=== PATIENT | female | born 1985 | race Caucasian/White ===

== ENCOUNTER 2016-04-09 16:21 | Emergency (ER) | payer OTHER ==
[~2016-04-09 16:21] MED LIST: ANBEEL MT; CELE10TA PO; CLEO300C2 PO; CLON0.5T PO; DEPA1TAB3 PO; FLEXERIL; KLON1TAB PO; LIDOCAINE PO; NALT50TA4 PO; NORCOTAB PO; OXYC-299 PO; OXYIR; REVI50TA2 PO; SENO8.6T2 PO; VICO5TAB
[2016-04-09] MEDS ORDERED: NORCO, ANEXSIA 5/325MG TABLET (HYDROcodone/ACETAMINOPHEN) As Ordered ONE (16:42)
--- NOTE | 2016-04-09 17:34 | REP ---
Clinical: Trauma with right sciatica. Technique: Axial noncontrast images from T12 through mid sacrum with coronal and sagittal re-formations. Findings: Normal alignment and lordosis is maintained. Lumbar vertebral bodies including transverse processes and posterior elements/spinous processes are intact and there is no evidence for acute fracture / compression injury or subluxation. Spinal canal is patent. No significant degenerative changes are appreciated by CT evaluation. Neural foramen appear patent bilaterally. Paravertebral soft tissues are normal. Impression: Normal noncontrast lumbosacral spine CT. No evidence for acute pathology or trauma/injury. Signed by Flash Mazariegos MD 04/09/2016 05:25 P
--- NOTE | 2016-04-09 17:48 | EDDOCDS ---
Physician Documentation [facility] Name: Diana Hernandez Age: 30 yrs Sex: Female : 1985 Arrival Date: 04/09/2016 Time: 16:21 Bed PR Private MD: Huang Arteaga Disposition: 04/09/16 17:27 Discharged to Home/Self Care. Impression: Low back pain, Fall (on) (from) other stairs and steps. - Condition is Stable. - Discharge Instructions: Back Pain, Adult, Sciatica. - Prescriptions for Tylenol 325 mg Oral Tablet - take 2 tablet by ORAL route every 6 hours as needed; 1 bottle. Medrol (Quinten) 4 mg Oral Tablets, Dose Pack - take 1 Pack by ORAL route as directed - follow package instructions; 1 packet. - Medication Reconciliation, Local Pharmacy Hours form. - Follow up: Private Physician; When: Call to arrange an appointment; Reason: Recheck today's complaints, Continuance of care. - Problem is new. - Symptoms are unchanged. Historical: - Allergies: Codeine Sulfatethroat swells; Ibuprofen (Anaphylaxis); Toradol (Hives); Tramadol HCl (Hives); - Home Meds: 1. Seroquel 400 mg oral tab 2 times per day 2. Xanax 0.25 mg Oral tab as needed out of Rx - PMHx: Seizures; uterine cancer; Sciatica; Depression; Chronic Back pain; Cellulitis Right Jaw; Bipolar disorder; Anxiety; Crohn's; Substance Abuse; - PSHx: Cholecystectomy; ; Hysterectomy; Laparoscopy; - Social history: No barriers to communication noted, The patient speaks fluent Congolese, Speaks appropriately for age, Smoking status: Patient uses tobacco products, light tobacco smoker. - Family history: Not pertinent. - : The pt / caregiver states he / she is not on anticoagulants. Home medication list is obtained from the patient. - Exposure Risk Screening:: None identified. 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 4 in. (162.56 cm) (R); Pain 9/10; 17:40 BP 119 / 71; Pulse 91; Resp 18; Temp 98.5(O); Pulse Ox 99% on R/A; kc3 16:22 Body Mass Index 30.90 (81.65 kg, 162.56 cm) ct3 MDM: 16:40 HYDROcodone-acetaminophen 5 mg-325 mg 1 tabs PO once ordered. ar2 16:41 CT Spine, Lumbar W/o Contrast Ordered. EDMS 16:48 Financial registration complete. gjb 16:49 [facility] Payment Agreement was scanned into [employer] and attached to record. gjb Administered Medications: 16:44 Drug: HYDROcodone-acetaminophen 1 tabs [hydrocodone 5 mg-acetaminophen 325 mg tablet (1 ms18 tabs)] Route: PO; Signatures: Dispatcher [employer] EDMS Dorian Santizo PA-C PA-C ar2 Josette Mckenna RN RN ms18 Perla Frias RN RN kc3 Judy Barbosab The chart was reviewed and I authenticate all verbal orders and agree with the evaluation and treatment provided.Attachments: 16:49 [facility] Payment Agreement gjb MTDTray
--- NOTE | 2016-04-09 17:49 | EDDOCDS ---
Nurse's Notes [facility] Name: Diana Hernandez Age: 30 yrs Sex: Female : 1985 Arrival Date: 04/09/2016 Time: 16:21 Bed PR Private MD: Huang Arteaga Diagnosis: Low back pain;Fall (on) (from) other stairs and steps Presentation: 04/09 16:23 Presenting complaint: Patient states: fall down 12 stairs with lower back pain x 10 kc3 days prior with pain radiating down right leg with numbness reported. Pt reports another fall x 1 week ago from standing position landing on back. No relief with Tylenol. Acute neurological deficits are not present. Mechanism of Injury: Fall down 12 steps. Adult Sepsis Screening: The patient does not have new or worsening altered mentation. Patient's respiratory rate is less than 22. Systolic blood pressure is greater than 100. Patient has a qSOFA score of 0- Negative Sepsis Screen. Suicide/Homicide risk assessment- the patient denies having any suicidal and/or homicidal ideations and does not present with any other emotional, behavioral or mental health complaints. Status: Patient is not a consulting services manager or dependent. Transition of care: patient was not received from another setting of care. 16:23 Acuity: PAULY Level 3 kc3 16:23 Method Of Arrival: Walkin/Carried/Asstd kc3 Triage Assessment: 16:28 General: Appears in no apparent distress, Behavior is appropriate for age, cooperative. kc3 Pain: Location: right leg and back Pain currently is 9 out of 10 on a pain scale. HIV screening NA for this visit Offered previously. Neurological: Level of Consciousness is awake, alert, obeys commands, Oriented to person, place, time. Respiratory: Respiratory effort is even, unlabored. Derm: Skin is pink, warm & dry. Musculoskeletal: Circulation, motion, and sensation intact Range of motion limited in right hip Reports pain in right leg and back. 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 Seroquel 400 mg oral tab 2 times per day 2. Xanax 0.25 mg Oral tab as needed out of Rx - PMHx: Seizures; uterine cancer; Sciatica; Depression; Chronic Back pain; Cellulitis Right Jaw; Bipolar disorder; Anxiety; Crohn's; Substance Abuse; - PSHx: Cholecystectomy; ; Hysterectomy; Laparoscopy; - Social history: No barriers to communication noted, The patient speaks fluent Greek, Speaks appropriately for age, Smoking status: Patient uses tobacco products, light tobacco smoker. - Family history: Not pertinent. - : The pt / caregiver states he / she is not on anticoagulants. Home medication list is obtained from the patient. - Exposure Risk Screening:: None identified. Screenin:44 Screening information is obtained from the patient. Fall risk: No risks identified. ms18 Assistance ADL's: requires no assistance with activities of daily living. Abuse/DV Screen: The patient / caregiver reports he/she is: not in a situation that causes fear, pain or injury. Nutritional screening: No deficits noted. Advance Directives: There is no living will. home support is adequate. Assessment: 16:44 General: Appears in no apparent distress, comfortable, Behavior is appropriate for age, ms18 cooperative. Pain: Location: back and right leg Pain currently is 9 out of 10 on a pain scale. Neurological: Level of Consciousness is awake, alert, obeys commands, Oriented to person, place, time, Moves all extremities. Gait is steady, Speech is normal. Respiratory: No deficits noted. Airway is patent Respiratory effort is even, unlabored. Derm: Skin is pink, warm & dry. 17:40 General: Appears in no apparent distress, comfortable, Behavior is appropriate for age, kc3 cooperative. Pain: Location: back. Neurological: Level of Consciousness is awake, alert, obeys commands. Respiratory: Respiratory effort is even, unlabored. Derm: Skin is pink, warm & dry. Vital Signs: 16:22 BP 109 / 62; Pulse 103; Resp 18; Temp 98.8(O); Pulse Ox 100% on R/A; Weight 81.65 kg ct3 (R); Height 5 ft. 4 in. (162.56 cm) (R); Pain 9/10; 17:40 BP 119 / 71; Pulse 91; Resp 18; Temp 98.5(O); Pulse Ox 99% on R/A; kc3 16:22 Body Mass Index 30.90 (81.65 kg, 162.56 cm) ct3 Vitals: 16:22 Log In Time: April 09, 2016 at 16:18. ct3 ED Course: 16:22 Patient visited by Ines Lebron PCA. ct3 16:22 Huang Arteaga is Private Physician. ct3 16:22 Patient moved to Waiting ct3 16:23 Patient moved to Pre RCE kc3 16:26 Triage Initiated kc3 16:30 Patient moved to Triage 2 kc3 16:32 Dorian Santizo PA-C is PHCP. ar2 16:32 Naa England MD is Attending Physician. ar2 16:32 Patient visited by Dorian Santizo PA-C. ar2 16:44 Patient moved to TR2 ms18 16:44 The patient / caregiver is instructed regarding the plan of care and ED course. Patient ms18 has correct armband on for positive identification. Property :Personal belongings accompany Pt. 16:44 No IV's were initiated during this patient's visit. No procedures done that require ms18 assistance. 16:49 [facility] Payment Agreement was scanned into [email or web address] and attached to record. gjb 17:27 Patient visited by Josette Mckenna RN. ms18 17:27 Patient moved to PR1 / 25 ms18 Administered Medications: 16:44 Drug: HYDROcodone-acetaminophen 1 tabs [hydrocodone 5 mg-acetaminophen 325 mg tablet (1 ms18 tabs)] Route: PO; Order Results: There are currently no results for this order. Outcome: 17:27 Discharge ordered by Provider. ar2 17:41 Discharge Assessment: Patient awake, alert and oriented x 3. No cognitive and/or kc3 functional deficits noted. Patient verbalized understanding of disposition instructions. patient administered narcotics - yes. Pt provided with safe discharge. The following High Risk Discharge criteria are identified: None. Condition: stable. Discharge instructions given to patient, Instructed on discharge instructions, follow up and referral plans. medication usage, Demonstrated understanding of instructions, medications, Pt was receptive of discharge instructions/ teaching. Prescriptions given X 2. No special radiology studies were completed. Property :Personal belongings accompany Pt. 17:48 Patient left the ED. ms18 Signatures: Dorian Santizo PA-C PA-C ar2 Ines Lebron PCA ELECTRONIC INDUCTION HARDENER ct3 Josette Mckenna,RN RN ms18 Perla Frias,RN RN kc3 Judy Barbosa Corrections: (The following items were deleted from the chart) 17:42 17:41 Discharge Assessment: Patient awake, alert and oriented x 3. No cognitive and/or kc3 functional deficits noted. Patient verbalized understanding of disposition instructions. patient administered narcotics - no kc3 MTDD
--- NOTE | 2016-04-11 18:49 | EDDOCDS ---
Nurse's Notes [facility] Name: Diana Hernandez Age: 30 yrs Sex: Female : 1985 Arrival Date: 04/09/2016 Time: 16:21 Bed PR Private MD: Huang Arteaga Diagnosis: Low back pain;Fall (on) (from) other stairs and steps Presentation: 04/09 16:23 Presenting complaint: Patient states: fall down 12 stairs with lower back pain x 10 kc3 days prior with pain radiating down right leg with numbness reported. Pt reports another fall x 1 week ago from standing position landing on back. No relief with Tylenol. Acute neurological deficits are not present. Mechanism of Injury: Fall down 12 steps. Adult Sepsis Screening: The patient does not have new or worsening altered mentation. Patient's respiratory rate is less than 22. Systolic blood pressure is greater than 100. Patient has a qSOFA score of 0- Negative Sepsis Screen. Suicide/Homicide risk assessment- the patient denies having any suicidal and/or homicidal ideations and does not present with any other emotional, behavioral or mental health complaints. Status: Patient is not a loan services professional or dependent. Transition of care: patient was not received from another setting of care. 16:23 Acuity: PAULY Level 3 kc3 16:23 Method Of Arrival: Walkin/Carried/Asstd kc3 Triage Assessment: 16:28 General: Appears in no apparent distress, Behavior is appropriate for age, cooperative. kc3 Pain: Location: right leg and back Pain currently is 9 out of 10 on a pain scale. HIV screening NA for this visit Offered previously. Neurological: Level of Consciousness is awake, alert, obeys commands, Oriented to person, place, time. Respiratory: Respiratory effort is even, unlabored. Derm: Skin is pink, warm & dry. Musculoskeletal: Circulation, motion, and sensation intact Range of motion limited in right hip Reports pain in right leg and back. 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 Seroquel 400 mg oral tab 2 times per day 2. Xanax 0.25 mg Oral tab as needed out of Rx - PMHx: Seizures; uterine cancer; Sciatica; Depression; Chronic Back pain; Cellulitis Right Jaw; Bipolar disorder; Anxiety; Crohn's; Substance Abuse; - PSHx: Cholecystectomy; ; Hysterectomy; Laparoscopy; - Social history: No barriers to communication noted, The patient speaks fluent Faroese, Speaks appropriately for age, Smoking status: Patient uses tobacco products, light tobacco smoker. - Family history: Not pertinent. - : The pt / caregiver states he / she is not on anticoagulants. Home medication list is obtained from the patient. - Exposure Risk Screening:: None identified. Screenin:44 Screening information is obtained from the patient. Fall risk: No risks identified. ms18 Assistance ADL's: requires no assistance with activities of daily living. Abuse/DV Screen: The patient / caregiver reports he/she is: not in a situation that causes fear, pain or injury. Nutritional screening: No deficits noted. Advance Directives: There is no living will. home support is adequate. Assessment: 16:44 General: Appears in no apparent distress, comfortable, Behavior is appropriate for age, ms18 cooperative. Pain: Location: back and right leg Pain currently is 9 out of 10 on a pain scale. Neurological: Level of Consciousness is awake, alert, obeys commands, Oriented to person, place, time, Moves all extremities. Gait is steady, Speech is normal. Respiratory: No deficits noted. Airway is patent Respiratory effort is even, unlabored. Derm: Skin is pink, warm & dry. 17:40 General: Appears in no apparent distress, comfortable, Behavior is appropriate for age, kc3 cooperative. Pain: Location: back. Neurological: Level of Consciousness is awake, alert, obeys commands. Respiratory: Respiratory effort is even, unlabored. Derm: Skin is pink, warm & dry. Vital Signs: 16:22 BP 109 / 62; Pulse 103; Resp 18; Temp 98.8(O); Pulse Ox 100% on R/A; Weight 81.65 kg ct3 (R); Height 5 ft. 4 in. (162.56 cm) (R); Pain 9/10; 17:40 BP 119 / 71; Pulse 91; Resp 18; Temp 98.5(O); Pulse Ox 99% on R/A; kc3 16:22 Body Mass Index 30.90 (81.65 kg, 162.56 cm) ct3 Vitals: 16:22 Log In Time: April 09, 2016 at 16:18. ct3 ED Course: 16:22 Patient visited by Ines Lebron PCA. ct3 16:22 Huang Arteaga is Private Physician. ct3 16:22 Patient moved to Waiting ct3 16:23 Patient moved to Pre RCE kc3 16:26 Triage Initiated kc3 16:30 Patient moved to Triage 2 kc3 16:32 Dorian Santizo PA-C is PHCP. ar2 16:32 Naa England MD is Attending Physician. ar2 16:32 Patient visited by Dorian Santizo PA-C. ar2 16:44 Patient moved to TR2 ms18 16:44 The patient / caregiver is instructed regarding the plan of care and ED course. Patient ms18 has correct armband on for positive identification. Property :Personal belongings accompany Pt. 16:44 No IV's were initiated during this patient's visit. No procedures done that require ms18 assistance. 16:49 [facility] Payment Agreement was scanned into [employer] and attached to record. gjb 17:27 Patient visited by Josette Mckenna RN. ms18 17:27 Patient moved to PR ms18 18:18 CT Spine, Lumbar W/o Contrast Returned. EDMS 04/10 11:58 T-Sheet-- Draft Copy was scanned into [employer] and attached to record. gb 11:58 Radiology Report was scanned into [employer] and attached to record. gb Administered Medications: 04/09 16:44 Drug: HYDROcodone-acetaminophen 1 tabs [hydrocodone 5 mg-acetaminophen 325 mg tablet (1 ms18 tabs)] Route: PO; Order Results: Radiology Order: CT Spine, Lumbar W/o Contrast Test: CT Spine, Lumbar W/o Contrast REASON FOR EXAMINATION: trauma, right sciatica; Clinical: Trauma with right sciatica.; ; Technique: Axial noncontrast images from T12 through mid sacrum with coronal and; sagittal re-formations.; ; Findings:; Normal alignment and lordosis is maintained. Lumbar vertebral bodies including; transverse processes and posterior elements/spinous processes are intact and; there is no evidence for acute fracture / compression injury or subluxation.; Spinal canal is patent. No significant degenerative changes are appreciated by; CT evaluation. Neural foramen appear patent bilaterally. Paravertebral soft; tissues are normal.; ; Impression:; Normal noncontrast lumbosacral spine CT.; No evidence for acute pathology or trauma/injury.; ; ; Signed by; Flash Mazariegos MD 04/09/2016 05:25 P; Outcome: 17:27 Discharge ordered by Provider. ar2 17:41 Discharge Assessment: Patient awake, alert and oriented x 3. No cognitive and/or kc3 functional deficits noted. Patient verbalized understanding of disposition instructions. patient administered narcotics - yes. Pt provided with safe discharge. The following High Risk Discharge criteria are identified: None. Condition: stable. Discharge instructions given to patient, Instructed on discharge instructions, follow up and referral plans. medication usage, Demonstrated understanding of instructions, medications, Pt was receptive of discharge instructions/ teaching. Prescriptions given X 2. No special radiology studies were completed. Property :Personal belongings accompany Pt. 17:48 Patient left the ED. ms18 Signatures: Dispatcher [employer] EDMS Radha Juarez, Reg Reg gb Dorian Santizo PA-C PA-C ar2 Ines Lebron, METER ENGINEER METER ENGINEER ct3 Josette Mckenna RN RN ms18 Perla Frias,TALA RN kc3 Judy Barbosa Corrections: (The following items were deleted from the chart) 17:42 17:41 Discharge Assessment: Patient awake, alert and oriented x 3. No cognitive and/or kc3 functional deficits noted. Patient verbalized understanding of disposition instructions. patient administered narcotics - no kc3 Chart Complete MTDD
--- NOTE | 2016-04-11 18:49 | EDDOCDS ---
Physician Documentation [facility] Name: Diana Hernandez Age: 30 yrs Sex: Female : 1985 Arrival Date: 04/09/2016 Time: 16:21 Bed PR Private MD: Huang Arteaga Disposition: 04/09/16 17:27 Discharged to Home/Self Care. Impression: Low back pain, Fall (on) (from) other stairs and steps. - Condition is Stable. - Discharge Instructions: Back Pain, Adult, Sciatica. - Prescriptions for Tylenol 325 mg Oral Tablet - take 2 tablet by ORAL route every 6 hours as needed; 1 bottle. Medrol (Quinten) 4 mg Oral Tablets, Dose Pack - take 1 Pack by ORAL route as directed - follow package instructions; 1 packet. - Medication Reconciliation, Local Pharmacy Hours form. - Follow up: Private Physician; When: Call to arrange an appointment; Reason: Recheck today's complaints, Continuance of care. - Problem is new. - Symptoms are unchanged. Historical: - Allergies: Codeine Sulfatethroat swells; Ibuprofen (Anaphylaxis); Toradol (Hives); Tramadol HCl (Hives); - Home Meds: 1. Seroquel 400 mg oral tab 2 times per day 2. Xanax 0.25 mg Oral tab as needed out of Rx - PMHx: Seizures; uterine cancer; Sciatica; Depression; Chronic Back pain; Cellulitis Right Jaw; Bipolar disorder; Anxiety; Crohn's; Substance Abuse; - PSHx: Cholecystectomy; ; Hysterectomy; Laparoscopy; - Social history: No barriers to communication noted, The patient speaks fluent Croatian, Speaks appropriately for age, Smoking status: Patient uses tobacco products, light tobacco smoker. - Family history: Not pertinent. - : The pt / caregiver states he / she is not on anticoagulants. Home medication list is obtained from the patient. - Exposure Risk Screening:: None identified. 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 4 in. (162.56 cm) (R); Pain 9/10; 17:40 BP 119 / 71; Pulse 91; Resp 18; Temp 98.5(O); Pulse Ox 99% on R/A; kc3 16:22 Body Mass Index 30.90 (81.65 kg, 162.56 cm) ct3 MDM: 16:40 HYDROcodone-acetaminophen 5 mg-325 mg 1 tabs PO once ordered. ar2 16:41 CT Spine, Lumbar W/o Contrast Ordered. EDMS 16:48 Financial registration complete. [facility] 16:49 [facility] Payment Agreement was scanned into [employer] and attached to record. b 04/10 11:58 T-Sheet-- Draft Copy was scanned into [employer] and attached to record. gb 11:58 Radiology Report was scanned into [employer] and attached to record. gb Administered Medications: 04/09 16:44 Drug: HYDROcodone-acetaminophen 1 tabs [hydrocodone 5 mg-acetaminophen 325 mg tablet (1 ms18 tabs)] Route: PO; Signatures: Dispatcher [employer] EDMS Radha Juarez, Reg Reg gb Dorian Santizo, PA-Luanne PA-C ar2 Josette MckennaRN RN ms18 Perla Frias,TALA RN kc3 Judy Barbosab The chart was reviewed and I authenticate all verbal orders and agree with the evaluation and treatment provided.Attachments: 16:49 [facility] Payment Agreement [facility] 04/10 11:58 T-Sheet-- Draft Copy gb Chart Complete MTDD
--- NOTE | 2016-04-11 18:49 | EDDOCDS ---
Physician Documentation [facility] Name: Diana Hernandez Age: 30 yrs Sex: Female : 1985 Arrival Date: 04/09/2016 Time: 16:21 Bed PR Private MD: Huang Arteaga Disposition: 04/09/16 17:27 Discharged to Home/Self Care. Impression: Low back pain, Fall (on) (from) other stairs and steps. - Condition is Stable. - Discharge Instructions: Back Pain, Adult, Sciatica. - Prescriptions for Tylenol 325 mg Oral Tablet - take 2 tablet by ORAL route every 6 hours as needed; 1 bottle. Medrol (Quinten) 4 mg Oral Tablets, Dose Pack - take 1 Pack by ORAL route as directed - follow package instructions; 1 packet. - Medication Reconciliation, Local Pharmacy Hours form. - Follow up: Private Physician; When: Call to arrange an appointment; Reason: Recheck today's complaints, Continuance of care. - Problem is new. - Symptoms are unchanged. Historical: - Allergies: Codeine Sulfatethroat swells; Ibuprofen (Anaphylaxis); Toradol (Hives); Tramadol HCl (Hives); - Home Meds: 1. Seroquel 400 mg oral tab 2 times per day 2. Xanax 0.25 mg Oral tab as needed out of Rx - PMHx: Seizures; uterine cancer; Sciatica; Depression; Chronic Back pain; Cellulitis Right Jaw; Bipolar disorder; Anxiety; Crohn's; Substance Abuse; - PSHx: Cholecystectomy; ; Hysterectomy; Laparoscopy; - Social history: No barriers to communication noted, The patient speaks fluent Monegasque, Speaks appropriately for age, Smoking status: Patient uses tobacco products, light tobacco smoker. - Family history: Not pertinent. - : The pt / caregiver states he / she is not on anticoagulants. Home medication list is obtained from the patient. - Exposure Risk Screening:: None identified. 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 4 in. (162.56 cm) (R); Pain 9/10; 17:40 BP 119 / 71; Pulse 91; Resp 18; Temp 98.5(O); Pulse Ox 99% on R/A; kc3 16:22 Body Mass Index 30.90 (81.65 kg, 162.56 cm) ct3 MDM: 16:40 HYDROcodone-acetaminophen 5 mg-325 mg 1 tabs PO once ordered. ar2 16:41 CT Spine, Lumbar W/o Contrast Ordered. EDMS 16:48 Financial registration complete. [facility] 16:49 [facility] Payment Agreement was scanned into [facility] and attached to record. b 04/10 11:58 T-Sheet-- Draft Copy was scanned into [facility] and attached to record. gb 11:58 Radiology Report was scanned into [facility] and attached to record. gb Administered Medications: 04/09 16:44 Drug: HYDROcodone-acetaminophen 1 tabs [hydrocodone 5 mg-acetaminophen 325 mg tablet (1 ms18 tabs)] Route: PO; Signatures: Dispatcher [employer] EDMS Radha Juarez, Reg Reg gb Dorian Santizo, PA-Luanne PA-C ar2 Josette MckennaRN RN ms18 Perla Frias,TALA RN kc3 Judy Barbosab The chart was reviewed and I authenticate all verbal orders and agree with the evaluation and treatment provided.Attachments: 16:49 [facility] Payment Agreement [facility] 04/10 11:58 T-Sheet-- Draft Copy gb Chart Complete MTDD
== END 2016-04-09 17:48 | disposition home or self-care (01) ==
LOC: M ED 16:21
DX: M54.30 Sciatica, unspecified side (principal); R56.9 Unspecified convulsions; F31.9 Bipolar disorder, unspecified; K50.90 Crohn's disease, unspecified, without complications; F19.10 Other psychoactive substance abuse, uncomplicated; Z79.899 Other long term (current) drug therapy; Z88.8 Allergy status to other drugs, medicaments and biological substances; Z88.6 Allergy status to analgesic agent; Z85.42 Personal history of malignant neoplasm of other parts of uterus

== ENCOUNTER 2016-04-11 21:00 | Emergency (ER) | payer OTHER ==
[2016-04-11] MEDS ORDERED: PHENAZOPYRIDINE 100 MG TAB As Ordered ONE (23:00)
[2016-04-11] MEDS ORDERED: BACTRIM 160MG/800MG DS TAB As Ordered ONE (23:00)
--- NOTE | 2016-04-11 23:24 | EDDOCDS ---
Nurse's Notes [facility] Name: Diana Hernandez Age: 30 yrs Sex: Female : 1985 Arrival Date: 04/11/2016 Time: 21:00 Bed TR8 Private MD: [facility] Diagnosis: Urinary tract infection, site not specified Presentation: 04/11 21:04 Presenting complaint: Patient states: lower abdominal pain, urgency/hesitancy with rs3 urination/ dark brown bleeding since yesterday. H/o Crohns'. Adult Sepsis Screening: The patient does not have new or worsening altered mentation. Patient's respiratory rate is less than 22. Systolic blood pressure is greater than 100. Patient has a qSOFA score of 0- Negative Sepsis Screen. Suicide/Homicide risk assessment- the patient denies having any suicidal and/or homicidal ideations and does not present with any other emotional, behavioral or mental health complaints. Status: Patient is not a services executive or dependent. Transition of care: patient was not received from another setting of care. 21:04 Acuity: PAULY Level 3 rs3 21:04 Method Of Arrival: Walkin/Carried/Asstd rs3 Triage Assessment: 21:07 General: Appears in no apparent distress. Pain: Location: pelvis. HIV screening NA for rs3 this visit Offered previously. 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 Seroquel 400 mg Oral tab 2 times per day 2. Xanax 0.25 mg Oral tab as needed out of Rx 3. tizanidine 2 mg oral tab 1 tabs every 3 hours as needed 4. lidocaine jelly 1 application three times a day 5. capsaicin topical topical 3 times per day 6. dicyclomine 10 mg Oral cap 1 cap three times per day as needed - PMHx: Anxiety; Bipolar disorder; Cellulitis Right Jaw; Chronic Back pain; Crohn's; Sciatica; Depression; Seizures; Substance Abuse; uterine cancer; - PSHx: Cholecystectomy; ; Hysterectomy; Laparoscopy; - Social history: Smoking status: Patient uses tobacco products, light tobacco smoker. No barriers to communication noted, The patient speaks fluent Luxembourgish. - Family history: Not pertinent. - : The pt / caregiver states he / she is not on anticoagulants. Home medication list is obtained from the patient. - Exposure Risk Screening:: None identified. Screenin:18 Screening information is obtained from the patient. Fall risk: No risks identified. ld5 Assistance ADL's: requires no assistance with activities of daily living. Abuse/DV Screen: The patient / caregiver reports he/she is: not in a situation that causes fear, pain or injury. Nutritional screening: No deficits noted. Advance Directives: Currently, there is no health care proxy. home support is adequate. Assessment: 22:28 General: "I can't pee. I tried earlier and only a little bit came out. I can't go. I ld5 think it's my Crohn's.". 23:18 General: Pt able to provide urine specimen. Medicated per orders. Medications explained ld5 to pt. Pt questioning if these meds would be ok with her other medications. When asked about pt's current medications, pt opened up a book which contained a list of medications. Meds added to pt's list. Discussed with provider to make sure no interactions with newly prescribed meds. Pt discharged. Vital Signs: 21:02 BP 113 / 69; Pulse 75; Resp 18 S; Temp 96.9(O); Pulse Ox 93% on R/A; Weight 81.65 kg gr2 (R); Height 5 ft. 5 in. (165.10 cm) (R); Pain 3/10; 21:02 Body Mass Index 29.95 (81.65 kg, 165.10 cm) gr2 Vitals: 21:02 Log In Time: April 11, 2016 at 21:02. gr2 ED Course: 21:01 Patient visited by Kimberly Maldonado. gr2 21:01 Patient moved to Waiting gr2 21:02 [facility] is Private Physician. gr2 21:03 Patient visited by Kimberly Maldonado. gr2 21:03 Patient moved to Pre RCE gr2 21:07 Triage Initiated rs3 22:28 Patient moved to Triage 2 cz 22:29 Patient visited by Sandrine Silva RN. ld5 22:41 Romeo Velez PA is PHCP. btw 22:41 Damian Rooney DO is Attending Physician. btw 22:41 Patient visited by Romeo Velez PA. btw 23:05 [facility] is Referral Physician. btw 23:06 Urine Culture Sent. ld5 23:16 Patient moved to TR8 ld5 23:18 The patient / caregiver is instructed regarding the plan of care and ED course. ld5 23:18 No IV's were initiated during this patient's visit. No procedures done that require ld5 assistance. Urine collected. Clean catch specimen. Urine specimen sent to lab. 23:22 [facility] Payment Agreement was scanned into [employer] and attached to record. pm4 23:23 Patient visited by Sandrine Silva RN. ld5 Administered Medications: 23:02 Drug: Trimethoprim-Sulfamethoxazole 1 tabs [sulfamethoxazole 800 mg-trimethoprim 160 mg cz tablet (1 tabs)] Route: PO; 23:02 Drug: Phenazopyridine 200 mg [phenazopyridine 100 mg tablet (2 tabs)] Route: PO; cz Point of Care Testing: Urine Dip: 23:06 pH: 5; ; Specific [place]: 1.025; Ketones: Small; Glucose: Negative; Protein: Trace; ld5 Leukocytes: Trace; Nitrite: Positive (++) ; Blood: Small (+); Bilirubin: Negative ; Urobilinogen: Normal Ranges: Order Results: There are currently no results for this order. Outcome: 23:06 Discharge ordered by Provider. btw 23:18 Discharge Assessment: Patient awake, alert and oriented x 3. No cognitive and/or ld5 functional deficits noted. Patient verbalized understanding of disposition instructions. patient administered narcotics - no. The following High Risk Discharge criteria are identified: None. Discharged to home ambulatory. Condition: stable. Discharge instructions given to patient, Instructed on discharge instructions, follow up and referral plans. medication usage, Demonstrated understanding of instructions, medications, Pt was receptive of discharge instructions/ teaching. Prescriptions given X 2. Instructed on Following up with PCP enforced multiple times with pt. No special radiology studies were completed. Property :Personal belongings accompany Pt. 23:23 Patient left the ED. ld5 Signatures: Diaz Xavier RN RN cz Soosairaj, Rosemary, RN RN rs3 Romeo Velez PA PA btw Sandrine Silva RN RN ld5 Kimberly Maldonado gr2 Jethro Lou, Reg Reg pm4 JULIOD
--- NOTE | 2016-04-11 23:24 | EDDOCDS ---
Physician Documentation [facility] Name: Diana Hernandez Age: 30 yrs Sex: Female : 1985 Arrival Date: 04/11/2016 Time: 21:00 Bed TR8 Private MD: [facility] Disposition: 04/11/16 23:06 Discharged to Home/Self Care. Impression: Urinary tract infection, site not specified. - Condition is Stable. - Discharge Instructions: Urinary Tract Infection, Gxuz-ub-[id number]. - Prescriptions for Pyridium 200 mg Oral Tablet - take 1 tablet by ORAL route every 8 hours for 3 days; 9 tablet. Bactrim DS 800- 160 mg Oral Tablet - take 1 tablet by ORAL route every 12 hours for 10 days; 20 tablet. - Medication Reconciliation, Local Pharmacy Hours form. - Follow up: [facility]; When: Call to arrange an appointment; Reason: Further diagnostic work-up, Recheck today's complaints, Continuance of care. - Problem is new. - Symptoms are unchanged. Historical: - Allergies: Codeine Sulfatethroat swells; Ibuprofen (Anaphylaxis); Toradol (Hives); Tramadol HCl (Hives); - Home Meds: 1. Seroquel 400 mg Oral tab 2 times per day 2. Xanax 0.25 mg Oral tab as needed out of Rx 3. tizanidine 2 mg oral tab 1 tabs every 3 hours as needed 4. lidocaine jelly 1 application three times a day 5. capsaicin topical topical 3 times per day 6. dicyclomine 10 mg Oral cap 1 cap three times per day as needed - PMHx: Anxiety; Bipolar disorder; Cellulitis Right Jaw; Chronic Back pain; Crohn's; Sciatica; Depression; Seizures; Substance Abuse; uterine cancer; - PSHx: Cholecystectomy; ; Hysterectomy; Laparoscopy; - Social history: Smoking status: Patient uses tobacco products, light tobacco smoker. No barriers to communication noted, The patient speaks fluent [place] Rican. - Family history: Not pertinent. - : The pt / caregiver states he / she is not on anticoagulants. Home medication list is obtained from the patient. - Exposure Risk Screening:: None identified. 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 5 in. (165.10 cm) (R); Pain 3/10; 21:02 Body Mass Index 29.95 (81.65 kg, 165.10 cm) gr2 MDM: 21:12 Urine Culture Ordered. EDMS 22:57 Trimethoprim-Sulfamethoxazole 160 mg-800 mg (DS) 1 tabs PO once ordered. btw 22:57 Phenazopyridine 200 mg PO once ordered. btw 22:57 Urine Dip ordered. btw 23:22 Financial registration complete. pm4 23:22 [facility] Payment Agreement was scanned into [employer] and attached to record. pm4 Point of Care Testing: Urine Dip: 23:06 pH: 5; ; Specific [place]: 1.025; Ketones: Small; Glucose: Negative; Protein: Trace; ld5 Leukocytes: Trace; Nitrite: Positive (++) ; Blood: Small (+); Bilirubin: Negative ; Urobilinogen: Normal Ranges: Administered Medications: 23:02 Drug: Trimethoprim-Sulfamethoxazole 1 tabs [sulfamethoxazole 800 mg-trimethoprim 160 mg cz tablet (1 tabs)] Route: PO; 23:02 Drug: Phenazopyridine 200 mg [phenazopyridine 100 mg tablet (2 tabs)] Route: PO; cz Signatures: Dispatcher [employer] EDMS Cora Marino RN RN rs3 Romeo Velez PA PA btw Sandrine Silva RN RN ld5 Jethro Lou Reg Reg pm4 Diaz Xavier RN cz The chart was reviewed and I authenticate all verbal orders and agree with the evaluation and treatment provided.Corrections: (The following items were deleted from the chart) 21:11 21:11 UCG by Nursing ordered. btw btw 22:59 21:12 URINALYSIS+LAB ordered. EDMS EDMS Attachments: 23:22 [facility] Payment Agreement pm4 MTDD
--- NOTE | 2016-04-14 00:24 | EDDOCDS ---
Physician Documentation [facility] Name: Diana Hernandez Age: 30 yrs Sex: Female : 1985 Arrival Date: 04/11/2016 Time: 21:00 Bed TR8 Private MD: [facility] Disposition: 04/11/16 23:06 Discharged to Home/Self Care. Impression: Urinary tract infection, site not specified. - Condition is Stable. - Discharge Instructions: Urinary Tract Infection, [id number]. - Prescriptions for Pyridium 200 mg Oral Tablet - take 1 tablet by ORAL route every 8 hours for 3 days; 9 tablet. Bactrim DS 800- 160 mg Oral Tablet - take 1 tablet by ORAL route every 12 hours for 10 days; 20 tablet. - Medication Reconciliation, Local Pharmacy Hours form. - Follow up: [facility]; When: Call to arrange an appointment; Reason: Further diagnostic work-up, Recheck today's complaints, Continuance of care. - Problem is new. - Symptoms are unchanged. Historical: - Allergies: Codeine Sulfatethroat swells; Ibuprofen (Anaphylaxis); Toradol (Hives); Tramadol HCl (Hives); - Home Meds: 1. Seroquel 400 mg Oral tab 2 times per day 2. Xanax 0.25 mg Oral tab as needed out of Rx 3. tizanidine 2 mg oral tab 1 tabs every 3 hours as needed 4. lidocaine jelly 1 application three times a day 5. capsaicin topical topical 3 times per day 6. dicyclomine 10 mg Oral cap 1 cap three times per day as needed - PMHx: Anxiety; Bipolar disorder; Cellulitis Right Jaw; Chronic Back pain; Crohn's; Sciatica; Depression; Seizures; Substance Abuse; uterine cancer; - PSHx: Cholecystectomy; ; Hysterectomy; Laparoscopy; - Social history: Smoking status: Patient uses tobacco products, light tobacco smoker. No barriers to communication noted, The patient speaks fluent Lebanese. - Family history: Not pertinent. - : The pt / caregiver states he / she is not on anticoagulants. Home medication list is obtained from the patient. - Exposure Risk Screening:: None identified. 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 5 in. (165.10 cm) (R); Pain 3/10; 21:02 Body Mass Index 29.95 (81.65 kg, 165.10 cm) gr2 MDM: 21:12 Urine Culture Ordered. EDMS 22:57 Trimethoprim-Sulfamethoxazole 160 mg-800 mg (DS) 1 tabs PO once ordered. btw 22:57 Phenazopyridine 200 mg PO once ordered. btw 22:57 Urine Dip ordered. btw 23:22 Financial registration complete. pm4 23: [facility] Payment Agreement was scanned into [employer] and attached to record. pm4 04/12 12:13 T-Sheet-- Draft Copy was scanned into [employer] and attached to record. Point of Care Testing: Urine Dip: 04/11 23:06 pH: 5; ; Specific [place]: 1.025; Ketones: Small; Glucose: Negative; Protein: Trace; ld5 Leukocytes: Trace; Nitrite: Positive (++) ; Blood: Small (+); Bilirubin: Negative ; Urobilinogen: Normal Ranges: Administered Medications: 23:02 Drug: Trimethoprim-Sulfamethoxazole 1 tabs [sulfamethoxazole 800 mg-trimethoprim 160 mg cz tablet (1 tabs)] Route: PO; 23:02 Drug: Phenazopyridine 200 mg [phenazopyridine 100 mg tablet (2 tabs)] Route: PO; cz Signatures: Dispatcher MedHo EDMS Radha Juarez, Reg Reg gb Cora MarinoRN RN rs3 Romeo Velez PA PA btw Sandrine Silva RN RN ld5 Jethro Lou, Reg Reg pm4 Diaz Xavier RN cz The chart was reviewed and I authenticate all verbal orders and agree with the evaluation and treatment provided.Corrections: (The following items were deleted from the chart) 21:11 21:11 UCG by Nursing ordered. btw btw 22:59 21:12 URINALYSIS+LAB ordered. EDMS EDMS Attachments: 23:22 [facility] Payment Agreement pm4 04/12 12:13 T-Sheet-- Draft Copy gb Chart Complete MTDD
--- NOTE | 2016-04-14 00:24 | EDDOCDS ---
Physician Documentation [facility] Name: Diana Hernandez Age: 30 yrs Sex: Female : 1985 Arrival Date: 04/11/2016 Time: 21:00 Bed TR8 Private MD: [facility] Disposition: 04/11/16 23:06 Discharged to Home/Self Care. Impression: Urinary tract infection, site not specified. - Condition is Stable. - Discharge Instructions: Urinary Tract Infection, [id number]. - Prescriptions for Pyridium 200 mg Oral Tablet - take 1 tablet by ORAL route every 8 hours for 3 days; 9 tablet. Bactrim DS 800- 160 mg Oral Tablet - take 1 tablet by ORAL route every 12 hours for 10 days; 20 tablet. - Medication Reconciliation, Local Pharmacy Hours form. - Follow up: [facility]; When: Call to arrange an appointment; Reason: Further diagnostic work-up, Recheck today's complaints, Continuance of care. - Problem is new. - Symptoms are unchanged. Historical: - Allergies: Codeine Sulfatethroat swells; Ibuprofen (Anaphylaxis); Toradol (Hives); Tramadol HCl (Hives); - Home Meds: 1. Seroquel 400 mg Oral tab 2 times per day 2. Xanax 0.25 mg Oral tab as needed out of Rx 3. tizanidine 2 mg oral tab 1 tabs every 3 hours as needed 4. lidocaine jelly 1 application three times a day 5. capsaicin topical topical 3 times per day 6. dicyclomine 10 mg Oral cap 1 cap three times per day as needed - PMHx: Anxiety; Bipolar disorder; Cellulitis Right Jaw; Chronic Back pain; Crohn's; Sciatica; Depression; Seizures; Substance Abuse; uterine cancer; - PSHx: Cholecystectomy; ; Hysterectomy; Laparoscopy; - Social history: Smoking status: Patient uses tobacco products, light tobacco smoker. No barriers to communication noted, The patient speaks fluent Argentine. - Family history: Not pertinent. - : The pt / caregiver states he / she is not on anticoagulants. Home medication list is obtained from the patient. - Exposure Risk Screening:: None identified. 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 5 in. (165.10 cm) (R); Pain 3/10; 21:02 Body Mass Index 29.95 (81.65 kg, 165.10 cm) gr2 MDM: 21:12 Urine Culture Ordered. EDMS 22:57 Trimethoprim-Sulfamethoxazole 160 mg-800 mg (DS) 1 tabs PO once ordered. btw 22:57 Phenazopyridine 200 mg PO once ordered. btw 22:57 Urine Dip ordered. btw 23:22 Financial registration complete. pm4 23: [facility] Payment Agreement was scanned into [employer] and attached to record. pm4 04/12 12:13 T-Sheet-- Draft Copy was scanned into [employer] and attached to record. Point of Care Testing: Urine Dip: 04/11 23:06 pH: 5; ; Specific [place]: 1.025; Ketones: Small; Glucose: Negative; Protein: Trace; ld5 Leukocytes: Trace; Nitrite: Positive (++) ; Blood: Small (+); Bilirubin: Negative ; Urobilinogen: Normal Ranges: Administered Medications: 23:02 Drug: Trimethoprim-Sulfamethoxazole 1 tabs [sulfamethoxazole 800 mg-trimethoprim 160 mg cz tablet (1 tabs)] Route: PO; 23:02 Drug: Phenazopyridine 200 mg [phenazopyridine 100 mg tablet (2 tabs)] Route: PO; cz Signatures: Dispatcher MedHo EDMS Radha Juarez, Reg Reg gb Cora MarinoRN RN rs3 Romeo Velez PA PA btw Sandrine Silva RN RN ld5 Jethro Lou, Reg Reg pm4 iDaz Xavier RN cz The chart was reviewed and I authenticate all verbal orders and agree with the evaluation and treatment provided.Corrections: (The following items were deleted from the chart) 21:11 21:11 UCG by Nursing ordered. btw btw 22:59 21:12 URINALYSIS+LAB ordered. EDMS EDMS Attachments: 23:22 [facility] Payment Agreement pm4 04/12 12:13 T-Sheet-- Draft Copy gb Chart Complete MTDD
--- NOTE | 2016-04-14 00:24 | EDDOCDS ---
Nurse's Notes [facility] Name: Diana Hernandez Age: 30 yrs Sex: Female : 1985 Arrival Date: 04/11/2016 Time: 21:00 Bed TR8 Private MD: [facility] Diagnosis: Urinary tract infection, site not specified Presentation: 04/11 21:04 Presenting complaint: Patient states: lower abdominal pain, urgency/hesitancy with rs3 urination/ dark brown bleeding since yesterday. H/o Crohns'. Adult Sepsis Screening: The patient does not have new or worsening altered mentation. Patient's respiratory rate is less than 22. Systolic blood pressure is greater than 100. Patient has a qSOFA score of 0- Negative Sepsis Screen. Suicide/Homicide risk assessment- the patient denies having any suicidal and/or homicidal ideations and does not present with any other emotional, behavioral or mental health complaints. Status: Patient is not a vehicle service agent or dependent. Transition of care: patient was not received from another setting of care. 21:04 Acuity: PAULY Level 3 rs3 21:04 Method Of Arrival: Walkin/Carried/Asstd rs3 Triage Assessment: 21:07 General: Appears in no apparent distress. Pain: Location: pelvis. HIV screening NA for rs3 this visit Offered previously. 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 Seroquel 400 mg Oral tab 2 times per day 2. Xanax 0.25 mg Oral tab as needed out of Rx 3. tizanidine 2 mg oral tab 1 tabs every 3 hours as needed 4. lidocaine jelly 1 application three times a day 5. capsaicin topical topical 3 times per day 6. dicyclomine 10 mg Oral cap 1 cap three times per day as needed - PMHx: Anxiety; Bipolar disorder; Cellulitis Right Jaw; Chronic Back pain; Crohn's; Sciatica; Depression; Seizures; Substance Abuse; uterine cancer; - PSHx: Cholecystectomy; ; Hysterectomy; Laparoscopy; - Social history: Smoking status: Patient uses tobacco products, light tobacco smoker. No barriers to communication noted, The patient speaks fluent Telugu. - Family history: Not pertinent. - : The pt / caregiver states he / she is not on anticoagulants. Home medication list is obtained from the patient. - Exposure Risk Screening:: None identified. Screenin:18 Screening information is obtained from the patient. Fall risk: No risks identified. ld5 Assistance ADL's: requires no assistance with activities of daily living. Abuse/DV Screen: The patient / caregiver reports he/she is: not in a situation that causes fear, pain or injury. Nutritional screening: No deficits noted. Advance Directives: Currently, there is no health care proxy. home support is adequate. Assessment: 22:28 General: "I can't pee. I tried earlier and only a little bit came out. I can't go. I ld5 think it's my Crohn's.". 23:18 General: Pt able to provide urine specimen. Medicated per orders. Medications explained ld5 to pt. Pt questioning if these meds would be ok with her other medications. When asked about pt's current medications, pt opened up a book which contained a list of medications. Meds added to pt's list. Discussed with provider to make sure no interactions with newly prescribed meds. Pt discharged. Vital Signs: 21:02 BP 113 / 69; Pulse 75; Resp 18 S; Temp 96.9(O); Pulse Ox 93% on R/A; Weight 81.65 kg gr2 (R); Height 5 ft. 5 in. (165.10 cm) (R); Pain 3/10; 21:02 Body Mass Index 29.95 (81.65 kg, 165.10 cm) gr2 Vitals: 21:02 Log In Time: April 11, 2016 at 21:02. gr2 ED Course: 21:01 Patient visited by Kimberly Maldonado. gr2 21:01 Patient moved to Waiting gr2 21:02 [facility] is Private Physician. gr2 21:03 Patient visited by Kimberly Maldonado. gr2 21:03 Patient moved to Pre RCE gr2 21:07 Triage Initiated rs3 22:28 Patient moved to Triage 2 cz 22:29 Patient visited by Sandrine Silva RN. ld5 22:41 Romeo Velez PA is PHCP. btw 22:41 Damian Rooney DO is Attending Physician. btw 22:41 Patient visited by Romeo Velez PA. btw 23:05 [facility] is Referral Physician. btw 23:06 Urine Culture Sent. ld5 23:16 Patient moved to TR8 ld5 23:18 The patient / caregiver is instructed regarding the plan of care and ED course. ld5 23:18 No IV's were initiated during this patient's visit. No procedures done that require ld5 assistance. Urine collected. Clean catch specimen. Urine specimen sent to lab. 23:22 [facility] Payment Agreement was scanned into [employer] and attached to record. pm4 23:23 Patient visited by Sandrine Silva RN. ld5 04/12 12:13 T-Sheet-- Draft Copy was scanned into [employer] and attached to record. gb Administered Medications: 04/11 23:02 Drug: Trimethoprim-Sulfamethoxazole 1 tabs [sulfamethoxazole 800 mg-trimethoprim 160 mg cz tablet (1 tabs)] Route: PO; 23:02 Drug: Phenazopyridine 200 mg [phenazopyridine 100 mg tablet (2 tabs)] Route: PO; cz Point of Care Testing: Urine Dip: 23:06 pH: 5; ; Specific [place]: 1.025; Ketones: Small; Glucose: Negative; Protein: Trace; ld5 Leukocytes: Trace; Nitrite: Positive (++) ; Blood: Small (+); Bilirubin: Negative ; Urobilinogen: Normal Ranges: Order Results: There are currently no results for this order. Outcome: 23:06 Discharge ordered by Provider. btw 23:18 Discharge Assessment: Patient awake, alert and oriented x 3. No cognitive and/or ld5 functional deficits noted. Patient verbalized understanding of disposition instructions. patient administered narcotics - no. The following High Risk Discharge criteria are identified: None. Discharged to home ambulatory. Condition: stable. Discharge instructions given to patient, Instructed on discharge instructions, follow up and referral plans. medication usage, Demonstrated understanding of instructions, medications, Pt was receptive of discharge instructions/ teaching. Prescriptions given X 2. Instructed on Following up with PCP enforced multiple times with pt. No special radiology studies were completed. Property :Personal belongings accompany Pt. 23:23 Patient left the ED. ld5 Signatures: Diaz Xavier RN RN Sallie Moralesa, Reg Reg gb Ned,Cora,RN RN rs3 Romeo Velez PA PA btw Dickerson, Laura,RN RN ld5 Kimberly Maldonado gr2 Jethro Lou, Reg Reg pm4 Chart Complete MTDD
--- NOTE | 2016-04-14 13:37 | EDDOCDS ---
Physician Documentation [facility] Name: Diana Hernandez Age: 30 yrs Sex: Female : 1985 Arrival Date: 04/11/2016 Time: 21:00 Bed TR8 Private MD: [facility] Disposition: 04/11/16 23:06 Discharged to Home/Self Care. Impression: Urinary tract infection, site not specified. - Condition is Stable. - Discharge Instructions: Urinary Tract Infection, [id number]. - Prescriptions for Pyridium 200 mg Oral Tablet - take 1 tablet by ORAL route every 8 hours for 3 days; 9 tablet. Bactrim DS 800- 160 mg Oral Tablet - take 1 tablet by ORAL route every 12 hours for 10 days; 20 tablet. - Medication Reconciliation, Local Pharmacy Hours form. - Follow up: [facility]; When: Call to arrange an appointment; Reason: Further diagnostic work-up, Recheck today's complaints, Continuance of care. - Problem is new. - Symptoms are unchanged. Historical: - Allergies: Codeine Sulfatethroat swells; Ibuprofen (Anaphylaxis); Toradol (Hives); Tramadol HCl (Hives); - Home Meds: 1. Seroquel 400 mg Oral tab 2 times per day 2. Xanax 0.25 mg Oral tab as needed out of Rx 3. tizanidine 2 mg oral tab 1 tabs every 3 hours as needed 4. lidocaine jelly 1 application three times a day 5. capsaicin topical topical 3 times per day 6. dicyclomine 10 mg Oral cap 1 cap three times per day as needed - PMHx: Anxiety; Bipolar disorder; Cellulitis Right Jaw; Chronic Back pain; Crohn's; Sciatica; Depression; Seizures; Substance Abuse; uterine cancer; - PSHx: Cholecystectomy; ; Hysterectomy; Laparoscopy; - Social history: Smoking status: Patient uses tobacco products, light tobacco smoker. No barriers to communication noted, The patient speaks fluent Irish. - Family history: Not pertinent. - : The pt / caregiver states he / she is not on anticoagulants. Home medication list is obtained from the patient. - Exposure Risk Screening:: None identified. 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 5 in. (165.10 cm) (R); Pain 3/10; 21:02 Body Mass Index 29.95 (81.65 kg, 165.10 cm) gr2 MDM: 21:12 Urine Culture Ordered. EDMS 22:57 Trimethoprim-Sulfamethoxazole 160 mg-800 mg (DS) 1 tabs PO once ordered. btw 22:57 Phenazopyridine 200 mg PO once ordered. btw 22:57 Urine Dip ordered. btw 23:22 Financial registration complete. pm4 23: [facility] Payment Agreement was scanned into [employer] and attached to record. pm4 04/12 12:13 T-Sheet-- Draft Copy was scanned into [employer] and attached to record. Point of Care Testing: Urine Dip: 04/11 23:06 pH: 5; ; Specific [place]: 1.025; Ketones: Small; Glucose: Negative; Protein: Trace; ld5 Leukocytes: Trace; Nitrite: Positive (++) ; Blood: Small (+); Bilirubin: Negative ; Urobilinogen: Normal Ranges: Administered Medications: 23:02 Drug: Trimethoprim-Sulfamethoxazole 1 tabs [sulfamethoxazole 800 mg-trimethoprim 160 mg cz tablet (1 tabs)] Route: PO; 23:02 Drug: Phenazopyridine 200 mg [phenazopyridine 100 mg tablet (2 tabs)] Route: PO; cz Signatures: Dispatcher MedHo EDMS Radha Juarez, Reg Reg gb Cora MarinoRN RN rs3 Romeo Velez PA PA btw Sandrine Silva RN RN ld5 Jethro Lou, Reg Reg pm4 Diaz Xavier RN cz The chart was reviewed and I authenticate all verbal orders and agree with the evaluation and treatment provided.Corrections: (The following items were deleted from the chart) 21:11 21:11 UCG by Nursing ordered. btw btw 22:59 21:12 URINALYSIS+LAB ordered. EDMS EDMS Attachments: 23:22 [facility] Payment Agreement pm4 04/12 12:13 T-Sheet-- Draft Copy gb Chart Complete MTDD
--- NOTE | 2016-04-14 13:37 | EDDOCDS ---
Physician Documentation [facility] Name: Diana Hernandez Age: 30 yrs Sex: Female : 1985 Arrival Date: 04/11/2016 Time: 21:00 Bed TR8 Private MD: [facility] Disposition: 04/11/16 23:06 Discharged to Home/Self Care. Impression: Urinary tract infection, site not specified. - Condition is Stable. - Discharge Instructions: Urinary Tract Infection, [id number]. - Prescriptions for Pyridium 200 mg Oral Tablet - take 1 tablet by ORAL route every 8 hours for 3 days; 9 tablet. Bactrim DS 800- 160 mg Oral Tablet - take 1 tablet by ORAL route every 12 hours for 10 days; 20 tablet. - Medication Reconciliation, Local Pharmacy Hours form. - Follow up: [facility]; When: Call to arrange an appointment; Reason: Further diagnostic work-up, Recheck today's complaints, Continuance of care. - Problem is new. - Symptoms are unchanged. Historical: - Allergies: Codeine Sulfatethroat swells; Ibuprofen (Anaphylaxis); Toradol (Hives); Tramadol HCl (Hives); - Home Meds: 1. Seroquel 400 mg Oral tab 2 times per day 2. Xanax 0.25 mg Oral tab as needed out of Rx 3. tizanidine 2 mg oral tab 1 tabs every 3 hours as needed 4. lidocaine jelly 1 application three times a day 5. capsaicin topical topical 3 times per day 6. dicyclomine 10 mg Oral cap 1 cap three times per day as needed - PMHx: Anxiety; Bipolar disorder; Cellulitis Right Jaw; Chronic Back pain; Crohn's; Sciatica; Depression; Seizures; Substance Abuse; uterine cancer; - PSHx: Cholecystectomy; ; Hysterectomy; Laparoscopy; - Social history: Smoking status: Patient uses tobacco products, light tobacco smoker. No barriers to communication noted, The patient speaks fluent Tanzanian. - Family history: Not pertinent. - : The pt / caregiver states he / she is not on anticoagulants. Home medication list is obtained from the patient. - Exposure Risk Screening:: None identified. 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 5 in. (165.10 cm) (R); Pain 3/10; 21:02 Body Mass Index 29.95 (81.65 kg, 165.10 cm) gr2 MDM: 21:12 Urine Culture Ordered. EDMS 22:57 Trimethoprim-Sulfamethoxazole 160 mg-800 mg (DS) 1 tabs PO once ordered. btw 22:57 Phenazopyridine 200 mg PO once ordered. btw 22:57 Urine Dip ordered. btw 23:22 Financial registration complete. pm4 23: [facility] Payment Agreement was scanned into [employer] and attached to record. pm4 04/12 12:13 T-Sheet-- Draft Copy was scanned into [employer] and attached to record. Point of Care Testing: Urine Dip: 04/11 23:06 pH: 5; ; Specific [place]: 1.025; Ketones: Small; Glucose: Negative; Protein: Trace; ld5 Leukocytes: Trace; Nitrite: Positive (++) ; Blood: Small (+); Bilirubin: Negative ; Urobilinogen: Normal Ranges: Administered Medications: 23:02 Drug: Trimethoprim-Sulfamethoxazole 1 tabs [sulfamethoxazole 800 mg-trimethoprim 160 mg cz tablet (1 tabs)] Route: PO; 23:02 Drug: Phenazopyridine 200 mg [phenazopyridine 100 mg tablet (2 tabs)] Route: PO; cz Signatures: Dispatcher MedHo EDMS Radha Juarez, Reg Reg gb Cora MarinoRN RN rs3 Romeo Velez PA PA btw Sandrine Silva RN RN ld5 Jethro Lou, Reg Reg pm4 Diaz Xavier RN cz The chart was reviewed and I authenticate all verbal orders and agree with the evaluation and treatment provided.Corrections: (The following items were deleted from the chart) 21:11 21:11 UCG by Nursing ordered. btw btw 22:59 21:12 URINALYSIS+LAB ordered. EDMS EDMS Attachments: 23:22 [facility] Payment Agreement pm4 04/12 12:13 T-Sheet-- Draft Copy gb Chart Complete MTDD
--- NOTE | 2016-04-14 13:37 | EDDOCDS ---
Nurse's Notes [facility] Name: Diana Hernandez Age: 30 yrs Sex: Female : 1985 Arrival Date: 04/11/2016 Time: 21:00 Bed TR8 Private MD: [facility] Diagnosis: Urinary tract infection, site not specified Presentation: 04/11 21:04 Presenting complaint: Patient states: lower abdominal pain, urgency/hesitancy with rs3 urination/ dark brown bleeding since yesterday. H/o Crohns'. Adult Sepsis Screening: The patient does not have new or worsening altered mentation. Patient's respiratory rate is less than 22. Systolic blood pressure is greater than 100. Patient has a qSOFA score of 0- Negative Sepsis Screen. Suicide/Homicide risk assessment- the patient denies having any suicidal and/or homicidal ideations and does not present with any other emotional, behavioral or mental health complaints. 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 Transition of care: patient was not received from another setting of care. 21:04 Acuity: PAULY Level 3 rs3 21:04 Method Of Arrival: Walkin/Carried/Asstd rs3 Triage Assessment: 21:07 General: Appears in no apparent distress. Pain: Location: pelvis. HIV screening NA for rs3 this visit Offered previously. 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 Seroquel 400 mg Oral tab 2 times per day 2. Xanax 0.25 mg Oral tab as needed out of Rx 3. tizanidine 2 mg oral tab 1 tabs every 3 hours as needed 4. lidocaine jelly 1 application three times a day 5. capsaicin topical topical 3 times per day 6. dicyclomine 10 mg Oral cap 1 cap three times per day as needed - PMHx: Anxiety; Bipolar disorder; Cellulitis Right Jaw; Chronic Back pain; Crohn's; Sciatica; Depression; Seizures; Substance Abuse; uterine cancer; - PSHx: Cholecystectomy; ; Hysterectomy; Laparoscopy; - Social history: Smoking status: Patient uses tobacco products, light tobacco smoker. No barriers to communication noted, The patient speaks fluent Irish. - Family history: Not pertinent. - : The pt / caregiver states he / she is not on anticoagulants. Home medication list is obtained from the patient. - Exposure Risk Screening:: None identified. Screenin:18 Screening information is obtained from the patient. Fall risk: No risks identified. ld5 Assistance ADL's: requires no assistance with activities of daily living. Abuse/DV Screen: The patient / caregiver reports he/she is: not in a situation that causes fear, pain or injury. Nutritional screening: No deficits noted. Advance Directives: Currently, there is no health care proxy. home support is adequate. Assessment: 22:28 General: "I can't pee. I tried earlier and only a little bit came out. I can't go. I ld5 think it's my Crohn's.". 23:18 General: Pt able to provide urine specimen. Medicated per orders. Medications explained ld5 to pt. Pt questioning if these meds would be ok with her other medications. When asked about pt's current medications, pt opened up a book which contained a list of medications. Meds added to pt's list. Discussed with provider to make sure no interactions with newly prescribed meds. Pt discharged. Vital Signs: 21:02 BP 113 / 69; Pulse 75; Resp 18 S; Temp 96.9(O); Pulse Ox 93% on R/A; Weight 81.65 kg gr2 (R); Height 5 ft. 5 in. (165.10 cm) (R); Pain 3/10; 21:02 Body Mass Index 29.95 (81.65 kg, 165.10 cm) gr2 Vitals: 21:02 Log In Time: April 11, 2016 at 21:02. gr2 ED Course: 21:01 Patient visited by Kimberly Maldonado. gr2 21:01 Patient moved to Waiting gr2 21:02 [facility] is Private Physician. gr2 21:03 Patient visited by Kimberly Maldonado. gr2 21:03 Patient moved to Pre RCE gr2 21:07 Triage Initiated rs3 22:28 Patient moved to Triage 2 cz 22:29 Patient visited by Sandrine Silva RN. ld5 22:41 Romeo Velez PA is PHCP. btw 22:41 Damian Rooney DO is Attending Physician. btw 22:41 Patient visited by Romeo Velez PA. btw 23:05 [facility] is Referral Physician. btw 23:06 Urine Culture Sent. ld5 23:16 Patient moved to TR8 ld5 23:18 The patient / caregiver is instructed regarding the plan of care and ED course. ld5 23:18 No IV's were initiated during this patient's visit. No procedures done that require ld5 assistance. Urine collected. Clean catch specimen. Urine specimen sent to lab. 23:22 [facility] Payment Agreement was scanned into Thrasos and attached to record. pm4 23:23 Patient visited by Sandrine Silva RN. ld5 04/12 12:13 T-Sheet-- Draft Copy was scanned into [employer]rasos and attached to record. gb Administered Medications: 04/11 23:02 Drug: Trimethoprim-Sulfamethoxazole 1 tabs [sulfamethoxazole 800 mg-trimethoprim 160 mg cz tablet (1 tabs)] Route: PO; 23:02 Drug: Phenazopyridine 200 mg [phenazopyridine 100 mg tablet (2 tabs)] Route: PO; cz Point of Care Testing: Urine Dip: 23:06 pH: 5; ; Specific [place]: 1.025; Ketones: Small; Glucose: Negative; Protein: Trace; ld5 Leukocytes: Trace; Nitrite: Positive (++) ; Blood: Small (+); Bilirubin: Negative ; Urobilinogen: Normal Ranges: Order Results: Lab Order: Urine Culture; SPEC'M 04/11/16 23:00 Test: URINE CULTURE; Value: ORGANISM 1: ESCHERICHIA COLI; Status: F Test: URINE CULTURE; Value: ESCHERICHIA COLI; Status: F Test: URINE CULTURE; Value: COLONY COUNT CFU/ml >100,000; Status: F Test: URINE CULTURE; Value: GRAM NEG SENSI - VITEK 80; Status: F Test: URINE CULTURE; Value: Method: VIT2; Status: F Test: URINE CULTURE; Value: EXTD BRD SPCTRM BETA LACTAMASE -; Status: F Test: URINE CULTURE; Value: TRIMETHOPRIM/SULFAMETHOXAZOLE >=320 R; Status: F Test: URINE CULTURE; Value: AMPICILLIN >=32 R; Status: F Test: URINE CULTURE; Value: GENTAMICIN <=1 S; Status: F Test: URINE CULTURE; Value: NITROFURANTOIN <=16 S; Status: F Test: URINE CULTURE; Value: CEFAZOLIN <=4 S; Status: F Test: URINE CULTURE; Value: LEVOFLOXACIN 1 S; Status: F Test: URINE CULTURE; Value: TOBRAMYCIN <=1 S; Status: F Test: URINE CULTURE; Value: CEFTRIAXONE <=1 S; Status: F Test: URINE CULTURE; Value: CEFTAZIDIME <=1 S; Status: F Test: URINE CULTURE; Value: AMPICILLIN/SULBACTAM >=32 R; Status: F Test: URINE CULTURE; Value: PIPERACILLIN/TAZOBACTAM <=4 S; Status: F Test: URINE CULTURE; Value: AZTREONAM <=1 S; Status: F Test: URINE CULTURE; Value: ERTAPENEM <=0.5 S; Status: F Test: URINE CULTURE; Value: MEROPENEM <=0.25 S; Status: F Test: URINE CULTURE; Value: TIGECYCLINE <=0.5 S; Status: F Test: URINE CULTURE; Value: CEFEPIME <=1 S; Status: F Outcome: 23:06 Discharge ordered by Provider. btw 23:18 Discharge Assessment: Patient awake, alert and oriented x 3. No cognitive and/or ld5 functional deficits noted. Patient verbalized understanding of disposition instructions. patient administered narcotics - no. The following High Risk Discharge criteria are identified: None. Discharged to home ambulatory. Condition: stable. Discharge instructions given to patient, Instructed on discharge instructions, follow up and referral plans. medication usage, Demonstrated understanding of instructions, medications, Pt was receptive of discharge instructions/ teaching. Prescriptions given X 2. Instructed on Following up with PCP enforced multiple times with pt. No special radiology studies were completed. Property :Personal belongings accompany Pt. 23:23 Patient left the ED. ld5 Signatures: Diaz Xavier RN RN cz Radha Juarez, Reg Reg gb Cora Marino RN RN rs3 Romeo Velez PA PA btw Sandrine Silva RN RN ld5 Kimberly Maldonado gr2 Jethro Lou, Reg Reg pm4 Chart Complete MTDD
== END 2016-04-11 23:23 | disposition home or self-care (01) ==
LOC: M ED 21:00
DX: N30.90 Cystitis, unspecified without hematuria (principal); F31.9 Bipolar disorder, unspecified; F41.9 Anxiety disorder, unspecified; K50.90 Crohn's disease, unspecified, without complications; M54.30 Sciatica, unspecified side; R56.9 Unspecified convulsions; Z85.42 Personal history of malignant neoplasm of other parts of uterus; Z79.899 Other long term (current) drug therapy; Z88.5 Allergy status to narcotic agent; Z88.8 Allergy status to other drugs, medicaments and biological substances; F17.210 Nicotine dependence, cigarettes, uncomplicated

== ENCOUNTER 2016-04-13 17:36 | Emergency (ER) | payer OTHER ==
[2016-04-13] MEDS ORDERED: NORCO 5/325MG TABLET (BULK) As Ordered ONE (19:57)
--- NOTE | 2016-04-13 20:05 | EDDOCDS ---
Nurse's Notes [facility] Name: Diana Hernandez Age: 30 yrs Sex: Female : 1985 Arrival Date: 04/13/2016 Time: 17:36 Bed TR1 Private MD: Loren Diaz Diagnosis: Urinary tract infection, site not specified;Dysuria Presentation: 04/13 17:39 Presenting complaint: Patient states: Patient reports having right sided pain for three jmb days, she called family doctor and informed to come in. Patient reports inability to urinate. Patient reports that she urinated at noon today. Adult Sepsis Screening: The patient does not have new or worsening altered mentation. Patient's respiratory rate is less than 22. Systolic blood pressure is greater than 100. Patient has a qSOFA score of 0- Negative Sepsis Screen. Suicide/Homicide risk assessment- the patient denies having any suicidal and/or homicidal ideations and does not present with any other emotional, behavioral or mental health complaints. Status: Patient is not a non emergency services ambulance driver or dependent. Transition of care: patient was not received from another setting of care. 17:39 Acuity: PAULY Level 3 b 17:39 Method Of Arrival: Walkin/Carried/Asstd b Triage Assessment: 17:41 General: Appears in no apparent distress, Behavior is appropriate for age, cooperative. b Pain: Location: abdomen Pain currently is 9 out of 10 on a pain scale. HIV screening NA for this visit Offered previously. Neurological: Level of Consciousness is awake, alert, obeys commands, Oriented to person, place, time, Speech is normal, Facial symmetry appears normal, Facial symmetry: tongue is midline. Respiratory: Airway is patent Respiratory effort is even, unlabored, Respiratory pattern is regular, symmetrical. Derm: Skin is pink, warm & dry. Musculoskeletal: Range of motion intact in all extremities. [employer]: 17:41 LMP N/A - Hysterectomy jmb Historical: - Allergies: Codeine Sulfatethroat swells; Ibuprofen (Anaphylaxis); Toradol (Hives); Tramadol HCl (Hives); - Home Meds: 1. capsaicin Topical 3 times per day 2. dicyclomine 10 mg Oral cap 1 cap three times per day as needed 3. lidocaine jelly 1 application three times a day 4. Seroquel 400 mg Oral tab 2 times per day 5. tizanidine 2 mg oral tab 1 tabs every 3 hours as needed 6. Xanax 0.25 mg Oral tab as needed out of Rx - PMHx: Anxiety; Bipolar disorder; Cellulitis Right Jaw; Chronic Back pain; Crohn's; Depression; Sciatica; Seizures; Substance Abuse; uterine cancer; - PSHx: Cholecystectomy; ; Hysterectomy; Laparoscopy; - Social history: Smoking status: Patient uses tobacco products, heavy tobacco smoker. No barriers to communication noted, The patient speaks fluent Nepali, Speaks appropriately for age. - Family history: Not pertinent. - : The pt / caregiver states he / she is not on anticoagulants. Home medication list is obtained from the patient. - Exposure Risk Screening:: None identified. Screenin:02 Screening information is obtained from the patient. Fall risk: No risks identified. jmb Assistance ADL's: requires no assistance with activities of daily living. Abuse/DV Screen: The patient / caregiver reports he/she is: not in a situation that causes fear, pain or injury. Nutritional screening: No deficits noted. Advance Directives: Currently, there is no health care proxy. There is no active DNR order. There is no living will. There is no Power of Custom Applicator. home support is adequate. Assessment: 20:02 General: Patient instructed on discharge instructions. Patient asked if there were any jmb questions regarding discharge, patient stated no. Patient signed discharge instructions. Patient discharged in stable condition. . Vital Signs: 17:38 BP 134 / 75; Pulse 115; Resp 18 S; Temp 98.1(O); Pulse Ox 98% on R/A; Weight 81.65 kg dd6 (R); Height 5 ft. 5 in. (165.10 cm) (R); 19:58 BP 119 / 75 RA Sitting (auto/reg); Pulse 110; Resp 16; Temp 98.2(T); Pulse Ox 99% on rs6 R/A; Pain 9/10; 17:38 Body Mass Index 29.95 (81.65 kg, 165.10 cm) dd6 Vitals: 17:38 Log In Time: April 13, 2016 at 17:36. dd6 ED Course: 17:37 Patient visited by Yung Mccallum PCA. dd6 17:37 Loren Diaz DO is Private Physician. dd6 17:37 Patient moved to Waiting dd6 17:39 Patient moved to Pre RCE dd6 17:40 Triage Initiated jmb 19:24 Patient moved to Triage 1 jmb 19:28 Prasad Hernandez PA is PHCP. mo1 19:28 Damian Rooney DO is Attending Physician. mo1 19:36 Patient visited by Prasad Hernandez PA. mo1 19:40 Bladder Scan completed Results: 54 mL prior to voiding, informed Tuan DAVIES. ms18 20:02 The patient / caregiver is instructed regarding the plan of care and ED course. jmb 20:02 No IV's were initiated during this patient's visit. No procedures done that require jmb assistance. 20:03 Patient moved to TR1 rs6 Administered Medications: 20:04 Drug: HYDROcodone-acetaminophen 4 pack- 1 packets [hydrocodone 5 mg-acetaminophen 325 jmb mg tablet (1 tabs)] {Co-Signature: ms18 (Josette Mckenna RN).} Route: PO; Order Results: There are currently no results for this order. Outcome: 19:55 Discharge ordered by Provider. mo1 20:02 Discharge Assessment: Patient awake, alert and oriented x 3. No cognitive and/or jmb functional deficits noted. Patient verbalized understanding of disposition instructions. Patient awake and alert. obeys commands, Oriented to person, place and time. Patient verbalized understanding of disposition instructions. Patient has no functional deficits. patient administered narcotics - yes. Pt provided with safe discharge. The following High Risk Discharge criteria are identified: None. Discharged to home ambulatory. Condition: stable. Discharge instructions given to patient, Instructed on discharge instructions, follow up and referral plans. medication usage, Demonstrated understanding of instructions, medications, Pt was receptive of discharge instructions/ teaching. Prescriptions given X 1. No special radiology studies were completed. Property sent home with patient. 20:04 Patient left the ED. jmb Signatures: Yung Mccallum, TIE UP WORKER TIE UP WORKER dd6 Prasad Hernandez PA PA mo1 Norberto Odell RN RN Josette Mendoza RN RN ms18 Molly Westbrook, TIE UP WORKER TIE UP WORKER rs6 Josette Mckenna RN ms18 MTDD
--- NOTE | 2016-04-13 20:05 | EDDOCDS ---
Physician Documentation [facility] Name: Diana Hernandez Age: 30 yrs Sex: Female : 1985 Arrival Date: 04/13/2016 Time: 17:36 Bed TR1 Private MD: Loren Diaz Disposition: 04/13/16 19:55 Discharged to Home/Self Care. Impression: Urinary tract infection, site not specified, Dysuria. - Condition is Stable. - Discharge Instructions: Dysuria, Urinary Tract Infection. - Prescriptions for Cipro 500 mg Oral Tablet - take 1 tablet by ORAL route every 12 hours; 14 tablet. - Medication Reconciliation, Local Pharmacy Hours form. - Follow up: Private Physician; When: Call to arrange an appointment; Reason: Recheck today's complaints, Continuance of care. - Problem is new. - Symptoms are unchanged. Historical: - Allergies: Codeine Sulfatethroat swells; Ibuprofen (Anaphylaxis); Toradol (Hives); Tramadol HCl (Hives); - Home Meds: 1. capsaicin Topical 3 times per day 2. dicyclomine 10 mg Oral cap 1 cap three times per day as needed 3. lidocaine jelly 1 application three times a day 4. Seroquel 400 mg Oral tab 2 times per day 5. tizanidine 2 mg oral tab 1 tabs every 3 hours as needed 6. Xanax 0.25 mg Oral tab as needed out of Rx - PMHx: Anxiety; Bipolar disorder; Cellulitis Right Jaw; Chronic Back pain; Crohn's; Depression; Sciatica; Seizures; Substance Abuse; uterine cancer; - PSHx: Cholecystectomy; ; Hysterectomy; Laparoscopy; - Social history: Smoking status: Patient uses tobacco products, heavy tobacco smoker. No barriers to communication noted, The patient speaks fluent Russian, Speaks appropriately for age. - Family history: Not pertinent. - : The pt / caregiver states he / she is not on anticoagulants. Home medication list is obtained from the patient. - Exposure Risk Screening:: None identified. 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 5 in. (165.10 cm) (R); 19:58 BP 119 / 75 RA Sitting (auto/reg); Pulse 110; Resp 16; Temp 98.2(T); Pulse Ox 99% on rs6 R/A; Pain 9/10; 17:38 Body Mass Index 29.95 (81.65 kg, 165.10 cm) dd6 MDM: 19:30 Bladder Scan please ordered. mo1 19:30 UCG by Nursing ordered. mo1 19:54 HYDROcodone-acetaminophen 4 pack- 5 mg-325 mg 1 packets PO Per package directions; mo1 Dispense with patient. 1 po q4h prn for pain ordered. Administered Medications: 20:04 Drug: HYDROcodone-acetaminophen 4 pack- 1 packets [hydrocodone 5 mg-acetaminophen 325 jmb mg tablet (1 tabs)] {Co-Signature: ms18 (Josette Mckenna RN).} Route: PO; Signatures: Dispatcher [employer] EDPrasad Portillo PA PA mo1 Norberto Odell,RN RN jmb Josette Mckenna RN ms18 The chart was reviewed and I authenticate all verbal orders and agree with the evaluation and treatment provided.Corrections: (The following items were deleted from the chart) 19:29 19:29 Bladder Scan please ordered. mo1 mo1 19:55 19:34 URINE CULTURE+LAMBERTO ordered. EDMS EDMS 19:56 19:34 URINALYSIS+LAB ordered. EDMS EDMS MTDD
--- NOTE | 2016-04-15 21:05 | EDDOCDS ---
Physician Documentation [facility] Name: Diana Hernandez Age: 30 yrs Sex: Female : 1985 Arrival Date: 04/13/2016 Time: 17:36 Bed TR1 Private MD: Loren Diaz Disposition: 04/13/16 19:55 Discharged to Home/Self Care. Impression: Urinary tract infection, site not specified, Dysuria. - Condition is Stable. - Discharge Instructions: Dysuria, Urinary Tract Infection. - Prescriptions for Cipro 500 mg Oral Tablet - take 1 tablet by ORAL route every 12 hours; 14 tablet. - Medication Reconciliation, Local Pharmacy Hours form. - Follow up: Private Physician; When: Call to arrange an appointment; Reason: Recheck today's complaints, Continuance of care. - Problem is new. - Symptoms are unchanged. Historical: - Allergies: Codeine Sulfatethroat swells; Ibuprofen (Anaphylaxis); Toradol (Hives); Tramadol HCl (Hives); - Home Meds: 1. capsaicin Topical 3 times per day 2. dicyclomine 10 mg Oral cap 1 cap three times per day as needed 3. lidocaine jelly 1 application three times a day 4. Seroquel 400 mg Oral tab 2 times per day 5. tizanidine 2 mg oral tab 1 tabs every 3 hours as needed 6. Xanax 0.25 mg Oral tab as needed out of Rx - PMHx: Anxiety; Bipolar disorder; Cellulitis Right Jaw; Chronic Back pain; Crohn's; Depression; Sciatica; Seizures; Substance Abuse; uterine cancer; - PSHx: Cholecystectomy; ; Hysterectomy; Laparoscopy; - Social history: Smoking status: Patient uses tobacco products, heavy tobacco smoker. No barriers to communication noted, The patient speaks fluent Norwegian, Speaks appropriately for age. - Family history: Not pertinent. - : The pt / caregiver states he / she is not on anticoagulants. Home medication list is obtained from the patient. - Exposure Risk Screening:: None identified. 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 5 in. (165.10 cm) (R); 19:58 BP 119 / 75 RA Sitting (auto/reg); Pulse 110; Resp 16; Temp 98.2(T); Pulse Ox 99% on rs6 R/A; Pain 9/10; 17:38 Body Mass Index 29.95 (81.65 kg, 165.10 cm) dd6 MDM: 19:30 Bladder Scan please ordered. mo1 19:30 UCG by Nursing ordered. mo1 19:54 HYDROcodone-acetaminophen 4 pack- 5 mg-325 mg 1 packets PO Per package directions; mo1 Dispense with patient. 1 po q4h prn for pain ordered. 20:17 Financial registration complete. zo 20:18 [facility] Payment Agreement was scanned into Fin[employer] and attached to record. zo 04/14 08:28 T-Sheet-- Draft Copy was scanned into Fin[employer] and attached to record. se Administered Medications: 04/13 20:04 Drug: HYDROcodone-acetaminophen 4 pack- 1 packets [hydrocodone 5 mg-acetaminophen 325 jmb mg tablet (1 tabs)] {Co-Signature: [id number] (Josette Mckenna RN).} Route: PO; Signatures: Dispatcher MedHost EDMS Jaun Curry Michael, PA PA mo1 Norberto Odell RN RN jmb Hoffert, Sarah seh Mallory Smith RN ms18 The chart was reviewed and I authenticate all verbal orders and agree with the evaluation and treatment provided.Corrections: (The following items were deleted from the chart) 19:29 19:29 Bladder Scan please ordered. mo1 mo1 19:55 19:34 URINE CULTURE+LAMBERTO ordered. EDMS EDMS 19:56 19:34 URINALYSIS+LAB ordered. EDMS EDMS Attachments: 20:18 [facility] Payment Agreement zo 04/14 08:28 T-Sheet-- Draft Copy [facility] Chart Complete MTDD
--- NOTE | 2016-04-15 21:05 | EDDOCDS ---
Physician Documentation [facility] Name: Diana Hernandez Age: 30 yrs Sex: Female : 1985 Arrival Date: 04/13/2016 Time: 17:36 Bed TR1 Private MD: Loren Diaz Disposition: 04/13/16 19:55 Discharged to Home/Self Care. Impression: Urinary tract infection, site not specified, Dysuria. - Condition is Stable. - Discharge Instructions: Dysuria, Urinary Tract Infection. - Prescriptions for Cipro 500 mg Oral Tablet - take 1 tablet by ORAL route every 12 hours; 14 tablet. - Medication Reconciliation, Local Pharmacy Hours form. - Follow up: Private Physician; When: Call to arrange an appointment; Reason: Recheck today's complaints, Continuance of care. - Problem is new. - Symptoms are unchanged. Historical: - Allergies: Codeine Sulfatethroat swells; Ibuprofen (Anaphylaxis); Toradol (Hives); Tramadol HCl (Hives); - Home Meds: 1. capsaicin Topical 3 times per day 2. dicyclomine 10 mg Oral cap 1 cap three times per day as needed 3. lidocaine jelly 1 application three times a day 4. Seroquel 400 mg Oral tab 2 times per day 5. tizanidine 2 mg oral tab 1 tabs every 3 hours as needed 6. Xanax 0.25 mg Oral tab as needed out of Rx - PMHx: Anxiety; Bipolar disorder; Cellulitis Right Jaw; Chronic Back pain; Crohn's; Depression; Sciatica; Seizures; Substance Abuse; uterine cancer; - PSHx: Cholecystectomy; ; Hysterectomy; Laparoscopy; - Social history: Smoking status: Patient uses tobacco products, heavy tobacco smoker. No barriers to communication noted, The patient speaks fluent Chadian, Speaks appropriately for age. - Family history: Not pertinent. - : The pt / caregiver states he / she is not on anticoagulants. Home medication list is obtained from the patient. - Exposure Risk Screening:: None identified. 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 5 in. (165.10 cm) (R); 19:58 BP 119 / 75 RA Sitting (auto/reg); Pulse 110; Resp 16; Temp 98.2(T); Pulse Ox 99% on rs6 R/A; Pain 9/10; 17:38 Body Mass Index 29.95 (81.65 kg, 165.10 cm) dd6 MDM: 19:30 Bladder Scan please ordered. mo1 19:30 UCG by Nursing ordered. mo1 19:54 HYDROcodone-acetaminophen 4 pack- 5 mg-325 mg 1 packets PO Per package directions; mo1 Dispense with patient. 1 po q4h prn for pain ordered. 20:17 Financial registration complete. zo 20:18 [facility] Payment Agreement was scanned into [employer] and attached to record. zo 04/14 08:28 T-Sheet-- Draft Copy was scanned into Sapi[employer] and attached to record. se Administered Medications: 04/13 20:04 Drug: HYDROcodone-acetaminophen 4 pack- 1 packets [hydrocodone 5 mg-acetaminophen 325 jmb mg tablet (1 tabs)] {Co-Signature: [id number] (Josette Mckenna RN).} Route: PO; Signatures: Dispatcher MedHost EDMS Jaun Curry Michael, PA PA mo1 Norberto Odell RN RN jmb Hoffert, Sarah seh Mallory Smith RN ms18 The chart was reviewed and I authenticate all verbal orders and agree with the evaluation and treatment provided.Corrections: (The following items were deleted from the chart) 19:29 19:29 Bladder Scan please ordered. mo1 mo1 19:55 19:34 URINE CULTURE+LAMBERTO ordered. EDMS EDMS 19:56 19:34 URINALYSIS+LAB ordered. EDMS EDMS Attachments: 20:18 [facility] Payment Agreement zo 04/14 08:28 T-Sheet-- Draft Copy [facility] Chart Complete MTDD
--- NOTE | 2016-04-15 21:05 | EDDOCDS ---
Nurse's Notes [facility] Name: Diana Hernandez Age: 30 yrs Sex: Female : 1985 Arrival Date: 04/13/2016 Time: 17:36 Bed TR1 Private MD: Loren Diaz Diagnosis: Urinary tract infection, site not specified;Dysuria Presentation: 04/13 17:39 Presenting complaint: Patient states: Patient reports having right sided pain for three jmb days, she called family doctor and informed to come in. Patient reports inability to urinate. Patient reports that she urinated at noon today. Adult Sepsis Screening: The patient does not have new or worsening altered mentation. Patient's respiratory rate is less than 22. Systolic blood pressure is greater than 100. Patient has a qSOFA score of 0- Negative Sepsis Screen. Suicide/Homicide risk assessment- the patient denies having any suicidal and/or homicidal ideations and does not present with any other emotional, behavioral or mental health complaints. 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 Transition of care: patient was not received from another setting of care. 17:39 Acuity: PAULY Level 3 b 17:39 Method Of Arrival: Walkin/Carried/Asstd b Triage Assessment: 17:41 General: Appears in no apparent distress, Behavior is appropriate for age, cooperative. b Pain: Location: abdomen Pain currently is 9 out of 10 on a pain scale. HIV screening NA for this visit Offered previously. Neurological: Level of Consciousness is awake, alert, obeys commands, Oriented to person, place, time, Speech is normal, Facial symmetry appears normal, Facial symmetry: tongue is midline. Respiratory: Airway is patent Respiratory effort is even, unlabored, Respiratory pattern is regular, symmetrical. Derm: Skin is pink, warm & dry. Musculoskeletal: Range of motion intact in all extremities. 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 capsaicin Topical 3 times per day 2. dicyclomine 10 mg Oral cap 1 cap three times per day as needed 3. lidocaine jelly 1 application three times a day 4. Seroquel 400 mg Oral tab 2 times per day 5. tizanidine 2 mg oral tab 1 tabs every 3 hours as needed 6. Xanax 0.25 mg Oral tab as needed out of Rx - PMHx: Anxiety; Bipolar disorder; Cellulitis Right Jaw; Chronic Back pain; Crohn's; Depression; Sciatica; Seizures; Substance Abuse; uterine cancer; - PSHx: Cholecystectomy; ; Hysterectomy; Laparoscopy; - Social history: Smoking status: Patient uses tobacco products, heavy tobacco smoker. No barriers to communication noted, The patient speaks fluent Japanese, Speaks appropriately for age. - Family history: Not pertinent. - : The pt / caregiver states he / she is not on anticoagulants. Home medication list is obtained from the patient. - Exposure Risk Screening:: None identified. Screenin:02 Screening information is obtained from the patient. Fall risk: No risks identified. jmb Assistance ADL's: requires no assistance with activities of daily living. Abuse/DV Screen: The patient / caregiver reports he/she is: not in a situation that causes fear, pain or injury. Nutritional screening: No deficits noted. Advance Directives: Currently, there is no health care proxy. There is no active DNR order. There is no living will. There is no Power of Progressive Care Unit Registered Nurse. home support is adequate. Assessment: 20:02 General: Patient instructed on discharge instructions. Patient asked if there were any jmb questions regarding discharge, patient stated no. Patient signed discharge instructions. Patient discharged in stable condition. . Vital Signs: 17:38 BP 134 / 75; Pulse 115; Resp 18 S; Temp 98.1(O); Pulse Ox 98% on R/A; Weight 81.65 kg dd6 (R); Height 5 ft. 5 in. (165.10 cm) (R); 19:58 BP 119 / 75 RA Sitting (auto/reg); Pulse 110; Resp 16; Temp 98.2(T); Pulse Ox 99% on rs6 R/A; Pain 9/10; 17:38 Body Mass Index 29.95 (81.65 kg, 165.10 cm) dd6 Vitals: 17:38 Log In Time: April 13, 2016 at 17:36. dd6 ED Course: 17:37 Patient visited by Yung Mccallum PCA. dd6 17:37 Loren Diaz DO is Private Physician. dd6 17:37 Patient moved to Waiting dd6 17:39 Patient moved to Pre RCE dd6 17:40 Triage Initiated jmb 19:24 Patient moved to Triage 1 jmb 19:28 Prasad Hernandez PA is PHCP. mo1 19:28 Damian Rooney DO is Attending Physician. mo1 19:36 Patient visited by Prasad Hernandez PA. mo1 19:40 Bladder Scan completed Results: 54 mL prior to voiding, informed Tuan DAVIES. ms18 20:02 The patient / caregiver is instructed regarding the plan of care and ED course. jmb 20:02 No IV's were initiated during this patient's visit. No procedures done that require jmb assistance. 20:03 Patient moved to TR1 rs6 20:18 [facility] Payment Agreement was scanned into Turp[employer] and attached to record. zo 04/14 08:28 T-Sheet-- Draft Copy was scanned into Turpitude and attached to record. seh Administered Medications: 04/13 20:04 Drug: HYDROcodone-acetaminophen 4 pack- 1 packets [hydrocodone 5 mg-acetaminophen 325 jmb mg tablet (1 tabs)] {Co-Signature: [id number] (Josette Mckenna RN).} Route: PO; Order Results: There are currently no results for this order. Outcome: 19:55 Discharge ordered by Provider. mo1 20:02 Discharge Assessment: Patient awake, alert and oriented x 3. No cognitive and/or jmb functional deficits noted. Patient verbalized understanding of disposition instructions. Patient awake and alert. obeys commands, Oriented to person, place and time. Patient verbalized understanding of disposition instructions. Patient has no functional deficits. patient administered narcotics - yes. Pt provided with safe discharge. The following High Risk Discharge criteria are identified: None. Discharged to home ambulatory. Condition: stable. Discharge instructions given to patient, Instructed on discharge instructions, follow up and referral plans. medication usage, Demonstrated understanding of instructions, medications, Pt was receptive of discharge instructions/ teaching. Prescriptions given X 1. No special radiology studies were completed. Property sent home with patient. 20:04 Patient left the ED. jmb Signatures: Jaun Curry Daniell, PRE K LEAD TEACHER PRE K LEAD TEACHER dd6 Prasad Hernandez PA PA mo1 Norberto Odell RN RN delisab Josette MckennaRN RN ms18 Dariana, Molly, PRE K LEAD TEACHER PRE K LEAD TEACHER rs6 Naa Quinn RN ms18 Chart Complete MTDD
== END 2016-04-13 20:04 | disposition home or self-care (01) ==
LOC: M ED 17:36
DX: N30.01 Acute cystitis with hematuria (principal); R10.2 Pelvic and perineal pain; R30.0 Dysuria; F41.9 Anxiety disorder, unspecified; F31.9 Bipolar disorder, unspecified; G89.29 Other chronic pain; M54.40 Lumbago with sciatica, unspecified side; F19.10 Other psychoactive substance abuse, uncomplicated; K50.90 Crohn's disease, unspecified, without complications; Z85.42 Personal history of malignant neoplasm of other parts of uterus; Z90.79 Acquired absence of other genital organ(s); Z90.49 Acquired absence of other specified parts of digestive tract; F17.200 Nicotine dependence, unspecified, uncomplicated; Z79.899 Other long term (current) drug therapy; Z88.2 Allergy status to sulfonamides; Z88.5 Allergy status to narcotic agent; Z88.6 Allergy status to analgesic agent

== ENCOUNTER → 2016-04-16 | Outpatient (REF) | payer OTHER ==
[2016-04-17 08:31] LABS: CONTROL LINE INT CTR LINE PRESENT; HIV SCRN NEGATIVE (NEGATIVE); HIV SCRN1 NEGATIVE (NEGATIVE)
[2016-04-17 10:30] LABS: HEPATITIS B SURFACE ANTIBODY NEGATIVE (POSITIVE)
== END ==
LOC: M SFHCPLAZ 11:04
PROVIDERS: ATTEND Internal Medicine Infectious Disease
DX: Z20.6 Contact with and (suspected) exposure to human immunodeficiency virus [HIV] (principal); N39.0 Urinary tract infection, site not specified

== ENCOUNTER 2016-04-24 19:21 | Emergency (ER) | payer OTHER ==
[2016-04-24] MEDS ORDERED: ONDANSETRON 4MG/2ML VIAL (J2405) As Ordered ONE (22:29)
[2016-04-24] MEDS ORDERED: MORPHINE 4 MG/ML 1ML SYRINGE As Ordered ONE (22:29)
[2016-04-24] MEDS ORDERED: GASTROGRAFIN SOLUTION 30ML (Q9963) As Ordered ONE (22:49)
[2016-04-24 22:56] LABS: BASO % 0.4 % (0.0-1.0); EOS # 0.2 K/mm3 (0.0-0.50); EOS % 2.6 % (0.0-3.0); LARGE UNSTAINED CELL # 0.1 K/mm3 (0.0-0.4); LARGE UNSTAINED CELL % 1.8 % (0.0-4.0); LYMPH # 2.7 K/mm3 (1.5-4.5); LYMPH % 41.8 % (24.0-44.0); MEAN CORPUSCULAR HEMOGLOBIN 32.7 pg (27.0-33.0); MEAN CORPUSCULAR HGB CONC 34.7 g/dl (32.0-36.5); MEAN CORPUSCULAR VOLUME 94.4 fl (80.0-96.0); MONO # 0.2 K/mm3 (0.0-0.8); MONO % 3.2 % (0.0-5.0); NEUTROPHILS # 3.2 K/mm3 (1.8-7.7); NEUTROPHILS % 50.1 % (36.0-66.0); PLATELET COUNT, AUTOMATED 228 k/mm3 (150-450); RED CELL DISTRIBUTION WIDTH 12.7 % (11.5-14.5); WHITE BLOOD COUNT 6.4 K/mm3 (4.0-10.0)
[2016-04-24 23:09] LABS: ALKALINE PHOSPHATASE 77 U/L (45-117); ALT/SGPT 18 U/L (12-78); ANION GAP 6 MEQ/L (8-16); AST/SGOT 11 U/L (15-37); BILIRUBIN,TOTAL 0.1 MG/DL (0.2-1.0); BLOOD UREA NITROGEN 10 MG/DL (7-18); CALCIUM LEVEL 8.4 MG/DL (8.5-10.1); CARBON DIOXIDE LEVEL 28 MEQ/L (21-32); CHLORIDE LEVEL 111 MEQ/L (98-107); CREATININE FOR GFR 0.63 MG/DL (0.55-1.02); GLOMERULAR FILTRATION RATE > 60.0 (>60); GLUCOSE, FASTING 88 MG/DL (70-105); POTASSIUM SERUM 3.9 MEQ/L (3.5-5.1); SODIUM LEVEL 145 MEQ/L (136-145)
[2016-04-24 23:10] LABS: ALBUMIN 3.6 GM/DL (3.2-5.2); ALBUMIN/GLOBULIN RATIO 1.16 (1.00-1.93); AMYLASE 46 U/L (25-115); BILIRUBIN,DIRECT < 0.1 MG/DL (0.0-0.2); TOTAL PROTEIN 6.7 GM/DL (6.4-8.2)
[2016-04-25] MEDS ORDERED: ISOVUE-370 76% 100ML VIAL (Q9967) As Ordered ONE (00:18)
[2016-04-25] MEDS ORDERED: MORPHINE 4 MG/ML 1ML SYRINGE As Ordered ONE (00:44)
--- NOTE | 2016-04-25 01:10 | REPUSA ---
CLINICAL HISTORY: Abdominal pain. TECHNIQUE: Multiple axial, sagittal and coronal CT images were obtained through the abdomen and pelvi s after administration of oral and intravenous contrast material. COMMENTS: Comparison to 03/26/2016. Fluid head tendon and ileum. The liver remains enlarged with decreased attenuation without mass or defect. There is no intra or ex trahepatic biliary ductal dilatation. The spleen is normal. The gallbladder is surgically absent. The pancreas is of normal contour and attenuation characteristics. There is no evidence of adrenal mass. Both kidneys demonstrate prompt and equal nephrograms. The kidneys are normal in size, shape and conf iguration. There is no evidence of renal or ureteral mass. No renal or ureteral calculi are identifie d. There is no hydroureter or hydronephrosis. No evidence for appendicitis. No evidence for small or large bowel obstruction. There is no evidence of abdominal ascites or lymphadenopathy. There is no evidence of intrinsic or extrinsic bladder mass. There is no pelvic ascites or lymphadeno irene. Images of the lung bases show no evidence of pleural or parenchymal mass. Interval appearance of mini mal bilateral pleural effusions and passive atelectatic airspace disease of the lower lobes. The bony structures are free of lytic or blastic lesions. IMPRESSION: Fluid filled terminal ileum suggestive of enteritis. Prior cholecystectomy. Mild hepatomegaly and fatty liver infiltration. Interval appearance of minimal bilateral pleural effusions and passive atelectatic airspace disease o f the lower lobes. Thank you for your kind referral of this patient.
--- NOTE | 2016-04-25 01:52 | EDDOCDS ---
Nurse's Notes [facility] Name: Diana Hernandez Age: 30 yrs Sex: Female : 1985 Arrival Date: 04/24/2016 Time: 19:21 Bed I5 / M5 Private MD: [facility] Diagnosis: Other abdominal pain-unspecified enteritis Presentation: 04/24 19:42 Presenting complaint: Patient states: Right lower quadrant pain,dizziness, vomiting on rs3 and off for 2 months. worse today. Risk factors: the patient reports no vaginal bleeding. Adult Sepsis Screening: The patient does not have new or worsening altered mentation. Patient's respiratory rate is less than 22. Systolic blood pressure is greater than 100. Patient has a qSOFA score of 0- Negative Sepsis Screen. Suicide/Homicide risk assessment- the patient denies having any suicidal and/or homicidal ideations and does not present with any other emotional, behavioral or mental health complaints. Status: Patient is not a manager social services or dependent. Transition of care: patient was not received from another setting of care. 19:42 Acuity: PAULY Level 3 rs3 19:42 Method Of Arrival: Walkin/Carried/Asstd rs3 Triage Assessment: 19:50 General: Appears in no apparent distress. Pain: Location: right lower quadrant. HIV rs3 screening NA for this visit on HIV treatment. GI: Reports lower abdominal pain. 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 capsaicin Topical 3 times per day 2. dicyclomine 10 mg Oral cap 1 cap three times per day as needed 3. Seroquel 100 mg oral tab 2 times per day 4. tizanidine 2 mg oral tab 1 tabs every 3 hours as needed 5. Xanax 0.25 mg Oral tab as needed out of Rx 6. lidocaine jelly 1 application three times a day 7. pregabalin 150 mg Oral cap 1 cap 2 times per day 8. prednisone 10 mg Oral tab 3 tabs once daily 9. Truvada 200-300 mg oral tab once daily 10. divalproex 250 mg oral Tb24 11. melatonin 3 mg Oral tab 1 mg as needed 12. Flexeril 10 mg Oral tab 1 tab as needed 13. topiramate 25 mg oral tab 2 times per day 14. buspirone 10 mg Oral tab 1 tab 2 times per day 15. Rozerem 8 mg oral tab 1 tab once daily 16. Macrodantin 50 mg Oral cap 1 cap once daily - PMHx: Anxiety; Bipolar disorder; Cellulitis Right Jaw; Chronic Back pain; Crohn's; Depression; Sciatica; Seizures; Substance Abuse; uterine cancer; - PSHx: Cholecystectomy; ; Hysterectomy; Laparoscopy; - Social history: Smoking status: Patient uses tobacco products, light tobacco smoker. No barriers to communication noted, The patient speaks fluent Tam[place]ight. - Family history: Not pertinent. - : The pt / caregiver states he / she is not on anticoagulants. Home medication list is obtained from the patient. - Exposure Risk Screening:: None identified. Screenin:46 Screening information is obtained from the patient. Fall risk: No risks identified. jmb Assistance ADL's: requires no assistance with activities of daily living. Abuse/DV Screen: The patient / caregiver reports he/she is: not in a situation that causes fear, pain or injury. Nutritional screening: No deficits noted. home support is adequate. 04/25 01:48 Advance Directives: Currently, there is no health care proxy. There is no active DNR jmb order. There is no living will. There is no Power of Trash Collector. Assessment: 04/24 22:46 General: Appears in no apparent distress, Behavior is appropriate for age, cooperative. jmb Pain: Location: abdomen Pain currently is 8 out of 10 on a pain scale. Neurological: Level of Consciousness is awake, alert, obeys commands, Oriented to person, place, time, Speech is normal, Facial symmetry appears normal, Facial symmetry: tongue is midline. Cardiovascular: Capillary refill < 3 seconds Heart tones S1 S2 present Pulses are all present. Rhythm is regular. Respiratory: Airway is patent Respiratory effort is even, unlabored, Respiratory pattern is regular, symmetrical, Breath sounds are clear bilaterally. GI: Abdomen is non- distended Bowel sounds present X 4 quads. Abd is soft X 4 quads. Derm: Skin is pink, warm & dry. Musculoskeletal: Range of motion intact in all extremities. 22:54 General: IN to see patient, patient reports as laying on bed watching television that jmb she currently has pain remaining in right abdomen. Dorian Suh notified. . 23:37 General: Appears in no apparent distress, comfortable, Behavior is appropriate for age, jmb cooperative, Patient laying on stretcher, texting on cell phone. Patient voices no complaints at this time. . Neurological: Level of Consciousness is awake, alert, obeys commands, Oriented to person, place, time. Respiratory: Airway is patent Respiratory effort is even, unlabored, Respiratory pattern is regular, symmetrical. 23:52 General: pt called out requesting more pain medication. pt states pain level 8.5. Dorian DAVIES notified . 04/25 00:40 General: Appears in no apparent distress, comfortable, Behavior is appropriate for age, jmb cooperative, Patient sitting on stretcher, watching television and texting on cell phone. NO voiced complaints at this time. . Neurological: Level of Consciousness is awake, alert, obeys commands, Oriented to person, place, time. Respiratory: Airway is patent Respiratory effort is even, unlabored, Respiratory pattern is regular, symmetrical. 01:16 General: Appears in no apparent distress, comfortable, Behavior is appropriate for age, jmb cooperative, Patient texting on cell phone, up frequently to bathroom. Patient placed clothes back on. NO voiced complaints at this time. . Neurological: Level of Consciousness is awake, alert, obeys commands, Oriented to person, place, time. Respiratory: Airway is patent Respiratory effort is even, unlabored, Respiratory pattern is regular, symmetrical. 01:48 General: Patient instructed on discharge instructions. Patient asked if there were any b questions regarding discharge, patient stated no. IV discontinued per hospital policy. Patient signed discharge instructions. Patient discharged in stable condition. . Vital Signs: 04/24 19:24 BP 109 / 55; Pulse 116; Resp 18 S; Temp 97.5(O); Pulse Ox 100% on R/A; Weight 81.65 kg gr2 (R); Height 5 ft. 5 in. (165.10 cm) (R); Pain 8/10; 23:15 Pain 8/10; dsf 23:40 BP 107 / 67; Pulse 91; Resp 18; Temp 98.6; Pulse Ox 98% ; Pain 8/10; ajs 04/25 01:48 BP 102 / 68; Pulse 84; Resp 18; Temp 98.7; Pulse Ox 97% ; Pain 5/10; ajs 04/24 19:24 Body Mass Index 29.95 (81.65 kg, 165.10 cm) gr2 Vitals: 04/24 19:24 Log In Time: April 24, 2016 at 19:24. gr2 ED Course: 19:23 Patient visited by Kimberly Maldonado. gr2 19:23 Patient moved to Waiting gr2 19:24 [facility] is Private Physician. gr2 19:25 Patient visited by Kimberly Maldonado. gr2 19:25 Patient moved to Pre RCE gr2 19:43 Triage Initiated rs3 20:58 Patient moved to I5 / M5 ttb 21:55 [facility] Payment Agreement was scanned into [employer] and attached to record. zo 22:14 Dorian Santizo PA-C is PHCP. ar2 22:14 Frank Melvin MD is Attending Physician. ar2 22:14 Patient visited by Dorian Santizo PA-C. ar2 22:46 The patient / caregiver is instructed regarding the plan of care and ED course. jmb 22:46 Amylase Sent. jmb 22:46 Basic Metabolic Profile Sent. jmb 22:46 Inserted saline lock: 20 gauge in left forearm and blood collected. The patient jmb tolerated the procedure well. Labs drawn. (by ED staff). Sent per order to lab. 22:49 Patient visited by Norberto Odell RN. delisab 23:38 Patient visited by Norberto Odell RN. jmb 23:40 Patient visited by Erna Malik. ajs 23:53 Patient visited by Marva Pena,RN. dsf 04/25 00:41 Patient visited by Norberto Odell,TALA. jmb 01:17 Patient visited by Norberto Odell RN. jmb 01:31 CT ABD & PELVIS: IV and Oral Contrast Returned. EDMS 01:48 Discontinued lock intact, bleeding controlled, pressure dressing applied, No jmb redness/swelling at site. No procedures done that require assistance. 01:49 Patient visited by Erna Malik. ajs Administered Medications: 04/24 22:41 Drug: morphine 4 mg [morphine 4 mg/mL intravenous cartridge (1 mL)] Route: IVP; Site: dsf left forearm; 23:15 Follow up: Pain 11/07 Adult dsf 22:42 Drug: NS 0.9% 1000 ml [sodium chloride 0.9 % injection solution] Route: IV; Rate: dsf bolus; Site: left forearm; 22:42 Drug: Ondansetron 4 mg [ondansetron HCl 2 mg/mL intravenous solution (2 mL)] Route: dsf IVP; Site: left forearm; 04/25 00:48 Drug: morphine 4 mg [morphine 4 mg/mL intravenous cartridge (1 mL)] Route: IVP; Site: dsf left forearm; Order Results: Lab Order: Amylase; SPEC'M 04/24/16 22:40 Test: AMYLASE; Value: 46; Range: 25-115; Units: U/L; Status: F Lab Order: Basic Metabolic Profile; SPEC'M 04/24/16 22:40 Test: GLUCOSE, FASTING; Value: 88; Range: 70-105; Units: MG/DL; Status: F Test: BLOOD UREA NITROGEN; Value: 10; Range: 7-18; Units: MG/DL; Status: F Test: CREATININE FOR GFR; Value: 0.63; Range: 0.55-1.02; Units: MG/DL; Status: F Test: GLOMERULAR FILTRATION RATE; Value: > 60.0; Range: >60; Status: F Test: SODIUM LEVEL; Value: 145; Range: 136-145; Units: MEQ/L; Status: F Test: POTASSIUM SERUM; Value: 3.9; Range: 3.5-5.1; Units: MEQ/L; Status: F Test: CHLORIDE LEVEL; Value: 111; Range: 98-107; Abnormal: Above high normal; Units: MEQ/L; Status: F Test: CARBON DIOXIDE LEVEL; Value: 28; Range: 21-32; Units: MEQ/L; Status: F Test: ANION GAP; Value: 6; Range: 8-16; Abnormal: Below low normal; Units: MEQ/L; Status: F Test: CALCIUM LEVEL; Value: 8.4; Range: 8.5-10.1; Abnormal: Below low normal; Units: MG/DL; Status: F Test Note: ; Units are mL/min/1.73 m2 Chronic Kidney Disease Staging per NKF: Stage I & II GFR >=60 Normal to Mildly Decreased Stage III GFR 30-59 Moderately Decreased Stage IV GFR 15-29 Severely Decreased Stage V GFR <15 Very Little GFR Left ESRD GFR <15 on MANAGER SEMICONDUCTOR Lab Order: CBC with Diff; SPEC'M 04/24/16 22:40 Test: WHITE BLOOD COUNT; Value: 6.4; Range: 4.0-10.0; Units: K/mm3; Status: F Test: RED BLOOD COUNT; Value: 3.71; Range: 4.00-5.40; Abnormal: Below low normal; Units: M/mm3; Status: F Test: HEMOGLOBIN; Value: 12.1; Range: 12.0-16.0; Units: g/dl; Status: F Test: HEMATOCRIT; Value: 35.0; Range: 36.0-47.0; Abnormal: Below low normal; Units: %; Status: F Test: MEAN CORPUSCULAR VOLUME; Value: 94.4; Range: 80.0-96.0; Units: fl; Status: F Test: MEAN CORPUSCULAR HEMOGLOBIN; Value: 32.7; Range: 27.0-33.0; Units: pg; Status: F Test: MEAN CORPUSCULAR HGB CONC; Value: 34.7; Range: 32.0-36.5; Units: g/dl; Status: F Test: RED CELL DISTRIBUTION WIDTH; Value: 12.7; Range: 11.5-14.5; Units: %; Status: F Test: PLATELET COUNT, AUTOMATED; Value: 228; Range: 150-450; Units: k/mm3; Status: F Test: NEUTROPHILS %; Value: 50.1; Range: 36.0-66.0; Units: %; Status: F Test: LYMPH %; Value: 41.8; Range: 24.0-44.0; Units: %; Status: F Test: MONO %; Value: 3.2; Range: 0.0-5.0; Units: %; Status: F Test: EOS %; Value: 2.6; Range: 0.0-3.0; Units: %; Status: F Test: BASO %; Value: 0.4; Range: 0.0-1.0; Units: %; Status: F Test: LARGE UNSTAINED CELL %; Value: 1.8; Range: 0.0-4.0; Units: %; Status: F Test: NEUTROPHILS #; Value: 3.2; Range: 1.8-7.7; Units: K/mm3; Status: F Test: LYMPH #; Value: 2.7; Range: 1.5-4.5; Units: K/mm3; Status: F Test: MONO #; Value: 0.2; Range: 0.0-0.8; Units: K/mm3; Status: F Test: EOS #; Value: 0.2; Range: 0.0-0.50; Units: K/mm3; Status: F Test: BASO #; Value: 0.0; Range: 0.0-0.2; Units: K/mm3; Status: F Test: LARGE UNSTAINED CELL #; Value: 0.1; Range: 0.0-0.4; Units: K/mm3; Status: F Lab Order: Lipase; SPEC'M 04/24/16 22:40 Test: LIPASE; Value: 136; Range: 73-393; Units: U/L; Status: F Lab Order: Liver Profile; SPEC'M 04/24/16 22:40 Test: AST/SGOT; Value: 11; Range: 15-37; Abnormal: Below low normal; Units: U/L; Status: F Test: ALT/SGPT; Value: 18; Range: 12-78; Units: U/L; Status: F Test: ALKALINE PHOSPHATASE; Value: 77; Range: 45-117; Units: U/L; Status: F Test: BILIRUBIN,TOTAL; Value: 0.1; Range: 0.2-1.0; Abnormal: Below low normal; Units: MG/DL; Status: F Test: BILIRUBIN,DIRECT; Value: < 0.1; Range: 0.0-0.2; Units: MG/DL; Status: F Test: TOTAL PROTEIN; Value: 6.7; Range: 6.4-8.2; Units: GM/DL; Status: F Test: ALBUMIN; Value: 3.6; Range: 3.2-5.2; Units: GM/DL; Status: F Test: ALBUMIN/GLOBULIN RATIO; Value: 1.16; Range: 1.00-1.93; Status: F Radiology Order: CT ABD & PELVIS: IV and Oral Contrast Test: CT ABD & PELVIS: IV and Oral Contrast REASON FOR EXAMINATION: right intestinal pain, crohns; ; CLINICAL HISTORY: Abdominal pain.; TECHNIQUE: Multiple axial, sagittal and coronal CT images were obtained through the abdomen and pelvi; s after administration of oral and intravenous contrast material.; COMMENTS:; Comparison to 03/26/2016.; Fluid head tendon and ileum.; The liver remains enlarged with decreased attenuation without mass or defect. There is no intra or ex; trahepatic biliary ductal dilatation. The spleen is normal. The gallbladder is surgically absent. The; pancreas is of normal contour and attenuation characteristics. There is no evidence of adrenal mass.; ; Both kidneys demonstrate prompt and equal nephrograms. The kidneys are normal in size, shape and conf; iguration. There is no evidence of renal or ureteral mass. No renal or ureteral calculi are identifie; d. There is no hydroureter or hydronephrosis.; No evidence for appendicitis. No evidence for small or large bowel obstruction. There is no evidence; of abdominal ascites or lymphadenopathy.; There is no evidence of intrinsic or extrinsic bladder mass. There is no pelvic ascites or lymphadeno; irene.; Images of the lung bases show no evidence of pleural or parenchymal mass. Interval appearance of mini; mal bilateral pleural effusions and passive atelectatic airspace disease of the lower lobes.; The bony structures are free of lytic or blastic lesions.; IMPRESSION:; Fluid filled terminal ileum suggestive of enteritis.; Prior cholecystectomy.; Mild hepatomegaly and fatty liver infiltration.; Interval appearance of minimal bilateral pleural effusions and passive atelectatic airspace disease o; f the lower lobes.; Thank you for your kind referral of this patient.; ; Outcome: 01:43 Discharge ordered by Provider. ar2 01:48 Discharge Assessment: Patient awake, alert and oriented x 3. No cognitive and/or jmb functional deficits noted. Patient verbalized understanding of disposition instructions. Patient awake and alert. obeys commands, Oriented to person, place and time. Patient verbalized understanding of disposition instructions. Patient has no functional deficits. patient administered narcotics - yes. Pt provided with safe discharge. The following High Risk Discharge criteria are identified: None. Discharged to home ambulatory. Condition: stable Condition: improved. Discharge instructions given to patient, Instructed on discharge instructions, follow up and referral plans. medication usage, Demonstrated understanding of instructions, medications, Pt was receptive of discharge instructions/ teaching. Prescriptions given X 1. CT Study completed. Property sent home with patient. 01:50 Patient left the ED. praveena Signatures: Dispatcher [employer] EDMS Jaun Curry Aaron, BOOKER PASherley ar2 Cora Marino,RN RN rs3 Marva Pena,RN RN dsf Erna Malik Teresa RN RN ttb Kimberly Maldonado gr2 Norberto OdellRN RN praveena MTDD
--- NOTE | 2016-04-25 01:52 | EDDOCDS ---
Physician Documentation [facility] Name: Diana Hernandez Age: 30 yrs Sex: Female : 1985 Arrival Date: 04/24/2016 Time: 19:21 Bed I5 / M5 Private MD: [facility] Disposition: 04/25/16 01:43 Discharged to Home/Self Care. Impression: Other abdominal pain - unspecified enteritis. - Condition is Stable. - Discharge Instructions: Abdominal Pain, Adult. - Prescriptions for ZOFRAN ODT 4 mg - dissolve 1 tablet by ORAL route 4 times per day As needed do not chew, do not swallow whole; 10 tablet. - Medication Reconciliation, Local Pharmacy Hours form. - Follow up: Private Physician; When: As previously arranged; Reason: Further diagnostic work-up, Recheck today's complaints, Continuance of care. Follow up: Emergency Department; When: As needed; Reason: Fever > 102F, Worsening of conditions. - Problem is new. - Symptoms have improved. Historical: - Allergies: Codeine Sulfatethroat swells; Ibuprofen (Anaphylaxis); Toradol (Hives); Tramadol HCl (Hives); Bactrim (Hives); - Home Meds: 1. capsaicin Topical 3 times per day 2. dicyclomine 10 mg Oral cap 1 cap three times per day as needed 3. Seroquel 100 mg oral tab 2 times per day 4. tizanidine 2 mg oral tab 1 tabs every 3 hours as needed 5. Xanax 0.25 mg Oral tab as needed out of Rx 6. lidocaine jelly 1 application three times a day 7. pregabalin 150 mg Oral cap 1 cap 2 times per day 8. prednisone 10 mg Oral tab 3 tabs once daily 9. Truvada 200-300 mg oral tab once daily 10. divalproex 250 mg oral Tb24 11. melatonin 3 mg Oral tab 1 mg as needed 12. Flexeril 10 mg Oral tab 1 tab as needed 13. topiramate 25 mg oral tab 2 times per day 14. buspirone 10 mg Oral tab 1 tab 2 times per day 15. Rozerem 8 mg oral tab 1 tab once daily 16. Macrodantin 50 mg Oral cap 1 cap once daily - PMHx: Anxiety; Bipolar disorder; Cellulitis Right Jaw; Chronic Back pain; Crohn's; Depression; Sciatica; Seizures; Substance Abuse; uterine cancer; - PSHx: Cholecystectomy; ; Hysterectomy; Laparoscopy; - Social history: Smoking status: Patient uses tobacco products, light tobacco smoker. No barriers to communication noted, The patient speaks fluent Mongolian. - Family history: Not pertinent. - : The pt / caregiver states he / she is not on anticoagulants. Home medication list is obtained from the patient. - Exposure Risk Screening:: None identified. 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 5 in. (165.10 cm) (R); Pain 8/10; 23:15 Pain 8/10; dsf 23:40 BP 107 / 67; Pulse 91; Resp 18; Temp 98.6; Pulse Ox 98% ; Pain 8/10; ajs 04/25 01:48 BP 102 / 68; Pulse 84; Resp 18; Temp 98.7; Pulse Ox 97% ; Pain 5/10; ajs 04/24 19:24 Body Mass Index 29.95 (81.65 kg, 165.10 cm) gr2 MDM: 04/24 21:55 [facility] Payment Agreement was scanned into [employer] and attached to record. zo 22:17 Financial registration complete. gjb 22:26 IV Saline Lock ordered. ar2 22:26 Undress patient appropriately for examination ordered. ar2 22:26 NS 0.9% 1000 ml IV at bolus once ordered. ar2 22:26 Ondansetron 4 mg IVP once ordered. ar2 22:26 Stool samples ordered. ar2 22:26 Amylase Ordered. EDMS 22:26 Basic Metabolic Profile Ordered. EDMS 22:26 CBC with Diff Ordered. EDMS 22:26 Lipase Ordered. EDMS 22:26 Liver Profile Ordered. EDMS 22:26 NOTHING BY MOUTH+DIET ordered. EDMS 22:27 morphine 4 mg IVP once ordered. ar2 22:27 CT ABD & PELVIS: IV and Oral Contrast Ordered. EDMS 23:54 Basic Metabolic Profile Reviewed. ar2 23:54 CBC with Diff Reviewed. ar2 23:54 Liver Profile Reviewed. ar2 23:54 Amylase Reviewed. ar2 23:54 Lipase Reviewed. ar2 04/25 00:43 morphine 4 mg IVP once ordered. ar2 Administered Medications: 04/24 22:41 Drug: morphine 4 mg [morphine 4 mg/mL intravenous cartridge (1 mL)] Route: IVP; Site: dsf left forearm; 23:15 Follow up: Pain 11/07 Adult dsf 22:42 Drug: NS 0.9% 1000 ml [sodium chloride 0.9 % injection solution] Route: IV; Rate: dsf bolus; Site: left forearm; 22:42 Drug: Ondansetron 4 mg [ondansetron HCl 2 mg/mL intravenous solution (2 mL)] Route: dsf IVP; Site: left forearm; 04/25 00:48 Drug: morphine 4 mg [morphine 4 mg/mL intravenous cartridge (1 mL)] Route: IVP; Site: dsf left forearm; Signatures: Dispatcher [employer] EDJaun Rice Aaron, PA-C PA-C ar2 Cora MarinoRN RN rs3 Norberto Odell RN RN Judy Rutherford Desiree RN dsf The chart was reviewed and I authenticate all verbal orders and agree with the evaluation and treatment provided.Attachments: 04/24 21:55 [facility] Payment Agreement zo MTDD
--- NOTE | 2016-04-27 02:51 | EDDOCDS ---
Nurse's Notes [facility] Name: Diana Hernandez Age: 30 yrs Sex: Female : 1985 Arrival Date: 04/24/2016 Time: 19:21 Bed I5 / M5 Private MD: [facility] Diagnosis: Other abdominal pain-unspecified enteritis Presentation: 04/24 19:42 Presenting complaint: Patient states: Right lower quadrant pain,dizziness, vomiting on rs3 and off for 2 months. worse today. Risk factors: the patient reports no vaginal bleeding. Adult Sepsis Screening: The patient does not have new or worsening altered mentation. Patient's respiratory rate is less than 22. Systolic blood pressure is greater than 100. Patient has a qSOFA score of 0- Negative Sepsis Screen. Suicide/Homicide risk assessment- the patient denies having any suicidal and/or homicidal ideations and does not present with any other emotional, behavioral or mental health complaints. Status: Patient is not a health equipment servicer or dependent. Transition of care: patient was not received from another setting of care. 19:42 Acuity: PAULY Level 3 rs3 19:42 Method Of Arrival: Walkin/Carried/Asstd rs3 Triage Assessment: 19:50 General: Appears in no apparent distress. Pain: Location: right lower quadrant. HIV rs3 screening NA for this visit on HIV treatment. GI: Reports lower abdominal pain. 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 capsaicin Topical 3 times per day 2. dicyclomine 10 mg Oral cap 1 cap three times per day as needed 3. Seroquel 100 mg oral tab 2 times per day 4. tizanidine 2 mg oral tab 1 tabs every 3 hours as needed 5. Xanax 0.25 mg Oral tab as needed out of Rx 6. lidocaine jelly 1 application three times a day 7. pregabalin 150 mg Oral cap 1 cap 2 times per day 8. prednisone 10 mg Oral tab 3 tabs once daily 9. Truvada 200-300 mg oral tab once daily 10. divalproex 250 mg oral Tb24 11. melatonin 3 mg Oral tab 1 mg as needed 12. Flexeril 10 mg Oral tab 1 tab as needed 13. topiramate 25 mg oral tab 2 times per day 14. buspirone 10 mg Oral tab 1 tab 2 times per day 15. Rozerem 8 mg oral tab 1 tab once daily 16. Macrodantin 50 mg Oral cap 1 cap once daily - PMHx: Anxiety; Bipolar disorder; Cellulitis Right Jaw; Chronic Back pain; Crohn's; Depression; Sciatica; Seizures; Substance Abuse; uterine cancer; - PSHx: Cholecystectomy; ; Hysterectomy; Laparoscopy; - Social history: Smoking status: Patient uses tobacco products, light tobacco smoker. No barriers to communication noted, The patient speaks fluent Indonesian. - Family history: Not pertinent. - : The pt / caregiver states he / she is not on anticoagulants. Home medication list is obtained from the patient. - Exposure Risk Screening:: None identified. Screenin:46 Screening information is obtained from the patient. Fall risk: No risks identified. jmb Assistance ADL's: requires no assistance with activities of daily living. Abuse/DV Screen: The patient / caregiver reports he/she is: not in a situation that causes fear, pain or injury. Nutritional screening: No deficits noted. home support is adequate. 04/25 01:48 Advance Directives: Currently, there is no health care proxy. There is no active DNR jmb order. There is no living will. There is no Power of Lunch Wagon Operator. Assessment: 04/24 22:46 General: Appears in no apparent distress, Behavior is appropriate for age, cooperative. jmb Pain: Location: abdomen Pain currently is 8 out of 10 on a pain scale. Neurological: Level of Consciousness is awake, alert, obeys commands, Oriented to person, place, time, Speech is normal, Facial symmetry appears normal, Facial symmetry: tongue is midline. Cardiovascular: Capillary refill < 3 seconds Heart tones S1 S2 present Pulses are all present. Rhythm is regular. Respiratory: Airway is patent Respiratory effort is even, unlabored, Respiratory pattern is regular, symmetrical, Breath sounds are clear bilaterally. GI: Abdomen is non- distended Bowel sounds present X 4 quads. Abd is soft X 4 quads. Derm: Skin is pink, warm & dry. Musculoskeletal: Range of motion intact in all extremities. 22:54 General: IN to see patient, patient reports as laying on bed watching television that jmb she currently has pain remaining in right abdomen. Dorian Suh notified. . 23:37 General: Appears in no apparent distress, comfortable, Behavior is appropriate for age, jmb cooperative, Patient laying on stretcher, texting on cell phone. Patient voices no complaints at this time. . Neurological: Level of Consciousness is awake, alert, obeys commands, Oriented to person, place, time. Respiratory: Airway is patent Respiratory effort is even, unlabored, Respiratory pattern is regular, symmetrical. 23:52 General: pt called out requesting more pain medication. pt states pain level 8.5. Dorian DAVIES notified . 04/25 00:40 General: Appears in no apparent distress, comfortable, Behavior is appropriate for age, jmb cooperative, Patient sitting on stretcher, watching television and texting on cell phone. NO voiced complaints at this time. . Neurological: Level of Consciousness is awake, alert, obeys commands, Oriented to person, place, time. Respiratory: Airway is patent Respiratory effort is even, unlabored, Respiratory pattern is regular, symmetrical. 01:16 General: Appears in no apparent distress, comfortable, Behavior is appropriate for age, jmb cooperative, Patient texting on cell phone, up frequently to bathroom. Patient placed clothes back on. NO voiced complaints at this time. . Neurological: Level of Consciousness is awake, alert, obeys commands, Oriented to person, place, time. Respiratory: Airway is patent Respiratory effort is even, unlabored, Respiratory pattern is regular, symmetrical. 01:48 General: Patient instructed on discharge instructions. Patient asked if there were any b questions regarding discharge, patient stated no. IV discontinued per hospital policy. Patient signed discharge instructions. Patient discharged in stable condition. . Vital Signs: 04/24 19:24 BP 109 / 55; Pulse 116; Resp 18 S; Temp 97.5(O); Pulse Ox 100% on R/A; Weight 81.65 kg gr2 (R); Height 5 ft. 5 in. (165.10 cm) (R); Pain 8/10; 23:15 Pain 8/10; dsf 23:40 BP 107 / 67; Pulse 91; Resp 18; Temp 98.6; Pulse Ox 98% ; Pain 8/10; ajs 04/25 01:48 BP 102 / 68; Pulse 84; Resp 18; Temp 98.7; Pulse Ox 97% ; Pain 5/10; ajs 04/24 19:24 Body Mass Index 29.95 (81.65 kg, 165.10 cm) gr2 Vitals: 04/24 19:24 Log In Time: April 24, 2016 at 19:24. gr2 ED Course: 19:23 Patient visited by Kimberly Maldonado. gr2 19:23 Patient moved to Waiting gr2 19:24 [facility] is Private Physician. gr2 19:25 Patient visited by Kimberly Maldonado. gr2 19:25 Patient moved to Pre RCE gr2 19:43 Triage Initiated rs3 20:58 Patient moved to I5 / M5 ttb 21:55 [facility] Payment Agreement was scanned into [employer] and attached to record. zo 22:14 Dorian Santizo PA-C is PHCP. ar2 22:14 Frank Melvin MD is Attending Physician. ar2 22:14 Patient visited by Dorian Santizo PA-C. ar2 22:46 The patient / caregiver is instructed regarding the plan of care and ED course. jmb 22:46 Amylase Sent. jmb 22:46 Basic Metabolic Profile Sent. jmb 22:46 Inserted saline lock: 20 gauge in left forearm and blood collected. The patient jmb tolerated the procedure well. Labs drawn. (by ED staff). Sent per order to lab. 22:49 Patient visited by Norberto Odell RN. jmb 23:38 Patient visited by Norberto Odell,TALA. jmb 23:40 Patient visited by Erna Malik. ajs 23:53 Patient visited by Marva Pena,RN. dsf 04/25 00:41 Patient visited by Norberto Odell,RN. jmb 01:17 Patient visited by Norberto Odell,TALA. jmb 01:31 CT ABD & PELVIS: IV and Oral Contrast Returned. EDMS 01:48 Discontinued lock intact, bleeding controlled, pressure dressing applied, No jmb redness/swelling at site. No procedures done that require assistance. 01:49 Patient visited by Erna Malik. ajs 12:36 T-Sheet-- Draft Copy was scanned into [employer] and attached to record. gb 12:37 Radiology Report was scanned into [employer] and attached to record. gb Administered Medications: 04/24 22:41 Drug: morphine 4 mg [morphine 4 mg/mL intravenous cartridge (1 mL)] Route: IVP; Site: dsf left forearm; 23:15 Follow up: Pain 11/07 Adult dsf 22:42 Drug: NS 0.9% 1000 ml [sodium chloride 0.9 % injection solution] Route: IV; Rate: dsf bolus; Site: left forearm; 22:42 Drug: Ondansetron 4 mg [ondansetron HCl 2 mg/mL intravenous solution (2 mL)] Route: dsf IVP; Site: left forearm; 04/25 00:48 Drug: morphine 4 mg [morphine 4 mg/mL intravenous cartridge (1 mL)] Route: IVP; Site: dsf left forearm; Order Results: Lab Order: Amylase; SPEC'M 04/24/16 22:40 Test: AMYLASE; Value: 46; Range: 25-115; Units: U/L; Status: F Lab Order: Basic Metabolic Profile; SPEC'M 04/24/16 22:40 Test: GLUCOSE, FASTING; Value: 88; Range: 70-105; Units: MG/DL; Status: F Test: BLOOD UREA NITROGEN; Value: 10; Range: 7-18; Units: MG/DL; Status: F Test: CREATININE FOR GFR; Value: 0.63; Range: 0.55-1.02; Units: MG/DL; Status: F Test: GLOMERULAR FILTRATION RATE; Value: > 60.0; Range: >60; Status: F Test: SODIUM LEVEL; Value: 145; Range: 136-145; Units: MEQ/L; Status: F Test: POTASSIUM SERUM; Value: 3.9; Range: 3.5-5.1; Units: MEQ/L; Status: F Test: CHLORIDE LEVEL; Value: 111; Range: 98-107; Abnormal: Above high normal; Units: MEQ/L; Status: F Test: CARBON DIOXIDE LEVEL; Value: 28; Range: 21-32; Units: MEQ/L; Status: F Test: ANION GAP; Value: 6; Range: 8-16; Abnormal: Below low normal; Units: MEQ/L; Status: F Test: CALCIUM LEVEL; Value: 8.4; Range: 8.5-10.1; Abnormal: Below low normal; Units: MG/DL; Status: F Test Note: ; Units are mL/min/1.73 m2 Chronic Kidney Disease Staging per NKF: Stage I & II GFR >=60 Normal to Mildly Decreased Stage III GFR 30-59 Moderately Decreased Stage IV GFR 15-29 Severely Decreased Stage V GFR <15 Very Little GFR Left ESRD GFR <15 on CUSTOMER SERVICE CORRESPONDENCE CLERK Lab Order: CBC with Diff; SPEC'M 04/24/16 22:40 Test: WHITE BLOOD COUNT; Value: 6.4; Range: 4.0-10.0; Units: K/mm3; Status: F Test: RED BLOOD COUNT; Value: 3.71; Range: 4.00-5.40; Abnormal: Below low normal; Units: M/mm3; Status: F Test: HEMOGLOBIN; Value: 12.1; Range: 12.0-16.0; Units: g/dl; Status: F Test: HEMATOCRIT; Value: 35.0; Range: 36.0-47.0; Abnormal: Below low normal; Units: %; Status: F Test: MEAN CORPUSCULAR VOLUME; Value: 94.4; Range: 80.0-96.0; Units: fl; Status: F Test: MEAN CORPUSCULAR HEMOGLOBIN; Value: 32.7; Range: 27.0-33.0; Units: pg; Status: F Test: MEAN CORPUSCULAR HGB CONC; Value: 34.7; Range: 32.0-36.5; Units: g/dl; Status: F Test: RED CELL DISTRIBUTION WIDTH; Value: 12.7; Range: 11.5-14.5; Units: %; Status: F Test: PLATELET COUNT, AUTOMATED; Value: 228; Range: 150-450; Units: k/mm3; Status: F Test: NEUTROPHILS %; Value: 50.1; Range: 36.0-66.0; Units: %; Status: F Test: LYMPH %; Value: 41.8; Range: 24.0-44.0; Units: %; Status: F Test: MONO %; Value: 3.2; Range: 0.0-5.0; Units: %; Status: F Test: EOS %; Value: 2.6; Range: 0.0-3.0; Units: %; Status: F Test: BASO %; Value: 0.4; Range: 0.0-1.0; Units: %; Status: F Test: LARGE UNSTAINED CELL %; Value: 1.8; Range: 0.0-4.0; Units: %; Status: F Test: NEUTROPHILS #; Value: 3.2; Range: 1.8-7.7; Units: K/mm3; Status: F Test: LYMPH #; Value: 2.7; Range: 1.5-4.5; Units: K/mm3; Status: F Test: MONO #; Value: 0.2; Range: 0.0-0.8; Units: K/mm3; Status: F Test: EOS #; Value: 0.2; Range: 0.0-0.50; Units: K/mm3; Status: F Test: BASO #; Value: 0.0; Range: 0.0-0.2; Units: K/mm3; Status: F Test: LARGE UNSTAINED CELL #; Value: 0.1; Range: 0.0-0.4; Units: K/mm3; Status: F Lab Order: Lipase; [facility] 04/24/16 22:40 Test: LIPASE; Value: 136; Range: 73-393; Units: U/L; Status: F Lab Order: Liver Profile; [facility] 04/24/16 22:40 Test: AST/SGOT; Value: 11; Range: 15-37; Abnormal: Below low normal; Units: U/L; Status: F Test: ALT/SGPT; Value: 18; Range: 12-78; Units: U/L; Status: F Test: ALKALINE PHOSPHATASE; Value: 77; Range: 45-117; Units: U/L; Status: F Test: BILIRUBIN,TOTAL; Value: 0.1; Range: 0.2-1.0; Abnormal: Below low normal; Units: MG/DL; Status: F Test: BILIRUBIN,DIRECT; Value: < 0.1; Range: 0.0-0.2; Units: MG/DL; Status: F Test: TOTAL PROTEIN; Value: 6.7; Range: 6.4-8.2; Units: GM/DL; Status: F Test: ALBUMIN; Value: 3.6; Range: 3.2-5.2; Units: GM/DL; Status: F Test: ALBUMIN/GLOBULIN RATIO; Value: 1.16; Range: 1.00-1.93; Status: F Radiology Order: CT ABD & PELVIS: IV and Oral Contrast Test: CT ABD & PELVIS: IV and Oral Contrast REASON FOR EXAMINATION: right intestinal pain, crohns; ; CLINICAL HISTORY: Abdominal pain.; TECHNIQUE: Multiple axial, sagittal and coronal CT images were obtained through the abdomen and pelvi; s after administration of oral and intravenous contrast material.; COMMENTS:; Comparison to 03/26/2016.; Fluid head tendon and ileum.; The liver remains enlarged with decreased attenuation without mass or defect. There is no intra or ex; trahepatic biliary ductal dilatation. The spleen is normal. The gallbladder is surgically absent. The; pancreas is of normal contour and attenuation characteristics. There is no evidence of adrenal mass.; ; Both kidneys demonstrate prompt and equal nephrograms. The kidneys are normal in size, shape and conf; iguration. There is no evidence of renal or ureteral mass. No renal or ureteral calculi are identifie; d. There is no hydroureter or hydronephrosis.; No evidence for appendicitis. No evidence for small or large bowel obstruction. There is no evidence; of abdominal ascites or lymphadenopathy.; There is no evidence of intrinsic or extrinsic bladder mass. There is no pelvic ascites or lymphadeno; irene.; Images of the lung bases show no evidence of pleural or parenchymal mass. Interval appearance of mini; mal bilateral pleural effusions and passive atelectatic airspace disease of the lower lobes.; The bony structures are free of lytic or blastic lesions.; IMPRESSION:; Fluid filled terminal ileum suggestive of enteritis.; Prior cholecystectomy.; Mild hepatomegaly and fatty liver infiltration.; Interval appearance of minimal bilateral pleural effusions and passive atelectatic airspace disease o; f the lower lobes.; Thank you for your kind referral of this patient.; ; Outcome: 01:43 Discharge ordered by Provider. ar2 01:48 Discharge Assessment: Patient awake, alert and oriented x 3. No cognitive and/or jmb functional deficits noted. Patient verbalized understanding of disposition instructions. Patient awake and alert. obeys commands, Oriented to person, place and time. Patient verbalized understanding of disposition instructions. Patient has no functional deficits. patient administered narcotics - yes. Pt provided with safe discharge. The following High Risk Discharge criteria are identified: None. Discharged to home ambulatory. Condition: stable Condition: improved. Discharge instructions given to patient, Instructed on discharge instructions, follow up and referral plans. medication usage, Demonstrated understanding of instructions, medications, Pt was receptive of discharge instructions/ teaching. Prescriptions given X 1. CT Study completed. Property sent home with patient. 01:50 Patient left the ED. praveena Signatures: Dispatcher [employer] EDMS Radha Juarez, Reg Reg gb Patricio, Dorian Wheeler PA-C PASherley ar2 Cora Marino,RN RN rs3 Marva Pena,RN RN armidaf Erna Malik Teresa, RN RN ttb Kimberly Maldonado gr2 Norberto Odell,RN TALA grissom Chart Complete [facility]
--- NOTE | 2016-04-27 02:51 | EDDOCDS ---
Physician Documentation [facility] Name: Diana Hernandez Age: 30 yrs Sex: Female : 1985 Arrival Date: 04/24/2016 Time: 19:21 Bed I5 / M5 Private MD: [facility] Disposition: 04/25/16 01:43 Discharged to Home/Self Care. Impression: Other abdominal pain - unspecified enteritis. - Condition is Stable. - Discharge Instructions: Abdominal Pain, Adult. - Prescriptions for ZOFRAN ODT 4 mg - dissolve 1 tablet by ORAL route 4 times per day As needed do not chew, do not swallow whole; 10 tablet. - Medication Reconciliation, Local Pharmacy Hours form. - Follow up: Private Physician; When: As previously arranged; Reason: Further diagnostic work-up, Recheck today's complaints, Continuance of care. Follow up: Emergency Department; When: As needed; Reason: Fever > 102F, Worsening of conditions. - Problem is new. - Symptoms have improved. Historical: - Allergies: Codeine Sulfatethroat swells; Ibuprofen (Anaphylaxis); Toradol (Hives); Tramadol HCl (Hives); Bactrim (Hives); - Home Meds: 1. capsaicin Topical 3 times per day 2. dicyclomine 10 mg Oral cap 1 cap three times per day as needed 3. Seroquel 100 mg oral tab 2 times per day 4. tizanidine 2 mg oral tab 1 tabs every 3 hours as needed 5. Xanax 0.25 mg Oral tab as needed out of Rx 6. lidocaine jelly 1 application three times a day 7. pregabalin 150 mg Oral cap 1 cap 2 times per day 8. prednisone 10 mg Oral tab 3 tabs once daily 9. Truvada 200-300 mg oral tab once daily 10. divalproex 250 mg oral Tb24 11. melatonin 3 mg Oral tab 1 mg as needed 12. Flexeril 10 mg Oral tab 1 tab as needed 13. topiramate 25 mg oral tab 2 times per day 14. buspirone 10 mg Oral tab 1 tab 2 times per day 15. Rozerem 8 mg oral tab 1 tab once daily 16. Macrodantin 50 mg Oral cap 1 cap once daily - PMHx: Anxiety; Bipolar disorder; Cellulitis Right Jaw; Chronic Back pain; Crohn's; Depression; Sciatica; Seizures; Substance Abuse; uterine cancer; - PSHx: Cholecystectomy; ; Hysterectomy; Laparoscopy; - Social history: Smoking status: Patient uses tobacco products, light tobacco smoker. No barriers to communication noted, The patient speaks fluent Frisian. - Family history: Not pertinent. - : The pt / caregiver states he / she is not on anticoagulants. Home medication list is obtained from the patient. - Exposure Risk Screening:: None identified. 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 5 in. (165.10 cm) (R); Pain 8/10; 23:15 Pain 8/10; dsf 23:40 BP 107 / 67; Pulse 91; Resp 18; Temp 98.6; Pulse Ox 98% ; Pain 8/10; ajs 04/25 01:48 BP 102 / 68; Pulse 84; Resp 18; Temp 98.7; Pulse Ox 97% ; Pain 5/10; ajs 04/24 19:24 Body Mass Index 29.95 (81.65 kg, 165.10 cm) gr2 MDM: 04/24 21:55 [facility] Payment Agreement was scanned into [employer] and attached to record. zo 22:17 Financial registration complete. gjb 22:26 IV Saline Lock ordered. ar2 22:26 Undress patient appropriately for examination ordered. ar2 22:26 NS 0.9% 1000 ml IV at bolus once ordered. ar2 22:26 Ondansetron 4 mg IVP once ordered. ar2 22:26 Stool samples ordered. ar2 22:26 Amylase Ordered. EDMS 22:26 Basic Metabolic Profile Ordered. EDMS 22:26 CBC with Diff Ordered. EDMS 22:26 Lipase Ordered. EDMS 22:26 Liver Profile Ordered. EDMS 22:26 NOTHING BY MOUTH+DIET ordered. EDMS 22:27 morphine 4 mg IVP once ordered. ar2 22:27 CT ABD & PELVIS: IV and Oral Contrast Ordered. EDMS 23:54 Basic Metabolic Profile Reviewed. ar2 23:54 CBC with Diff Reviewed. ar2 23:54 Liver Profile Reviewed. ar2 23:54 Amylase Reviewed. ar2 23:54 Lipase Reviewed. ar2 04/25 00:43 morphine 4 mg IVP once ordered. ar2 12:36 T-Sheet-- Draft Copy was scanned into [employer] and attached to record. gb 12:37 Radiology Report was scanned into [employer] and attached to record. gb Administered Medications: 04/24 22:41 Drug: morphine 4 mg [morphine 4 mg/mL intravenous cartridge (1 mL)] Route: IVP; Site: dsf left forearm; 23:15 Follow up: Pain 11/07 Adult dsf 22:42 Drug: NS 0.9% 1000 ml [sodium chloride 0.9 % injection solution] Route: IV; Rate: dsf bolus; Site: left forearm; 22:42 Drug: Ondansetron 4 mg [ondansetron HCl 2 mg/mL intravenous solution (2 mL)] Route: dsf IVP; Site: left forearm; 04/25 00:48 Drug: morphine 4 mg [morphine 4 mg/mL intravenous cartridge (1 mL)] Route: IVP; Site: dsf left forearm; Signatures: Dispatcher [employer] EDMS Radha Juarez, Reg Reg gb Jaun Curry Aaron, PA-C PA-C ar2 Cora Marino,RN RN rs3 Norberto Odell RN RN Judy Rutherford Desiree RN dsf The chart was reviewed and I authenticate all verbal orders and agree with the evaluation and treatment provided.Attachments: 04/24 21:55 [facility] Payment Agreement zo 04/25 12:36 T-Sheet-- Draft Copy gb Chart Complete MTDD
--- NOTE | 2016-04-27 02:51 | EDDOCDS ---
Physician Documentation [facility] Name: Diana Hernandez Age: 30 yrs Sex: Female : 1985 Arrival Date: 04/24/2016 Time: 19:21 Bed I5 / M5 Private MD: [facility] Disposition: 04/25/16 01:43 Discharged to Home/Self Care. Impression: Other abdominal pain - unspecified enteritis. - Condition is Stable. - Discharge Instructions: Abdominal Pain, Adult. - Prescriptions for ZOFRAN ODT 4 mg - dissolve 1 tablet by ORAL route 4 times per day As needed do not chew, do not swallow whole; 10 tablet. - Medication Reconciliation, Local Pharmacy Hours form. - Follow up: Private Physician; When: As previously arranged; Reason: Further diagnostic work-up, Recheck today's complaints, Continuance of care. Follow up: Emergency Department; When: As needed; Reason: Fever > 102F, Worsening of conditions. - Problem is new. - Symptoms have improved. Historical: - Allergies: Codeine Sulfatethroat swells; Ibuprofen (Anaphylaxis); Toradol (Hives); Tramadol HCl (Hives); Bactrim (Hives); - Home Meds: 1. capsaicin Topical 3 times per day 2. dicyclomine 10 mg Oral cap 1 cap three times per day as needed 3. Seroquel 100 mg oral tab 2 times per day 4. tizanidine 2 mg oral tab 1 tabs every 3 hours as needed 5. Xanax 0.25 mg Oral tab as needed out of Rx 6. lidocaine jelly 1 application three times a day 7. pregabalin 150 mg Oral cap 1 cap 2 times per day 8. prednisone 10 mg Oral tab 3 tabs once daily 9. Truvada 200-300 mg oral tab once daily 10. divalproex 250 mg oral Tb24 11. melatonin 3 mg Oral tab 1 mg as needed 12. Flexeril 10 mg Oral tab 1 tab as needed 13. topiramate 25 mg oral tab 2 times per day 14. buspirone 10 mg Oral tab 1 tab 2 times per day 15. Rozerem 8 mg oral tab 1 tab once daily 16. Macrodantin 50 mg Oral cap 1 cap once daily - PMHx: Anxiety; Bipolar disorder; Cellulitis Right Jaw; Chronic Back pain; Crohn's; Depression; Sciatica; Seizures; Substance Abuse; uterine cancer; - PSHx: Cholecystectomy; ; Hysterectomy; Laparoscopy; - Social history: Smoking status: Patient uses tobacco products, light tobacco smoker. No barriers to communication noted, The patient speaks fluent Serbian. - Family history: Not pertinent. - : The pt / caregiver states he / she is not on anticoagulants. Home medication list is obtained from the patient. - Exposure Risk Screening:: None identified. CLINICAL SPECIALIST: 04/24 19:50 LMP N/A - Hysterectomy rs3 Vital Signs: 19:24 BP 109 / 55; Pulse 116; Resp 18 S; Temp 97.5(O); Pulse Ox 100% on R/A; Weight 81.65 kg gr2 / 180.01 lbs (R); Height 5 ft. 5 in. (165.10 cm) (R); Pain 8/10; 23:15 Pain 8/10; dsf 23:40 BP 107 / 67; Pulse 91; Resp 18; Temp 98.6; Pulse Ox 98% ; Pain 8/10; ajs 04/25 01:48 BP 102 / 68; Pulse 84; Resp 18; Temp 98.7; Pulse Ox 97% ; Pain 5/10; ajs 04/24 19:24 Body Mass Index 29.95 (81.65 kg, 165.10 cm) gr2 MDM: 04/24 21:55 [facility] Payment Agreement was scanned into [employer] and attached to record. zo 22:17 Financial registration complete. gjb 22:26 IV Saline Lock ordered. ar2 22:26 Undress patient appropriately for examination ordered. ar2 22:26 NS 0.9% 1000 ml IV at bolus once ordered. ar2 22:26 Ondansetron 4 mg IVP once ordered. ar2 22:26 Stool samples ordered. ar2 22:26 Amylase Ordered. EDMS 22:26 Basic Metabolic Profile Ordered. EDMS 22:26 CBC with Diff Ordered. EDMS 22:26 Lipase Ordered. EDMS 22:26 Liver Profile Ordered. EDMS 22:26 NOTHING BY MOUTH+DIET ordered. EDMS 22:27 morphine 4 mg IVP once ordered. ar2 22:27 CT ABD & PELVIS: IV and Oral Contrast Ordered. EDMS 23:54 Basic Metabolic Profile Reviewed. ar2 23:54 CBC with Diff Reviewed. ar2 23:54 Liver Profile Reviewed. ar2 23:54 Amylase Reviewed. ar2 23:54 Lipase Reviewed. ar2 04/25 00:43 morphine 4 mg IVP once ordered. ar2 12:36 T-Sheet-- Draft Copy was scanned into [employer] and attached to record. gb 12:37 Radiology Report was scanned into [employer] and attached to record. gb Administered Medications: 04/24 22:41 Drug: morphine 4 mg [morphine 4 mg/mL intravenous cartridge (1 mL)] Route: IVP; Site: dsf left forearm; 23:15 Follow up: Pain 11/07 Adult dsf 22:42 Drug: NS 0.9% 1000 ml [sodium chloride 0.9 % injection solution] Route: IV; Rate: dsf bolus; Site: left forearm; 22:42 Drug: Ondansetron 4 mg [ondansetron HCl 2 mg/mL intravenous solution (2 mL)] Route: dsf IVP; Site: left forearm; 04/25 00:48 Drug: morphine 4 mg [morphine 4 mg/mL intravenous cartridge (1 mL)] Route: IVP; Site: dsf left forearm; Signatures: Dispatcher [employer] EDMS Radha Juarez, Reg Reg gb Jaun Curry Aaron, PA-C PA-C ar2 Cora Marino,RN RN rs3 Norberto Odell RN RN Judy Rutherford Desiree RN dsf The chart was reviewed and I authenticate all verbal orders and agree with the evaluation and treatment provided.Attachments: 04/24 21:55 [facility] Payment Agreement zo 04/25 12:36 T-Sheet-- Draft Copy gb Chart Complete MTDD
== END 2016-04-25 01:50 | disposition home or self-care (01) ==
LOC: M ED 19:21
DX: K52.9 Noninfective gastroenteritis and colitis, unspecified (principal); F31.9 Bipolar disorder, unspecified; L03.211 Cellulitis of face; M54.9 Dorsalgia, unspecified; K50.90 Crohn's disease, unspecified, without complications; M54.30 Sciatica, unspecified side; F19.10 Other psychoactive substance abuse, uncomplicated; Z85.42 Personal history of malignant neoplasm of other parts of uterus; F17.210 Nicotine dependence, cigarettes, uncomplicated; Z79.899 Other long term (current) drug therapy; Z88.5 Allergy status to narcotic agent; Z88.6 Allergy status to analgesic agent; Z88.2 Allergy status to sulfonamides; Z88.8 Allergy status to other drugs, medicaments and biological substances
CPT/HCPCS: 36415; 74177; 80048; 80076; 82150; 83690; 85025; 96374; 96375; 96376; 99284; J2405; Q9963; Q9967

== ENCOUNTER 2016-04-26 00:43 | Emergency (ER) | payer OTHER ==
[2016-04-26 01:55] LABS: BASO % 0.6 % (0.0-1.0); EOS # 0.2 K/mm3 (0.0-0.50); EOS % 2.9 % (0.0-3.0); LARGE UNSTAINED CELL # 0.1 K/mm3 (0.0-0.4); LARGE UNSTAINED CELL % 1.9 % (0.0-4.0); LYMPH # 2.1 K/mm3 (1.5-4.5); LYMPH % 41.6 % (24.0-44.0); MEAN CORPUSCULAR HEMOGLOBIN 31.3 pg (27.0-33.0); MEAN CORPUSCULAR HGB CONC 32.4 g/dl (32.0-36.5); MEAN CORPUSCULAR VOLUME 96.5 fl (80.0-96.0); MONO # 0.2 K/mm3 (0.0-0.8); MONO % 4.4 % (0.0-5.0); NEUTROPHILS # 2.4 K/mm3 (1.8-7.7); NEUTROPHILS % 48.6 % (36.0-66.0); PLATELET COUNT, AUTOMATED 260 k/mm3 (150-450); RED CELL DISTRIBUTION WIDTH 12.8 % (11.5-14.5)
[2016-04-26 02:24] LABS: ALBUMIN 3.6 GM/DL (3.2-5.2); ALBUMIN/GLOBULIN RATIO 1.03 (1.00-1.93); ALKALINE PHOSPHATASE 115 U/L (45-117); ALT/SGPT 158 U/L (12-78); AMYLASE 48 U/L (25-115); ANION GAP 9 MEQ/L (8-16); AST/SGOT 112 U/L (15-37); BILIRUBIN,DIRECT < 0.1 MG/DL (0.0-0.2); BILIRUBIN,TOTAL 0.1 MG/DL (0.2-1.0); BLOOD UREA NITROGEN 5 MG/DL (7-18); CALCIUM LEVEL 8.4 MG/DL (8.5-10.1); CARBON DIOXIDE LEVEL 28 MEQ/L (21-32); CHLORIDE LEVEL 107 MEQ/L (98-107); CREATININE FOR GFR 0.68 MG/DL (0.55-1.02); GLOMERULAR FILTRATION RATE > 60.0 (>60); GLUCOSE, FASTING 89 MG/DL (70-105); POTASSIUM SERUM 3.8 MEQ/L (3.5-5.1); SODIUM LEVEL 144 MEQ/L (136-145); TOTAL PROTEIN 7.1 GM/DL (6.4-8.2)
[2016-04-26] MEDS ORDERED: ISOVUE-370 76% 100ML VIAL (Q9967) As Ordered ONE (02:37)
[2016-04-26] MEDS ORDERED: DICYCLOMINE INJ 20MG/2ML (J0500) As Ordered ONE (04:10)
--- NOTE | 2016-04-26 04:51 | EDDOCDS ---
Physician Documentation [facility] Name: Diana Hernandez Age: 30 yrs Sex: Female : 1985 Arrival Date: 04/26/2016 Time: 00:43 Bed 14 Private MD: Disposition: 04/26/16 04:06 Discharged to Home/Self Care. Impression: Other viral enteritis. - Condition is Stable. - Medication Reconciliation, Local Pharmacy Hours form. - Follow up: Private Physician; When: Call to arrange an appointment; Reason: Recheck today's complaints. - Problem is an ongoing problem. - Symptoms have improved. Historical: - Allergies: Bactrim (Hives); Codeine Sulfatethroat swells; Ibuprofen (Anaphylaxis); Toradol (Hives); Tramadol HCl (Hives); - Home Meds: 1. buspirone 10 mg Oral tab 1 tab 2 times per day (Last dose: 04/25/2016 19:00) 2. capsaicin Topical 3 times per day (Last dose: 04/25/2016 19:00) 3. dicyclomine 10 mg Oral cap 1 cap three times per day as needed (Last dose: 04/25/2016 19:00) 4. divalproex 250 mg oral Tb24 (Last dose: 04/25/2016 19:00) 5. Flexeril 10 mg Oral tab 1 tab as needed (Last dose: 04/25/2016 19:00) 6. Macrodantin 50 mg Oral cap 1 cap once daily (Last dose: 04/25/2016 19:00) 7. melatonin 3 mg Oral tab 1 mg as needed (Last dose: 04/25/2016 19:00) 8. prednisone 10 mg Oral tab 3 tabs once daily (Last dose: 04/25/2016 19:00) 9. Seroquel 100 mg Oral tab 2 times per day (Last dose: 04/25/2016 08:00) 10. tizanidine 2 mg oral tab 1 tabs every 3 hours as needed 11. Truvada 200-300 mg oral tab once daily (Last dose: 04/25/2016 08:00) - PMHx: Anxiety; Bipolar disorder; Cellulitis Right Jaw; Chronic Back pain; Crohn's; Depression; Sciatica; Seizures; Substance Abuse; uterine cancer; - PSHx: Cholecystectomy; ; Hysterectomy; Laparoscopy; - Social history: Smoking status: Patient uses tobacco products, current every day smoker. No barriers to communication noted, The patient speaks fluent Tajik, Speaks appropriately for age, Preferred Language: Tajik. - Family history: Not pertinent. - : The pt / caregiver states he / she is not on anticoagulants. Home medication list is obtained from the patient. - Exposure Risk Screening:: None identified. 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 5 in. (165.10 cm) (R); Pain 9/10; 04:36 BP 111 / 58; Pulse 78; Resp 18; Temp 96.8(O); Pulse Ox 99% on R/A; Pain 9/10; kb5 00:56 Body Mass Index 29.95 (81.65 kg, 165.10 cm) lf1 MDM: 01:03 IV Saline Lock ordered. cs11 01:04 CBC with Diff Ordered. EDMS 01:04 MED Profile Ordered. EDMS 01:04 Liver Profile Ordered. EDMS 01:04 Amylase Ordered. EDMS 01:04 Lipase Ordered. EDMS 01:04 Urinalysis Ordered. EDMS 01:04 Urine Culture Ordered. EDMS 01:20 Financial registration complete. pm4 01:32 [facility] Payment Agreement was scanned into [employer] and attached to record. pm4 02:04 CBC with Diff Reviewed. cs11 02:29 MED Profile Reviewed. cs11 02:29 Liver Profile Reviewed. cs11 02:29 Amylase Reviewed. cs11 02:29 Lipase Reviewed. cs11 02:29 Urinalysis Reviewed. cs11 02:31 CT ABD & PELVIS: IV Contrast Only Ordered. EDMS 04:04 Bentyl 20 mg IM once ordered. cs11 Administered Medications: 04:15 Drug: Bentyl 20 mg [Bentyl 10 mg/mL intramuscular solution (2 mL)] Route: IM; Site: af2 left gluteus; Signatures: Dispatcher [employer] EDMS Safia Cardenas RN RN jan Ford, Lisa, RN RN lf1 Damian Rooney DO DO cs11 Jethro Lou, Reg Reg pm4 Leatha Rodriges RN af2 The chart was reviewed and I authenticate all verbal orders and agree with the evaluation and treatment provided.Attachments: 01:32 [facility] Payment Agreement pm4 JULIOD
--- NOTE | 2016-04-26 04:51 | EDDOCDS ---
Nurse's Notes [facility] Name: Diana Hernandez Age: 30 yrs Sex: Female : 1985 Arrival Date: 04/26/2016 Time: 00:43 Bed 14 Private MD: Diagnosis: Other viral enteritis Presentation: 04/26 00:46 Presenting complaint: Patient states: Vomiting and right lower quadrant pain that began lf1 two months ago. Pt reports that she is unable to keep anything down and she called her provider and he told her to report to the ED. Pt reports that her pain is currently a 9.5 and she took Tylenol about two hours ago. Risk factors: the patient reports no vaginal bleeding. Adult Sepsis Screening: The patient does not have new or worsening altered mentation. Patient's respiratory rate is less than 22. Systolic blood pressure is greater than 100. Patient has a qSOFA score of 0- Negative Sepsis Screen. Suicide/Homicide risk assessment- the patient denies having any suicidal and/or homicidal ideations and does not present with any other emotional, behavioral or mental health complaints. Status: Patient is not a service delivery management consultant or dependent. Transition of care: patient was not received from another setting of care. 00:46 Acuity: PAULY Level 3 lf1 00:46 Method Of Arrival: Walkin/Carried/Asstd lf1 Triage Assessment: 00:56 General: Appears in no apparent distress, comfortable, Behavior is. Pain: Location: lf1 right lower quadrant Pain currently is 9.5 out of 10 on a pain scale. HIV screening NA for this visit Offered previously. Neurological: Level of Consciousness is awake, alert. Respiratory: Respiratory effort is even, unlabored. GI: Reports lower abdominal pain, nausea, vomiting. Derm: Skin is normal. 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 buspirone 10 mg Oral tab 1 tab 2 times per day (Last dose: 04/25/2016 19:00) 2. capsaicin Topical 3 times per day (Last dose: 04/25/2016 19:00) 3. dicyclomine 10 mg Oral cap 1 cap three times per day as needed (Last dose: 04/25/2016 19:00) 4. divalproex 250 mg oral Tb24 (Last dose: 04/25/2016 19:00) 5. Flexeril 10 mg Oral tab 1 tab as needed (Last dose: 04/25/2016 19:00) 6. Macrodantin 50 mg Oral cap 1 cap once daily (Last dose: 04/25/2016 19:00) 7. melatonin 3 mg Oral tab 1 mg as needed (Last dose: 04/25/2016 19:00) 8. prednisone 10 mg Oral tab 3 tabs once daily (Last dose: 04/25/2016 19:00) 9. Seroquel 100 mg Oral tab 2 times per day (Last dose: 04/25/2016 08:00) 10. tizanidine 2 mg oral tab 1 tabs every 3 hours as needed 11. Truvada 200-300 mg oral tab once daily (Last dose: 04/25/2016 08:00) - PMHx: Anxiety; Bipolar disorder; Cellulitis Right Jaw; Chronic Back pain; Crohn's; Depression; Sciatica; Seizures; Substance Abuse; uterine cancer; - PSHx: Cholecystectomy; ; Hysterectomy; Laparoscopy; - Social history: Smoking status: Patient uses tobacco products, current every day smoker. No barriers to communication noted, The patient speaks fluent Portuguese, Speaks appropriately for age, Preferred Language: Portuguese. - Family history: Not pertinent. - : The pt / caregiver states he / she is not on anticoagulants. Home medication list is obtained from the patient. - Exposure Risk Screening:: None identified. Screenin:42 Screening information is obtained from the patient. Fall risk: No risks identified. af2 Assistance ADL's: requires no assistance with activities of daily living. Abuse/DV Screen: The patient / caregiver reports he/she is: not in a situation that causes fear, pain or injury. Nutritional screening: No deficits noted. Advance Directives: There is no active DNR order. home support is adequate. Assessment: 01:39 General: Appears in no apparent distress, comfortable, Behavior is appropriate for age, af2 cooperative. Pain: Location: abdomen Pain currently is 10 out of 10 on a pain scale. GI: Abdomen is non- distended Bowel sounds present X 4 quads. Abd is soft and non tender X 4 quads. Reports lower abdominal pain, upper abd pain. Derm: Skin is normal. 02:30 General: Appears in no apparent distress, comfortable, Behavior is appropriate for age, af2 cooperative. Respiratory: Airway is patent Respiratory effort is even, unlabored. GI: Reports lower abdominal pain, upper abd pain. Derm: Skin is normal. 03:30 General: Appears in no apparent distress, comfortable, Behavior is appropriate for age, af2 cooperative. Neurological: Level of Consciousness is awake, alert, obeys commands. Respiratory: Airway is patent Respiratory effort is even, unlabored. Derm: Skin is normal. Vital Signs: 00:56 BP 118 / 75; Pulse 81; Resp 16; Temp 97.4; Pulse Ox 100% on R/A; Weight 81.65 kg; lf1 Height 5 ft. 5 in. (165.10 cm) (R); Pain 9/10; 04:36 BP 111 / 58; Pulse 78; Resp 18; Temp 96.8(O); Pulse Ox 99% on R/A; Pain 9/10; kb5 00:56 Body Mass Index 29.95 (81.65 kg, 165.10 cm) 1 Vitals: 00:56 Log In Time: April 26, 2016 at 00:45. 1 ED Course: 00:44 Patient visited by Hodan Funes Reg. hs2 00:44 Patient moved to Waiting hs2 00:51 Triage Initiated lf1 00:59 Leatha RodrigesRN is Primary Nurse. lf1 00:59 Patient moved to 14 lf1 01:00 Damian Rooney DO is Attending Physician. cs11 01:00 Patient visited by Damian Rooney DO. cs11 01:32 [facility] Payment Agreement was scanned into [employer] and attached to record. pm4 01:38 Lipase Sent. af2 01:38 Amylase Sent. af2 01:38 Liver Profile Sent. af2 01:39 MED Profile Sent. af2 01:39 CBC with Diff Sent. af2 01:42 Patient visited by Leatah Rodriges RN. af2 01:42 The patient / caregiver is instructed regarding the plan of care and ED course. Patient af2 has correct armband on for positive identification. Placed in gown. 01:42 Inserted saline lock: 20 gauge in left hand and blood collected. The patient tolerated af2 the procedure well. 02:04 Patient visited by Darryn Oates PCA. kb5 03:16 Patient visited by Leatha Rodriges RN. af2 03:24 Patient visited by Leatha Rodriges RN. af2 04:06 Patient visited by Leatha Rodriges RN. af2 04:16 Patient visited by Leatha Rodriges RN. af2 04:36 Patient visited by Darryn Oates PCA. kb5 04:49 Discontinued lock bleeding controlled, pressure dressing applied, No redness/swelling uvaldo at site. No procedures done that require assistance. Administered Medications: 04:15 Drug: Bentyl 20 mg [Bentyl 10 mg/mL intramuscular solution (2 mL)] Route: IM; Site: af2 left gluteus; Order Results: Lab Order: CBC with Diff; SPEC'M 04/26/16 01:47 Test: WHITE BLOOD COUNT; Value: 5.0; Range: 4.0-10.0; Units: K/mm3; Status: F Test: RED BLOOD COUNT; Value: 4.03; Range: 4.00-5.40; Units: M/mm3; Status: F Test: HEMOGLOBIN; Value: 12.6; Range: 12.0-16.0; Units: g/dl; Status: F Test: HEMATOCRIT; Value: 38.9; Range: 36.0-47.0; Units: %; Status: F Test: MEAN CORPUSCULAR VOLUME; Value: 96.5; Range: 80.0-96.0; Abnormal: Above high normal; Units: fl; Status: F Test: MEAN CORPUSCULAR HEMOGLOBIN; Value: 31.3; Range: 27.0-33.0; Units: pg; Status: F Test: MEAN CORPUSCULAR HGB CONC; Value: 32.4; Range: 32.0-36.5; Units: g/dl; Status: F Test: RED CELL DISTRIBUTION WIDTH; Value: 12.8; Range: 11.5-14.5; Units: %; Status: F Test: PLATELET COUNT, AUTOMATED; Value: 260; Range: 150-450; Units: k/mm3; Status: F Test: NEUTROPHILS %; Value: 48.6; Range: 36.0-66.0; Units: %; Status: F Test: LYMPH %; Value: 41.6; Range: 24.0-44.0; Units: %; Status: F Test: MONO %; Value: 4.4; Range: 0.0-5.0; Units: %; Status: F Test: EOS %; Value: 2.9; Range: 0.0-3.0; Units: %; Status: F Test: BASO %; Value: 0.6; Range: 0.0-1.0; Units: %; Status: F Test: LARGE UNSTAINED CELL %; Value: 1.9; Range: 0.0-4.0; Units: %; Status: F Test: NEUTROPHILS #; Value: 2.4; Range: 1.8-7.7; Units: K/mm3; Status: F Test: LYMPH #; Value: 2.1; Range: 1.5-4.5; Units: K/mm3; Status: F Test: MONO #; Value: 0.2; Range: 0.0-0.8; Units: K/mm3; Status: F Test: EOS #; Value: 0.2; Range: 0.0-0.50; Units: K/mm3; Status: F Test: BASO #; Value: 0.0; Range: 0.0-0.2; Units: K/mm3; Status: F Test: LARGE UNSTAINED CELL #; Value: 0.1; Range: 0.0-0.4; Units: K/mm3; Status: F Lab Order: [facility]; SPEC'M 04/26/16 01:34 Test: GLUCOSE, FASTING; Value: 89; Range: 70-105; Units: MG/DL; Status: F Test: BLOOD UREA NITROGEN; Value: 5; Range: 7-18; Abnormal: Below low normal; Units: MG/DL; Status: F Test: CREATININE FOR GFR; Value: 0.68; Range: 0.55-1.02; Units: MG/DL; Status: F Test: GLOMERULAR FILTRATION RATE; Value: > 60.0; Range: >60; Status: F Test: SODIUM LEVEL; Value: 144; Range: 136-145; Units: MEQ/L; Status: F Test: POTASSIUM SERUM; Value: 3.8; Range: 3.5-5.1; Units: MEQ/L; Status: F Test: CHLORIDE LEVEL; Value: 107; Range: 98-107; Units: MEQ/L; Status: F Test: CARBON DIOXIDE LEVEL; Value: 28; Range: 21-32; Units: MEQ/L; Status: F Test: ANION GAP; Value: 9; Range: 8-16; Units: MEQ/L; Status: F Test: CALCIUM LEVEL; Value: 8.4; Range: 8.5-10.1; Abnormal: Below low normal; Units: MG/DL; Status: F Test Note: ; Units are mL/min/1.73 m2 Chronic Kidney Disease Staging per NKF: Stage I & II GFR >=60 Normal to Mildly Decreased Stage III GFR 30-59 Moderately Decreased Stage IV GFR 15-29 Severely Decreased Stage V GFR <15 Very Little GFR Left ESRD GFR <15 on RAILROAD SUPERVISOR OF ENGINES Lab Order: Liver Profile; SPEC'04/26/16 01:34 Test: AST/SGOT; Value: 112; Range: 15-37; Abnormal: Above high normal; Units: U/L; Status: F Test: ALT/SGPT; Value: 158; Range: 12-78; Abnormal: Above high normal; Units: U/L; Status: F Test: ALKALINE PHOSPHATASE; Value: 115; Range: 45-117; Units: U/L; Status: F Test: BILIRUBIN,TOTAL; Value: 0.1; Range: 0.2-1.0; Abnormal: Below low normal; Units: MG/DL; Status: F Test: BILIRUBIN,DIRECT; Value: < 0.1; Range: 0.0-0.2; Units: MG/DL; Status: F Test: TOTAL PROTEIN; Value: 7.1; Range: 6.4-8.2; Units: GM/DL; Status: F Test: ALBUMIN; Value: 3.6; Range: 3.2-5.2; Units: GM/DL; Status: F Test: ALBUMIN/GLOBULIN RATIO; Value: 1.03; Range: 1.00-1.93; Status: F Lab Order: Amylase; SPEC'04/26/16 01:34 Test: AMYLASE; Value: 48; Range: 25-115; Units: U/L; Status: F Lab Order: Lipase; SPEC'M 04/26/16 01:34 Test: LIPASE; Value: 157; Range: 73-393; Units: U/L; Status: F Lab Order: Urinalysis; SPEC'M 04/26/16 01:47 Test: APPEARANCE, URINE; Value: CLEAR; Range: CLEAR; Status: F Test: COLOR, URINE; Value: YELLOW; Range: YELLOW; Status: F Test: PH,URINE; Value: 8.0; Range: 5.0-9.0; Units: UNITS; Status: F Test: SPECIFIC GRAVITY URINE AUTO; Value: 1.009; Range: 1.002-1.035; Status: F Test: PROTEIN, URINE AUTO; Value: NEGATIVE; Range: NEGATIVE; Units: mg/dL; Status: F Test: GLUCOSE, URINE (UA) AUTO; Value: NEGATIVE; Range: NEGATIVE; Units: mg/dL; Status: F Test: KETONE, URINE AUTO; Value: NEGATIVE; Range: NEGATIVE; Units: mg/dL; Status: F Test: UROBILINOGEN, URINE AUTO; Value: 0.2; Range: 0.0-2.0; Units: mg/dL; Status: F Test: BILIRUBIN, URINE AUTO; Value: NEGATIVE; Range: NEGATIVE; Status: F Test: NITRITE, URINE AUTO; Value: NEGATIVE; Range: NEGATIVE; Status: F Test: LEUKOCYTE ESTERASE, URINE AUTO; Value: NEGATIVE; Range: NEGATIVE; Status: F Test: BLOOD, URINE BLOOD; Value: NEGATIVE; Range: NEGATIVE; Status: F Test: WBC, URINE AUTO; Value: 0; Range: 0-3; Units: /HPF; Status: F Test: RBC, URINE AUTO; Value: 3; Range: 0-3; Units: /HPF; Status: F Test: BACTERIA, URINE AUTO; Value: NEGATIVE; Range: NEGATIVE; Status: F Test: SQUAMOUS EPITHELIAL CELL UR AU; Value: 0; Range: 0-6; Units: /HPF; Status: F Test: HYALINE CAST, URINE AUTO; Value: 0; Range: 0-1; Units: /LPF; Status: F Outcome: 04:06 Discharge ordered by Provider. cs11 04:49 Discharge Assessment: patient administered narcotics - no. The following High Risk uvaldo Discharge criteria are identified: None. Discharged to home ambulatory. Condition: stable. Discharge instructions given to patient, Instructed on discharge instructions, follow up and referral plans. Demonstrated understanding of instructions, Pt was receptive of discharge instructions/ teaching. CT Study completed. Property :Personal belongings accompany Pt. 04:51 Patient left the ED. uvaldo Signatures: Safia Cardenas RN RN Darryn Blair, SHADE MAKER SHADE MAKER kb5 Marilee GarzaRN RN lf1 Damian Rooney, DO cs11 Leatha Rodriges RN RN af2 Hodan Funes, Reg Reg hs2 Jethro Lou, Reg Reg pm4 MTDD
--- NOTE | 2016-04-26 07:14 | REPUSA ---
CLINICAL HISTORY: Abdominal pain. TECHNIQUE: Multiple axial, sagittal and coronal CT images were obtained through the abdomen and pelvi s after administration of oral and intravenous contrast material. COMMENTS: Comparison is made to the prior exam performed on 04/25/2016. The liver is mildly enlarged with decreased attenuation without mass or defect. There is no intra or extrahepatic biliary ductal dilatation. The spleen is normal. The gallbladder is surgically absent. T he pancreas is of normal contour and attenuation characteristics. There is no evidence of adrenal mas s. Both kidneys demonstrate prompt and equal nephrograms. The kidneys are normal in size, shape and conf iguration. There is no evidence of renal or ureteral mass. No renal or ureteral calculi are identifie d. There is no hydroureter or hydronephrosis. No evidence for appendicitis. Fluid filled small bowels. No evidence for small or large bowel obstruc tion. There is no evidence of abdominal ascites or lymphadenopathy. There is no evidence of intrinsic or extrinsic bladder mass. There is no pelvic ascites or lymphadeno irene. Mildly thickened bladder. No change in small right pleural effusion with passive atelectatic airspace disease of the right lowe r lobe. The bony structures are free of lytic or blastic lesions. IMPRESSION: Fluid filled small bowel suggestive of mild antritis. This has increased. No change in right pleural effusion. Mildly thickened bladder. Thank you for your kind referral of this patient.
--- NOTE | 2016-04-28 05:52 | EDDOCDS ---
Physician Documentation [facility] Name: Diana Hernandez Age: 30 yrs Sex: Female : 1985 Arrival Date: 04/26/2016 Time: 00:43 Bed 14 Private MD: Disposition: 04/26/16 04:06 Discharged to Home/Self Care. Impression: Other viral enteritis. - Condition is Stable. - Medication Reconciliation, Local Pharmacy Hours form. - Follow up: Private Physician; When: Call to arrange an appointment; Reason: Recheck today's complaints. - Problem is an ongoing problem. - Symptoms have improved. Historical: - Allergies: Bactrim (Hives); Codeine Sulfatethroat swells; Ibuprofen (Anaphylaxis); Toradol (Hives); Tramadol HCl (Hives); - Home Meds: 1. buspirone 10 mg Oral tab 1 tab 2 times per day (Last dose: 04/25/2016 19:00) 2. capsaicin Topical 3 times per day (Last dose: 04/25/2016 19:00) 3. dicyclomine 10 mg Oral cap 1 cap three times per day as needed (Last dose: 04/25/2016 19:00) 4. divalproex 250 mg oral Tb24 (Last dose: 04/25/2016 19:00) 5. Flexeril 10 mg Oral tab 1 tab as needed (Last dose: 04/25/2016 19:00) 6. Macrodantin 50 mg Oral cap 1 cap once daily (Last dose: 04/25/2016 19:00) 7. melatonin 3 mg Oral tab 1 mg as needed (Last dose: 04/25/2016 19:00) 8. prednisone 10 mg Oral tab 3 tabs once daily (Last dose: 04/25/2016 19:00) 9. Seroquel 100 mg Oral tab 2 times per day (Last dose: 04/25/2016 08:00) 10. tizanidine 2 mg oral tab 1 tabs every 3 hours as needed 11. Truvada 200-300 mg oral tab once daily (Last dose: 04/25/2016 08:00) - PMHx: Anxiety; Bipolar disorder; Cellulitis Right Jaw; Chronic Back pain; Crohn's; Depression; Sciatica; Seizures; Substance Abuse; uterine cancer; - PSHx: Cholecystectomy; ; Hysterectomy; Laparoscopy; - Social history: Smoking status: Patient uses tobacco products, current every day smoker. No barriers to communication noted, The patient speaks fluent Welsh, Speaks appropriately for age, Preferred Language: Welsh. - Family history: Not pertinent. - : The pt / caregiver states he / she is not on anticoagulants. Home medication list is obtained from the patient. - Exposure Risk Screening:: None identified. ELECTRIC MOTOR WINDER: 04/26 00:56 3, 1, Living 2, LMP N/A - Hysterectomy lf1 Vital Signs: 00:56 BP 118 / 75; Pulse 81; Resp 16; Temp 97.4; Pulse Ox 100% on R/A; Weight 81.65 kg / lf1 180.01 lbs; Height 5 ft. 5 in. (165.10 cm) (R); Pain 9/10; 04:36 BP 111 / 58; Pulse 78; Resp 18; Temp 96.8(O); Pulse Ox 99% on R/A; Pain 9/10; kb5 00:56 Body Mass Index 29.95 (81.65 kg, 165.10 cm) lf1 MDM: 01:03 IV Saline Lock ordered. cs11 01:04 CBC with Diff Ordered. EDMS 01:04 MED Profile Ordered. EDMS 01:04 Liver Profile Ordered. EDMS 01:04 Amylase Ordered. EDMS 01:04 Lipase Ordered. EDMS 01:04 Urinalysis Ordered. EDMS 01:04 Urine Culture Ordered. EDMS 01:20 Financial registration complete. pm4 01:32 [facility] Payment Agreement was scanned into [employer] and attached to record. pm4 02:04 CBC with Diff Reviewed. cs11 02:29 MED Profile Reviewed. cs11 02:29 Liver Profile Reviewed. cs11 02:29 Amylase Reviewed. cs11 02:29 Lipase Reviewed. cs11 02:29 Urinalysis Reviewed. cs11 02:31 CT ABD & PELVIS: IV Contrast Only Ordered. EDMS 04:04 Bentyl 20 mg IM once ordered. cs11 13:34 T-Sheet-- Draft Copy was scanned into [employer] and attached to record. gb Administered Medications: 04:15 Drug: Bentyl 20 mg [Bentyl 10 mg/mL intramuscular solution (2 mL)] Route: IM; Site: af2 left gluteus; Signatures: Dispatcher anydooRst Safia Monahan RN RN Radha Mullins, Reg Reg gb Marilee Garza RN RN lf1 Damian Rooney DO DO cs11 Jethro Lou, Reg Reg pm4 Leatha Rodriges RN af2 The chart was reviewed and I authenticate all verbal orders and agree with the evaluation and treatment provided.Attachments: 01:32 [facility] [place] Payment Agreement pm4 13:34 T-Sheet-- Draft Copy gb Chart Complete MTDD
--- NOTE | 2016-04-28 05:52 | EDDOCDS ---
Nurse's Notes [facility] Name: Diana Hernandez Age: 30 yrs Sex: Female : 1985 Arrival Date: 04/26/2016 Time: 00:43 Bed 14 Private MD: Diagnosis: Other viral enteritis Presentation: 04/26 00:46 Presenting complaint: Patient states: Vomiting and right lower quadrant pain that began lf1 two months ago. Pt reports that she is unable to keep anything down and she called her provider and he told her to report to the ED. Pt reports that her pain is currently a 9.5 and she took Tylenol about two hours ago. Risk factors: the patient reports no vaginal bleeding. Adult Sepsis Screening: The patient does not have new or worsening altered mentation. Patient's respiratory rate is less than 22. Systolic blood pressure is greater than 100. Patient has a qSOFA score of 0- Negative Sepsis Screen. Suicide/Homicide risk assessment- the patient denies having any suicidal and/or homicidal ideations and does not present with any other emotional, behavioral or mental health complaints. Status: Patient is not a access services representative or dependent. Transition of care: patient was not received from another setting of care. 00:46 Acuity: PAULY Level 3 lf1 00:46 Method Of Arrival: Walkin/Carried/Asstd lf1 Triage Assessment: 00:56 General: Appears in no apparent distress, comfortable, Behavior is. Pain: Location: lf1 right lower quadrant Pain currently is 9.5 out of 10 on a pain scale. HIV screening NA for this visit Offered previously. Neurological: Level of Consciousness is awake, alert. Respiratory: Respiratory effort is even, unlabored. GI: Reports lower abdominal pain, nausea, vomiting. Derm: Skin is normal. COUNTER FORMER: 00:56 3, 1, Living 2, LMP N/A - Hysterectomy lf1 Historical: - Allergies: Bactrim (Hives); Codeine Sulfatethroat swells; Ibuprofen (Anaphylaxis); Toradol (Hives); Tramadol HCl (Hives); - Home Meds: 1. buspirone 10 mg Oral tab 1 tab 2 times per day (Last dose: 04/25/2016 19:00) 2. capsaicin Topical 3 times per day (Last dose: 04/25/2016 19:00) 3. dicyclomine 10 mg Oral cap 1 cap three times per day as needed (Last dose: 04/25/2016 19:00) 4. divalproex 250 mg oral Tb24 (Last dose: 04/25/2016 19:00) 5. Flexeril 10 mg Oral tab 1 tab as needed (Last dose: 04/25/2016 19:00) 6. Macrodantin 50 mg Oral cap 1 cap once daily (Last dose: 04/25/2016 19:00) 7. melatonin 3 mg Oral tab 1 mg as needed (Last dose: 04/25/2016 19:00) 8. prednisone 10 mg Oral tab 3 tabs once daily (Last dose: 04/25/2016 19:00) 9. Seroquel 100 mg Oral tab 2 times per day (Last dose: 04/25/2016 08:00) 10. tizanidine 2 mg oral tab 1 tabs every 3 hours as needed 11. Truvada 200-300 mg oral tab once daily (Last dose: 04/25/2016 08:00) - PMHx: Anxiety; Bipolar disorder; Cellulitis Right Jaw; Chronic Back pain; Crohn's; Depression; Sciatica; Seizures; Substance Abuse; uterine cancer; - PSHx: Cholecystectomy; ; Hysterectomy; Laparoscopy; - Social history: Smoking status: Patient uses tobacco products, current every day smoker. No barriers to communication noted, The patient speaks fluent Tajik, Speaks appropriately for age, Preferred Language: Tajik. - Family history: Not pertinent. - : The pt / caregiver states he / she is not on anticoagulants. Home medication list is obtained from the patient. - Exposure Risk Screening:: None identified. Screenin:42 Screening information is obtained from the patient. Fall risk: No risks identified. af2 Assistance ADL's: requires no assistance with activities of daily living. Abuse/DV Screen: The patient / caregiver reports he/she is: not in a situation that causes fear, pain or injury. Nutritional screening: No deficits noted. Advance Directives: There is no active DNR order. home support is adequate. Assessment: 01:39 General: Appears in no apparent distress, comfortable, Behavior is appropriate for age, af2 cooperative. Pain: Location: abdomen Pain currently is 10 out of 10 on a pain scale. GI: Abdomen is non- distended Bowel sounds present X 4 quads. Abd is soft and non tender X 4 quads. Reports lower abdominal pain, upper abd pain. Derm: Skin is normal. 02:30 General: Appears in no apparent distress, comfortable, Behavior is appropriate for age, af2 cooperative. Respiratory: Airway is patent Respiratory effort is even, unlabored. GI: Reports lower abdominal pain, upper abd pain. Derm: Skin is normal. 03:30 General: Appears in no apparent distress, comfortable, Behavior is appropriate for age, af2 cooperative. Neurological: Level of Consciousness is awake, alert, obeys commands. Respiratory: Airway is patent Respiratory effort is even, unlabored. Derm: Skin is normal. Vital Signs: 00:56 BP 118 / 75; Pulse 81; Resp 16; Temp 97.4; Pulse Ox 100% on R/A; Weight 81.65 kg; lf1 Height 5 ft. 5 in. (165.10 cm) (R); Pain 9/10; 04:36 BP 111 / 58; Pulse 78; Resp 18; Temp 96.8(O); Pulse Ox 99% on R/A; Pain 9/10; kb5 00:56 Body Mass Index 29.95 (81.65 kg, 165.10 cm) 1 Vitals: 00:56 Log In Time: April 26, 2016 at 00:45. 1 ED Course: 00:44 Patient visited by Hodan Funes Reg. hs2 00:44 Patient moved to Waiting hs2 00:51 Triage Initiated lf1 00:59 Leatha RodrigesRN is Primary Nurse. lf1 00:59 Patient moved to 14 lf1 01:00 Damian Rooney DO is Attending Physician. cs11 01:00 Patient visited by Damian Rooney DO. cs11 01:32 [facility] Payment Agreement was scanned into [employer] and attached to record. pm4 01:38 Lipase Sent. af2 01:38 Amylase Sent. af2 01:38 Liver Profile Sent. af2 01:39 MED Profile Sent. af2 01:39 CBC with Diff Sent. af2 01:42 Patient visited by Leatha Rodriges RN. af2 01:42 The patient / caregiver is instructed regarding the plan of care and ED course. Patient af2 has correct armband on for positive identification. Placed in gown. 01:42 Inserted saline lock: 20 gauge in left hand and blood collected. The patient tolerated af2 the procedure well. 02:04 Patient visited by Darryn Oates PCA. kb5 03:16 Patient visited by Leatha Rodriges RN. af2 03:24 Patient visited by Leatha Rodriges RN. af2 04:06 Patient visited by Leatha Rodriges RN. af2 04:16 Patient visited by Leatha Rodriges RN. af2 04:36 Patient visited by Darryn Oates PCA. kb5 04:49 Discontinued lock bleeding controlled, pressure dressing applied, No redness/swelling uvaldo at site. No procedures done that require assistance. 07:15 CT ABD & PELVIS: IV Contrast Only Returned. EDMS 13:34 T-Sheet-- Draft Copy was scanned into [employer] and attached to record. gb Administered Medications: 04:15 Drug: Bentyl 20 mg [Bentyl 10 mg/mL intramuscular solution (2 mL)] Route: IM; Site: af2 left gluteus; Order Results: Lab Order: CBC with Diff; SPEC'M 04/26/16 01:47 Test: WHITE BLOOD COUNT; Value: 5.0; Range: 4.0-10.0; Units: K/mm3; Status: F Test: RED BLOOD COUNT; Value: 4.03; Range: 4.00-5.40; Units: M/mm3; Status: F Test: HEMOGLOBIN; Value: 12.6; Range: 12.0-16.0; Units: g/dl; Status: F Test: HEMATOCRIT; Value: 38.9; Range: 36.0-47.0; Units: %; Status: F Test: MEAN CORPUSCULAR VOLUME; Value: 96.5; Range: 80.0-96.0; Abnormal: Above high normal; Units: fl; Status: F Test: MEAN CORPUSCULAR HEMOGLOBIN; Value: 31.3; Range: 27.0-33.0; Units: pg; Status: F Test: MEAN CORPUSCULAR HGB CONC; Value: 32.4; Range: 32.0-36.5; Units: g/dl; Status: F Test: RED CELL DISTRIBUTION WIDTH; Value: 12.8; Range: 11.5-14.5; Units: %; Status: F Test: PLATELET COUNT, AUTOMATED; Value: 260; Range: 150-450; Units: k/mm3; Status: F Test: NEUTROPHILS %; Value: 48.6; Range: 36.0-66.0; Units: %; Status: F Test: LYMPH %; Value: 41.6; Range: 24.0-44.0; Units: %; Status: F Test: MONO %; Value: 4.4; Range: 0.0-5.0; Units: %; Status: F Test: EOS %; Value: 2.9; Range: 0.0-3.0; Units: %; Status: F Test: BASO %; Value: 0.6; Range: 0.0-1.0; Units: %; Status: F Test: LARGE UNSTAINED CELL %; Value: 1.9; Range: 0.0-4.0; Units: %; Status: F Test: NEUTROPHILS #; Value: 2.4; Range: 1.8-7.7; Units: K/mm3; Status: F Test: LYMPH #; Value: 2.1; Range: 1.5-4.5; Units: K/mm3; Status: F Test: MONO #; Value: 0.2; Range: 0.0-0.8; Units: K/mm3; Status: F Test: EOS #; Value: 0.2; Range: 0.0-0.50; Units: K/mm3; Status: F Test: BASO #; Value: 0.0; Range: 0.0-0.2; Units: K/mm3; Status: F Test: LARGE UNSTAINED CELL #; Value: 0.1; Range: 0.0-0.4; Units: K/mm3; Status: F Lab Order: MED Profile; SPEC'M 04/26/16 01:34 Test: GLUCOSE, FASTING; Value: 89; Range: 70-105; Units: MG/DL; Status: F Test: BLOOD UREA NITROGEN; Value: 5; Range: 7-18; Abnormal: Below low normal; Units: MG/DL; Status: F Test: CREATININE FOR GFR; Value: 0.68; Range: 0.55-1.02; Units: MG/DL; Status: F Test: GLOMERULAR FILTRATION RATE; Value: > 60.0; Range: >60; Status: F Test: SODIUM LEVEL; Value: 144; Range: 136-145; Units: MEQ/L; Status: F Test: POTASSIUM SERUM; Value: 3.8; Range: 3.5-5.1; Units: MEQ/L; Status: F Test: CHLORIDE LEVEL; Value: 107; Range: 98-107; Units: MEQ/L; Status: F Test: CARBON DIOXIDE LEVEL; Value: 28; Range: 21-32; Units: MEQ/L; Status: F Test: ANION GAP; Value: 9; Range: 8-16; Units: MEQ/L; Status: F Test: CALCIUM LEVEL; Value: 8.4; Range: 8.5-10.1; Abnormal: Below low normal; Units: MG/DL; Status: F Test Note: ; Units are mL/min/1.73 m2 Chronic Kidney Disease Staging per NKF: Stage I & II GFR >=60 Normal to Mildly Decreased Stage III GFR 30-59 Moderately Decreased Stage IV GFR 15-29 Severely Decreased Stage V GFR <15 Very Little GFR Left ESRD GFR <15 on PERMACULTURE CONTRACTOR Lab Order: Liver Profile; SPEC'M 04/26/16 01:34 Test: AST/SGOT; Value: 112; Range: 15-37; Abnormal: Above high normal; Units: U/L; Status: F Test: ALT/SGPT; Value: 158; Range: 12-78; Abnormal: Above high normal; Units: U/L; Status: F Test: ALKALINE PHOSPHATASE; Value: 115; Range: 45-117; Units: U/L; Status: F Test: BILIRUBIN,TOTAL; Value: 0.1; Range: 0.2-1.0; Abnormal: Below low normal; Units: MG/DL; Status: F Test: BILIRUBIN,DIRECT; Value: < 0.1; Range: 0.0-0.2; Units: MG/DL; Status: F Test: TOTAL PROTEIN; Value: 7.1; Range: 6.4-8.2; Units: GM/DL; Status: F Test: ALBUMIN; Value: 3.6; Range: 3.2-5.2; Units: GM/DL; Status: F Test: ALBUMIN/GLOBULIN RATIO; Value: 1.03; Range: 1.00-1.93; Status: F Lab Order: Amylase; SPEC'M 04/26/16 01:34 Test: AMYLASE; Value: 48; Range: 25-115; Units: U/L; Status: F Lab Order: Lipase; SPEC'M 04/26/16 01:34 Test: LIPASE; Value: 157; Range: 73-393; Units: U/L; Status: F Lab Order: Urinalysis; SPEC'M 04/26/16 01:47 Test: APPEARANCE, URINE; Value: CLEAR; Range: CLEAR; Status: F Test: COLOR, URINE; Value: YELLOW; Range: YELLOW; Status: F Test: PH,URINE; Value: 8.0; Range: 5.0-9.0; Units: UNITS; Status: F Test: SPECIFIC GRAVITY URINE AUTO; Value: 1.009; Range: 1.002-1.035; Status: F Test: PROTEIN, URINE AUTO; Value: NEGATIVE; Range: NEGATIVE; Units: mg/dL; Status: F Test: GLUCOSE, URINE (UA) AUTO; Value: NEGATIVE; Range: NEGATIVE; Units: mg/dL; Status: F Test: KETONE, URINE AUTO; Value: NEGATIVE; Range: NEGATIVE; Units: mg/dL; Status: F Test: UROBILINOGEN, URINE AUTO; Value: 0.2; Range: 0.0-2.0; Units: mg/dL; Status: F Test: BILIRUBIN, URINE AUTO; Value: NEGATIVE; Range: NEGATIVE; Status: F Test: NITRITE, URINE AUTO; Value: NEGATIVE; Range: NEGATIVE; Status: F Test: LEUKOCYTE ESTERASE, URINE AUTO; Value: NEGATIVE; Range: NEGATIVE; Status: F Test: BLOOD, URINE BLOOD; Value: NEGATIVE; Range: NEGATIVE; Status: F Test: WBC, URINE AUTO; Value: 0; Range: 0-3; Units: /HPF; Status: F Test: RBC, URINE AUTO; Value: 3; Range: 0-3; Units: /HPF; Status: F Test: BACTERIA, URINE AUTO; Value: NEGATIVE; Range: NEGATIVE; Status: F Test: SQUAMOUS EPITHELIAL CELL UR AU; Value: 0; Range: 0-6; Units: /HPF; Status: F Test: HYALINE CAST, URINE AUTO; Value: 0; Range: 0-1; Units: /LPF; Status: F Radiology Order: CT ABD & PELVIS: IV Contrast Only Test: CT ABD & PELVIS: IV Contrast Only REASON FOR EXAMINATION: Appendicitis; ; CLINICAL HISTORY: Abdominal pain.; TECHNIQUE: Multiple axial, sagittal and coronal CT images were obtained through the abdomen and pelvi; s after administration of oral and intravenous contrast material.; COMMENTS:; Comparison is made to the prior exam performed on 04/25/2016.; The liver is mildly enlarged with decreased attenuation without mass or defect. There is no intra or; extrahepatic biliary ductal dilatation. The spleen is normal. The gallbladder is surgically absent. T; he pancreas is of normal contour and attenuation characteristics. There is no evidence of adrenal mas; s.; Both kidneys demonstrate prompt and equal nephrograms. The kidneys are normal in size, shape and conf; iguration. There is no evidence of renal or ureteral mass. No renal or ureteral calculi are identifie; d. There is no hydroureter or hydronephrosis.; No evidence for appendicitis. Fluid filled small bowels. No evidence for small or large bowel obstruc; tion. There is no evidence of abdominal ascites or lymphadenopathy.; There is no evidence of intrinsic or extrinsic bladder mass. There is no pelvic ascites or lymphadeno; irene. Mildly thickened bladder.; No change in small right pleural effusion with passive atelectatic airspace disease of the right lowe; r lobe.; The bony structures are free of lytic or blastic lesions.; IMPRESSION:; Fluid filled small bowel suggestive of mild antritis. This has increased.; No change in right pleural effusion.; Mildly thickened bladder.; Thank you for your kind referral of this patient.; ; Outcome: 04:06 Discharge ordered by Provider. cs11 04:49 Discharge Assessment: patient administered narcotics - no. The following High Risk uvaldo Discharge criteria are identified: None. Discharged to home ambulatory. Condition: stable. Discharge instructions given to patient, Instructed on discharge instructions, follow up and referral plans. Demonstrated understanding of instructions, Pt was receptive of discharge instructions/ teaching. CT Study completed. Property :Personal belongings accompany Pt. 04:51 Patient left the ED. mar Signatures: Dispatcher [employer] EDSafia Delvalle RN RN Radha Mullins, Reg Reg Darryn Ledesma, HOSPICE SUPERINTENDENT HOSPICE SUPERINTENDENT kb5 Marilee Garza RN RN lf1 Damian Rooney, DO DO cs11 Leatha Rodriges,RN RN af2 Hodan Funes, Reg Reg hs2 Jethro Lou, Reg Reg pm4 Chart Complete MTDD
--- NOTE | 2016-04-28 05:52 | EDDOCDS ---
Physician Documentation [facility] Name: Diana Hernandez Age: 30 yrs Sex: Female : 1985 Arrival Date: 04/26/2016 Time: 00:43 Bed 14 Private MD: Disposition: 04/26/16 04:06 Discharged to Home/Self Care. Impression: Other viral enteritis. - Condition is Stable. - Medication Reconciliation, Local Pharmacy Hours form. - Follow up: Private Physician; When: Call to arrange an appointment; Reason: Recheck today's complaints. - Problem is an ongoing problem. - Symptoms have improved. Historical: - Allergies: Bactrim (Hives); Codeine Sulfatethroat swells; Ibuprofen (Anaphylaxis); Toradol (Hives); Tramadol HCl (Hives); - Home Meds: 1. buspirone 10 mg Oral tab 1 tab 2 times per day (Last dose: 04/25/2016 19:00) 2. capsaicin Topical 3 times per day (Last dose: 04/25/2016 19:00) 3. dicyclomine 10 mg Oral cap 1 cap three times per day as needed (Last dose: 04/25/2016 19:00) 4. divalproex 250 mg oral Tb24 (Last dose: 04/25/2016 19:00) 5. Flexeril 10 mg Oral tab 1 tab as needed (Last dose: 04/25/2016 19:00) 6. Macrodantin 50 mg Oral cap 1 cap once daily (Last dose: 04/25/2016 19:00) 7. melatonin 3 mg Oral tab 1 mg as needed (Last dose: 04/25/2016 19:00) 8. prednisone 10 mg Oral tab 3 tabs once daily (Last dose: 04/25/2016 19:00) 9. Seroquel 100 mg Oral tab 2 times per day (Last dose: 04/25/2016 08:00) 10. tizanidine 2 mg oral tab 1 tabs every 3 hours as needed 11. Truvada 200-300 mg oral tab once daily (Last dose: 04/25/2016 08:00) - PMHx: Anxiety; Bipolar disorder; Cellulitis Right Jaw; Chronic Back pain; Crohn's; Depression; Sciatica; Seizures; Substance Abuse; uterine cancer; - PSHx: Cholecystectomy; ; Hysterectomy; Laparoscopy; - Social history: Smoking status: Patient uses tobacco products, current every day smoker. No barriers to communication noted, The patient speaks fluent Divehi, Speaks appropriately for age, Preferred Language: Divehi. - Family history: Not pertinent. - : The pt / caregiver states he / she is not on anticoagulants. Home medication list is obtained from the patient. - Exposure Risk Screening:: None identified. 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 5 in. (165.10 cm) (R); Pain 9/10; 04:36 BP 111 / 58; Pulse 78; Resp 18; Temp 96.8(O); Pulse Ox 99% on R/A; Pain 9/10; kb5 00:56 Body Mass Index 29.95 (81.65 kg, 165.10 cm) lf1 MDM: 01:03 IV Saline Lock ordered. cs11 01:04 CBC with Diff Ordered. EDMS 01:04 MED Profile Ordered. EDMS 01:04 Liver Profile Ordered. EDMS 01:04 Amylase Ordered. EDMS 01:04 Lipase Ordered. EDMS 01:04 Urinalysis Ordered. EDMS 01:04 Urine Culture Ordered. EDMS 01:20 Financial registration complete. pm4 01:32 [facility] Payment Agreement was scanned into [employer] and attached to record. pm4 02:04 CBC with Diff Reviewed. cs11 02:29 MED Profile Reviewed. cs11 02:29 Liver Profile Reviewed. cs11 02:29 Amylase Reviewed. cs11 02:29 Lipase Reviewed. cs11 02:29 Urinalysis Reviewed. cs11 02:31 CT ABD & PELVIS: IV Contrast Only Ordered. EDMS 04:04 Bentyl 20 mg IM once ordered. cs11 13:34 T-Sheet-- Draft Copy was scanned into [employer] and attached to record. gb Administered Medications: 04:15 Drug: Bentyl 20 mg [Bentyl 10 mg/mL intramuscular solution (2 mL)] Route: IM; Site: af2 left gluteus; Signatures: Dispatcher [employer] Safia Monahan RN RN Radha Mullins, Reg Reg gb Marilee Garza RN RN lf1 Damian Rooney DO DO cs11 Jethro Lou, Reg Reg pm4 Leatha Rodriges RN af2 The chart was reviewed and I authenticate all verbal orders and agree with the evaluation and treatment provided.Attachments: 01:32 [facility] [place] Payment Agreement pm4 13:34 T-Sheet-- Draft Copy gb Chart Complete MTDD
--- NOTE | 2016-04-29 14:24 | EDDOCDS ---
Physician Documentation [facility] Name: Diana Hernandez Age: 30 yrs Sex: Female : 1985 Arrival Date: 04/26/2016 Time: 00:43 Bed 14 Private MD: Disposition: 04/26/16 04:06 Discharged to Home/Self Care. Impression: Other viral enteritis. - Condition is Stable. - Medication Reconciliation, Local Pharmacy Hours form. - Follow up: Private Physician; When: Call to arrange an appointment; Reason: Recheck today's complaints. - Problem is an ongoing problem. - Symptoms have improved. Historical: - Allergies: Bactrim (Hives); Codeine Sulfatethroat swells; Ibuprofen (Anaphylaxis); Toradol (Hives); Tramadol HCl (Hives); - Home Meds: 1. buspirone 10 mg Oral tab 1 tab 2 times per day (Last dose: 04/25/2016 19:00) 2. capsaicin Topical 3 times per day (Last dose: 04/25/2016 19:00) 3. dicyclomine 10 mg Oral cap 1 cap three times per day as needed (Last dose: 04/25/2016 19:00) 4. divalproex 250 mg oral Tb24 (Last dose: 04/25/2016 19:00) 5. Flexeril 10 mg Oral tab 1 tab as needed (Last dose: 04/25/2016 19:00) 6. Macrodantin 50 mg Oral cap 1 cap once daily (Last dose: 04/25/2016 19:00) 7. melatonin 3 mg Oral tab 1 mg as needed (Last dose: 04/25/2016 19:00) 8. prednisone 10 mg Oral tab 3 tabs once daily (Last dose: 04/25/2016 19:00) 9. Seroquel 100 mg Oral tab 2 times per day (Last dose: 04/25/2016 08:00) 10. tizanidine 2 mg oral tab 1 tabs every 3 hours as needed 11. Truvada 200-300 mg oral tab once daily (Last dose: 04/25/2016 08:00) - PMHx: Anxiety; Bipolar disorder; Cellulitis Right Jaw; Chronic Back pain; Crohn's; Depression; Sciatica; Seizures; Substance Abuse; uterine cancer; - PSHx: Cholecystectomy; ; Hysterectomy; Laparoscopy; - Social history: Smoking status: Patient uses tobacco products, current every day smoker. No barriers to communication noted, The patient speaks fluent Albanian, Speaks appropriately for age, Preferred Language: Albanian. - Family history: Not pertinent. - : The pt / caregiver states he / she is not on anticoagulants. Home medication list is obtained from the patient. - Exposure Risk Screening:: None identified. 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 5 in. (165.10 cm) (R); Pain 9/10; 04:36 BP 111 / 58; Pulse 78; Resp 18; Temp 96.8(O); Pulse Ox 99% on R/A; Pain 9/10; kb5 00:56 Body Mass Index 29.95 (81.65 kg, 165.10 cm) lf1 MDM: 01:03 IV Saline Lock ordered. cs11 01:04 CBC with Diff Ordered. EDMS 01:04 MED Profile Ordered. EDMS 01:04 Liver Profile Ordered. EDMS 01:04 Amylase Ordered. EDMS 01:04 Lipase Ordered. EDMS 01:04 Urinalysis Ordered. EDMS 01:04 Urine Culture Ordered. EDMS 01:20 Financial registration complete. pm4 01:32 [facility] Payment Agreement was scanned into [employer] and attached to record. pm4 02:04 CBC with Diff Reviewed. cs11 02:29 MED Profile Reviewed. cs11 02:29 Liver Profile Reviewed. cs11 02:29 Amylase Reviewed. cs11 02:29 Lipase Reviewed. cs11 02:29 Urinalysis Reviewed. cs11 02:31 CT ABD & PELVIS: IV Contrast Only Ordered. EDMS 04:04 Bentyl 20 mg IM once ordered. cs11 13:34 T-Sheet-- Draft Copy was scanned into [employer] and attached to record. gb Administered Medications: 04:15 Drug: Bentyl 20 mg [Bentyl 10 mg/mL intramuscular solution (2 mL)] Route: IM; Site: af2 left gluteus; Signatures: Dispatcher [employer] Safia Monahan RN RN Radha Mullins, Reg Reg gb Marilee Garza RN RN lf1 Damian Rooney DO DO cs11 Jethro Lou, Reg Reg pm4 Leatha Rodriges RN af2 The chart was reviewed and I authenticate all verbal orders and agree with the evaluation and treatment provided.Attachments: 01:32 [facility] Payment Agreement pm4 13:34 T-Sheet-- Draft Copy gb MTDD
--- NOTE | 2016-04-29 14:24 | EDDOCDS ---
Physician Documentation [facility] Name: Diana Hernandez Age: 30 yrs Sex: Female : 1985 Arrival Date: 04/26/2016 Time: 00:43 Bed 14 Private MD: Disposition: 04/26/16 04:06 Discharged to Home/Self Care. Impression: Other viral enteritis. - Condition is Stable. - Medication Reconciliation, Local Pharmacy Hours form. - Follow up: Private Physician; When: Call to arrange an appointment; Reason: Recheck today's complaints. - Problem is an ongoing problem. - Symptoms have improved. Historical: - Allergies: Bactrim (Hives); Codeine Sulfatethroat swells; Ibuprofen (Anaphylaxis); Toradol (Hives); Tramadol HCl (Hives); - Home Meds: 1. buspirone 10 mg Oral tab 1 tab 2 times per day (Last dose: 04/25/2016 19:00) 2. capsaicin Topical 3 times per day (Last dose: 04/25/2016 19:00) 3. dicyclomine 10 mg Oral cap 1 cap three times per day as needed (Last dose: 04/25/2016 19:00) 4. divalproex 250 mg oral Tb24 (Last dose: 04/25/2016 19:00) 5. Flexeril 10 mg Oral tab 1 tab as needed (Last dose: 04/25/2016 19:00) 6. Macrodantin 50 mg Oral cap 1 cap once daily (Last dose: 04/25/2016 19:00) 7. melatonin 3 mg Oral tab 1 mg as needed (Last dose: 04/25/2016 19:00) 8. prednisone 10 mg Oral tab 3 tabs once daily (Last dose: 04/25/2016 19:00) 9. Seroquel 100 mg Oral tab 2 times per day (Last dose: 04/25/2016 08:00) 10. tizanidine 2 mg oral tab 1 tabs every 3 hours as needed 11. Truvada 200-300 mg oral tab once daily (Last dose: 04/25/2016 08:00) - PMHx: Anxiety; Bipolar disorder; Cellulitis Right Jaw; Chronic Back pain; Crohn's; Depression; Sciatica; Seizures; Substance Abuse; uterine cancer; - PSHx: Cholecystectomy; ; Hysterectomy; Laparoscopy; - Social history: Smoking status: Patient uses tobacco products, current every day smoker. No barriers to communication noted, The patient speaks fluent Serbian, Speaks appropriately for age, Preferred Language: Serbian. - Family history: Not pertinent. - : The pt / caregiver states he / she is not on anticoagulants. Home medication list is obtained from the patient. - Exposure Risk Screening:: None identified. 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 5 in. (165.10 cm) (R); Pain 9/10; 04:36 BP 111 / 58; Pulse 78; Resp 18; Temp 96.8(O); Pulse Ox 99% on R/A; Pain 9/10; kb5 00:56 Body Mass Index 29.95 (81.65 kg, 165.10 cm) lf1 MDM: 01:03 IV Saline Lock ordered. cs11 01:04 CBC with Diff Ordered. EDMS 01:04 MED Profile Ordered. EDMS 01:04 Liver Profile Ordered. EDMS 01:04 Amylase Ordered. EDMS 01:04 Lipase Ordered. EDMS 01:04 Urinalysis Ordered. EDMS 01:04 Urine Culture Ordered. EDMS 01:20 Financial registration complete. pm4 01:32 [facility] Payment Agreement was scanned into [employer] and attached to record. pm4 02:04 CBC with Diff Reviewed. cs11 02:29 MED Profile Reviewed. cs11 02:29 Liver Profile Reviewed. cs11 02:29 Amylase Reviewed. cs11 02:29 Lipase Reviewed. cs11 02:29 Urinalysis Reviewed. cs11 02:31 CT ABD & PELVIS: IV Contrast Only Ordered. EDMS 04:04 Bentyl 20 mg IM once ordered. cs11 13:34 T-Sheet-- Draft Copy was scanned into [employer] and attached to record. gb Administered Medications: 04:15 Drug: Bentyl 20 mg [Bentyl 10 mg/mL intramuscular solution (2 mL)] Route: IM; Site: af2 left gluteus; Signatures: Dispatcher [employer] Safia Monahan RN RN Radha Mullins, Reg Reg gb Marilee Garza RN RN lf1 Damian Rooney DO DO cs11 Jethor Lou, Reg Reg pm4 Leatha Rodriges RN af2 The chart was reviewed and I authenticate all verbal orders and agree with the evaluation and treatment provided.Attachments: 01:32 [email or web address] Payment Agreement pm4 13:34 T-Sheet-- Draft Copy gb MTDD
--- NOTE | 2016-04-29 14:26 | EDDOCDS ---
Physician Documentation [facility] Name: Diana Hernandez Age: 30 yrs Sex: Female : 1985 Arrival Date: 04/26/2016 Time: 00:43 Bed 14 Private MD: Disposition: 04/26/16 04:06 Discharged to Home/Self Care. Impression: Other viral enteritis. - Condition is Stable. - Medication Reconciliation, Local Pharmacy Hours form. - Follow up: Private Physician; When: Call to arrange an appointment; Reason: Recheck today's complaints. - Problem is an ongoing problem. - Symptoms have improved. Historical: - Allergies: Bactrim (Hives); Codeine Sulfatethroat swells; Ibuprofen (Anaphylaxis); Toradol (Hives); Tramadol HCl (Hives); - Home Meds: 1. buspirone 10 mg Oral tab 1 tab 2 times per day (Last dose: 04/25/2016 19:00) 2. capsaicin Topical 3 times per day (Last dose: 04/25/2016 19:00) 3. dicyclomine 10 mg Oral cap 1 cap three times per day as needed (Last dose: 04/25/2016 19:00) 4. divalproex 250 mg oral Tb24 (Last dose: 04/25/2016 19:00) 5. Flexeril 10 mg Oral tab 1 tab as needed (Last dose: 04/25/2016 19:00) 6. Macrodantin 50 mg Oral cap 1 cap once daily (Last dose: 04/25/2016 19:00) 7. melatonin 3 mg Oral tab 1 mg as needed (Last dose: 04/25/2016 19:00) 8. prednisone 10 mg Oral tab 3 tabs once daily (Last dose: 04/25/2016 19:00) 9. Seroquel 100 mg Oral tab 2 times per day (Last dose: 04/25/2016 08:00) 10. tizanidine 2 mg oral tab 1 tabs every 3 hours as needed 11. Truvada 200-300 mg oral tab once daily (Last dose: 04/25/2016 08:00) - PMHx: Anxiety; Bipolar disorder; Cellulitis Right Jaw; Chronic Back pain; Crohn's; Depression; Sciatica; Seizures; Substance Abuse; uterine cancer; - PSHx: Cholecystectomy; ; Hysterectomy; Laparoscopy; - Social history: Smoking status: Patient uses tobacco products, current every day smoker. No barriers to communication noted, The patient speaks fluent Polish, Speaks appropriately for age, Preferred Language: Polish. - Family history: Not pertinent. - : The pt / caregiver states he / she is not on anticoagulants. Home medication list is obtained from the patient. - Exposure Risk Screening:: None identified. 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 5 in. (165.10 cm) (R); Pain 9/10; 04:36 BP 111 / 58; Pulse 78; Resp 18; Temp 96.8(O); Pulse Ox 99% on R/A; Pain 9/10; kb5 00:56 Body Mass Index 29.95 (81.65 kg, 165.10 cm) lf1 MDM: 01:03 IV Saline Lock ordered. cs11 01:04 CBC with Diff Ordered. EDMS 01:04 MED Profile Ordered. EDMS 01:04 Liver Profile Ordered. EDMS 01:04 Amylase Ordered. EDMS 01:04 Lipase Ordered. EDMS 01:04 Urinalysis Ordered. EDMS 01:04 Urine Culture Ordered. EDMS 01:20 Financial registration complete. pm4 01:32 [facility] Payment Agreement was scanned into [employer] and attached to record. pm4 02:04 CBC with Diff Reviewed. cs11 02:29 MED Profile Reviewed. cs11 02:29 Liver Profile Reviewed. cs11 02:29 Amylase Reviewed. cs11 02:29 Lipase Reviewed. cs11 02:29 Urinalysis Reviewed. cs11 02:31 CT ABD & PELVIS: IV Contrast Only Ordered. EDMS 04:04 Bentyl 20 mg IM once ordered. cs11 13:34 T-Sheet-- Draft Copy was scanned into [employer] and attached to record. gb Administered Medications: 04:15 Drug: Bentyl 20 mg [Bentyl 10 mg/mL intramuscular solution (2 mL)] Route: IM; Site: af2 left gluteus; Signatures: Dispatcher [employer] Safia Monahan RN RN Radha Mullins, Reg Reg gb Marilee Garza RN RN lf1 Damian Rooney DO DO cs11 Jethro Lou, Reg Reg pm4 Leatha Rodriges RN af2 The chart was reviewed and I authenticate all verbal orders and agree with the evaluation and treatment provided.Attachments: 01:32 [facility] Payment Agreement pm4 13:34 T-Sheet-- Draft Copy gb Chart Complete MTDD
--- NOTE | 2016-04-29 14:26 | EDDOCDS ---
Physician Documentation [facility] Name: Diana Hernandez Age: 30 yrs Sex: Female : 1985 Arrival Date: 04/26/2016 Time: 00:43 Bed 14 Private MD: Disposition: 04/26/16 04:06 Discharged to Home/Self Care. Impression: Other viral enteritis. - Condition is Stable. - Medication Reconciliation, Local Pharmacy Hours form. - Follow up: Private Physician; When: Call to arrange an appointment; Reason: Recheck today's complaints. - Problem is an ongoing problem. - Symptoms have improved. Historical: - Allergies: Bactrim (Hives); Codeine Sulfatethroat swells; Ibuprofen (Anaphylaxis); Toradol (Hives); Tramadol HCl (Hives); - Home Meds: 1. buspirone 10 mg Oral tab 1 tab 2 times per day (Last dose: 04/25/2016 19:00) 2. capsaicin Topical 3 times per day (Last dose: 04/25/2016 19:00) 3. dicyclomine 10 mg Oral cap 1 cap three times per day as needed (Last dose: 04/25/2016 19:00) 4. divalproex 250 mg oral Tb24 (Last dose: 04/25/2016 19:00) 5. Flexeril 10 mg Oral tab 1 tab as needed (Last dose: 04/25/2016 19:00) 6. Macrodantin 50 mg Oral cap 1 cap once daily (Last dose: 04/25/2016 19:00) 7. melatonin 3 mg Oral tab 1 mg as needed (Last dose: 04/25/2016 19:00) 8. prednisone 10 mg Oral tab 3 tabs once daily (Last dose: 04/25/2016 19:00) 9. Seroquel 100 mg Oral tab 2 times per day (Last dose: 04/25/2016 08:00) 10. tizanidine 2 mg oral tab 1 tabs every 3 hours as needed 11. Truvada 200-300 mg oral tab once daily (Last dose: 04/25/2016 08:00) - PMHx: Anxiety; Bipolar disorder; Cellulitis Right Jaw; Chronic Back pain; Crohn's; Depression; Sciatica; Seizures; Substance Abuse; uterine cancer; - PSHx: Cholecystectomy; ; Hysterectomy; Laparoscopy; - Social history: Smoking status: Patient uses tobacco products, current every day smoker. No barriers to communication noted, The patient speaks fluent Greenlandic, Speaks appropriately for age, Preferred Language: Greenlandic. - Family history: Not pertinent. - : The pt / caregiver states he / she is not on anticoagulants. Home medication list is obtained from the patient. - Exposure Risk Screening:: None identified. 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 5 in. (165.10 cm) (R); Pain 9/10; 04:36 BP 111 / 58; Pulse 78; Resp 18; Temp 96.8(O); Pulse Ox 99% on R/A; Pain 9/10; kb5 00:56 Body Mass Index 29.95 (81.65 kg, 165.10 cm) lf1 MDM: 01:03 IV Saline Lock ordered. cs11 01:04 CBC with Diff Ordered. EDMS 01:04 MED Profile Ordered. EDMS 01:04 Liver Profile Ordered. EDMS 01:04 Amylase Ordered. EDMS 01:04 Lipase Ordered. EDMS 01:04 Urinalysis Ordered. EDMS 01:04 Urine Culture Ordered. EDMS 01:20 Financial registration complete. pm4 01:32 [facility] Payment Agreement was scanned into [employer] and attached to record. pm4 02:04 CBC with Diff Reviewed. cs11 02:29 MED Profile Reviewed. cs11 02:29 Liver Profile Reviewed. cs11 02:29 Amylase Reviewed. cs11 02:29 Lipase Reviewed. cs11 02:29 Urinalysis Reviewed. cs11 02:31 CT ABD & PELVIS: IV Contrast Only Ordered. EDMS 04:04 Bentyl 20 mg IM once ordered. cs11 13:34 T-Sheet-- Draft Copy was scanned into [employer] and attached to record. gb Administered Medications: 04:15 Drug: Bentyl 20 mg [Bentyl 10 mg/mL intramuscular solution (2 mL)] Route: IM; Site: af2 left gluteus; Signatures: Dispatcher [employer] Safia Monahan RN RN Radha Mullins, Reg Reg gb Marilee Garza RN RN lf1 Damian Rooney DO DO cs11 Jethro Lou, Reg Reg pm4 Leatha Rodriges RN af2 The chart was reviewed and I authenticate all verbal orders and agree with the evaluation and treatment provided.Attachments: 01:32 [facility] pm4 13:34 T-Sheet-- Draft Copy gb Chart Complete MTDD
--- NOTE | 2016-04-29 14:26 | EDDOCDS ---
Nurse's Notes Name: Diana Hernandez Age: 30 yrs Sex: Female : 1985 Arrival Date: 04/26/2016 Time: 00:43 Bed 14 Private MD: Diagnosis: Other viral enteritis Presentation: 04/26 00:46 Presenting complaint: Patient states: Vomiting and right lower quadrant pain that began lf1 two months ago. Pt reports that she is unable to keep anything down and she called her provider and he told her to report to the ED. Pt reports that her pain is currently a 9.5 and she took Tylenol about two hours ago. Risk factors: the patient reports no vaginal bleeding. Adult Sepsis Screening: The patient does not have new or worsening altered mentation. Patient's respiratory rate is less than 22. Systolic blood pressure is greater than 100. Patient has a qSOFA score of 0- Negative Sepsis Screen. Suicide/Homicide risk assessment- the patient denies having any suicidal and/or homicidal ideations and does not present with any other emotional, behavioral or mental health complaints. Status: Patient is not a return to service inspector or dependent. Transition of care: patient was not received from another setting of care. 00:46 Acuity: PAULY Level 3 lf1 00:46 Method Of Arrival: Walkin/Carried/Asstd lf1 Triage Assessment: 00:56 General: Appears in no apparent distress, comfortable, Behavior is. Pain: Location: lf1 right lower quadrant Pain currently is 9.5 out of 10 on a pain scale. HIV screening NA for this visit Offered previously. Neurological: Level of Consciousness is awake, alert. Respiratory: Respiratory effort is even, unlabored. GI: Reports lower abdominal pain, nausea, vomiting. Derm: Skin is normal. RATE CLERK PASSENGER: 00:56 3, 1, Living 2, LMP N/A - Hysterectomy lf1 Historical: - Allergies: Bactrim (Hives); Codeine Sulfatethroat swells; Ibuprofen (Anaphylaxis); Toradol (Hives); Tramadol HCl (Hives); - Home Meds: 1. buspirone 10 mg Oral tab 1 tab 2 times per day (Last dose: 04/25/2016 19:00) 2. capsaicin Topical 3 times per day (Last dose: 04/25/2016 19:00) 3. dicyclomine 10 mg Oral cap 1 cap three times per day as needed (Last dose: 04/25/2016 19:00) 4. divalproex 250 mg oral Tb24 (Last dose: 04/25/2016 19:00) 5. Flexeril 10 mg Oral tab 1 tab as needed (Last dose: 04/25/2016 19:00) 6. Macrodantin 50 mg Oral cap 1 cap once daily (Last dose: 04/25/2016 19:00) 7. melatonin 3 mg Oral tab 1 mg as needed (Last dose: 04/25/2016 19:00) 8. prednisone 10 mg Oral tab 3 tabs once daily (Last dose: 04/25/2016 19:00) 9. Seroquel 100 mg Oral tab 2 times per day (Last dose: 04/25/2016 08:00) 10. tizanidine 2 mg oral tab 1 tabs every 3 hours as needed 11. Truvada 200-300 mg oral tab once daily (Last dose: 04/25/2016 08:00) - PMHx: Anxiety; Bipolar disorder; Cellulitis Right Jaw; Chronic Back pain; Crohn's; Depression; Sciatica; Seizures; Substance Abuse; uterine cancer; - PSHx: Cholecystectomy; ; Hysterectomy; Laparoscopy; - Social history: Smoking status: Patient uses tobacco products, current every day smoker. No barriers to communication noted, The patient speaks fluent Persian, Speaks appropriately for age, Preferred Language: Persian. - Family history: Not pertinent. - : The pt / caregiver states he / she is not on anticoagulants. Home medication list is obtained from the patient. - Exposure Risk Screening:: None identified. Screenin:42 Screening information is obtained from the patient. Fall risk: No risks identified. af2 Assistance ADL's: requires no assistance with activities of daily living. Abuse/DV Screen: The patient / caregiver reports he/she is: not in a situation that causes fear, pain or injury. Nutritional screening: No deficits noted. Advance Directives: There is no active DNR order. home support is adequate. Assessment: 01:39 General: Appears in no apparent distress, comfortable, Behavior is appropriate for age, af2 cooperative. Pain: Location: abdomen Pain currently is 10 out of 10 on a pain scale. GI: Abdomen is non- distended Bowel sounds present X 4 quads. Abd is soft and non tender X 4 quads. Reports lower abdominal pain, upper abd pain. Derm: Skin is normal. 02:30 General: Appears in no apparent distress, comfortable, Behavior is appropriate for age, af2 cooperative. Respiratory: Airway is patent Respiratory effort is even, unlabored. GI: Reports lower abdominal pain, upper abd pain. Derm: Skin is normal. 03:30 General: Appears in no apparent distress, comfortable, Behavior is appropriate for age, af2 cooperative. Neurological: Level of Consciousness is awake, alert, obeys commands. Respiratory: Airway is patent Respiratory effort is even, unlabored. Derm: Skin is normal. Vital Signs: 00:56 BP 118 / 75; Pulse 81; Resp 16; Temp 97.4; Pulse Ox 100% on R/A; Weight 81.65 kg; lf1 Height 5 ft. 5 in. (165.10 cm) (R); Pain 9/10; 04:36 BP 111 / 58; Pulse 78; Resp 18; Temp 96.8(O); Pulse Ox 99% on R/A; Pain 9/10; kb5 00:56 Body Mass Index 29.95 (81.65 kg, 165.10 cm) 1 Vitals: 00:56 Log In Time: April 26, 2016 at 00:45. 1 ED Course: 00:44 Patient visited by Hodan Funes Reg. hs2 00:44 Patient moved to Waiting hs2 00:51 Triage Initiated lf1 00:59 Leatha RodrigesRN is Primary Nurse. lf1 00:59 Patient moved to 14 lf1 01:00 Damian Rooney DO is Attending Physician. cs11 01:00 Patient visited by Damian Rooney DO. cs11 01:32 [facility] Payment Agreement was scanned into [employer] and attached to record. pm4 01:38 Lipase Sent. af2 01:38 Amylase Sent. af2 01:38 Liver Profile Sent. af2 01:39 MED Profile Sent. af2 01:39 CBC with Diff Sent. af2 01:42 Patient visited by Leatha Rodriges RN. af2 01:42 The patient / caregiver is instructed regarding the plan of care and ED course. Patient af2 has correct armband on for positive identification. Placed in gown. 01:42 Inserted saline lock: 20 gauge in left hand and blood collected. The patient tolerated af2 the procedure well. 02:04 Patient visited by Darryn Oates PCA. kb5 03:16 Patient visited by Leatha Rodriges RN. af2 03:24 Patient visited by Leatha Rodriges RN. af2 04:06 Patient visited by Leatha Rodriges RN. af2 04:16 Patient visited by Leatha Rodriges RN. af2 04:36 Patient visited by Darryn Oates PCA. kb5 04:49 Discontinued lock bleeding controlled, pressure dressing applied, No redness/swelling uvaldo at site. No procedures done that require assistance. 07:15 CT ABD & PELVIS: IV Contrast Only Returned. EDMS 13:34 T-Sheet-- Draft Copy was scanned into [employer] and attached to record. gb Administered Medications: 04:15 Drug: Bentyl 20 mg [Bentyl 10 mg/mL intramuscular solution (2 mL)] Route: IM; Site: af2 left gluteus; Order Results: Lab Order: CBC with Diff; SPEC'M 04/26/16 01:47 Test: WHITE BLOOD COUNT; Value: 5.0; Range: 4.0-10.0; Units: K/mm3; Status: F Test: RED BLOOD COUNT; Value: 4.03; Range: 4.00-5.40; Units: M/mm3; Status: F Test: HEMOGLOBIN; Value: 12.6; Range: 12.0-16.0; Units: g/dl; Status: F Test: HEMATOCRIT; Value: 38.9; Range: 36.0-47.0; Units: %; Status: F Test: MEAN CORPUSCULAR VOLUME; Value: 96.5; Range: 80.0-96.0; Abnormal: Above high normal; Units: fl; Status: F Test: MEAN CORPUSCULAR HEMOGLOBIN; Value: 31.3; Range: 27.0-33.0; Units: pg; Status: F Test: MEAN CORPUSCULAR HGB CONC; Value: 32.4; Range: 32.0-36.5; Units: g/dl; Status: F Test: RED CELL DISTRIBUTION WIDTH; Value: 12.8; Range: 11.5-14.5; Units: %; Status: F Test: PLATELET COUNT, AUTOMATED; Value: 260; Range: 150-450; Units: k/mm3; Status: F Test: NEUTROPHILS %; Value: 48.6; Range: 36.0-66.0; Units: %; Status: F Test: LYMPH %; Value: 41.6; Range: 24.0-44.0; Units: %; Status: F Test: MONO %; Value: 4.4; Range: 0.0-5.0; Units: %; Status: F Test: EOS %; Value: 2.9; Range: 0.0-3.0; Units: %; Status: F Test: BASO %; Value: 0.6; Range: 0.0-1.0; Units: %; Status: F Test: LARGE UNSTAINED CELL %; Value: 1.9; Range: 0.0-4.0; Units: %; Status: F Test: NEUTROPHILS #; Value: 2.4; Range: 1.8-7.7; Units: K/mm3; Status: F Test: LYMPH #; Value: 2.1; Range: 1.5-4.5; Units: K/mm3; Status: F Test: MONO #; Value: 0.2; Range: 0.0-0.8; Units: K/mm3; Status: F Test: EOS #; Value: 0.2; Range: 0.0-0.50; Units: K/mm3; Status: F Test: BASO #; Value: 0.0; Range: 0.0-0.2; Units: K/mm3; Status: F Test: LARGE UNSTAINED CELL #; Value: 0.1; Range: 0.0-0.4; Units: K/mm3; Status: F Lab Order: MED Profile; SPEC'M 04/26/16 01:34 Test: GLUCOSE, FASTING; Value: 89; Range: 70-105; Units: MG/DL; Status: F Test: BLOOD UREA NITROGEN; Value: 5; Range: 7-18; Abnormal: Below low normal; Units: MG/DL; Status: F Test: CREATININE FOR GFR; Value: 0.68; Range: 0.55-1.02; Units: MG/DL; Status: F Test: GLOMERULAR FILTRATION RATE; Value: > 60.0; Range: >60; Status: F Test: SODIUM LEVEL; Value: 144; Range: 136-145; Units: MEQ/L; Status: F Test: POTASSIUM SERUM; Value: 3.8; Range: 3.5-5.1; Units: MEQ/L; Status: F Test: CHLORIDE LEVEL; Value: 107; Range: 98-107; Units: MEQ/L; Status: F Test: CARBON DIOXIDE LEVEL; Value: 28; Range: 21-32; Units: MEQ/L; Status: F Test: ANION GAP; Value: 9; Range: 8-16; Units: MEQ/L; Status: F Test: CALCIUM LEVEL; Value: 8.4; Range: 8.5-10.1; Abnormal: Below low normal; Units: MG/DL; Status: F Test Note: ; Units are mL/min/1.73 m2 Chronic Kidney Disease Staging per NKF: Stage I & II GFR >=60 Normal to Mildly Decreased Stage III GFR 30-59 Moderately Decreased Stage IV GFR 15-29 Severely Decreased Stage V GFR <15 Very Little GFR Left ESRD GFR <15 on GRADUATE TEACHING ASSOCIATE Lab Order: Liver Profile; SPEC'M 04/26/16 01:34 Test: AST/SGOT; Value: 112; Range: 15-37; Abnormal: Above high normal; Units: U/L; Status: F Test: ALT/SGPT; Value: 158; Range: 12-78; Abnormal: Above high normal; Units: U/L; Status: F Test: ALKALINE PHOSPHATASE; Value: 115; Range: 45-117; Units: U/L; Status: F Test: BILIRUBIN,TOTAL; Value: 0.1; Range: 0.2-1.0; Abnormal: Below low normal; Units: MG/DL; Status: F Test: BILIRUBIN,DIRECT; Value: < 0.1; Range: 0.0-0.2; Units: MG/DL; Status: F Test: TOTAL PROTEIN; Value: 7.1; Range: 6.4-8.2; Units: GM/DL; Status: F Test: ALBUMIN; Value: 3.6; Range: 3.2-5.2; Units: GM/DL; Status: F Test: ALBUMIN/GLOBULIN RATIO; Value: 1.03; Range: 1.00-1.93; Status: F Lab Order: Amylase; SPEC'M 04/26/16 01:34 Test: AMYLASE; Value: 48; Range: 25-115; Units: U/L; Status: F Lab Order: Lipase; [facility] 04/26/16 01:34 Test: LIPASE; Value: 157; Range: 73-393; Units: U/L; Status: F Lab Order: Urinalysis; SPEC 04/26/16 01:47 Test: APPEARANCE, URINE; Value: CLEAR; Range: CLEAR; Status: F Test: COLOR, URINE; Value: YELLOW; Range: YELLOW; Status: F Test: PH,URINE; Value: 8.0; Range: 5.0-9.0; Units: UNITS; Status: F Test: SPECIFIC GRAVITY URINE AUTO; Value: 1.009; Range: 1.002-1.035; Status: F Test: PROTEIN, URINE AUTO; Value: NEGATIVE; Range: NEGATIVE; Units: mg/dL; Status: F Test: GLUCOSE, URINE (UA) AUTO; Value: NEGATIVE; Range: NEGATIVE; Units: mg/dL; Status: F Test: KETONE, URINE AUTO; Value: NEGATIVE; Range: NEGATIVE; Units: mg/dL; Status: F Test: UROBILINOGEN, URINE AUTO; Value: 0.2; Range: 0.0-2.0; Units: mg/dL; Status: F Test: BILIRUBIN, URINE AUTO; Value: NEGATIVE; Range: NEGATIVE; Status: F Test: NITRITE, URINE AUTO; Value: NEGATIVE; Range: NEGATIVE; Status: F Test: LEUKOCYTE ESTERASE, URINE AUTO; Value: NEGATIVE; Range: NEGATIVE; Status: F Test: BLOOD, URINE BLOOD; Value: NEGATIVE; Range: NEGATIVE; Status: F Test: WBC, URINE AUTO; Value: 0; Range: 0-3; Units: /HPF; Status: F Test: RBC, URINE AUTO; Value: 3; Range: 0-3; Units: /HPF; Status: F Test: BACTERIA, URINE AUTO; Value: NEGATIVE; Range: NEGATIVE; Status: F Test: SQUAMOUS EPITHELIAL CELL UR AU; Value: 0; Range: 0-6; Units: /HPF; Status: F Test: HYALINE CAST, URINE AUTO; Value: 0; Range: 0-1; Units: /LPF; Status: F Lab Order: Urine Culture; [facility] 04/26/16 01:47 Test: URINE CULTURE; Value: <EXTERNAL COMMENT eCWMed> FULL REPORT IN LAB NOTES (eCW and Medent).; Status: F Test: URINE CULTURE; Value: ORGANISM 1: STAPHYLOCOCCUS EPIDERMIDIS; Status: F Test: URINE CULTURE; Value: STAPHYLOCOCCUS EPIDERMIDIS; Status: F Test: URINE CULTURE; Value: COLONY COUNT CFU/ml 1,000; Status: F Test: URINE CULTURE; Value: GRAM POS SENSI - VITEK 67; Status: F Test: URINE CULTURE; Value: Method: VIT2; Status: F Test: URINE CULTURE; Value: TETRACYCLINE 2 S; Status: F Test: URINE CULTURE; Value: PENICILLIN G >=0.5 R; Status: F Test: URINE CULTURE; Value: TRIMETHOPRIM/SULFAMETHOXAZOLE 80 R; Status: F Test: URINE CULTURE; Value: ERYTHROMYCIN >=8 R; Status: F Test: URINE CULTURE; Value: GENTAMICIN <=0.5 S; Status: F Test: URINE CULTURE; Value: CLINDAMYCIN <=0.25 R; Status: F Test: URINE CULTURE; Value: NITROFURANTOIN <=16 S; Status: F Test: URINE CULTURE; Value: OXACILLIN <=0.25 S; Status: F Test: URINE CULTURE; Value: VANCOMYCIN 2 S; Status: F Test: URINE CULTURE; Value: LINEZOLID (ZYVOX) 1 S; Status: F Radiology Order: CT ABD & PELVIS: IV Contrast Only Test: CT ABD & PELVIS: IV Contrast Only REASON FOR EXAMINATION: Appendicitis; ; CLINICAL HISTORY: Abdominal pain.; TECHNIQUE: Multiple axial, sagittal and coronal CT images were obtained through the abdomen and pelvi; s after administration of oral and intravenous contrast material.; COMMENTS:; Comparison is made to the prior exam performed on 04/25/2016.; The liver is mildly enlarged with decreased attenuation without mass or defect. There is no intra or; extrahepatic biliary ductal dilatation. The spleen is normal. The gallbladder is surgically absent. T; he pancreas is of normal contour and attenuation characteristics. There is no evidence of adrenal mas; s.; Both kidneys demonstrate prompt and equal nephrograms. The kidneys are normal in size, shape and conf; iguration. There is no evidence of renal or ureteral mass. No renal or ureteral calculi are identifie; d. There is no hydroureter or hydronephrosis.; No evidence for appendicitis. Fluid filled small bowels. No evidence for small or large bowel obstruc; tion. There is no evidence of abdominal ascites or lymphadenopathy.; There is no evidence of intrinsic or extrinsic bladder mass. There is no pelvic ascites or lymphadeno; irene. Mildly thickened bladder.; No change in small right pleural effusion with passive atelectatic airspace disease of the right lowe; r lobe.; The bony structures are free of lytic or blastic lesions.; IMPRESSION:; Fluid filled small bowel suggestive of mild antritis. This has increased.; No change in right pleural effusion.; Mildly thickened bladder.; Thank you for your kind referral of this patient.; ; Outcome: 04:06 Discharge ordered by Provider. cs11 04:49 Discharge Assessment: patient administered narcotics - no. The following High Risk uvaldo Discharge criteria are identified: None. Discharged to home ambulatory. Condition: stable. Discharge instructions given to patient, Instructed on discharge instructions, follow up and referral plans. Demonstrated understanding of instructions, Pt was receptive of discharge instructions/ teaching. CT Study completed. Property :Personal belongings accompany Pt. 04:51 Patient left the ED. uvaldo Addendum: 04/29/2016 14:23 Narrative: urine culture reviewed by Dr Melvin, no change in treatment. [facility] Signatures: Dispatcher [employer] Yasmine Wilson RN TALA Safia Rivers RN RN jan Barnhardt, Gloria, Reg Reg gb Darryn Oates, TOPPER PRESS OPERATOR AUTOMATIC TOPPER PRESS OPERATOR AUTOMATIC kb5 Marilee GarzaRN RN lf1 Damian Rooney, DO DO cs11 Leatha Rodriges RN RN af2 Hodan Funes, Reg Reg hs2 Jethro Lou, Reg Reg pm4 Chart Complete MTDD
--- NOTE | 2016-04-29 15:34 | EDDOCDS ---
Physician Documentation [facility] Name: Diana Hernandez Age: 30 yrs Sex: Female : 1985 Arrival Date: 04/26/2016 Time: 00:43 Bed 14 Private MD: Disposition: 04/26/16 04:06 Discharged to Home/Self Care. Impression: Other viral enteritis. - Condition is Stable. - Medication Reconciliation, Local Pharmacy Hours form. - Follow up: Private Physician; When: Call to arrange an appointment; Reason: Recheck today's complaints. - Problem is an ongoing problem. - Symptoms have improved. Historical: - Allergies: Bactrim (Hives); Codeine Sulfatethroat swells; Ibuprofen (Anaphylaxis); Toradol (Hives); Tramadol HCl (Hives); - Home Meds: 1. buspirone 10 mg Oral tab 1 tab 2 times per day (Last dose: 04/25/2016 19:00) 2. capsaicin Topical 3 times per day (Last dose: 04/25/2016 19:00) 3. dicyclomine 10 mg Oral cap 1 cap three times per day as needed (Last dose: 04/25/2016 19:00) 4. divalproex 250 mg oral Tb24 (Last dose: 04/25/2016 19:00) 5. Flexeril 10 mg Oral tab 1 tab as needed (Last dose: 04/25/2016 19:00) 6. Macrodantin 50 mg Oral cap 1 cap once daily (Last dose: 04/25/2016 19:00) 7. melatonin 3 mg Oral tab 1 mg as needed (Last dose: 04/25/2016 19:00) 8. prednisone 10 mg Oral tab 3 tabs once daily (Last dose: 04/25/2016 19:00) 9. Seroquel 100 mg Oral tab 2 times per day (Last dose: 04/25/2016 08:00) 10. tizanidine 2 mg oral tab 1 tabs every 3 hours as needed 11. Truvada 200-300 mg oral tab once daily (Last dose: 04/25/2016 08:00) - PMHx: Anxiety; Bipolar disorder; Cellulitis Right Jaw; Chronic Back pain; Crohn's; Depression; Sciatica; Seizures; Substance Abuse; uterine cancer; - PSHx: Cholecystectomy; ; Hysterectomy; Laparoscopy; - Social history: Smoking status: Patient uses tobacco products, current every day smoker. No barriers to communication noted, The patient speaks fluent Kinyarwanda, Speaks appropriately for age, Preferred Language: Kinyarwanda. - Family history: Not pertinent. - : The pt / caregiver states he / she is not on anticoagulants. Home medication list is obtained from the patient. - Exposure Risk Screening:: None identified. CLIENT BUSINESS MANAGER: 04/26 00:56 3, 1, Living 2, LMP N/A - Hysterectomy lf1 Vital Signs: 00:56 BP 118 / 75; Pulse 81; Resp 16; Temp 97.4; Pulse Ox 100% on R/A; Weight 81.65 kg / lf1 180.01 lbs; Height 5 ft. 5 in. (165.10 cm) (R); Pain 9/10; 04:36 BP 111 / 58; Pulse 78; Resp 18; Temp 96.8(O); Pulse Ox 99% on R/A; Pain 9/10; kb5 00:56 Body Mass Index 29.95 (81.65 kg, 165.10 cm) lf1 MDM: 01:03 IV Saline Lock ordered. cs11 01:04 CBC with Diff Ordered. EDMS 01:04 MED Profile Ordered. EDMS 01:04 Liver Profile Ordered. EDMS 01:04 Amylase Ordered. EDMS 01:04 Lipase Ordered. EDMS 01:04 Urinalysis Ordered. EDMS 01:04 Urine Culture Ordered. EDMS 01:20 Financial registration complete. pm4 01:32 [facility] Payment Agreement was scanned into [employer] and attached to record. pm4 02:04 CBC with Diff Reviewed. cs11 02:29 MED Profile Reviewed. cs11 02:29 Liver Profile Reviewed. cs11 02:29 Amylase Reviewed. cs11 02:29 Lipase Reviewed. cs11 02:29 Urinalysis Reviewed. cs11 02:31 CT ABD & PELVIS: IV Contrast Only Ordered. EDMS 04:04 Bentyl 20 mg IM once ordered. cs11 13:34 T-Sheet-- Draft Copy was scanned into [employer] and attached to record. gb Administered Medications: 04:15 Drug: Bentyl 20 mg [Bentyl 10 mg/mL intramuscular solution (2 mL)] Route: IM; Site: af2 left gluteus; Signatures: Dispatcher [employer] Safia Monahan RN RN Radha Mullins, Reg Reg gb Marilee Garza RN RN lf1 Damian Rooney DO DO cs11 Jethro Lou, Reg Reg pm4 Leatha Rodriges RN af2 The chart was reviewed and I authenticate all verbal orders and agree with the evaluation and treatment provided.Attachments: 01:32 [facility] Payment Agreement pm4 13:34 T-Sheet-- Draft Copy gb Chart Complete MTDD
--- NOTE | 2016-04-29 15:34 | EDDOCDS ---
Nurse's Notes [facility] Name: Diana Hernandez Age: 30 yrs Sex: Female : 1985 Arrival Date: 04/26/2016 Time: 00:43 Bed 14 Private MD: Diagnosis: Other viral enteritis Presentation: 04/26 00:46 Presenting complaint: Patient states: Vomiting and right lower quadrant pain that began lf1 two months ago. Pt reports that she is unable to keep anything down and she called her provider and he told her to report to the ED. Pt reports that her pain is currently a 9.5 and she took Tylenol about two hours ago. Risk factors: the patient reports no vaginal bleeding. Adult Sepsis Screening: The patient does not have new or worsening altered mentation. Patient's respiratory rate is less than 22. Systolic blood pressure is greater than 100. Patient has a qSOFA score of 0- Negative Sepsis Screen. Suicide/Homicide risk assessment- the patient denies having any suicidal and/or homicidal ideations and does not present with any other emotional, behavioral or mental health complaints. Status: Patient is not a septic tank servicer or dependent. Transition of care: patient was not received from another setting of care. 00:46 Acuity: PAULY Level 3 lf1 00:46 Method Of Arrival: Walkin/Carried/Asstd lf1 Triage Assessment: 00:56 General: Appears in no apparent distress, comfortable, Behavior is. Pain: Location: lf1 right lower quadrant Pain currently is 9.5 out of 10 on a pain scale. HIV screening NA for this visit Offered previously. Neurological: Level of Consciousness is awake, alert. Respiratory: Respiratory effort is even, unlabored. GI: Reports lower abdominal pain, nausea, vomiting. Derm: Skin is normal. 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 buspirone 10 mg Oral tab 1 tab 2 times per day (Last dose: 04/25/2016 19:00) 2. capsaicin Topical 3 times per day (Last dose: 04/25/2016 19:00) 3. dicyclomine 10 mg Oral cap 1 cap three times per day as needed (Last dose: 04/25/2016 19:00) 4. divalproex 250 mg oral Tb24 (Last dose: 04/25/2016 19:00) 5. Flexeril 10 mg Oral tab 1 tab as needed (Last dose: 04/25/2016 19:00) 6. Macrodantin 50 mg Oral cap 1 cap once daily (Last dose: 04/25/2016 19:00) 7. melatonin 3 mg Oral tab 1 mg as needed (Last dose: 04/25/2016 19:00) 8. prednisone 10 mg Oral tab 3 tabs once daily (Last dose: 04/25/2016 19:00) 9. Seroquel 100 mg Oral tab 2 times per day (Last dose: 04/25/2016 08:00) 10. tizanidine 2 mg oral tab 1 tabs every 3 hours as needed 11. Truvada 200-300 mg oral tab once daily (Last dose: 04/25/2016 08:00) - PMHx: Anxiety; Bipolar disorder; Cellulitis Right Jaw; Chronic Back pain; Crohn's; Depression; Sciatica; Seizures; Substance Abuse; uterine cancer; - PSHx: Cholecystectomy; ; Hysterectomy; Laparoscopy; - Social history: Smoking status: Patient uses tobacco products, current every day smoker. No barriers to communication noted, The patient speaks fluent Belarusian, Speaks appropriately for age, Preferred Language: Belarusian. - Family history: Not pertinent. - : The pt / caregiver states he / she is not on anticoagulants. Home medication list is obtained from the patient. - Exposure Risk Screening:: None identified. Screenin:42 Screening information is obtained from the patient. Fall risk: No risks identified. af2 Assistance ADL's: requires no assistance with activities of daily living. Abuse/DV Screen: The patient / caregiver reports he/she is: not in a situation that causes fear, pain or injury. Nutritional screening: No deficits noted. Advance Directives: There is no active DNR order. home support is adequate. Assessment: 01:39 General: Appears in no apparent distress, comfortable, Behavior is appropriate for age, af2 cooperative. Pain: Location: abdomen Pain currently is 10 out of 10 on a pain scale. GI: Abdomen is non- distended Bowel sounds present X 4 quads. Abd is soft and non tender X 4 quads. Reports lower abdominal pain, upper abd pain. Derm: Skin is normal. 02:30 General: Appears in no apparent distress, comfortable, Behavior is appropriate for age, af2 cooperative. Respiratory: Airway is patent Respiratory effort is even, unlabored. GI: Reports lower abdominal pain, upper abd pain. Derm: Skin is normal. 03:30 General: Appears in no apparent distress, comfortable, Behavior is appropriate for age, af2 cooperative. Neurological: Level of Consciousness is awake, alert, obeys commands. Respiratory: Airway is patent Respiratory effort is even, unlabored. Derm: Skin is normal. Vital Signs: 00:56 BP 118 / 75; Pulse 81; Resp 16; Temp 97.4; Pulse Ox 100% on R/A; Weight 81.65 kg; lf1 Height 5 ft. 5 in. (165.10 cm) (R); Pain 9/10; 04:36 BP 111 / 58; Pulse 78; Resp 18; Temp 96.8(O); Pulse Ox 99% on R/A; Pain 9/10; kb5 00:56 Body Mass Index 29.95 (81.65 kg, 165.10 cm) 1 Vitals: 00:56 Log In Time: April 26, 2016 at 00:45. 1 ED Course: 00:44 Patient visited by Hodan Funes Reg. hs2 00:44 Patient moved to Waiting hs2 00:51 Triage Initiated lf1 00:59 Leatha RodrigesRN is Primary Nurse. lf1 00:59 Patient moved to 14 lf1 01:00 Damian Rooney DO is Attending Physician. cs11 01:00 Patient visited by Damian Rooney DO. cs11 01:32 [facility] Payment Agreement was scanned into [employer] and attached to record. pm4 01:38 Lipase Sent. af2 01:38 Amylase Sent. af2 01:38 Liver Profile Sent. af2 01:39 MED Profile Sent. af2 01:39 CBC with Diff Sent. af2 01:42 Patient visited by Leatha Rodriges RN. af2 01:42 The patient / caregiver is instructed regarding the plan of care and ED course. Patient af2 has correct armband on for positive identification. Placed in gown. 01:42 Inserted saline lock: 20 gauge in left hand and blood collected. The patient tolerated af2 the procedure well. 02:04 Patient visited by Darryn Oates PCA. kb5 03:16 Patient visited by Leatha Rodriges RN. af2 03:24 Patient visited by Leatha Rodriges RN. af2 04:06 Patient visited by Leatha Rodriges RN. af2 04:16 Patient visited by Leatha Rodriges RN. af2 04:36 Patient visited by Darryn Oates PCA. kb5 04:49 Discontinued lock bleeding controlled, pressure dressing applied, No redness/swelling uvaldo at site. No procedures done that require assistance. 07:15 CT ABD & PELVIS: IV Contrast Only Returned. EDMS 13:34 T-Sheet-- Draft Copy was scanned into [employer] and attached to record. gb Administered Medications: 04:15 Drug: Bentyl 20 mg [Bentyl 10 mg/mL intramuscular solution (2 mL)] Route: IM; Site: af2 left gluteus; Order Results: Lab Order: CBC with Diff; SPEC'M 04/26/16 01:47 Test: WHITE BLOOD COUNT; Value: 5.0; Range: 4.0-10.0; Units: K/mm3; Status: F Test: RED BLOOD COUNT; Value: 4.03; Range: 4.00-5.40; Units: M/mm3; Status: F Test: HEMOGLOBIN; Value: 12.6; Range: 12.0-16.0; Units: g/dl; Status: F Test: HEMATOCRIT; Value: 38.9; Range: 36.0-47.0; Units: %; Status: F Test: MEAN CORPUSCULAR VOLUME; Value: 96.5; Range: 80.0-96.0; Abnormal: Above high normal; Units: fl; Status: F Test: MEAN CORPUSCULAR HEMOGLOBIN; Value: 31.3; Range: 27.0-33.0; Units: pg; Status: F Test: MEAN CORPUSCULAR HGB CONC; Value: 32.4; Range: 32.0-36.5; Units: g/dl; Status: F Test: RED CELL DISTRIBUTION WIDTH; Value: 12.8; Range: 11.5-14.5; Units: %; Status: F Test: PLATELET COUNT, AUTOMATED; Value: 260; Range: 150-450; Units: k/mm3; Status: F Test: NEUTROPHILS %; Value: 48.6; Range: 36.0-66.0; Units: %; Status: F Test: LYMPH %; Value: 41.6; Range: 24.0-44.0; Units: %; Status: F Test: MONO %; Value: 4.4; Range: 0.0-5.0; Units: %; Status: F Test: EOS %; Value: 2.9; Range: 0.0-3.0; Units: %; Status: F Test: BASO %; Value: 0.6; Range: 0.0-1.0; Units: %; Status: F Test: LARGE UNSTAINED CELL %; Value: 1.9; Range: 0.0-4.0; Units: %; Status: F Test: NEUTROPHILS #; Value: 2.4; Range: 1.8-7.7; Units: K/mm3; Status: F Test: LYMPH #; Value: 2.1; Range: 1.5-4.5; Units: K/mm3; Status: F Test: MONO #; Value: 0.2; Range: 0.0-0.8; Units: K/mm3; Status: F Test: EOS #; Value: 0.2; Range: 0.0-0.50; Units: K/mm3; Status: F Test: BASO #; Value: 0.0; Range: 0.0-0.2; Units: K/mm3; Status: F Test: LARGE UNSTAINED CELL #; Value: 0.1; Range: 0.0-0.4; Units: K/mm3; Status: F Lab Order: MED Profile; SPEC'M 04/26/16 01:34 Test: GLUCOSE, FASTING; Value: 89; Range: 70-105; Units: MG/DL; Status: F Test: BLOOD UREA NITROGEN; Value: 5; Range: 7-18; Abnormal: Below low normal; Units: MG/DL; Status: F Test: CREATININE FOR GFR; Value: 0.68; Range: 0.55-1.02; Units: MG/DL; Status: F Test: GLOMERULAR FILTRATION RATE; Value: > 60.0; Range: >60; Status: F Test: SODIUM LEVEL; Value: 144; Range: 136-145; Units: MEQ/L; Status: F Test: POTASSIUM SERUM; Value: 3.8; Range: 3.5-5.1; Units: MEQ/L; Status: F Test: CHLORIDE LEVEL; Value: 107; Range: 98-107; Units: MEQ/L; Status: F Test: CARBON DIOXIDE LEVEL; Value: 28; Range: 21-32; Units: MEQ/L; Status: F Test: ANION GAP; Value: 9; Range: 8-16; Units: MEQ/L; Status: F Test: CALCIUM LEVEL; Value: 8.4; Range: 8.5-10.1; Abnormal: Below low normal; Units: MG/DL; Status: F Test Note: ; Units are mL/min/1.73 m2 Chronic Kidney Disease Staging per NKF: Stage I & II GFR >=60 Normal to Mildly Decreased Stage III GFR 30-59 Moderately Decreased Stage IV GFR 15-29 Severely Decreased Stage V GFR <15 Very Little GFR Left ESRD GFR <15 on LASER ENGINEER Lab Order: Liver Profile; SPEC'M 04/26/16 01:34 Test: AST/SGOT; Value: 112; Range: 15-37; Abnormal: Above high normal; Units: U/L; Status: F Test: ALT/SGPT; Value: 158; Range: 12-78; Abnormal: Above high normal; Units: U/L; Status: F Test: ALKALINE PHOSPHATASE; Value: 115; Range: 45-117; Units: U/L; Status: F Test: BILIRUBIN,TOTAL; Value: 0.1; Range: 0.2-1.0; Abnormal: Below low normal; Units: MG/DL; Status: F Test: BILIRUBIN,DIRECT; Value: < 0.1; Range: 0.0-0.2; Units: MG/DL; Status: F Test: TOTAL PROTEIN; Value: 7.1; Range: 6.4-8.2; Units: GM/DL; Status: F Test: ALBUMIN; Value: 3.6; Range: 3.2-5.2; Units: GM/DL; Status: F Test: ALBUMIN/GLOBULIN RATIO; Value: 1.03; Range: 1.00-1.93; Status: F Lab Order: Amylase; SPEC'M 04/26/16 01:34 Test: AMYLASE; Value: 48; Range: 25-115; Units: U/L; Status: F Lab Order: Lipase; [facility] 04/26/16 01:34 Test: LIPASE; Value: 157; Range: 73-393; Units: U/L; Status: F Lab Order: Urinalysis; SPEC 04/26/16 01:47 Test: APPEARANCE, URINE; Value: CLEAR; Range: CLEAR; Status: F Test: COLOR, URINE; Value: YELLOW; Range: YELLOW; Status: F Test: PH,URINE; Value: 8.0; Range: 5.0-9.0; Units: UNITS; Status: F Test: SPECIFIC GRAVITY URINE AUTO; Value: 1.009; Range: 1.002-1.035; Status: F Test: PROTEIN, URINE AUTO; Value: NEGATIVE; Range: NEGATIVE; Units: mg/dL; Status: F Test: GLUCOSE, URINE (UA) AUTO; Value: NEGATIVE; Range: NEGATIVE; Units: mg/dL; Status: F Test: KETONE, URINE AUTO; Value: NEGATIVE; Range: NEGATIVE; Units: mg/dL; Status: F Test: UROBILINOGEN, URINE AUTO; Value: 0.2; Range: 0.0-2.0; Units: mg/dL; Status: F Test: BILIRUBIN, URINE AUTO; Value: NEGATIVE; Range: NEGATIVE; Status: F Test: NITRITE, URINE AUTO; Value: NEGATIVE; Range: NEGATIVE; Status: F Test: LEUKOCYTE ESTERASE, URINE AUTO; Value: NEGATIVE; Range: NEGATIVE; Status: F Test: BLOOD, URINE BLOOD; Value: NEGATIVE; Range: NEGATIVE; Status: F Test: WBC, URINE AUTO; Value: 0; Range: 0-3; Units: /HPF; Status: F Test: RBC, URINE AUTO; Value: 3; Range: 0-3; Units: /HPF; Status: F Test: BACTERIA, URINE AUTO; Value: NEGATIVE; Range: NEGATIVE; Status: F Test: SQUAMOUS EPITHELIAL CELL UR AU; Value: 0; Range: 0-6; Units: /HPF; Status: F Test: HYALINE CAST, URINE AUTO; Value: 0; Range: 0-1; Units: /LPF; Status: F Lab Order: Urine Culture; [facility] 04/26/16 01:47 Test: URINE CULTURE; Value: <EXTERNAL COMMENT eCWMed> FULL REPORT IN LAB NOTES (eCW and Medent).; Status: F Test: URINE CULTURE; Value: ORGANISM 1: STAPHYLOCOCCUS EPIDERMIDIS; Status: F Test: URINE CULTURE; Value: STAPHYLOCOCCUS EPIDERMIDIS; Status: F Test: URINE CULTURE; Value: COLONY COUNT CFU/ml 1,000; Status: F Test: URINE CULTURE; Value: GRAM POS SENSI - VITEK 67; Status: F Test: URINE CULTURE; Value: Method: VIT2; Status: F Test: URINE CULTURE; Value: TETRACYCLINE 2 S; Status: F Test: URINE CULTURE; Value: PENICILLIN G >=0.5 R; Status: F Test: URINE CULTURE; Value: TRIMETHOPRIM/SULFAMETHOXAZOLE 80 R; Status: F Test: URINE CULTURE; Value: ERYTHROMYCIN >=8 R; Status: F Test: URINE CULTURE; Value: GENTAMICIN <=0.5 S; Status: F Test: URINE CULTURE; Value: CLINDAMYCIN <=0.25 R; Status: F Test: URINE CULTURE; Value: NITROFURANTOIN <=16 S; Status: F Test: URINE CULTURE; Value: OXACILLIN <=0.25 S; Status: F Test: URINE CULTURE; Value: VANCOMYCIN 2 S; Status: F Test: URINE CULTURE; Value: LINEZOLID (ZYVOX) 1 S; Status: F Radiology Order: CT ABD & PELVIS: IV Contrast Only Test: CT ABD & PELVIS: IV Contrast Only REASON FOR EXAMINATION: Appendicitis; ; CLINICAL HISTORY: Abdominal pain.; TECHNIQUE: Multiple axial, sagittal and coronal CT images were obtained through the abdomen and pelvi; s after administration of oral and intravenous contrast material.; COMMENTS:; Comparison is made to the prior exam performed on 04/25/2016.; The liver is mildly enlarged with decreased attenuation without mass or defect. There is no intra or; extrahepatic biliary ductal dilatation. The spleen is normal. The gallbladder is surgically absent. T; he pancreas is of normal contour and attenuation characteristics. There is no evidence of adrenal mas; s.; Both kidneys demonstrate prompt and equal nephrograms. The kidneys are normal in size, shape and conf; iguration. There is no evidence of renal or ureteral mass. No renal or ureteral calculi are identifie; d. There is no hydroureter or hydronephrosis.; No evidence for appendicitis. Fluid filled small bowels. No evidence for small or large bowel obstruc; tion. There is no evidence of abdominal ascites or lymphadenopathy.; There is no evidence of intrinsic or extrinsic bladder mass. There is no pelvic ascites or lymphadeno; irene. Mildly thickened bladder.; No change in small right pleural effusion with passive atelectatic airspace disease of the right lowe; r lobe.; The bony structures are free of lytic or blastic lesions.; IMPRESSION:; Fluid filled small bowel suggestive of mild antritis. This has increased.; No change in right pleural effusion.; Mildly thickened bladder.; Thank you for your kind referral of this patient.; ; Outcome: 04:06 Discharge ordered by Provider. cs11 04:49 Discharge Assessment: patient administered narcotics - no. The following High Risk vualdo Discharge criteria are identified: None. Discharged to home ambulatory. Condition: stable. Discharge instructions given to patient, Instructed on discharge instructions, follow up and referral plans. Demonstrated understanding of instructions, Pt was receptive of discharge instructions/ teaching. CT Study completed. Property :Personal belongings accompany Pt. 04:51 Patient left the ED. uvaldo Addendum: 04/29/2016 14:23 Narrative: urine culture reviewed by Dr Melvin, no change in treatment. [facility] Signatures: Dispatcher [employer] Yasmine Wilson RN TALA Safia Rivers RN RN jan Barnhardt, Gloria, Reg Reg gb Darryn Oates, RAG CUTTING MACHINE FEEDER RAG CUTTING MACHINE FEEDER kb5 Marilee GarzaRN RN lf1 Damian Rooney, DO DO cs11 Leatha Rodriges RN RN af2 Hodan Funes, Reg Reg hs2 Jethro Lou, Reg Reg pm4 Chart Complete MTDD
--- NOTE | 2016-04-29 15:34 | EDDOCDS ---
Physician Documentation [facility] Name: Diana Hernandez Age: 30 yrs Sex: Female : 1985 Arrival Date: 04/26/2016 Time: 00:43 Bed 14 Private MD: Disposition: 04/26/16 04:06 Discharged to Home/Self Care. Impression: Other viral enteritis. - Condition is Stable. - Medication Reconciliation, Local Pharmacy Hours form. - Follow up: Private Physician; When: Call to arrange an appointment; Reason: Recheck today's complaints. - Problem is an ongoing problem. - Symptoms have improved. Historical: - Allergies: Bactrim (Hives); Codeine Sulfatethroat swells; Ibuprofen (Anaphylaxis); Toradol (Hives); Tramadol HCl (Hives); - Home Meds: 1. buspirone 10 mg Oral tab 1 tab 2 times per day (Last dose: 04/25/2016 19:00) 2. capsaicin Topical 3 times per day (Last dose: 04/25/2016 19:00) 3. dicyclomine 10 mg Oral cap 1 cap three times per day as needed (Last dose: 04/25/2016 19:00) 4. divalproex 250 mg oral Tb24 (Last dose: 04/25/2016 19:00) 5. Flexeril 10 mg Oral tab 1 tab as needed (Last dose: 04/25/2016 19:00) 6. Macrodantin 50 mg Oral cap 1 cap once daily (Last dose: 04/25/2016 19:00) 7. melatonin 3 mg Oral tab 1 mg as needed (Last dose: 04/25/2016 19:00) 8. prednisone 10 mg Oral tab 3 tabs once daily (Last dose: 04/25/2016 19:00) 9. Seroquel 100 mg Oral tab 2 times per day (Last dose: 04/25/2016 08:00) 10. tizanidine 2 mg oral tab 1 tabs every 3 hours as needed 11. Truvada 200-300 mg oral tab once daily (Last dose: 04/25/2016 08:00) - PMHx: Anxiety; Bipolar disorder; Cellulitis Right Jaw; Chronic Back pain; Crohn's; Depression; Sciatica; Seizures; Substance Abuse; uterine cancer; - PSHx: Cholecystectomy; ; Hysterectomy; Laparoscopy; - Social history: Smoking status: Patient uses tobacco products, current every day smoker. No barriers to communication noted, The patient speaks fluent Danish, Speaks appropriately for age, Preferred Language: Danish. - Family history: Not pertinent. - : The pt / caregiver states he / she is not on anticoagulants. Home medication list is obtained from the patient. - Exposure Risk Screening:: None identified. 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 5 in. (165.10 cm) (R); Pain 9/10; 04:36 BP 111 / 58; Pulse 78; Resp 18; Temp 96.8(O); Pulse Ox 99% on R/A; Pain 9/10; kb5 00:56 Body Mass Index 29.95 (81.65 kg, 165.10 cm) lf1 MDM: 01:03 IV Saline Lock ordered. cs11 01:04 CBC with Diff Ordered. EDMS 01:04 MED Profile Ordered. EDMS 01:04 Liver Profile Ordered. EDMS 01:04 Amylase Ordered. EDMS 01:04 Lipase Ordered. EDMS 01:04 Urinalysis Ordered. EDMS 01:04 Urine Culture Ordered. EDMS 01:20 Financial registration complete. pm4 01:32 [facility] Payment Agreement was scanned into [employer] and attached to record. pm4 02:04 CBC with Diff Reviewed. cs11 02:29 MED Profile Reviewed. cs11 02:29 Liver Profile Reviewed. cs11 02:29 Amylase Reviewed. cs11 02:29 Lipase Reviewed. cs11 02:29 Urinalysis Reviewed. cs11 02:31 CT ABD & PELVIS: IV Contrast Only Ordered. EDMS 04:04 Bentyl 20 mg IM once ordered. cs11 13:34 T-Sheet-- Draft Copy was scanned into [employer] and attached to record. gb Administered Medications: 04:15 Drug: Bentyl 20 mg [Bentyl 10 mg/mL intramuscular solution (2 mL)] Route: IM; Site: af2 left gluteus; Signatures: Dispatcher [employer] Safia Monahan RN RN Radha Mullins, Reg Reg gb Marilee Garza RN RN lf1 Damian Rooney DO DO cs11 Jethro Lou, Reg Reg pm4 Leatha Rodriges RN af2 The chart was reviewed and I authenticate all verbal orders and agree with the evaluation and treatment provided.Attachments: 01:32 [facility] Payment Agreement pm4 13:34 T-Sheet-- Draft Copy gb Chart Complete MTDD
== END 2016-04-26 04:51 | disposition home or self-care (01) ==
LOC: M ED 00:43
DX: K52.9 Noninfective gastroenteritis and colitis, unspecified (principal); F41.9 Anxiety disorder, unspecified; G89.29 Other chronic pain; F32.9 Major depressive disorder, single episode, unspecified; M54.30 Sciatica, unspecified side; R56.9 Unspecified convulsions; F19.10 Other psychoactive substance abuse, uncomplicated; L03.211 Cellulitis of face; K50.919 Crohn's disease, unspecified, with unspecified complications; Z72.0 Tobacco use; Z79.899 Other long term (current) drug therapy; Z88.1 Allergy status to other antibiotic agents; Z88.5 Allergy status to narcotic agent; Z88.6 Allergy status to analgesic agent
CPT/HCPCS: 36415; 74177; 80048; 80076; 81001; 82150; 83690; 85025; 87088; 87186; 96372; 99284; J0500; Q9967

== ENCOUNTER 2016-05-02 23:08 | Emergency (ER) | payer OTHER ==
--- NOTE | 2016-05-03 00:28 | REP ---
Clinical: Trauma. Technique: AP and lateral views of the right forearm. Findings: Chronic-appearing, well corticated densities are identified along the medial aspect of the humeral condyle suggesting sequelae of old injury. No acute fracture or dislocation is appreciated. Surrounding soft tissues are unremarkable. Impression: Possible old injury involving the medial humeral condyle. No acute fracture or dislocation appreciated. Signed by Flash Mazariegos MD 05/03/2016 12:19 A
[2016-05-03] MEDS ORDERED: ACETAMINOPHEN 325 MG TAB As Ordered ONE (00:33)
--- NOTE | 2016-05-03 00:46 | EDDOCDS ---
Nurse's Notes [facility] Name: Diana Hernandez Age: 30 yrs Sex: Female : 1985 Arrival Date: 05/02/2016 Time: 23:08 Bed I3 / M3 Private MD: Mata Nelson Diagnosis: Fall due to ice and snow;Contusion of left knee;Contusion of right knee;Contusion of right forearm;Contusion of eyeball and orbital tissues, left eye Presentation: 05/02 23:17 Presenting complaint: Patient states: Mechanical fall on right arm. Having pain and jo3 swelling from Biceps to wrist. Adult Sepsis Screening: The patient does not have new or worsening altered mentation. Patient's respiratory rate is less than 22. Systolic blood pressure is greater than 100. Patient has a qSOFA score of 0- Negative Sepsis Screen. Suicide/Homicide risk assessment- the patient denies having any suicidal and/or homicidal ideations and does not present with any other emotional, behavioral or mental health complaints. Status: Patient is not a cashier self service gasoline or dependent. Transition of care: patient was not received from another setting of care. 23:17 Acuity: PAULY Level 4 jo3 23:17 Method Of Arrival: Walkin/Carried/Asstd jo3 Triage Assessment: 23:20 General: Appears in no apparent distress, Behavior is appropriate for age, cooperative. jo3 Pain: Pain currently is 9 out of 10 on a pain scale. HIV screening NA for this visit Offered previously. Neurological: Level of Consciousness is awake, alert, Oriented to person, place, time. Respiratory: Airway is patent Respiratory effort is even, unlabored. 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 buspirone 10 mg Oral tab 1 tab 2 times per day 2. capsaicin Topical 3 times per day 3. dicyclomine 10 mg Oral cap 1 cap three times per day as needed 4. divalproex 250 mg oral Tb24 5. Flexeril 10 mg Oral tab 1 tab as needed 6. lidocaine jelly 1 application three times a day 7. Macrodantin 50 mg Oral cap 1 cap once daily 8. melatonin 3 mg Oral tab 1 mg as needed 9. prednisone 10 mg Oral tab 3 tabs once daily 10. pregabalin 150 mg Oral cap 1 cap 2 times per day 11. Rozerem 8 mg oral tab 1 tab once daily 12. Seroquel 100 mg Oral tab 2 times per day 13. tizanidine 2 mg oral tab 1 tabs every 3 hours as needed 14. topiramate 25 mg oral tab 2 times per day 15. Truvada 200-300 mg oral tab once daily 16. Xanax 0.25 mg Oral tab as needed out of Rx - PMHx: Anxiety; Bipolar disorder; Cellulitis Right Jaw; Chronic Back pain; Crohn's; Depression; Sciatica; Seizures; Substance Abuse; uterine cancer; - PSHx: Cholecystectomy; ; Laparoscopy; Hysterectomy; - Social history: Smoking status: Patient uses tobacco products, light tobacco smoker. No barriers to communication noted, The patient speaks fluent Vincentian, Speaks appropriately for age. - Family history: Not pertinent. - : The pt / caregiver states he / she is not on anticoagulants. Home medication list is obtained from. - Exposure Risk Screening:: None identified. Screenin/03 00:42 Screening information is obtained from the patient. Fall risk: No risks identified. ld5 Assistance ADL's: requires no assistance with activities of daily living. Abuse/DV Screen: The patient / caregiver reports he/she is: not in a situation that causes fear, pain or injury. Nutritional screening: No deficits noted. Advance Directives: Currently, there is no health care proxy. home support is adequate. Assessment: 00:42 General: Appears in no apparent distress. Pain: Location: right arm. Respiratory: ld5 Airway is patent. Musculoskeletal: Range of motion intact in all extremities. Vital Signs: 05/02 23:10 BP 102 / 60 RA Sitting (auto/lg); Pulse 113; Resp 18; Temp 97.8(O); Pulse Ox 100% on rs6 R/A; Weight 81.65 kg (R); Height 5 ft. 5 in. (165.10 cm) (R); Pain 9/10; 05/03 00:42 Pulse 90; ld5 05/02 23:10 Body Mass Index 29.95 (81.65 kg, 165.10 cm) rs6 Vitals: 05/02 23:10 Log In Time: May 02, 2016 at 23:10. rs6 ED Course: 23:09 Patient visited by Molly Westbrook PCA. rs6 23:09 Mata Nelson is Private Physician. rs6 23:09 Patient moved to Waiting rs6 23:10 Patient visited by Molly Westbrook PCA. rs6 23:10 Patient moved to Pre RCE rs6 23:19 Triage Initiated jo3 23:22 Patient visited by Anamaria Deras RN. jo3 0203 00:18 Patient moved to I3 / M3 ld5 00:24 Charles Kan PA-C is PHCP. cc10 00:24 Peter Johnosn DO is Attending Physician. cc10 00:31 Mata Nelson is Referral Physician. cc10 00:34 Patient visited by Charles Kan PA-C. cc10 00:34 Patient visited by Charles Kan PA-C. cc10 00:35 Forearm (radius/ulna) Returned. EDMS 00:42 The patient / caregiver is instructed regarding the plan of care and ED course. Patient ld5 has correct armband on for positive identification. 00:42 No IV's were initiated during this patient's visit. No procedures done that require ld5 assistance. Sling applied to right arm. Patient with positive distal sensation and brisk distal capillary refill after application. 00:45 Patient visited by Sandrine Silva RN. ld5 Administered Medications: 00:42 Drug: Acetaminophen 650 mg [acetaminophen 325 mg tablet (2 tabs)] Route: PO; ld5 00:42 Follow up: Response: Pt left department before re-evaluation is appropriate ld5 Order Results: Radiology Order: Forearm (radius/ulna) Test: Forearm (radius/ulna) REASON FOR EXAMINATION: Trauma; Clinical: Trauma.; ; Technique: AP and lateral views of the right forearm.; ; Findings:; Chronic-appearing, well corticated densities are identified along the medial; aspect of the humeral condyle suggesting sequelae of old injury. No acute; fracture or dislocation is appreciated. Surrounding soft tissues are; unremarkable.; ; Impression:; Possible old injury involving the medial humeral condyle.; No acute fracture or dislocation appreciated.; ; ; Signed by; Flash Mazariegos MD 05/03/2016 12:19 A; Outcome: 00:31 Discharge ordered by Provider. cc10 00:42 Discharge Assessment: Patient awake, alert and oriented x 3. No cognitive and/or ld5 functional deficits noted. Patient verbalized understanding of disposition instructions. patient administered narcotics - no. The following High Risk Discharge criteria are identified: None. Discharged to home ambulatory. Condition: stable. Discharge instructions given to patient, Instructed on discharge instructions, follow up and referral plans. Demonstrated understanding of instructions, Pt was receptive of discharge instructions/ teaching. No special radiology studies were completed. Property :Personal belongings accompany Pt. 00:45 Patient left the ED. ld5 Signatures: Dispatcher [employer] EDMS Anamaria DerasRN RN yadira3 Sandrine Silva RN RN ld5 Charles Kan, PA-C PASherley cc10 Molly Westbrook, MIGUEL A SUPERINTENDENT STEVEDORING rs6 MTDD
--- NOTE | 2016-05-03 00:46 | EDDOCDS ---
Physician Documentation [facility] Name: Diana Hernandez Age: 30 yrs Sex: Female : 1985 Arrival Date: 05/02/2016 Time: 23:08 Bed I3 / M3 Private MD: Mata Nelson Disposition: 05/03/16 00:31 Discharged to Home/Self Care. Impression: Fall due to ice and snow, Contusion of left knee, Contusion of right knee, Contusion of right forearm, Contusion of eyeball and orbital tissues, left eye. - Condition is Stable. - Discharge Instructions: Contusion. - Medication Reconciliation form. - Follow up: Mata Nelson; When: Call to arrange an appointment; Reason: Wound/Symptom Recheck, Recheck today's complaints, Continuance of care. - Problem is an ongoing problem. - Symptoms are unchanged. Historical: - Allergies: Bactrim (Hives); Codeine Sulfatethroat swells; Ibuprofen (Anaphylaxis); Toradol (Hives); Tramadol HCl (Hives); - Home Meds: 1. buspirone 10 mg Oral tab 1 tab 2 times per day 2. capsaicin Topical 3 times per day 3. dicyclomine 10 mg Oral cap 1 cap three times per day as needed 4. divalproex 250 mg oral Tb24 5. Flexeril 10 mg Oral tab 1 tab as needed 6. lidocaine jelly 1 application three times a day 7. Macrodantin 50 mg Oral cap 1 cap once daily 8. melatonin 3 mg Oral tab 1 mg as needed 9. prednisone 10 mg Oral tab 3 tabs once daily 10. pregabalin 150 mg Oral cap 1 cap 2 times per day 11. Rozerem 8 mg oral tab 1 tab once daily 12. Seroquel 100 mg Oral tab 2 times per day 13. tizanidine 2 mg oral tab 1 tabs every 3 hours as needed 14. topiramate 25 mg oral tab 2 times per day 15. Truvada 200-300 mg oral tab once daily 16. Xanax 0.25 mg Oral tab as needed out of Rx - PMHx: Anxiety; Bipolar disorder; Cellulitis Right Jaw; Chronic Back pain; Crohn's; Depression; Sciatica; Seizures; Substance Abuse; uterine cancer; - PSHx: Cholecystectomy; ; Laparoscopy; Hysterectomy; - Social history: Smoking status: Patient uses tobacco products, light tobacco smoker. No barriers to communication noted, The patient speaks fluent Frisian, Speaks appropriately for age. - Family history: Not pertinent. - : The pt / caregiver states he / she is not on anticoagulants. Home medication list is obtained from. - Exposure Risk Screening:: None identified. 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 5 in. (165.10 cm) (R); Pain 12/08; 05/03 00:42 Pulse 90; ld5 05/02 23:10 Body Mass Index 29.95 (81.65 kg, 165.10 cm) rs6 MDM: 05/02 23:27 Forearm (radius/ulna) Ordered. EDMS 05/03 00:30 Acetaminophen Tablet 650 mg PO once ordered. cc10 00:30 Sling ordered. cc10 00:42 Financial registration complete. [facility] Administered Medications: 00:42 Drug: Acetaminophen 650 mg [acetaminophen 325 mg tablet (2 tabs)] Route: PO; ld5 00:42 Follow up: Response: Pt left department before re-evaluation is appropriate ld5 Signatures: Dispatcher [employer] EDAnamaria Hartley RN RN jo3 Sandrine Silva RN RN ld5 Charles Kan PA-C PA-C cc10 Alta Gross [facility] MTDD
[2016-05-03] MEDS ORDERED: TIZA2CAP3 PO (10:19)
[2016-05-03] MEDS ORDERED: IBUP200T45 PO (10:19)
[2016-05-03] MEDS ORDERED: SERO400T PO (10:19)
[2016-05-03] MEDS ORDERED: TRUVTAB3 PO (10:21)
--- NOTE | 2016-05-05 01:45 | EDDOCDS ---
Nurse's Notes [facility] Name: Diana Hernandez Age: 30 yrs Sex: Female : 1985 Arrival Date: 05/02/2016 Time: 23:08 Bed I3 / M3 Private MD: Mata Nelson Diagnosis: Fall due to ice and snow;Contusion of left knee;Contusion of right knee;Contusion of right forearm;Contusion of eyeball and orbital tissues, left eye Presentation: 05/02 23:17 Presenting complaint: Patient states: Mechanical fall on right arm. Having pain and jo3 swelling from Biceps to wrist. Adult Sepsis Screening: The patient does not have new or worsening altered mentation. Patient's respiratory rate is less than 22. Systolic blood pressure is greater than 100. Patient has a qSOFA score of 0- Negative Sepsis Screen. Suicide/Homicide risk assessment- the patient denies having any suicidal and/or homicidal ideations and does not present with any other emotional, behavioral or mental health complaints. Status: Patient is not a service line coordinator or dependent. Transition of care: patient was not received from another setting of care. 23:17 Acuity: PAULY Level 4 jo3 23:17 Method Of Arrival: Walkin/Carried/Asstd jo3 Triage Assessment: 23:20 General: Appears in no apparent distress, Behavior is appropriate for age, cooperative. jo3 Pain: Pain currently is 9 out of 10 on a pain scale. HIV screening NA for this visit Offered previously. Neurological: Level of Consciousness is awake, alert, Oriented to person, place, time. Respiratory: Airway is patent Respiratory effort is even, unlabored. 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 buspirone 10 mg Oral tab 1 tab 2 times per day 2. capsaicin Topical 3 times per day 3. dicyclomine 10 mg Oral cap 1 cap three times per day as needed 4. divalproex 250 mg oral Tb24 5. Flexeril 10 mg Oral tab 1 tab as needed 6. lidocaine jelly 1 application three times a day 7. Macrodantin 50 mg Oral cap 1 cap once daily 8. melatonin 3 mg Oral tab 1 mg as needed 9. prednisone 10 mg Oral tab 3 tabs once daily 10. pregabalin 150 mg Oral cap 1 cap 2 times per day 11. Rozerem 8 mg oral tab 1 tab once daily 12. Seroquel 100 mg Oral tab 2 times per day 13. tizanidine 2 mg oral tab 1 tabs every 3 hours as needed 14. topiramate 25 mg oral tab 2 times per day 15. Truvada 200-300 mg oral tab once daily 16. Xanax 0.25 mg Oral tab as needed out of Rx - PMHx: Anxiety; Bipolar disorder; Cellulitis Right Jaw; Chronic Back pain; Crohn's; Depression; Sciatica; Seizures; Substance Abuse; uterine cancer; - PSHx: Cholecystectomy; ; Laparoscopy; Hysterectomy; - Social history: Smoking status: Patient uses tobacco products, light tobacco smoker. No barriers to communication noted, The patient speaks fluent Pakistani, Speaks appropriately for age. - Family history: Not pertinent. - : The pt / caregiver states he / she is not on anticoagulants. Home medication list is obtained from. - Exposure Risk Screening:: None identified. Screenin/03 00:42 Screening information is obtained from the patient. Fall risk: No risks identified. ld5 Assistance ADL's: requires no assistance with activities of daily living. Abuse/DV Screen: The patient / caregiver reports he/she is: not in a situation that causes fear, pain or injury. Nutritional screening: No deficits noted. Advance Directives: Currently, there is no health care proxy. home support is adequate. Assessment: 00:42 General: Appears in no apparent distress. Pain: Location: right arm. Respiratory: ld5 Airway is patent. Musculoskeletal: Range of motion intact in all extremities. Vital Signs: 05/02 23:10 BP 102 / 60 RA Sitting (auto/lg); Pulse 113; Resp 18; Temp 97.8(O); Pulse Ox 100% on rs6 R/A; Weight 81.65 kg (R); Height 5 ft. 5 in. (165.10 cm) (R); Pain 9/10; 05/03 00:42 Pulse 90; ld5 05/02 23:10 Body Mass Index 29.95 (81.65 kg, 165.10 cm) rs6 Vitals: 05/02 23:10 Log In Time: May 02, 2016 at 23:10. rs6 ED Course: 23:09 Patient visited by Molly Westbrook PCA. rs6 23:09 Mata Nelson is Private Physician. rs6 23:09 Patient moved to Waiting rs6 23:10 Patient visited by Molly Westbrook PCA. rs6 23:10 Patient moved to Pre RCE rs6 23:19 Triage Initiated jo3 23:22 Patient visited by Anamaria Deras RN. jo3 02/03 00:18 Patient moved to I3 / M3 ld5 00:24 Charles Kan PA-C is PHCP. cc10 00:24 Peter Johnson DO is Attending Physician. cc10 00:31 Mata Nelson is Referral Physician. cc10 00:34 Patient visited by Charles Kan PA-C. cc10 00:34 Patient visited by Charles Kan PA-C. cc10 00:35 Forearm (radius/ulna) Returned. EDMS 00:42 The patient / caregiver is instructed regarding the plan of care and ED course. Patient ld5 has correct armband on for positive identification. 00:42 No IV's were initiated during this patient's visit. No procedures done that require ld5 assistance. Sling applied to right arm. Patient with positive distal sensation and brisk distal capillary refill after application. 00:45 Patient visited by Sandrine Silva RN. ld5 01:44 [facility] Payment Agreement was scanned into [employer] and attached to record. [facility] 12:31 T-Sheet-- Draft Copy was scanned into [employer] and attached to record. gb Administered Medications: 00:42 Drug: Acetaminophen 650 mg [acetaminophen 325 mg tablet (2 tabs)] Route: PO; ld5 00:42 Follow up: Response: Pt left department before re-evaluation is appropriate ld5 Order Results: Radiology Order: Forearm (radius/ulna) Test: Forearm (radius/ulna) REASON FOR EXAMINATION: Trauma; Clinical: Trauma.; ; Technique: AP and lateral views of the right forearm.; ; Findings:; Chronic-appearing, well corticated densities are identified along the medial; aspect of the humeral condyle suggesting sequelae of old injury. No acute; fracture or dislocation is appreciated. Surrounding soft tissues are; unremarkable.; ; Impression:; Possible old injury involving the medial humeral condyle.; No acute fracture or dislocation appreciated.; ; ; Signed by; Flash Mazariegos MD 05/03/2016 12:19 A; Outcome: 00:31 Discharge ordered by Provider. cc10 00:42 Discharge Assessment: Patient awake, alert and oriented x 3. No cognitive and/or ld5 functional deficits noted. Patient verbalized understanding of disposition instructions. patient administered narcotics - no. The following High Risk Discharge criteria are identified: None. Discharged to home ambulatory. Condition: stable. Discharge instructions given to patient, Instructed on discharge instructions, follow up and referral plans. Demonstrated understanding of instructions, Pt was receptive of discharge instructions/ teaching. No special radiology studies were completed. Property :Personal belongings accompany Pt. 00:45 Patient left the ED. ld5 Signatures: Dispatcher [employer] EDMS Radha Juarez, Reg Reg gb Anamaria DerasRN RN yadira3 Sandrine Silva RN RN ld5 Charles Kan, BOOKER PASherley cc10 Alta Gross Rebecca, MIGUEL A AUTOMOTIVE PAINTER rs6 Chart Complete MTDTray
--- NOTE | 2016-05-05 01:45 | EDDOCDS ---
Physician Documentation [facility] Name: Diana Hernandez Age: 30 yrs Sex: Female : 1985 Arrival Date: 05/02/2016 Time: 23:08 Bed I3 / M3 Private MD: Mata Nelson Disposition: 05/03/16 00:31 Discharged to Home/Self Care. Impression: Fall due to ice and snow, Contusion of left knee, Contusion of right knee, Contusion of right forearm, Contusion of eyeball and orbital tissues, left eye. - Condition is Stable. - Discharge Instructions: Contusion. - Medication Reconciliation form. - Follow up: Mata Nelson; When: Call to arrange an appointment; Reason: Wound/Symptom Recheck, Recheck today's complaints, Continuance of care. - Problem is an ongoing problem. - Symptoms are unchanged. Historical: - Allergies: Bactrim (Hives); Codeine Sulfatethroat swells; Ibuprofen (Anaphylaxis); Toradol (Hives); Tramadol HCl (Hives); - Home Meds: 1. buspirone 10 mg Oral tab 1 tab 2 times per day 2. capsaicin Topical 3 times per day 3. dicyclomine 10 mg Oral cap 1 cap three times per day as needed 4. divalproex 250 mg oral Tb24 5. Flexeril 10 mg Oral tab 1 tab as needed 6. lidocaine jelly 1 application three times a day 7. Macrodantin 50 mg Oral cap 1 cap once daily 8. melatonin 3 mg Oral tab 1 mg as needed 9. prednisone 10 mg Oral tab 3 tabs once daily 10. pregabalin 150 mg Oral cap 1 cap 2 times per day 11. Rozerem 8 mg oral tab 1 tab once daily 12. Seroquel 100 mg Oral tab 2 times per day 13. tizanidine 2 mg oral tab 1 tabs every 3 hours as needed 14. topiramate 25 mg oral tab 2 times per day 15. Truvada 200-300 mg oral tab once daily 16. Xanax 0.25 mg Oral tab as needed out of Rx - PMHx: Anxiety; Bipolar disorder; Cellulitis Right Jaw; Chronic Back pain; Crohn's; Depression; Sciatica; Seizures; Substance Abuse; uterine cancer; - PSHx: Cholecystectomy; ; Laparoscopy; Hysterectomy; - Social history: Smoking status: Patient uses tobacco products, light tobacco smoker. No barriers to communication noted, The patient speaks fluent Urdu, Speaks appropriately for age. - Family history: Not pertinent. - : The pt / caregiver states he / she is not on anticoagulants. Home medication list is obtained from. - Exposure Risk Screening:: None identified. 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 5 in. (165.10 cm) (R); Pain 9/10; 05/03 00:42 Pulse 90; ld5 05/02 23:10 Body Mass Index 29.95 (81.65 kg, 165.10 cm) rs6 MDM: 05/02 23:27 Forearm (radius/ulna) Ordered. EDMS 05/03 00:30 Acetaminophen Tablet 650 mg PO once ordered. cc10 00:30 Sling ordered. cc10 00:42 Financial registration complete. [facility] :44 [facility] Payment Agreement was scanned into [employer] and attached to record. [facility] 12:31 T-Sheet-- Draft Copy was scanned into [employer] and attached to record. gb Administered Medications: 00:42 Drug: Acetaminophen 650 mg [acetaminophen 325 mg tablet (2 tabs)] Route: PO; ld5 00:42 Follow up: Response: Pt left department before re-evaluation is appropriate ld5 Signatures: Dispatcher [employer] EDMS Radha Juarez, Reg Reg gb Anamaria DerasRN RN jo3 Sandrine Silva RN RN ld5 Charles Kan PA-C PASherley ccAlta Durbin [facility] The chart was reviewed and I authenticate all verbal orders and agree with the evaluation and treatment provided.Attachments: 01:44 [facility] Payment Agreement [facility] 12:31 T-Sheet-- Draft Copy gb Chart Complete MTDD
--- NOTE | 2016-05-05 01:45 | EDDOCDS ---
Physician Documentation [facility] Name: Diana Hernandez Age: 30 yrs Sex: Female : 1985 Arrival Date: 05/02/2016 Time: 23:08 Bed I3 / M3 Private MD: Mata Nelson Disposition: 05/03/16 00:31 Discharged to Home/Self Care. Impression: Fall due to ice and snow, Contusion of left knee, Contusion of right knee, Contusion of right forearm, Contusion of eyeball and orbital tissues, left eye. - Condition is Stable. - Discharge Instructions: Contusion. - Medication Reconciliation form. - Follow up: Mata Nelson; When: Call to arrange an appointment; Reason: Wound/Symptom Recheck, Recheck today's complaints, Continuance of care. - Problem is an ongoing problem. - Symptoms are unchanged. Historical: - Allergies: Bactrim (Hives); Codeine Sulfatethroat swells; Ibuprofen (Anaphylaxis); Toradol (Hives); Tramadol HCl (Hives); - Home Meds: 1. buspirone 10 mg Oral tab 1 tab 2 times per day 2. capsaicin Topical 3 times per day 3. dicyclomine 10 mg Oral cap 1 cap three times per day as needed 4. divalproex 250 mg oral Tb24 5. Flexeril 10 mg Oral tab 1 tab as needed 6. lidocaine jelly 1 application three times a day 7. Macrodantin 50 mg Oral cap 1 cap once daily 8. melatonin 3 mg Oral tab 1 mg as needed 9. prednisone 10 mg Oral tab 3 tabs once daily 10. pregabalin 150 mg Oral cap 1 cap 2 times per day 11. Rozerem 8 mg oral tab 1 tab once daily 12. Seroquel 100 mg Oral tab 2 times per day 13. tizanidine 2 mg oral tab 1 tabs every 3 hours as needed 14. topiramate 25 mg oral tab 2 times per day 15. Truvada 200-300 mg oral tab once daily 16. Xanax 0.25 mg Oral tab as needed out of Rx - PMHx: Anxiety; Bipolar disorder; Cellulitis Right Jaw; Chronic Back pain; Crohn's; Depression; Sciatica; Seizures; Substance Abuse; uterine cancer; - PSHx: Cholecystectomy; ; Laparoscopy; Hysterectomy; - Social history: Smoking status: Patient uses tobacco products, light tobacco smoker. No barriers to communication noted, The patient speaks fluent Occitan, Speaks appropriately for age. - Family history: Not pertinent. - : The pt / caregiver states he / she is not on anticoagulants. Home medication list is obtained from. - Exposure Risk Screening:: None identified. 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 5 in. (165.10 cm) (R); Pain 9/10; 05/03 00:42 Pulse 90; ld5 05/02 23:10 Body Mass Index 29.95 (81.65 kg, 165.10 cm) rs6 MDM: 05/02 23:27 Forearm (radius/ulna) Ordered. EDMS 05/03 00:30 Acetaminophen Tablet 650 mg PO once ordered. cc10 00:30 Sling ordered. cc10 00:42 Financial registration complete. [facility] :[facility] Payment Agreement was scanned into [employer] and attached to record. [facility] 12:31 T-Sheet-- Draft Copy was scanned into [employer] and attached to record. gb Administered Medications: 00:42 Drug: Acetaminophen 650 mg [acetaminophen 325 mg tablet (2 tabs)] Route: PO; ld5 00:42 Follow up: Response: Pt left department before re-evaluation is appropriate ld5 Signatures: Dispatcher [employer] EDMS Radha Juarez, Reg Reg gb Anamaria DerasRN RN jo3 Sandrine Silva RN RN ld5 Charles Kan PA-C PASherley ccAlta Durbin [facility] The chart was reviewed and I authenticate all verbal orders and agree with the evaluation and treatment provided.Attachments: 01:44 [facility] Payment Agreement [facility] 12:31 T-Sheet-- Draft Copy gb Chart Complete MTDD
== END 2016-05-03 00:45 | disposition home or self-care (01) ==
LOC: M ED 23:08
DX: S80.02XA Contusion of left knee, initial encounter (principal); S80.01XA Contusion of right knee, initial encounter; S05.12XA Contusion of eyeball and orbital tissues, left eye, initial encounter; S50.11XA Contusion of right forearm, initial encounter; W00.0XXA Fall on same level due to ice and snow, initial encounter; Y92.410 Unspecified street and highway as the place of occurrence of the external cause; Y93.89 Activity, other specified; Y99.8 Other external cause status; F31.9 Bipolar disorder, unspecified; F41.9 Anxiety disorder, unspecified; K50.90 Crohn's disease, unspecified, without complications; M54.30 Sciatica, unspecified side; R56.9 Unspecified convulsions; Z79.899 Other long term (current) drug therapy; Z79.52 Long term (current) use of systemic steroids; Z88.1 Allergy status to other antibiotic agents; Z88.5 Allergy status to narcotic agent; Z88.8 Allergy status to other drugs, medicaments and biological substances; F17.210 Nicotine dependence, cigarettes, uncomplicated

== ENCOUNTER → 2016-05-10 | Outpatient (CLI) | payer OTHER ==
[~2016-05-10] VITALS: Ht 165.1 cm; Wt 81.6 kg
[~2016-05-10] MED LIST changes: +IBUP200T45 PO; +LIDOCAINE 2% INJ 100 MG/5 ML SDV (FOR ANES.) As Ordered ONE; +NS 1,000 ML IV SCH; +PROPOFOL 200 MG/20 ML VIAL As Ordered ONE; +SERO400T PO; +TIZA2CAP3 PO; +TRUVTAB3 PO; +ceFAZolin 1GM INJ (J0690) As Ordered ONE
--- NOTE | 2016-05-10 10:28 | ROOR ---
Patient Name: Diana Hernandez Procedure Date: 05/10/2016 10:07 AM Date of : 1985 Age: 30 Room: [facility] Gender: Female Note Status: Finalized Procedure: Colonoscopy to Cecum + ileoscopy + Biopsies Indications: Lower abdominal pain, Clinically significant diarrhea of unexplained origin, Rectal bleeding Providers: Morgan Reed MD Referring MD: Loren Diaz Do Requesting Provider: Medicines: Monitored Anesthesia Care Complications: No immediate complications. Procedure: Pre-Anesthesia Assessment: - The heart rate, respiratory rate, oxygen saturations, blood pressure, adequacy of pulmonary ventilation, and response to care were monitored throughout the procedure. The Colonoscope was introduced through the anus and advanced to the terminal ileum, with identification of the appendiceal orifice and IC valve. The colonoscopy was performed without difficulty. The patient tolerated the procedure well. The quality of the bowel preparation was excellent. Findings: The perianal and digital rectal examinations were normal. Non-bleeding internal hemorrhoids were found during retroflexion. The hemorrhoids were small and Grade I (internal hemorrhoids that do not prolapse). No other significant abnormalities were identified in a careful examination of the remainder of the colon. The terminal ileum appeared normal. Biopsies for histology were taken with a cold forceps from the ascending colon, transverse colon and descending colon for evaluation of microscopic colitis. The exam was otherwise without abnormality. Impression: - Non-bleeding internal hemorrhoids. - The examined portion of the ileum was normal. - The examination was otherwise normal. - Biopsies were taken with a cold forceps from the ascending colon, transverse colon and descending colon for evaluation of microscopic colitis. - The exam was otherwise normal to the cecum. - The examined portion of the ileum was normal. Recommendation: - Discharge patient to home. - High fiber diet. - Continue present medications. - Await pathology results. - Telephone GI clinic for pathology results in 1 week. - Return to referring physician. - Repeat colonoscopy at age 50 for screening purposes. - The findings and recommendations were discussed with the patient's family. Morgan Reed MD Morgan Reed MD 05/10/2016 10:28:32 AM This report has been signed electronically. Number of Addenda: 0 Note Initiated On: 05/10/2016 10:07 AM Estimated Blood Loss: Estimated blood loss: none.
[2016-05-10 10:59] VITALS: BP 99/56
== END ==
LOC: M OPP 08:51
PROVIDERS: ATTEND Internal Medicine Gastroenterology
DX: R10.30 Lower abdominal pain, unspecified (principal); K62.5 Hemorrhage of anus and rectum; R19.7 Diarrhea, unspecified; K64.0 First degree hemorrhoids; R11.2 Nausea with vomiting, unspecified; R12 Heartburn; Z20.6 Contact with and (suspected) exposure to human immunodeficiency virus [HIV]; M51.24 Other intervertebral disc displacement, thoracic region; F41.9 Anxiety disorder, unspecified; F31.9 Bipolar disorder, unspecified; G43.909 Migraine, unspecified, not intractable, without status migrainosus; R56.9 Unspecified convulsions; Z87.440 Personal history of urinary (tract) infections; Z88.5 Allergy status to narcotic agent; Z88.8 Allergy status to other drugs, medicaments and biological substances; Z91.048 Other nonmedicinal substance allergy status; F17.210 Nicotine dependence, cigarettes, uncomplicated; Z80.0 Family history of malignant neoplasm of digestive organs; Z79.899 Other long term (current) drug therapy; Z85.42 Personal history of malignant neoplasm of other parts of uterus
CPT/HCPCS: 45380; 88305; 99156; J0690

== ENCOUNTER 2016-05-13 00:53 | Emergency (ER) | payer OTHER ==
[~2016-05-13 00:53] MED LIST changes: -LIDOCAINE 2% INJ 100 MG/5 ML SDV (FOR ANES.) As Ordered ONE; -NS 1,000 ML IV SCH; -PROPOFOL 200 MG/20 ML VIAL As Ordered ONE; -ceFAZolin 1GM INJ (J0690) As Ordered ONE
[2016-05-13] MEDS ORDERED: ONDANSETRON 4MG/2ML VIAL (J2405) As Ordered ONE (04:36)
[2016-05-13] MEDS ORDERED: MORPHINE 4 MG/ML 1ML SYRINGE As Ordered ONE ×2 (04:36→05:18)
[2016-05-13 05:05] LABS: BASO % 0.6 % (0.0-1.0); EOS # 0.3 K/mm3 (0.0-0.50); EOS % 3.2 % (0.0-3.0); LARGE UNSTAINED CELL # 0.2 K/mm3 (0.0-0.4); LARGE UNSTAINED CELL % 1.9 % (0.0-4.0); LYMPH # 3.3 K/mm3 (1.5-4.5); LYMPH % 40.7 % (24.0-44.0); MEAN CORPUSCULAR HEMOGLOBIN 31.3 pg (27.0-33.0); MEAN CORPUSCULAR HGB CONC 32.3 g/dl (32.0-36.5); MEAN CORPUSCULAR VOLUME 96.6 fl (80.0-96.0); MONO # 0.3 K/mm3 (0.0-0.8); MONO % 4.3 % (0.0-5.0); NEUTROPHILS % 49.4 % (36.0-66.0); PLATELET COUNT, AUTOMATED 346 k/mm3 (150-450); RED CELL DISTRIBUTION WIDTH 12.9 % (11.5-14.5); WHITE BLOOD COUNT 8.1 K/mm3 (4.0-10.0)
[2016-05-13 05:12] LABS: INR 1.03
[2016-05-13 05:27] LABS: ALBUMIN 3.9 GM/DL (3.2-5.2); ALBUMIN/GLOBULIN RATIO 1.05 (1.00-1.93); ALKALINE PHOSPHATASE 96 U/L (45-117); ALT/SGPT 21 U/L (12-78); AMYLASE 79 U/L (25-115); ANION GAP 7 MEQ/L (8-16); AST/SGOT 12 U/L (15-37); BILIRUBIN,DIRECT < 0.1 MG/DL (0.0-0.2); BILIRUBIN,TOTAL 0.2 MG/DL (0.2-1.0); BLOOD UREA NITROGEN 9 MG/DL (7-18); CALCIUM LEVEL 8.7 MG/DL (8.5-10.1); CARBON DIOXIDE LEVEL 28 MEQ/L (21-32); CHLORIDE LEVEL 107 MEQ/L (98-107); CREATININE FOR GFR 0.56 MG/DL (0.55-1.02); GLOMERULAR FILTRATION RATE > 60.0 (>60); GLUCOSE, FASTING 93 MG/DL (70-105); POTASSIUM SERUM 3.7 MEQ/L (3.5-5.1); SODIUM LEVEL 142 MEQ/L (136-145); TOTAL PROTEIN 7.6 GM/DL (6.4-8.2)
[2016-05-13] MEDS ORDERED: MAALOX 30 ML SUSP *UDC As Ordered ONE (05:37)
[2016-05-13] MEDS ORDERED: ISOVUE-370 76% 100ML VIAL (Q9967) As Ordered ONE (05:49)
--- NOTE | 2016-05-13 06:20 | REPUSA ---
CLINICAL HISTORY: Abdominal pain. TECHNIQUE: Multiple axial, sagittal and coronal CT images were obtained through the abdomen and pelvi s after administration of intravenous contrast material. COMMENTS: The liver is of uniform attenuation without mass or defect. There is mild biliary ductal dilatation. The spleen is normal. The gallbladder is surgically absent. The pancreas is of normal contour and att enuation characteristics. There is no evidence of adrenal mass. Both kidneys demonstrate prompt and equal nephrograms. The kidneys are normal in size, shape and conf iguration. There is no evidence of renal or ureteral mass. No renal or ureteral calculi are identifie d. There is no hydroureter or hydronephrosis. No evidence for appendicitis. There is no bowel wall thickening. No evidence for small or large ricky l obstruction. There is no evidence of abdominal ascites or lymphadenopathy. Fluid filled bowels. There is no evidence of intrinsic or extrinsic bladder mass. There is no pelvic ascites or lymphadeno irene. Images of the lung bases show no evidence of pleural or parenchymal mass. There are no pleural effusi ons. The bony structures are free of lytic or blastic lesions. Multilevel degenerative changes are seen in volving the thoracolumbar spine. Scattered calcifications are seen involving the aorta and major bran ches compatible with atherosclerosis. IMPRESSION: Enteritis/ileus. Cholecystectomy. Mild biliary ductal dilatation. This is unchanged. No other change from 04/26/2016. Thank you for your kind referral of this patient.
[2016-05-13] MEDS ORDERED: PERCOCET 5MG/325MG TAB As Ordered ONE (07:19)
--- NOTE | 2016-05-13 07:26 | EDDOCDS ---
Nurse's Notes [facility] Name: Diana Hernandez Age: 30 yrs Sex: Female : 1985 Arrival Date: 05/13/2016 Time: 00:53 Bed 8 Private MD: Diagnosis: Abdominal and pelvic pain-Chronic Presentation: 05/13 01:02 Presenting complaint: Patient states: Patient reports that she has been defecating [facility] blood. Had colonoscopy performed on Friday. Patient reports calling office of provider whom performed colonoscopy and informed to come in here. Adult Sepsis Screening: The patient does not have new or worsening altered mentation. Patient's respiratory rate is less than 22. Systolic blood pressure is greater than 100. Patient has a qSOFA score of 0- Negative Sepsis Screen. Suicide/Homicide risk assessment- the patient denies having any suicidal and/or homicidal ideations and does not present with any other emotional, behavioral or mental health complaints. 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 Transition of care: patient was not received from another setting of care. 01:02 Acuity: PAULY Level 3 b 01:02 Method Of Arrival: Walkin/Carried/Asstd jmb Triage Assessment: 01:05 General: Appears in no apparent distress, Behavior is appropriate for age, cooperative. b Pain: Location: abdomen Pain currently is 8 out of 10 on a pain scale. HIV screening NA for this visit Offered previously. Neurological: Level of Consciousness is awake, alert, obeys commands, Oriented to person, place, time, Blending Line Attendant are equal bilaterally Speech is normal, Facial symmetry appears normal, Facial symmetry: tongue is midline. Respiratory: Airway is patent Respiratory effort is even, unlabored, Respiratory pattern is regular, symmetrical. GI: Abdomen is non- distended. Derm: Skin is pink, warm & dry. Musculoskeletal: Range of motion intact in all extremities. 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 buspirone 10 mg Oral tab 1 tab 2 times per day 2. capsaicin Topical 3 times per day 3. dicyclomine 10 mg Oral cap 1 cap three times per day as needed 4. divalproex 250 mg oral Tb24 5. Flexeril 10 mg Oral tab 1 tab as needed 6. lidocaine jelly 1 application three times a day 7. Macrodantin 50 mg Oral cap 1 cap once daily 8. melatonin 3 mg Oral tab 1 mg as needed 9. prednisone 10 mg Oral tab 3 tabs once daily 10. pregabalin 150 mg Oral cap 1 cap 2 times per day 11. Rozerem 8 mg oral tab 1 tab once daily 12. Seroquel 100 mg Oral tab 2 times per day 13. tizanidine 2 mg oral tab 1 tabs every 3 hours as needed 14. topiramate 25 mg oral tab 2 times per day 15. Truvada 200-300 mg oral tab once daily 16. Xanax 0.25 mg Oral tab as needed out of Rx - PMHx: Anxiety; Bipolar disorder; Cellulitis Right Jaw; Chronic Back pain; Crohn's; Depression; Sciatica; Seizures; Substance Abuse; uterine cancer; - PSHx: Cholecystectomy; ; Laparoscopy; Hysterectomy; - Social history: Smoking status: Patient uses tobacco products, heavy tobacco smoker. No barriers to communication noted, The patient speaks fluent Sinhala, Speaks appropriately for age. - Family history: No immediate family members are acutely ill. - : The pt / caregiver states he / she is not on anticoagulants. Home medication list is obtained from the patient. - Exposure Risk Screening:: None identified. Screenin:31 Screening information is obtained from the patient. Fall risk: No risks identified. mv5 Assistance ADL's: requires no assistance with activities of daily living. Abuse/DV Screen: The patient / caregiver reports he/she is: not in a situation that causes fear, pain or injury. Nutritional screening: No deficits noted. Advance Directives: There is no active DNR order. home support is adequate. Assessment: 03:32 General: Appears in no apparent distress. Pain: Location: right upper quadrant, left mv5 upper quadrant, right lower quadrant and left lower quadrant Pain currently is 8 out of 10 on a pain scale. Pain began increased today, noted symptoms since colonoscopy Friday. Neurological: Level of Consciousness is awake, alert, Oriented to person, place, time. Cardiovascular: Capillary refill < 3 seconds Heart tones S1 S2 present Pulses are all present. Rhythm is regular. Respiratory: Airway is patent Respiratory effort is even, unlabored, Respiratory pattern is regular, symmetrical. GI: Abdomen is flat, other Pt reports vomiting and diarrhea Bowel sounds present X 4 quads. Abd is tender to palpation. : No deficits noted. Derm: Skin is pink, warm & dry. 04:52 General: Appears in no apparent distress. General: Behavior is cooperative, pleasant. mv5 Neurological: Level of Consciousness is awake, alert. Respiratory: Airway is patent Respiratory effort is even, unlabored, Respiratory pattern is regular, symmetrical. Derm: Skin is pink, warm & dry. 05:41 General: Appears in no apparent distress. Neurological: Level of Consciousness is mv5 awake, alert, Oriented to person, place, time. Respiratory: Airway is patent Respiratory effort is even, unlabored, Respiratory pattern is regular, symmetrical. Derm: Skin is pink, warm & dry. 06:17 General: Appears in no apparent distress, Pt requesting pain medication for reported mv5 abdominal pain. MD aware.. 07:22 General: Appears states 4/10 discomfort yet readily accommodates position changes and jmk bending over to accommodates getting dressed, Upbeat demeanor and is very focused on prescription availability. receptive to discarge. Vital Signs: 01:05 BP 124 / 76; Pulse 94; Resp 20; Temp 97.4(T); Pulse Ox 100% on R/A; Weight 77.11 kg jm (R); Height 5 ft. 5 in. (165.10 cm) (R); Pain 8/10; 03:30 BP 122 / 62 (auto/); mv5 03:31 Pulse 84 MON; Pulse Ox 99% ; mv5 04:30 BP 111 / 73 (auto/); mv5 04:30 Pulse 82 MON; Pulse Ox 99% ; mv5 05:17 BP 112 / 74 (auto/); mv5 05:17 Pulse 80 MON; Pulse Ox 98% ; mv5 05:30 BP 104 / 65 (auto/); mv5 05:30 Pulse 82 MON; Pulse Ox 98% ; mv5 06:06 BP 109 / 69 (auto/); mv5 06:08 Pulse 78 MON; Pulse Ox 100% ; mv5 07:22 BP 110 / 60; Pulse 70; Resp 16; Temp 97.5; jmk 01:05 Body Mass Index 28.29 (77.11 kg, 165.10 cm) [facility] Vitals: 01:05 Log In Time: May 13, 2016 at 00:56. [facility] ED Course: 00:55 Patient visited by Hodan Funes Reg. hs2 00:55 Patient moved to Waiting hs2 01:03 Triage Initiated [facility] 02:00 [facility] Payment Agreement was scanned into [employer] and attached to record. [facility] 03:23 Rebeca Cee RN is Primary Nurse. gamaliel 03:23 Patient moved to 8 gamaliel 03:31 The patient / caregiver is instructed regarding the plan of care and ED course. mv5 03:35 Patient visited by Rebeca Cee RN. mv5 04:16 Peter Johnson DO is Attending Physician. mm11 04:16 Patient visited by Peter Johnson DO. mm11 04:30 Patient visited by Peter Johnson DO. mm11 04:30 Inserted saline lock: 18 gauge in left antecubital area and blood collected. The mv5 patient tolerated the procedure well. 04:51 Amylase Sent. mv5 04:51 Basic Metabolic Profile Sent. mv5 04:51 CBC with Diff Sent. mv5 04:51 Lipase Sent. mv5 04:51 Liver Profile Sent. mv5 04:51 Partial Thromboplastin Time Sent. mv5 04:51 Prothrombin Time Profile\E\INR Sent. mv5 05:00 Patient visited by Rebeca Cee RN. mv5 05:35 Patient visited by Peter Johnson DO. mm11 06:01 Patient visited by Rebeca Cee RN. mv5 06:07 Urinalysis Sent. nb2 06:07 Urine Culture Sent. nb2 06:25 Patient visited by Rebeca Cee RN. mv5 06:34 CT ABD & PELVIS: IV Contrast Only Returned. EDMS 07:02 Patient visited by Rebeca Cee RN. mv5 07:02 Discontinued intact, bleeding controlled, pressure dressing applied, No mv5 redness/swelling at site. Administered Medications: 04:51 Drug: NS 0.9% 1000 ml [sodium chloride 0.9 % intravenous solution] Route: IV; Rate: mv5 bolus; Site: left antecubital; 04:51 Drug: Ondansetron 4 mg [ondansetron HCl 2 mg/mL intravenous solution (2 mL)] Route: mv5 IVP; Site: left antecubital; 05:14 Follow up: Response: No Adverse Reaction mv5 04:51 Drug: morphine 4 mg [morphine 4 mg/mL intravenous cartridge (1 mL)] Route: IVP; Site: mv5 left antecubital; 05:15 Follow up: Response: No Adverse Reaction; No significant change. mv5 05:21 Drug: morphine 4 mg [morphine 4 mg/mL intravenous cartridge (1 mL)] Route: IVP; Site: mv5 left antecubital; 07:02 Follow up: Response: No Adverse Reaction mv5 05:40 Drug: Alum-Mag Hydroxide-Simeth 30 ml [aluminum-mag hydroxide-simethicone 225 mg-200 mv5 mg-25 mg/5 mL oral susp (30 mL)] Route: PO; 07:02 Follow up: Response: No Adverse Reaction mv5 07:22 Drug: oxyCODONE-acetaminophen 1 tabs [oxycodone-acetaminophen 5 mg-325 mg tablet (1 jmk tabs)] Route: PO; Order Results: Lab Order: Amylase; SPEC'M 05/13/16 04:49 Test: AMYLASE; Value: 79; Range: 25-115; Units: U/L; Status: F Lab Order: Basic Metabolic Profile; SPEC' 05/13/16 04:49 Test: GLUCOSE, FASTING; Value: 93; Range: 70-105; Units: MG/DL; Status: F Test: BLOOD UREA NITROGEN; Value: 9; Range: 7-18; Units: MG/DL; Status: F Test: CREATININE FOR GFR; Value: 0.56; Range: 0.55-1.02; Units: MG/DL; Status: F Test: GLOMERULAR FILTRATION RATE; Value: > 60.0; Range: >60; Status: F Test: SODIUM LEVEL; Value: 142; Range: 136-145; Units: MEQ/L; Status: F Test: POTASSIUM SERUM; Value: 3.7; Range: 3.5-5.1; Units: MEQ/L; Status: F Test: CHLORIDE LEVEL; Value: 107; Range: 98-107; Units: MEQ/L; Status: F Test: CARBON DIOXIDE LEVEL; Value: 28; Range: 21-32; Units: MEQ/L; Status: F Test: ANION GAP; Value: 7; Range: 8-16; Abnormal: Below low normal; Units: MEQ/L; Status: F Test: CALCIUM LEVEL; Value: 8.7; Range: 8.5-10.1; Units: MG/DL; Status: F Test Note: ; Units are mL/min/1.73 m2 Chronic Kidney Disease Staging per NKF: Stage I & II GFR >=60 Normal to Mildly Decreased Stage III GFR 30-59 Moderately Decreased Stage IV GFR 15-29 Severely Decreased Stage V GFR <15 Very Little GFR Left ESRD GFR <15 on CORRECTIONAL SERGEANT Lab Order: CBC with Diff; SPEC'M 05/13/16 04:49 Test: WHITE BLOOD COUNT; Value: 8.1; Range: 4.0-10.0; Units: K/mm3; Status: F Test: RED BLOOD COUNT; Value: 4.35; Range: 4.00-5.40; Units: M/mm3; Status: F Test: HEMOGLOBIN; Value: 13.6; Range: 12.0-16.0; Units: g/dl; Status: F Test: HEMATOCRIT; Value: 42.0; Range: 36.0-47.0; Units: %; Status: F Test: MEAN CORPUSCULAR VOLUME; Value: 96.6; Range: 80.0-96.0; Abnormal: Above high normal; Units: fl; Status: F Test: MEAN CORPUSCULAR HEMOGLOBIN; Value: 31.3; Range: 27.0-33.0; Units: pg; Status: F Test: MEAN CORPUSCULAR HGB CONC; Value: 32.3; Range: 32.0-36.5; Units: g/dl; Status: F Test: RED CELL DISTRIBUTION WIDTH; Value: 12.9; Range: 11.5-14.5; Units: %; Status: F Test: PLATELET COUNT, AUTOMATED; Value: 346; Range: 150-450; Units: k/mm3; Status: F Test: NEUTROPHILS %; Value: 49.4; Range: 36.0-66.0; Units: %; Status: F Test: LYMPH %; Value: 40.7; Range: 24.0-44.0; Units: %; Status: F Test: MONO %; Value: 4.3; Range: 0.0-5.0; Units: %; Status: F Test: EOS %; Value: 3.2; Range: 0.0-3.0; Abnormal: Above high normal; Units: %; Status: F Test: BASO %; Value: 0.6; Range: 0.0-1.0; Units: %; Status: F Test: LARGE UNSTAINED CELL %; Value: 1.9; Range: 0.0-4.0; Units: %; Status: F Test: NEUTROPHILS #; Value: 4.0; Range: 1.8-7.7; Units: K/mm3; Status: F Test: LYMPH #; Value: 3.3; Range: 1.5-4.5; Units: K/mm3; Status: F Test: MONO #; Value: 0.3; Range: 0.0-0.8; Units: K/mm3; Status: F Test: EOS #; Value: 0.3; Range: 0.0-0.50; Units: K/mm3; Status: F Test: BASO #; Value: 0.0; Range: 0.0-0.2; Units: K/mm3; Status: F Test: LARGE UNSTAINED CELL #; Value: 0.2; Range: 0.0-0.4; Units: K/mm3; Status: F Lab Order: Lipase; [facility]' 05/13/16 04:49 Test: LIPASE; Value: 146; Range: 73-393; Units: U/L; Status: F Lab Order: Liver Profile; SPEC' 05/13/16 04:49 Test: AST/SGOT; Value: 12; Range: 15-37; Abnormal: Below low normal; Units: U/L; Status: F Test: ALT/SGPT; Value: 21; Range: 12-78; Units: U/L; Status: F Test: ALKALINE PHOSPHATASE; Value: 96; Range: 45-117; Units: U/L; Status: F Test: BILIRUBIN,TOTAL; Value: 0.2; Range: 0.2-1.0; Units: MG/DL; Status: F Test: BILIRUBIN,DIRECT; Value: < 0.1; Range: 0.0-0.2; Units: MG/DL; Status: F Test: TOTAL PROTEIN; Value: 7.6; Range: 6.4-8.2; Units: GM/DL; Status: F Test: ALBUMIN; Value: 3.9; Range: 3.2-5.2; Units: GM/DL; Status: F Test: ALBUMIN/GLOBULIN RATIO; Value: 1.05; Range: 1.00-1.93; Status: F Lab Order: Partial Thromboplastin Time; [facility] 05/13/16 04:49 Test: PARTIAL THROMBOPLASTIN TIME; Value: 31.8; Range: 26.6-37.1; Units: SECONDS; Status: F Lab Order: Prothrombin Time Profile\E\INR; [facility] 05/13/16 04:49 Test: PROTHROMBIN TIME; Value: 13.6; Range: 12.3-14.5; Units: SECONDS; Status: F Test: INR; Value: 1.03; Status: F Test Note: ; THERAPUTIC HUMAN INR VALUES INDICATIONS NORMAL RANGES PROPHYLAXIS/TREATMENT OF: VENOUS THROMBOSIS 2.0-3.0 PULMONARY EMBOLISM 2.0-3.0 PREVENTION OF SYSTEMIC EMBOLISM FROM: TISSUE HEART VALVES 2.0-3.0 ACUTE MYOCARDIAL INFARCTION 2.0-3.0 VALVULAR HEART DISEASE 2.0-3.0 ATRIAL FIBRILLATION 2.0-3.0 MECHANICAL VALVES(HIGH RISK) 2.5-3.5 RECURRENT MYOCARDIAL INFARCTION 2.5-3.5 Lab Order: Urinalysis; [facility] 05/13/16 04:48 Test: APPEARANCE, URINE; Value: HAZY; Range: CLEAR; Status: F Test: COLOR, URINE; Value: YELLOW; Range: YELLOW; Status: F Test: PH,URINE; Value: 5.0; Range: 5.0-9.0; Units: UNITS; Status: F Test: SPECIFIC GRAVITY URINE AUTO; Value: 1.019; Range: 1.002-1.035; Status: F Test: PROTEIN, URINE AUTO; Value: NEGATIVE; Range: NEGATIVE; Units: mg/dL; Status: F Test: GLUCOSE, URINE (UA) AUTO; Value: NEGATIVE; Range: NEGATIVE; Units: mg/dL; Status: F Test: KETONE, URINE AUTO; Value: NEGATIVE; Range: NEGATIVE; Units: mg/dL; Status: F Test: UROBILINOGEN, URINE AUTO; Value: 0.2; Range: 0.0-2.0; Units: mg/dL; Status: F Test: BILIRUBIN, URINE AUTO; Value: NEGATIVE; Range: NEGATIVE; Status: F Test: NITRITE, URINE AUTO; Value: NEGATIVE; Range: NEGATIVE; Status: F Test: LEUKOCYTE ESTERASE, URINE AUTO; Value: NEGATIVE; Range: NEGATIVE; Status: F Test: BLOOD, URINE BLOOD; Value: NEGATIVE; Range: NEGATIVE; Status: F Test: WBC, URINE AUTO; Value: 1; Range: 0-3; Units: /HPF; Status: F Test: RBC, URINE AUTO; Value: 3; Range: 0-3; Units: /HPF; Status: F Test: BACTERIA, URINE AUTO; Value: NEGATIVE; Range: NEGATIVE; Status: F Test: SQUAMOUS EPITHELIAL CELL UR AU; Value: 2; Range: 0-6; Units: /HPF; Status: F Test: MUCUS, URINE; Value: SMALL; Range: NEGATIVE; Status: F Test: HYALINE CAST, URINE AUTO; Value: 0; Range: 0-1; Units: /LPF; Status: F Radiology Order: CT ABD & PELVIS: IV Contrast Only Test: CT ABD & PELVIS: IV Contrast Only REASON FOR EXAMINATION: abd pain after colonoscopy; ; CLINICAL HISTORY: Abdominal pain.; TECHNIQUE: Multiple axial, sagittal and coronal CT images were obtained through the abdomen and pelvi; s after administration of intravenous contrast material.; COMMENTS:; The liver is of uniform attenuation without mass or defect. There is mild biliary ductal dilatation.; The spleen is normal. The gallbladder is surgically absent. The pancreas is of normal contour and att; enuation characteristics. There is no evidence of adrenal mass.; Both kidneys demonstrate prompt and equal nephrograms. The kidneys are normal in size, shape and conf; iguration. There is no evidence of renal or ureteral mass. No renal or ureteral calculi are identifie; d. There is no hydroureter or hydronephrosis.; No evidence for appendicitis. There is no bowel wall thickening. No evidence for small or large ricky; l obstruction. There is no evidence of abdominal ascites or lymphadenopathy. Fluid filled bowels.; There is no evidence of intrinsic or extrinsic bladder mass. There is no pelvic ascites or lymphadeno; irene.; Images of the lung bases show no evidence of pleural or parenchymal mass. There are no pleural effusi; ons.; The bony structures are free of lytic or blastic lesions. Multilevel degenerative changes are seen in; volving the thoracolumbar spine. Scattered calcifications are seen involving the aorta and major bran; ches compatible with atherosclerosis.; IMPRESSION:; Enteritis/ileus.; Cholecystectomy.; Mild biliary ductal dilatation. This is unchanged.; No other change from 04/26/2016.; Thank you for your kind referral of this patient.; ; Outcome: 07:09 Discharge ordered by Provider. mm11 07:22 Discharge Assessment: Patient awake, alert and oriented x 3. No cognitive and/or jmk functional deficits noted. Patient verbalized understanding of disposition instructions. patient administered narcotics - no. The following High Risk Discharge criteria are identified: None. Discharged to home ambulatory. Condition: good. Discharge instructions given to patient, Instructed on discharge instructions, follow up and referral plans. medication usage, Demonstrated understanding of instructions, medications, Pt was receptive of discharge instructions/ teaching. No special radiology studies were completed. Property :Personal belongings accompany Pt. 07:25 Patient left the ED. ruddy Signatures: Dispatcher [employer] EDMS Cole Cedeño,RN RN Peter Paz, DO mm11 Sol De Leon, BATTERY PLATE REMOVER BATTERY PLATE REMOVER Norberto Bains,RN RN Alta An Hillary, Reg Reg hs2 Rukhsana Holder2 Rebeca Cee,RN RN mv5 MTDD
--- NOTE | 2016-05-13 07:26 | EDDOCDS ---
Physician Documentation [facility] Name: Diana Hernandez Age: 30 yrs Sex: Female : 1985 Arrival Date: 05/13/2016 Time: 00:53 Bed 8 Private MD: Disposition: 05/13/16 07:09 Discharged to Home/Self Care. Impression: Abdominal and pelvic pain - Chronic. - Condition is Stable. - Discharge Instructions: Abdominal Pain, Adult. - Prescriptions for Percocet 5- 325 mg Oral Tablet - take 1 tablet by ORAL route every 6 hours As needed MDD: 4 tabs; 20 tablet. - Medication Reconciliation, Local Pharmacy Hours form. - Follow up: Private Physician; When: 2 - 3 days; Reason: Continuance of care. - Problem is an acute exacerbation. - Symptoms have improved. Historical: - Allergies: Bactrim (Hives); Codeine Sulfatethroat swells; Ibuprofen (Anaphylaxis); Toradol (Hives); Tramadol HCl (Hives); - Home Meds: 1. buspirone 10 mg Oral tab 1 tab 2 times per day 2. capsaicin Topical 3 times per day 3. dicyclomine 10 mg Oral cap 1 cap three times per day as needed 4. divalproex 250 mg oral Tb24 5. Flexeril 10 mg Oral tab 1 tab as needed 6. lidocaine jelly 1 application three times a day 7. Macrodantin 50 mg Oral cap 1 cap once daily 8. melatonin 3 mg Oral tab 1 mg as needed 9. prednisone 10 mg Oral tab 3 tabs once daily 10. pregabalin 150 mg Oral cap 1 cap 2 times per day 11. Rozerem 8 mg oral tab 1 tab once daily 12. Seroquel 100 mg Oral tab 2 times per day 13. tizanidine 2 mg oral tab 1 tabs every 3 hours as needed 14. topiramate 25 mg oral tab 2 times per day 15. Truvada 200-300 mg oral tab once daily 16. Xanax 0.25 mg Oral tab as needed out of Rx - PMHx: Anxiety; Bipolar disorder; Cellulitis Right Jaw; Chronic Back pain; Crohn's; Depression; Sciatica; Seizures; Substance Abuse; uterine cancer; - PSHx: Cholecystectomy; ; Laparoscopy; Hysterectomy; - Social history: Smoking status: Patient uses tobacco products, heavy tobacco smoker. No barriers to communication noted, The patient speaks fluent Paraguayan, Speaks appropriately for age. - Family history: No immediate family members are acutely ill. - : The pt / caregiver states he / she is not on anticoagulants. Home medication list is obtained from the patient. - Exposure Risk Screening:: None identified. 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 5 in. (165.10 cm) (R); Pain 8/10; 03:30 BP 122 / 62 (auto/); mv5 03:31 Pulse 84 MON; Pulse Ox 99% ; mv5 04:30 BP 111 / 73 (auto/); mv5 04:30 Pulse 82 MON; Pulse Ox 99% ; mv5 05:17 BP 112 / 74 (auto/); mv5 05:17 Pulse 80 MON; Pulse Ox 98% ; mv5 05:30 BP 104 / 65 (auto/); mv5 05:30 Pulse 82 MON; Pulse Ox 98% ; mv5 06:06 BP 109 / 69 (auto/); mv5 06:08 Pulse 78 MON; Pulse Ox 100% ; mv5 07:22 BP 110 / 60; Pulse 70; Resp 16; Temp 97.5; jmk 01:05 Body Mass Index 28.29 (77.11 kg, 165.10 cm) [facility] MDM: 02:00 [facility] Payment Agreement was scanned into [employer] and attached to record. slh 04:31 NS 0.9% 1000 ml IV at bolus once ordered. mm11 04:31 Ondansetron 4 mg IVP once ordered. mm11 04:31 morphine 4 mg IVP every 30 minutes; Document pain score/vitals after each dose (Hold if mm11 SBP < 90mmHg) x2 ordered. 04:31 IV Saline Lock ordered. mm11 04:31 Undress patient appropriately for examination ordered. mm11 04:32 Amylase Ordered. EDMS 04:32 Basic Metabolic Profile Ordered. EDMS 04:32 CBC with Diff Ordered. EDMS 04:32 Lipase Ordered. EDMS 04:32 Liver Profile Ordered. EDMS 04:32 Partial Thromboplastin Time Ordered. EDMS 04:32 Prothrombin Time Profile\E\INR Ordered. EDMS 04:32 Urinalysis Ordered. EDMS 04:32 Urine Culture Ordered. EDMS 04:32 NOTHING BY MOUTH+DIET ordered. EDMS 04:35 Financial registration complete. [facility] 05:35 Alum-Mag Hydroxide-Simeth Suspension 225 mg-200 mg-25 mg/5 mL 30 ml PO once ordered. mm11 05:35 Basic Metabolic Profile Reviewed. mm11 05:35 CBC with Diff Reviewed. mm11 05:35 Liver Profile Reviewed. mm11 05:35 Amylase Reviewed. mm11 05:35 Lipase Reviewed. mm11 05:35 Partial Thromboplastin Time Reviewed. mm11 05:35 Prothrombin Time Profile\E\INR Reviewed. mm11 05:36 CT ABD & PELVIS: IV Contrast Only Ordered. EDMS 07:07 Urinalysis Reviewed. mm11 07:07 CT ABD & PELVIS: IV Contrast Only Reviewed. mm11 07:08 oxyCODONE-acetaminophen 5 mg-325 mg 1 tabs PO once ordered. mm11 Administered Medications: 04:51 Drug: NS 0.9% 1000 ml [sodium chloride 0.9 % intravenous solution] Route: IV; Rate: mv5 bolus; Site: left antecubital; 04:51 Drug: Ondansetron 4 mg [ondansetron HCl 2 mg/mL intravenous solution (2 mL)] Route: mv5 IVP; Site: left antecubital; 05:14 Follow up: Response: No Adverse Reaction mv5 04:51 Drug: morphine 4 mg [morphine 4 mg/mL intravenous cartridge (1 mL)] Route: IVP; Site: mv5 left antecubital; 05:15 Follow up: Response: No Adverse Reaction; No significant change. mv5 05:21 Drug: morphine 4 mg [morphine 4 mg/mL intravenous cartridge (1 mL)] Route: IVP; Site: mv5 left antecubital; 07:02 Follow up: Response: No Adverse Reaction mv5 05:40 Drug: Alum-Mag Hydroxide-Simeth 30 ml [aluminum-mag hydroxide-simethicone 225 mg-200 mv5 mg-25 mg/5 mL oral susp (30 mL)] Route: PO; 07:02 Follow up: Response: No Adverse Reaction mv5 07:22 Drug: oxyCODONE-acetaminophen 1 tabs [oxycodone-acetaminophen 5 mg-325 mg tablet (1 jmk tabs)] Route: PO; Signatures: Dispatcher [employer] Cole PersaudRN RN Peter Paz DO DO mm11 Norberto Odell RN RN Alta An Megan, RN RN mv5 The chart was reviewed and I authenticate all verbal orders and agree with the evaluation and treatment provided.Attachments: 02:00 [facility] Payment Agreement [facility] MTDD
--- NOTE | 2016-05-15 08:26 | EDDOCDS ---
Physician Documentation [facility] Name: Diana Hernandez Age: 30 yrs Sex: Female : 1985 Arrival Date: 05/13/2016 Time: 00:53 Bed 8 Private MD: Disposition: 05/13/16 07:09 Discharged to Home/Self Care. Impression: Abdominal and pelvic pain - Chronic. - Condition is Stable. - Discharge Instructions: Abdominal Pain, Adult. - Prescriptions for Percocet 5- 325 mg Oral Tablet - take 1 tablet by ORAL route every 6 hours As needed MDD: 4 tabs; 20 tablet. - Medication Reconciliation, Local Pharmacy Hours form. - Follow up: Private Physician; When: 2 - 3 days; Reason: Continuance of care. - Problem is an acute exacerbation. - Symptoms have improved. Historical: - Allergies: Bactrim (Hives); Codeine Sulfatethroat swells; Ibuprofen (Anaphylaxis); Toradol (Hives); Tramadol HCl (Hives); - Home Meds: 1. buspirone 10 mg Oral tab 1 tab 2 times per day 2. capsaicin Topical 3 times per day 3. dicyclomine 10 mg Oral cap 1 cap three times per day as needed 4. divalproex 250 mg oral Tb24 5. Flexeril 10 mg Oral tab 1 tab as needed 6. lidocaine jelly 1 application three times a day 7. Macrodantin 50 mg Oral cap 1 cap once daily 8. melatonin 3 mg Oral tab 1 mg as needed 9. prednisone 10 mg Oral tab 3 tabs once daily 10. pregabalin 150 mg Oral cap 1 cap 2 times per day 11. Rozerem 8 mg oral tab 1 tab once daily 12. Seroquel 100 mg Oral tab 2 times per day 13. tizanidine 2 mg oral tab 1 tabs every 3 hours as needed 14. topiramate 25 mg oral tab 2 times per day 15. Truvada 200-300 mg oral tab once daily 16. Xanax 0.25 mg Oral tab as needed out of Rx - PMHx: Anxiety; Bipolar disorder; Cellulitis Right Jaw; Chronic Back pain; Crohn's; Depression; Sciatica; Seizures; Substance Abuse; uterine cancer; - PSHx: Cholecystectomy; ; Laparoscopy; Hysterectomy; - Social history: Smoking status: Patient uses tobacco products, heavy tobacco smoker. No barriers to communication noted, The patient speaks fluent South Sudanese, Speaks appropriately for age. - Family history: No immediate family members are acutely ill. - : The pt / caregiver states he / she is not on anticoagulants. Home medication list is obtained from the patient. - Exposure Risk Screening:: None identified. 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 5 in. (165.10 cm) (R); Pain 8/10; 03:30 BP 122 / 62 (auto/); mv5 03:31 Pulse 84 MON; Pulse Ox 99% ; mv5 04:30 BP 111 / 73 (auto/); mv5 04:30 Pulse 82 MON; Pulse Ox 99% ; mv5 05:17 BP 112 / 74 (auto/); mv5 05:17 Pulse 80 MON; Pulse Ox 98% ; mv5 05:30 BP 104 / 65 (auto/); mv5 05:30 Pulse 82 MON; Pulse Ox 98% ; mv5 06:06 BP 109 / 69 (auto/); mv5 06:08 Pulse 78 MON; Pulse Ox 100% ; mv5 07:22 BP 110 / 60; Pulse 70; Resp 16; Temp 97.5; jmk 01:05 Body Mass Index 28.29 (77.11 kg, 165.10 cm) [facility] MDM: 02:00 [facility] Payment Agreement was scanned into [employer] and attached to record. slh 04:31 NS 0.9% 1000 ml IV at bolus once ordered. mm11 04:31 Ondansetron 4 mg IVP once ordered. mm11 04:31 morphine 4 mg IVP every 30 minutes; Document pain score/vitals after each dose (Hold if mm11 SBP < 90mmHg) x2 ordered. 04:31 IV Saline Lock ordered. mm11 04:31 Undress patient appropriately for examination ordered. mm11 04:32 Amylase Ordered. EDMS 04:32 Basic Metabolic Profile Ordered. EDMS 04:32 CBC with Diff Ordered. EDMS 04:32 Lipase Ordered. EDMS 04:32 Liver Profile Ordered. EDMS 04:32 Partial Thromboplastin Time Ordered. EDMS 04:32 Prothrombin Time Profile\E\INR Ordered. EDMS 04:32 Urinalysis Ordered. EDMS 04:32 Urine Culture Ordered. EDMS 04:32 NOTHING BY MOUTH+DIET ordered. EDMS 04:35 Financial registration complete. [facility] 05:35 Alum-Mag Hydroxide-Simeth Suspension 225 mg-200 mg-25 mg/5 mL 30 ml PO once ordered. mm11 05:35 Basic Metabolic Profile Reviewed. mm11 05:35 CBC with Diff Reviewed. mm11 05:35 Liver Profile Reviewed. mm11 05:35 Amylase Reviewed. mm11 05:35 Lipase Reviewed. mm11 05:35 Partial Thromboplastin Time Reviewed. mm11 05:35 Prothrombin Time Profile\E\INR Reviewed. mm11 05:36 CT ABD & PELVIS: IV Contrast Only Ordered. EDMS 07:07 Urinalysis Reviewed. mm11 07:07 CT ABD & PELVIS: IV Contrast Only Reviewed. mm11 07:08 oxyCODONE-acetaminophen 5 mg-325 mg 1 tabs PO once ordered. mm11 05/14 12:49 T-Sheet-- Draft Copy was scanned into [employer] and attached to record. gb Administered Medications: 05/13 04:51 Drug: NS 0.9% 1000 ml [sodium chloride 0.9 % intravenous solution] Route: IV; Rate: mv5 bolus; Site: left antecubital; 04:51 Drug: Ondansetron 4 mg [ondansetron HCl 2 mg/mL intravenous solution (2 mL)] Route: mv5 IVP; Site: left antecubital; 05:14 Follow up: Response: No Adverse Reaction mv5 04:51 Drug: morphine 4 mg [morphine 4 mg/mL intravenous cartridge (1 mL)] Route: IVP; Site: mv5 left antecubital; 05:15 Follow up: Response: No Adverse Reaction; No significant change. mv5 05:21 Drug: morphine 4 mg [morphine 4 mg/mL intravenous cartridge (1 mL)] Route: IVP; Site: mv5 left antecubital; 07:02 Follow up: Response: No Adverse Reaction mv5 05:40 Drug: Alum-Mag Hydroxide-Simeth 30 ml [aluminum-mag hydroxide-simethicone 225 mg-200 mv5 mg-25 mg/5 mL oral susp (30 mL)] Route: PO; 07:02 Follow up: Response: No Adverse Reaction mv5 07:22 Drug: oxyCODONE-acetaminophen 1 tabs [oxycodone-acetaminophen 5 mg-325 mg tablet (1 jmk tabs)] Route: PO; Signatures: Dispatcher [employer] Cole Persaud,RN RN Radha Hutchisno, Reg Reg gb Peter Johnson, DO mm11 Norberto OdellRN RN Alta An [facility] Rebeca Cee RN RN mv5 The chart was reviewed and I authenticate all verbal orders and agree with the evaluation and treatment provided.Attachments: 02:00 [facility] Payment Agreement [facility] 05/14 12:49 T-Sheet-- Draft Copy Chart Complete MTDD
--- NOTE | 2016-05-15 08:26 | EDDOCDS ---
Nurse's Notes [facility] Name: Diana Hernandez Age: 30 yrs Sex: Female : 1985 Arrival Date: 05/13/2016 Time: 00:53 Bed 8 Private MD: Diagnosis: Abdominal and pelvic pain-Chronic Presentation: 05/13 01:02 Presenting complaint: Patient states: Patient reports that she has been defecating [facility] blood. Had colonoscopy performed on Friday. Patient reports calling office of provider whom performed colonoscopy and informed to come in here. Adult Sepsis Screening: The patient does not have new or worsening altered mentation. Patient's respiratory rate is less than 22. Systolic blood pressure is greater than 100. Patient has a qSOFA score of 0- Negative Sepsis Screen. Suicide/Homicide risk assessment- the patient denies having any suicidal and/or homicidal ideations and does not present with any other emotional, behavioral or mental health complaints. Status: Patient is not a administrative services specialist or dependent. Transition of care: patient was not received from another setting of care. 01:02 Acuity: PAULY Level 3 b 01:02 Method Of Arrival: Walkin/Carried/Asstd jmb Triage Assessment: 01:05 General: Appears in no apparent distress, Behavior is appropriate for age, cooperative. b Pain: Location: abdomen Pain currently is 8 out of 10 on a pain scale. HIV screening NA for this visit Offered previously. 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 Respiratory: Airway is patent Respiratory effort is even, unlabored, Respiratory pattern is regular, symmetrical. GI: Abdomen is non- distended. Derm: Skin is pink, warm & dry. Musculoskeletal: Range of motion intact in all extremities. 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 buspirone 10 mg Oral tab 1 tab 2 times per day 2. capsaicin Topical 3 times per day 3. dicyclomine 10 mg Oral cap 1 cap three times per day as needed 4. divalproex 250 mg oral Tb24 5. Flexeril 10 mg Oral tab 1 tab as needed 6. lidocaine jelly 1 application three times a day 7. Macrodantin 50 mg Oral cap 1 cap once daily 8. melatonin 3 mg Oral tab 1 mg as needed 9. prednisone 10 mg Oral tab 3 tabs once daily 10. pregabalin 150 mg Oral cap 1 cap 2 times per day 11. Rozerem 8 mg oral tab 1 tab once daily 12. Seroquel 100 mg Oral tab 2 times per day 13. tizanidine 2 mg oral tab 1 tabs every 3 hours as needed 14. topiramate 25 mg oral tab 2 times per day 15. Truvada 200-300 mg oral tab once daily 16. Xanax 0.25 mg Oral tab as needed out of Rx - PMHx: Anxiety; Bipolar disorder; Cellulitis Right Jaw; Chronic Back pain; Crohn's; Depression; Sciatica; Seizures; Substance Abuse; uterine cancer; - PSHx: Cholecystectomy; ; Laparoscopy; Hysterectomy; - Social history: Smoking status: Patient uses tobacco products, heavy tobacco smoker. No barriers to communication noted, The patient speaks fluent Lithuanian, Speaks appropriately for age. - Family history: No immediate family members are acutely ill. - : The pt / caregiver states he / she is not on anticoagulants. Home medication list is obtained from the patient. - Exposure Risk Screening:: None identified. Screenin:31 Screening information is obtained from the patient. Fall risk: No risks identified. mv5 Assistance ADL's: requires no assistance with activities of daily living. Abuse/DV Screen: The patient / caregiver reports he/she is: not in a situation that causes fear, pain or injury. Nutritional screening: No deficits noted. Advance Directives: There is no active DNR order. home support is adequate. Assessment: 03:32 General: Appears in no apparent distress. Pain: Location: right upper quadrant, left mv5 upper quadrant, right lower quadrant and left lower quadrant Pain currently is 8 out of 10 on a pain scale. Pain began increased today, noted symptoms since colonoscopy Friday. Neurological: Level of Consciousness is awake, alert, Oriented to person, place, time. Cardiovascular: Capillary refill < 3 seconds Heart tones S1 S2 present Pulses are all present. Rhythm is regular. Respiratory: Airway is patent Respiratory effort is even, unlabored, Respiratory pattern is regular, symmetrical. GI: Abdomen is flat, other Pt reports vomiting and diarrhea Bowel sounds present X 4 quads. Abd is tender to palpation. : No deficits noted. Derm: Skin is pink, warm & dry. 04:52 General: Appears in no apparent distress. General: Behavior is cooperative, pleasant. mv5 Neurological: Level of Consciousness is awake, alert. Respiratory: Airway is patent Respiratory effort is even, unlabored, Respiratory pattern is regular, symmetrical. Derm: Skin is pink, warm & dry. 05:41 General: Appears in no apparent distress. Neurological: Level of Consciousness is mv5 awake, alert, Oriented to person, place, time. Respiratory: Airway is patent Respiratory effort is even, unlabored, Respiratory pattern is regular, symmetrical. Derm: Skin is pink, warm & dry. 06:17 General: Appears in no apparent distress, Pt requesting pain medication for reported mv5 abdominal pain. MD aware.. 07:22 General: Appears states 4/10 discomfort yet readily accommodates position changes and jmk bending over to accommodates getting dressed, Upbeat demeanor and is very focused on prescription availability. receptive to discarge. Vital Signs: 01:05 BP 124 / 76; Pulse 94; Resp 20; Temp 97.4(T); Pulse Ox 100% on R/A; Weight 77.11 kg jm (R); Height 5 ft. 5 in. (165.10 cm) (R); Pain 8/10; 03:30 BP 122 / 62 (auto/); mv5 03:31 Pulse 84 MON; Pulse Ox 99% ; mv5 04:30 BP 111 / 73 (auto/); mv5 04:30 Pulse 82 MON; Pulse Ox 99% ; mv5 05:17 BP 112 / 74 (auto/); mv5 05:17 Pulse 80 MON; Pulse Ox 98% ; mv5 05:30 BP 104 / 65 (auto/); mv5 05:30 Pulse 82 MON; Pulse Ox 98% ; mv5 06:06 BP 109 / 69 (auto/); mv5 06:08 Pulse 78 MON; Pulse Ox 100% ; mv5 07:22 BP 110 / 60; Pulse 70; Resp 16; Temp 97.5; jmk 01:05 Body Mass Index 28.29 (77.11 kg, 165.10 cm) [facility] Vitals: 01:05 Log In Time: May 13, 2016 at 00:56. [facility] ED Course: 00:55 Patient visited by Hodan Funes Reg. hs2 00:55 Patient moved to Waiting hs2 01:03 Triage Initiated b 02:00 [facility] Payment Agreement was scanned into [employer] and attached to record. [facility] 03:23 Rebeca Cee RN is Primary Nurse. gamaliel 03:23 Patient moved to 8 gamaliel 03:31 The patient / caregiver is instructed regarding the plan of care and ED course. mv5 03:35 Patient visited by Rebeca Cee RN. mv5 04:16 Peter Johnson DO is Attending Physician. mm11 04:16 Patient visited by Peter Johnson DO. mm11 04:30 Patient visited by Peter Johnson DO. mm11 04:30 Inserted saline lock: 18 gauge in left antecubital area and blood collected. The mv5 patient tolerated the procedure well. 04:51 Amylase Sent. mv5 04:51 Basic Metabolic Profile Sent. mv5 04:51 CBC with Diff Sent. mv5 04:51 Lipase Sent. mv5 04:51 Liver Profile Sent. mv5 04:51 Partial Thromboplastin Time Sent. mv5 04:51 Prothrombin Time Profile\E\INR Sent. mv5 05:00 Patient visited by Rebeca Cee RN. mv5 05:35 Patient visited by Peter Johnson DO. mm11 06:01 Patient visited by Rebeca Cee RN. mv5 06:07 Urinalysis Sent. nb2 06:07 Urine Culture Sent. nb2 06:25 Patient visited by Rebeca Cee RN. mv5 06:34 CT ABD & PELVIS: IV Contrast Only Returned. EDMS 07:02 Patient visited by Rebeca Cee RN. mv5 07:02 Discontinued intact, bleeding controlled, pressure dressing applied, No mv5 redness/swelling at site. 05/14 12:49 T-Sheet-- Draft Copy was scanned into [employer] and attached to record. gb Administered Medications: 05/13 04:51 Drug: NS 0.9% 1000 ml [sodium chloride 0.9 % intravenous solution] Route: IV; Rate: mv5 bolus; Site: left antecubital; 04:51 Drug: Ondansetron 4 mg [ondansetron HCl 2 mg/mL intravenous solution (2 mL)] Route: mv5 IVP; Site: left antecubital; 05:14 Follow up: Response: No Adverse Reaction mv5 04:51 Drug: morphine 4 mg [morphine 4 mg/mL intravenous cartridge (1 mL)] Route: IVP; Site: mv5 left antecubital; 05:15 Follow up: Response: No Adverse Reaction; No significant change. mv5 05:21 Drug: morphine 4 mg [morphine 4 mg/mL intravenous cartridge (1 mL)] Route: IVP; Site: mv5 left antecubital; 07:02 Follow up: Response: No Adverse Reaction mv5 05:40 Drug: Alum-Mag Hydroxide-Simeth 30 ml [aluminum-mag hydroxide-simethicone 225 mg-200 mv5 mg-25 mg/5 mL oral susp (30 mL)] Route: PO; 07:02 Follow up: Response: No Adverse Reaction mv5 07:22 Drug: oxyCODONE-acetaminophen 1 tabs [oxycodone-acetaminophen 5 mg-325 mg tablet (1 jmk tabs)] Route: PO; Order Results: Lab Order: Amylase; SPEC'M 05/13/16 04:49 Test: AMYLASE; Value: 79; Range: 25-115; Units: U/L; Status: F Lab Order: Basic Metabolic Profile; SPEC'M 05/13/16 04:49 Test: GLUCOSE, FASTING; Value: 93; Range: 70-105; Units: MG/DL; Status: F Test: BLOOD UREA NITROGEN; Value: 9; Range: 7-18; Units: MG/DL; Status: F Test: CREATININE FOR GFR; Value: 0.56; Range: 0.55-1.02; Units: MG/DL; Status: F Test: GLOMERULAR FILTRATION RATE; Value: > 60.0; Range: >60; Status: F Test: SODIUM LEVEL; Value: 142; Range: 136-145; Units: MEQ/L; Status: F Test: POTASSIUM SERUM; Value: 3.7; Range: 3.5-5.1; Units: MEQ/L; Status: F Test: CHLORIDE LEVEL; Value: 107; Range: 98-107; Units: MEQ/L; Status: F Test: CARBON DIOXIDE LEVEL; Value: 28; Range: 21-32; Units: MEQ/L; Status: F Test: ANION GAP; Value: 7; Range: 8-16; Abnormal: Below low normal; Units: MEQ/L; Status: F Test: CALCIUM LEVEL; Value: 8.7; Range: 8.5-10.1; Units: MG/DL; Status: F Test Note: ; Units are mL/min/1.73 m2 Chronic Kidney Disease Staging per NKF: Stage I & II GFR >=60 Normal to Mildly Decreased Stage III GFR 30-59 Moderately Decreased Stage IV GFR 15-29 Severely Decreased Stage V GFR <15 Very Little GFR Left ESRD GFR <15 on HAND 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 Lab Order: CBC with Diff; SPEC'M 05/13/16 04:49 Test: WHITE BLOOD COUNT; Value: 8.1; Range: 4.0-10.0; Units: K/mm3; Status: F Test: RED BLOOD COUNT; Value: 4.35; Range: 4.00-5.40; Units: M/mm3; Status: F Test: HEMOGLOBIN; Value: 13.6; Range: 12.0-16.0; Units: g/dl; Status: F Test: HEMATOCRIT; Value: 42.0; Range: 36.0-47.0; Units: %; Status: F Test: MEAN CORPUSCULAR VOLUME; Value: 96.6; Range: 80.0-96.0; Abnormal: Above high normal; Units: fl; Status: F Test: MEAN CORPUSCULAR HEMOGLOBIN; Value: 31.3; Range: 27.0-33.0; Units: pg; Status: F Test: MEAN CORPUSCULAR HGB CONC; Value: 32.3; Range: 32.0-36.5; Units: g/dl; Status: F Test: RED CELL DISTRIBUTION WIDTH; Value: 12.9; Range: 11.5-14.5; Units: %; Status: F Test: PLATELET COUNT, AUTOMATED; Value: 346; Range: 150-450; Units: k/mm3; Status: F Test: NEUTROPHILS %; Value: 49.4; Range: 36.0-66.0; Units: %; Status: F Test: LYMPH %; Value: 40.7; Range: 24.0-44.0; Units: %; Status: F Test: MONO %; Value: 4.3; Range: 0.0-5.0; Units: %; Status: F Test: EOS %; Value: 3.2; Range: 0.0-3.0; Abnormal: Above high normal; Units: %; Status: F Test: BASO %; Value: 0.6; Range: 0.0-1.0; Units: %; Status: F Test: LARGE UNSTAINED CELL %; Value: 1.9; Range: 0.0-4.0; Units: %; Status: F Test: NEUTROPHILS #; Value: 4.0; Range: 1.8-7.7; Units: K/mm3; Status: F Test: LYMPH #; Value: 3.3; Range: 1.5-4.5; Units: K/mm3; Status: F Test: MONO #; Value: 0.3; Range: 0.0-0.8; Units: K/mm3; Status: F Test: EOS #; Value: 0.3; Range: 0.0-0.50; Units: K/mm3; Status: F Test: BASO #; Value: 0.0; Range: 0.0-0.2; Units: K/mm3; Status: F Test: LARGE UNSTAINED CELL #; Value: 0.2; Range: 0.0-0.4; Units: K/mm3; Status: F Lab Order: Lipase; [facility] 05/13/16 04:49 Test: LIPASE; Value: 146; Range: 73-393; Units: U/L; Status: F Lab Order: Liver Profile; [facility] 05/13/16 04:49 Test: AST/SGOT; Value: 12; Range: 15-37; Abnormal: Below low normal; Units: U/L; Status: F Test: ALT/SGPT; Value: 21; Range: 12-78; Units: U/L; Status: F Test: ALKALINE PHOSPHATASE; Value: 96; Range: 45-117; Units: U/L; Status: F Test: BILIRUBIN,TOTAL; Value: 0.2; Range: 0.2-1.0; Units: MG/DL; Status: F Test: BILIRUBIN,DIRECT; Value: < 0.1; Range: 0.0-0.2; Units: MG/DL; Status: F Test: TOTAL PROTEIN; Value: 7.6; Range: 6.4-8.2; Units: GM/DL; Status: F Test: ALBUMIN; Value: 3.9; Range: 3.2-5.2; Units: GM/DL; Status: F Test: ALBUMIN/GLOBULIN RATIO; Value: 1.05; Range: 1.00-1.93; Status: F Lab Order: Partial Thromboplastin Time; [facility] 05/13/16 04:49 Test: PARTIAL THROMBOPLASTIN TIME; Value: 31.8; Range: 26.6-37.1; Units: SECONDS; Status: F Lab Order: Prothrombin Time Profile\E\INR; [facility] 05/13/16 04:49 Test: PROTHROMBIN TIME; Value: 13.6; Range: 12.3-14.5; Units: SECONDS; Status: F Test: INR; Value: 1.03; Status: F Test Note: ; THERAPUTIC HUMAN INR VALUES INDICATIONS NORMAL RANGES PROPHYLAXIS/TREATMENT OF: VENOUS THROMBOSIS 2.0-3.0 PULMONARY EMBOLISM 2.0-3.0 PREVENTION OF SYSTEMIC EMBOLISM FROM: TISSUE HEART VALVES 2.0-3.0 ACUTE MYOCARDIAL INFARCTION 2.0-3.0 VALVULAR HEART DISEASE 2.0-3.0 ATRIAL FIBRILLATION 2.0-3.0 MECHANICAL VALVES(HIGH RISK) 2.5-3.5 RECURRENT MYOCARDIAL INFARCTION 2.5-3.5 Lab Order: Urinalysis; [facility] 05/13/16 04:48 Test: APPEARANCE, URINE; Value: HAZY; Range: CLEAR; Status: F Test: COLOR, URINE; Value: YELLOW; Range: YELLOW; Status: F Test: PH,URINE; Value: 5.0; Range: 5.0-9.0; Units: UNITS; Status: F Test: SPECIFIC GRAVITY URINE AUTO; Value: 1.019; Range: 1.002-1.035; Status: F Test: PROTEIN, URINE AUTO; Value: NEGATIVE; Range: NEGATIVE; Units: mg/dL; Status: F Test: GLUCOSE, URINE (UA) AUTO; Value: NEGATIVE; Range: NEGATIVE; Units: mg/dL; Status: F Test: KETONE, URINE AUTO; Value: NEGATIVE; Range: NEGATIVE; Units: mg/dL; Status: F Test: UROBILINOGEN, URINE AUTO; Value: 0.2; Range: 0.0-2.0; Units: mg/dL; Status: F Test: BILIRUBIN, URINE AUTO; Value: NEGATIVE; Range: NEGATIVE; Status: F Test: NITRITE, URINE AUTO; Value: NEGATIVE; Range: NEGATIVE; Status: F Test: LEUKOCYTE ESTERASE, URINE AUTO; Value: NEGATIVE; Range: NEGATIVE; Status: F Test: BLOOD, URINE BLOOD; Value: NEGATIVE; Range: NEGATIVE; Status: F Test: WBC, URINE AUTO; Value: 1; Range: 0-3; Units: /HPF; Status: F Test: RBC, URINE AUTO; Value: 3; Range: 0-3; Units: /HPF; Status: F Test: BACTERIA, URINE AUTO; Value: NEGATIVE; Range: NEGATIVE; Status: F Test: SQUAMOUS EPITHELIAL CELL UR AU; Value: 2; Range: 0-6; Units: /HPF; Status: F Test: MUCUS, URINE; Value: SMALL; Range: NEGATIVE; Status: F Test: HYALINE CAST, URINE AUTO; Value: 0; Range: 0-1; Units: /LPF; Status: F Lab Order: Urine Culture; SPEC'M 05/13/16 04:48 Test: URINE CULTURE; Value: <EXTERNAL COMMENT eCWMed> FULL REPORT IN LAB NOTES (eCW and Medent).; Status: F Test: URINE CULTURE; Value: URINE CULTURE RESULT NO GROWTH CLINICAL SIGNIFICANCE 1 ORGANISM; Status: F Radiology Order: CT ABD & PELVIS: IV Contrast Only Test: CT ABD & PELVIS: IV Contrast Only REASON FOR EXAMINATION: abd pain after colonoscopy; ; CLINICAL HISTORY: Abdominal pain.; TECHNIQUE: Multiple axial, sagittal and coronal CT images were obtained through the abdomen and pelvi; s after administration of intravenous contrast material.; COMMENTS:; The liver is of uniform attenuation without mass or defect. There is mild biliary ductal dilatation.; The spleen is normal. The gallbladder is surgically absent. The pancreas is of normal contour and att; enuation characteristics. There is no evidence of adrenal mass.; Both kidneys demonstrate prompt and equal nephrograms. The kidneys are normal in size, shape and conf; iguration. There is no evidence of renal or ureteral mass. No renal or ureteral calculi are identifie; d. There is no hydroureter or hydronephrosis.; No evidence for appendicitis. There is no bowel wall thickening. No evidence for small or large ricky; l obstruction. There is no evidence of abdominal ascites or lymphadenopathy. Fluid filled bowels.; There is no evidence of intrinsic or extrinsic bladder mass. There is no pelvic ascites or lymphadeno; irene.; Images of the lung bases show no evidence of pleural or parenchymal mass. There are no pleural effusi; ons.; The bony structures are free of lytic or blastic lesions. Multilevel degenerative changes are seen in; volving the thoracolumbar spine. Scattered calcifications are seen involving the aorta and major bran; ches compatible with atherosclerosis.; IMPRESSION:; Enteritis/ileus.; Cholecystectomy.; Mild biliary ductal dilatation. This is unchanged.; No other change from 04/26/2016.; Thank you for your kind referral of this patient.; ; Outcome: 07:09 Discharge ordered by Provider. mm11 07:22 Discharge Assessment: Patient awake, alert and oriented x 3. No cognitive and/or k functional deficits noted. Patient verbalized understanding of disposition instructions. patient administered narcotics - no. The following High Risk Discharge criteria are identified: None. Discharged to home ambulatory. Condition: good. Discharge instructions given to patient, Instructed on discharge instructions, follow up and referral plans. medication usage, Demonstrated understanding of instructions, medications, Pt was receptive of discharge instructions/ teaching. No special radiology studies were completed. Property :Personal belongings accompany Pt. 07:25 Patient left the ED. ruddy Signatures: Dispatcher [employer] EDCole Bonilla,RN RN Radha Hutchison, Reg Reg gb Peter Johnson, DO mm11 Sol De Leon, NANOSYSTEMS ENGINEER NANOSYSTEMS ENGINEER Norberto BainsRN RN Alta An [facility] Hodan Funes, Reg Reg hs2 Rukhsana Holder2 Rebeca Cee,RN RN mv5 Chart Complete MTDD
--- NOTE | 2016-05-15 08:26 | EDDOCDS ---
Physician Documentation [facility], [place] Name: Diana Hernandez Age: 30 yrs Sex: Female : 1985 Arrival Date: 05/13/2016 Time: 00:53 Bed 8 Private MD: Disposition: 05/13/16 07:09 Discharged to Home/Self Care. Impression: Abdominal and pelvic pain - Chronic. - Condition is Stable. - Discharge Instructions: Abdominal Pain, Adult. - Prescriptions for Percocet 5- 325 mg Oral Tablet - take 1 tablet by ORAL route every 6 hours As needed MDD: 4 tabs; 20 tablet. - Medication Reconciliation, Local Pharmacy Hours form. - Follow up: Private Physician; When: 2 - 3 days; Reason: Continuance of care. - Problem is an acute exacerbation. - Symptoms have improved. Historical: - Allergies: Bactrim (Hives); Codeine Sulfatethroat swells; Ibuprofen (Anaphylaxis); Toradol (Hives); Tramadol HCl (Hives); - Home Meds: 1. buspirone 10 mg Oral tab 1 tab 2 times per day 2. capsaicin Topical 3 times per day 3. dicyclomine 10 mg Oral cap 1 cap three times per day as needed 4. divalproex 250 mg oral Tb24 5. Flexeril 10 mg Oral tab 1 tab as needed 6. lidocaine jelly 1 application three times a day 7. Macrodantin 50 mg Oral cap 1 cap once daily 8. melatonin 3 mg Oral tab 1 mg as needed 9. prednisone 10 mg Oral tab 3 tabs once daily 10. pregabalin 150 mg Oral cap 1 cap 2 times per day 11. Rozerem 8 mg oral tab 1 tab once daily 12. Seroquel 100 mg Oral tab 2 times per day 13. tizanidine 2 mg oral tab 1 tabs every 3 hours as needed 14. topiramate 25 mg oral tab 2 times per day 15. Truvada 200-300 mg oral tab once daily 16. Xanax 0.25 mg Oral tab as needed out of Rx - PMHx: Anxiety; Bipolar disorder; Cellulitis Right Jaw; Chronic Back pain; Crohn's; Depression; Sciatica; Seizures; Substance Abuse; uterine cancer; - PSHx: Cholecystectomy; ; Laparoscopy; Hysterectomy; - Social history: Smoking status: Patient uses tobacco products, heavy tobacco smoker. No barriers to communication noted, The patient speaks fluent [place], Speaks appropriately for age. - Family history: No immediate family members are acutely ill. - : The pt / caregiver states he / she is not on anticoagulants. Home medication list is obtained from the patient. - Exposure Risk Screening:: None identified. 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 Vital Signs: 01:05 BP 124 / 76; Pulse 94; Resp 20; Temp 97.4(T); Pulse Ox 100% on R/A; Weight 77.11 kg / jmb 170 lbs (R); Height 5 ft. 5 in. (165.10 cm) (R); Pain 8/10; 03:30 BP 122 / 62 (auto/); mv5 03:31 Pulse 84 MON; Pulse Ox 99% ; mv5 04:30 BP 111 / 73 (auto/); mv5 04:30 Pulse 82 MON; Pulse Ox 99% ; mv5 05:17 BP 112 / 74 (auto/); mv5 05:17 Pulse 80 MON; Pulse Ox 98% ; mv5 05:30 BP 104 / 65 (auto/); mv5 05:30 Pulse 82 MON; Pulse Ox 98% ; mv5 06:06 BP 109 / 69 (auto/); mv5 06:08 Pulse 78 MON; Pulse Ox 100% ; mv5 07:22 BP 110 / 60; Pulse 70; Resp 16; Temp 97.5; jmk 01:05 Body Mass Index 28.29 (77.11 kg, 165.10 cm) [facility] MDM: 02:00 [facility] Payment Agreement was scanned into [employer] and attached to record. slh 04:31 NS 0.9% 1000 ml IV at bolus once ordered. mm11 04:31 Ondansetron 4 mg IVP once ordered. mm11 04:31 morphine 4 mg IVP every 30 minutes; Document pain score/vitals after each dose (Hold if mm11 SBP < 90mmHg) x2 ordered. 04:31 IV Saline Lock ordered. mm11 04:31 Undress patient appropriately for examination ordered. mm11 04:32 Amylase Ordered. EDMS 04:32 Basic Metabolic Profile Ordered. EDMS 04:32 CBC with Diff Ordered. EDMS 04:32 Lipase Ordered. EDMS 04:32 Liver Profile Ordered. EDMS 04:32 Partial Thromboplastin Time Ordered. EDMS 04:32 Prothrombin Time Profile\E\INR Ordered. EDMS 04:32 Urinalysis Ordered. EDMS 04:32 Urine Culture Ordered. EDMS 04:32 NOTHING BY MOUTH+DIET ordered. EDMS 04:35 Financial registration complete. [facility] 05:35 Alum-Mag Hydroxide-Simeth Suspension 225 mg-200 mg-25 mg/5 mL 30 ml PO once ordered. mm11 05:35 Basic Metabolic Profile Reviewed. mm11 05:35 CBC with Diff Reviewed. mm11 05:35 Liver Profile Reviewed. mm11 05:35 Amylase Reviewed. mm11 05:35 Lipase Reviewed. mm11 05:35 Partial Thromboplastin Time Reviewed. mm11 05:35 Prothrombin Time Profile\E\INR Reviewed. mm11 05:36 CT ABD & PELVIS: IV Contrast Only Ordered. EDMS 07:07 Urinalysis Reviewed. mm11 07:07 CT ABD & PELVIS: IV Contrast Only Reviewed. mm11 07:08 oxyCODONE-acetaminophen 5 mg-325 mg 1 tabs PO once ordered. mm11 05/14 12:49 T-Sheet-- Draft Copy was scanned into [employer] and attached to record. gb Administered Medications: 05/13 04:51 Drug: NS 0.9% 1000 ml [sodium chloride 0.9 % intravenous solution] Route: IV; Rate: mv5 bolus; Site: left antecubital; 04:51 Drug: Ondansetron 4 mg [ondansetron HCl 2 mg/mL intravenous solution (2 mL)] Route: mv5 IVP; Site: left antecubital; 05:14 Follow up: Response: No Adverse Reaction mv5 04:51 Drug: morphine 4 mg [morphine 4 mg/mL intravenous cartridge (1 mL)] Route: IVP; Site: mv5 left antecubital; 05:15 Follow up: Response: No Adverse Reaction; No significant change. mv5 05:21 Drug: morphine 4 mg [morphine 4 mg/mL intravenous cartridge (1 mL)] Route: IVP; Site: mv5 left antecubital; 07:02 Follow up: Response: No Adverse Reaction mv5 05:40 Drug: Alum-Mag Hydroxide-Simeth 30 ml [aluminum-mag hydroxide-simethicone 225 mg-200 mv5 mg-25 mg/5 mL oral susp (30 mL)] Route: PO; 07:02 Follow up: Response: No Adverse Reaction mv5 07:22 Drug: oxyCODONE-acetaminophen 1 tabs [oxycodone-acetaminophen 5 mg-325 mg tablet (1 jmk tabs)] Route: PO; Signatures: Dispatcher [employer] Cole Persaud,RN RN Radha Hutchison, Reg Reg gb Peter Johnson, DO mm11 Norberto OdellRN RN Alta An [facility] Rebeca Cee RN RN mv5 The chart was reviewed and I authenticate all verbal orders and agree with the evaluation and treatment provided.Attachments: 02:00 [facility] Payment Agreement [facility] 05/14 12:49 T-Sheet-- Draft Copy Chart Complete MTDD
--- NOTE | 2016-05-15 13:05 | EDDOCDS ---
Nurse's Notes [facility] Name: Diana Hernandez Age: 30 yrs Sex: Female : 1985 Arrival Date: 05/13/2016 Time: 00:53 Bed 8 Private MD: Diagnosis: Abdominal and pelvic pain-Chronic Presentation: 05/13 01:02 Presenting complaint: Patient states: Patient reports that she has been defecating [facility] blood. Had colonoscopy performed on Friday. Patient reports calling office of provider whom performed colonoscopy and informed to come in here. Adult Sepsis Screening: The patient does not have new or worsening altered mentation. Patient's respiratory rate is less than 22. Systolic blood pressure is greater than 100. Patient has a qSOFA score of 0- Negative Sepsis Screen. Suicide/Homicide risk assessment- the patient denies having any suicidal and/or homicidal ideations and does not present with any other emotional, behavioral or mental health complaints. Status: Patient is not a human service worker or dependent. Transition of care: patient was not received from another setting of care. 01:02 Acuity: PAULY Level 3 b 01:02 Method Of Arrival: Walkin/Carried/Asstd jmb Triage Assessment: 01:05 General: Appears in no apparent distress, Behavior is appropriate for age, cooperative. b Pain: Location: abdomen Pain currently is 8 out of 10 on a pain scale. HIV screening NA for this visit Offered previously. Neurological: Level of Consciousness is awake, alert, obeys commands, Oriented to person, place, time, Table Hand are equal bilaterally Speech is normal, Facial symmetry appears normal, Facial symmetry: tongue is midline. Respiratory: Airway is patent Respiratory effort is even, unlabored, Respiratory pattern is regular, symmetrical. GI: Abdomen is non- distended. Derm: Skin is pink, warm & dry. Musculoskeletal: Range of motion intact in all extremities. 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 buspirone 10 mg Oral tab 1 tab 2 times per day 2. capsaicin Topical 3 times per day 3. dicyclomine 10 mg Oral cap 1 cap three times per day as needed 4. divalproex 250 mg oral Tb24 5. Flexeril 10 mg Oral tab 1 tab as needed 6. lidocaine jelly 1 application three times a day 7. Macrodantin 50 mg Oral cap 1 cap once daily 8. melatonin 3 mg Oral tab 1 mg as needed 9. prednisone 10 mg Oral tab 3 tabs once daily 10. pregabalin 150 mg Oral cap 1 cap 2 times per day 11. Rozerem 8 mg oral tab 1 tab once daily 12. Seroquel 100 mg Oral tab 2 times per day 13. tizanidine 2 mg oral tab 1 tabs every 3 hours as needed 14. topiramate 25 mg oral tab 2 times per day 15. Truvada 200-300 mg oral tab once daily 16. Xanax 0.25 mg Oral tab as needed out of Rx - PMHx: Anxiety; Bipolar disorder; Cellulitis Right Jaw; Chronic Back pain; Crohn's; Depression; Sciatica; Seizures; Substance Abuse; uterine cancer; - PSHx: Cholecystectomy; ; Laparoscopy; Hysterectomy; - Social history: Smoking status: Patient uses tobacco products, heavy tobacco smoker. No barriers to communication noted, The patient speaks fluent Spanish, Speaks appropriately for age. - Family history: No immediate family members are acutely ill. - : The pt / caregiver states he / she is not on anticoagulants. Home medication list is obtained from the patient. - Exposure Risk Screening:: None identified. Screenin:31 Screening information is obtained from the patient. Fall risk: No risks identified. mv5 Assistance ADL's: requires no assistance with activities of daily living. Abuse/DV Screen: The patient / caregiver reports he/she is: not in a situation that causes fear, pain or injury. Nutritional screening: No deficits noted. Advance Directives: There is no active DNR order. home support is adequate. Assessment: 03:32 General: Appears in no apparent distress. Pain: Location: right upper quadrant, left mv5 upper quadrant, right lower quadrant and left lower quadrant Pain currently is 8 out of 10 on a pain scale. Pain began increased today, noted symptoms since colonoscopy Friday. Neurological: Level of Consciousness is awake, alert, Oriented to person, place, time. Cardiovascular: Capillary refill < 3 seconds Heart tones S1 S2 present Pulses are all present. Rhythm is regular. Respiratory: Airway is patent Respiratory effort is even, unlabored, Respiratory pattern is regular, symmetrical. GI: Abdomen is flat, other Pt reports vomiting and diarrhea Bowel sounds present X 4 quads. Abd is tender to palpation. : No deficits noted. Derm: Skin is pink, warm & dry. 04:52 General: Appears in no apparent distress. General: Behavior is cooperative, pleasant. mv5 Neurological: Level of Consciousness is awake, alert. Respiratory: Airway is patent Respiratory effort is even, unlabored, Respiratory pattern is regular, symmetrical. Derm: Skin is pink, warm & dry. 05:41 General: Appears in no apparent distress. Neurological: Level of Consciousness is mv5 awake, alert, Oriented to person, place, time. Respiratory: Airway is patent Respiratory effort is even, unlabored, Respiratory pattern is regular, symmetrical. Derm: Skin is pink, warm & dry. 06:17 General: Appears in no apparent distress, Pt requesting pain medication for reported mv5 abdominal pain. MD aware.. 07:22 General: Appears states 4/10 discomfort yet readily accommodates position changes and jmk bending over to accommodates getting dressed, Upbeat demeanor and is very focused on prescription availability. receptive to discarge. Vital Signs: 01:05 BP 124 / 76; Pulse 94; Resp 20; Temp 97.4(T); Pulse Ox 100% on R/A; Weight 77.11 kg jm (R); Height 5 ft. 5 in. (165.10 cm) (R); Pain 8/10; 03:30 BP 122 / 62 (auto/); mv5 03:31 Pulse 84 MON; Pulse Ox 99% ; mv5 04:30 BP 111 / 73 (auto/); mv5 04:30 Pulse 82 MON; Pulse Ox 99% ; mv5 05:17 BP 112 / 74 (auto/); mv5 05:17 Pulse 80 MON; Pulse Ox 98% ; mv5 05:30 BP 104 / 65 (auto/); mv5 05:30 Pulse 82 MON; Pulse Ox 98% ; mv5 06:06 BP 109 / 69 (auto/); mv5 06:08 Pulse 78 MON; Pulse Ox 100% ; mv5 07:22 BP 110 / 60; Pulse 70; Resp 16; Temp 97.5; jmk 01:05 Body Mass Index 28.29 (77.11 kg, 165.10 cm) [facility] Vitals: 01:05 Log In Time: May 13, 2016 at 00:56. [facility] ED Course: 00:55 Patient visited by Hodan Funes Reg. hs2 00:55 Patient moved to Waiting hs2 01:03 Triage Initiated b 02:00 [facility] Payment Agreement was scanned into [employer] and attached to record. [facility] 03:23 Rebeca Cee RN is Primary Nurse. gamaliel 03:23 Patient moved to 8 gamaliel 03:31 The patient / caregiver is instructed regarding the plan of care and ED course. mv5 03:35 Patient visited by Rebeca Cee RN. mv5 04:16 Peter Johnson DO is Attending Physician. mm11 04:16 Patient visited by Peter Johnson DO. mm11 04:30 Patient visited by Peter Johnson DO. mm11 04:30 Inserted saline lock: 18 gauge in left antecubital area and blood collected. The mv5 patient tolerated the procedure well. 04:51 Amylase Sent. mv5 04:51 Basic Metabolic Profile Sent. mv5 04:51 CBC with Diff Sent. mv5 04:51 Lipase Sent. mv5 04:51 Liver Profile Sent. mv5 04:51 Partial Thromboplastin Time Sent. mv5 04:51 Prothrombin Time Profile\E\INR Sent. mv5 05:00 Patient visited by Rebeca Cee RN. mv5 05:35 Patient visited by Peter Johnson DO. mm11 06:01 Patient visited by Rebeca Cee RN. mv5 06:07 Urinalysis Sent. nb2 06:07 Urine Culture Sent. nb2 06:25 Patient visited by Rebeca Cee RN. mv5 06:34 CT ABD & PELVIS: IV Contrast Only Returned. EDMS 07:02 Patient visited by Rebeca Cee RN. mv5 07:02 Discontinued intact, bleeding controlled, pressure dressing applied, No mv5 redness/swelling at site. 05/14 12:49 T-Sheet-- Draft Copy was scanned into [employer] and attached to record. gb Administered Medications: 05/13 04:51 Drug: NS 0.9% 1000 ml [sodium chloride 0.9 % intravenous solution] Route: IV; Rate: mv5 bolus; Site: left antecubital; 04:51 Drug: Ondansetron 4 mg [ondansetron HCl 2 mg/mL intravenous solution (2 mL)] Route: mv5 IVP; Site: left antecubital; 05:14 Follow up: Response: No Adverse Reaction mv5 04:51 Drug: morphine 4 mg [morphine 4 mg/mL intravenous cartridge (1 mL)] Route: IVP; Site: mv5 left antecubital; 05:15 Follow up: Response: No Adverse Reaction; No significant change. mv5 05:21 Drug: morphine 4 mg [morphine 4 mg/mL intravenous cartridge (1 mL)] Route: IVP; Site: mv5 left antecubital; 07:02 Follow up: Response: No Adverse Reaction mv5 05:40 Drug: Alum-Mag Hydroxide-Simeth 30 ml [aluminum-mag hydroxide-simethicone 225 mg-200 mv5 mg-25 mg/5 mL oral susp (30 mL)] Route: PO; 07:02 Follow up: Response: No Adverse Reaction mv5 07:22 Drug: oxyCODONE-acetaminophen 1 tabs [oxycodone-acetaminophen 5 mg-325 mg tablet (1 jmk tabs)] Route: PO; Order Results: Lab Order: Amylase; SPEC'M 05/13/16 04:49 Test: AMYLASE; Value: 79; Range: 25-115; Units: U/L; Status: F Lab Order: Basic Metabolic Profile; SPEC'M 05/13/16 04:49 Test: GLUCOSE, FASTING; Value: 93; Range: 70-105; Units: MG/DL; Status: F Test: BLOOD UREA NITROGEN; Value: 9; Range: 7-18; Units: MG/DL; Status: F Test: CREATININE FOR GFR; Value: 0.56; Range: 0.55-1.02; Units: MG/DL; Status: F Test: GLOMERULAR FILTRATION RATE; Value: > 60.0; Range: >60; Status: F Test: SODIUM LEVEL; Value: 142; Range: 136-145; Units: MEQ/L; Status: F Test: POTASSIUM SERUM; Value: 3.7; Range: 3.5-5.1; Units: MEQ/L; Status: F Test: CHLORIDE LEVEL; Value: 107; Range: 98-107; Units: MEQ/L; Status: F Test: CARBON DIOXIDE LEVEL; Value: 28; Range: 21-32; Units: MEQ/L; Status: F Test: ANION GAP; Value: 7; Range: 8-16; Abnormal: Below low normal; Units: MEQ/L; Status: F Test: CALCIUM LEVEL; Value: 8.7; Range: 8.5-10.1; Units: MG/DL; Status: F Test Note: ; Units are mL/min/1.73 m2 Chronic Kidney Disease Staging per NKF: Stage I & II GFR >=60 Normal to Mildly Decreased Stage III GFR 30-59 Moderately Decreased Stage IV GFR 15-29 Severely Decreased Stage V GFR <15 Very Little GFR Left ESRD GFR <15 on DIGITAL ANALYST Lab Order: CBC with Diff; SPEC'M 05/13/16 04:49 Test: WHITE BLOOD COUNT; Value: 8.1; Range: 4.0-10.0; Units: K/mm3; Status: F Test: RED BLOOD COUNT; Value: 4.35; Range: 4.00-5.40; Units: M/mm3; Status: F Test: HEMOGLOBIN; Value: 13.6; Range: 12.0-16.0; Units: g/dl; Status: F Test: HEMATOCRIT; Value: 42.0; Range: 36.0-47.0; Units: %; Status: F Test: MEAN CORPUSCULAR VOLUME; Value: 96.6; Range: 80.0-96.0; Abnormal: Above high normal; Units: fl; Status: F Test: MEAN CORPUSCULAR HEMOGLOBIN; Value: 31.3; Range: 27.0-33.0; Units: pg; Status: F Test: MEAN CORPUSCULAR HGB CONC; Value: 32.3; Range: 32.0-36.5; Units: g/dl; Status: F Test: RED CELL DISTRIBUTION WIDTH; Value: 12.9; Range: 11.5-14.5; Units: %; Status: F Test: PLATELET COUNT, AUTOMATED; Value: 346; Range: 150-450; Units: k/mm3; Status: F Test: NEUTROPHILS %; Value: 49.4; Range: 36.0-66.0; Units: %; Status: F Test: LYMPH %; Value: 40.7; Range: 24.0-44.0; Units: %; Status: F Test: MONO %; Value: 4.3; Range: 0.0-5.0; Units: %; Status: F Test: EOS %; Value: 3.2; Range: 0.0-3.0; Abnormal: Above high normal; Units: %; Status: F Test: BASO %; Value: 0.6; Range: 0.0-1.0; Units: %; Status: F Test: LARGE UNSTAINED CELL %; Value: 1.9; Range: 0.0-4.0; Units: %; Status: F Test: NEUTROPHILS #; Value: 4.0; Range: 1.8-7.7; Units: K/mm3; Status: F Test: LYMPH #; Value: 3.3; Range: 1.5-4.5; Units: K/mm3; Status: F Test: MONO #; Value: 0.3; Range: 0.0-0.8; Units: K/mm3; Status: F Test: EOS #; Value: 0.3; Range: 0.0-0.50; Units: K/mm3; Status: F Test: BASO #; Value: 0.0; Range: 0.0-0.2; Units: K/mm3; Status: F Test: LARGE UNSTAINED CELL #; Value: 0.2; Range: 0.0-0.4; Units: K/mm3; Status: F Lab Order: Lipase; [facility] 05/13/16 04:49 Test: LIPASE; Value: 146; Range: 73-393; Units: U/L; Status: F Lab Order: Liver Profile; [facility] 05/13/16 04:49 Test: AST/SGOT; Value: 12; Range: 15-37; Abnormal: Below low normal; Units: U/L; Status: F Test: ALT/SGPT; Value: 21; Range: 12-78; Units: U/L; Status: F Test: ALKALINE PHOSPHATASE; Value: 96; Range: 45-117; Units: U/L; Status: F Test: BILIRUBIN,TOTAL; Value: 0.2; Range: 0.2-1.0; Units: MG/DL; Status: F Test: BILIRUBIN,DIRECT; Value: < 0.1; Range: 0.0-0.2; Units: MG/DL; Status: F Test: TOTAL PROTEIN; Value: 7.6; Range: 6.4-8.2; Units: GM/DL; Status: F Test: ALBUMIN; Value: 3.9; Range: 3.2-5.2; Units: GM/DL; Status: F Test: ALBUMIN/GLOBULIN RATIO; Value: 1.05; Range: 1.00-1.93; Status: F Lab Order: Partial Thromboplastin Time; [facility] 05/13/16 04:49 Test: PARTIAL THROMBOPLASTIN TIME; Value: 31.8; Range: 26.6-37.1; Units: SECONDS; Status: F Lab Order: Prothrombin Time Profile\E\INR; [facility] 05/13/16 04:49 Test: PROTHROMBIN TIME; Value: 13.6; Range: 12.3-14.5; Units: SECONDS; Status: F Test: INR; Value: 1.03; Status: F Test Note: ; THERAPUTIC HUMAN INR VALUES INDICATIONS NORMAL RANGES PROPHYLAXIS/TREATMENT OF: VENOUS THROMBOSIS 2.0-3.0 PULMONARY EMBOLISM 2.0-3.0 PREVENTION OF SYSTEMIC EMBOLISM FROM: TISSUE HEART VALVES 2.0-3.0 ACUTE MYOCARDIAL INFARCTION 2.0-3.0 VALVULAR HEART DISEASE 2.0-3.0 ATRIAL FIBRILLATION 2.0-3.0 MECHANICAL VALVES(HIGH RISK) 2.5-3.5 RECURRENT MYOCARDIAL INFARCTION 2.5-3.5 Lab Order: Urinalysis; [facility] 05/13/16 04:48 Test: APPEARANCE, URINE; Value: HAZY; Range: CLEAR; Status: F Test: COLOR, URINE; Value: YELLOW; Range: YELLOW; Status: F Test: PH,URINE; Value: 5.0; Range: 5.0-9.0; Units: UNITS; Status: F Test: SPECIFIC GRAVITY URINE AUTO; Value: 1.019; Range: 1.002-1.035; Status: F Test: PROTEIN, URINE AUTO; Value: NEGATIVE; Range: NEGATIVE; Units: mg/dL; Status: F Test: GLUCOSE, URINE (UA) AUTO; Value: NEGATIVE; Range: NEGATIVE; Units: mg/dL; Status: F Test: KETONE, URINE AUTO; Value: NEGATIVE; Range: NEGATIVE; Units: mg/dL; Status: F Test: UROBILINOGEN, URINE AUTO; Value: 0.2; Range: 0.0-2.0; Units: mg/dL; Status: F Test: BILIRUBIN, URINE AUTO; Value: NEGATIVE; Range: NEGATIVE; Status: F Test: NITRITE, URINE AUTO; Value: NEGATIVE; Range: NEGATIVE; Status: F Test: LEUKOCYTE ESTERASE, URINE AUTO; Value: NEGATIVE; Range: NEGATIVE; Status: F Test: BLOOD, URINE BLOOD; Value: NEGATIVE; Range: NEGATIVE; Status: F Test: WBC, URINE AUTO; Value: 1; Range: 0-3; Units: /HPF; Status: F Test: RBC, URINE AUTO; Value: 3; Range: 0-3; Units: /HPF; Status: F Test: BACTERIA, URINE AUTO; Value: NEGATIVE; Range: NEGATIVE; Status: F Test: SQUAMOUS EPITHELIAL CELL UR AU; Value: 2; Range: 0-6; Units: /HPF; Status: F Test: MUCUS, URINE; Value: SMALL; Range: NEGATIVE; Status: F Test: HYALINE CAST, URINE AUTO; Value: 0; Range: 0-1; Units: /LPF; Status: F Lab Order: Urine Culture; SPEC'M 05/13/16 04:48 Test: URINE CULTURE; Value: <EXTERNAL COMMENT eCWMed> FULL REPORT IN LAB NOTES (eCW and Medent).; Status: F Test: URINE CULTURE; Value: URINE CULTURE RESULT NO GROWTH CLINICAL SIGNIFICANCE 1 ORGANISM; Status: F Radiology Order: CT ABD & PELVIS: IV Contrast Only Test: CT ABD & PELVIS: IV Contrast Only REASON FOR EXAMINATION: abd pain after colonoscopy; ; CLINICAL HISTORY: Abdominal pain.; TECHNIQUE: Multiple axial, sagittal and coronal CT images were obtained through the abdomen and pelvi; s after administration of intravenous contrast material.; COMMENTS:; The liver is of uniform attenuation without mass or defect. There is mild biliary ductal dilatation.; The spleen is normal. The gallbladder is surgically absent. The pancreas is of normal contour and att; enuation characteristics. There is no evidence of adrenal mass.; Both kidneys demonstrate prompt and equal nephrograms. The kidneys are normal in size, shape and conf; iguration. There is no evidence of renal or ureteral mass. No renal or ureteral calculi are identifie; d. There is no hydroureter or hydronephrosis.; No evidence for appendicitis. There is no bowel wall thickening. No evidence for small or large ricky; l obstruction. There is no evidence of abdominal ascites or lymphadenopathy. Fluid filled bowels.; There is no evidence of intrinsic or extrinsic bladder mass. There is no pelvic ascites or lymphadeno; irene.; Images of the lung bases show no evidence of pleural or parenchymal mass. There are no pleural effusi; ons.; The bony structures are free of lytic or blastic lesions. Multilevel degenerative changes are seen in; volving the thoracolumbar spine. Scattered calcifications are seen involving the aorta and major bran; ches compatible with atherosclerosis.; IMPRESSION:; Enteritis/ileus.; Cholecystectomy.; Mild biliary ductal dilatation. This is unchanged.; No other change from 04/26/2016.; Thank you for your kind referral of this patient.; ; Outcome: 07:09 Discharge ordered by Provider. mm11 07:22 Discharge Assessment: Patient awake, alert and oriented x 3. No cognitive and/or k functional deficits noted. Patient verbalized understanding of disposition instructions. patient administered narcotics - no. The following High Risk Discharge criteria are identified: None. Discharged to home ambulatory. Condition: good. Discharge instructions given to patient, Instructed on discharge instructions, follow up and referral plans. medication usage, Demonstrated understanding of instructions, medications, Pt was receptive of discharge instructions/ teaching. No special radiology studies were completed. Property :Personal belongings accompany Pt. 07:25 Patient left the ED. ruddy Signatures: Dispatcher [employer] EDCole Bonilla,RN RN Radha Hutchison, Reg Reg gb Peter Johnson, DO mm11 Sol De Leon, BOAT LOADER BOAT LOADER Norberto BainsRN RN [place] [facility] Hodan Funes, Reg Reg hs2 Rukhsana Holder2 Rebeca Cee,RN RN mv5 MTDD
--- NOTE | 2016-05-15 13:05 | EDDOCDS ---
Physician Documentation [facility] Name: Diana Hernandez Age: 30 yrs Sex: Female : 1985 Arrival Date: 05/13/2016 Time: 00:53 Bed 8 Private MD: Disposition: 05/13/16 07:09 Discharged to Home/Self Care. Impression: Abdominal and pelvic pain - Chronic. - Condition is Stable. - Discharge Instructions: Abdominal Pain, Adult. - Prescriptions for Percocet 5- 325 mg Oral Tablet - take 1 tablet by ORAL route every 6 hours As needed MDD: 4 tabs; 20 tablet. - Medication Reconciliation, Local Pharmacy Hours form. - Follow up: Private Physician; When: 2 - 3 days; Reason: Continuance of care. - Problem is an acute exacerbation. - Symptoms have improved. Historical: - Allergies: Bactrim (Hives); Codeine Sulfatethroat swells; Ibuprofen (Anaphylaxis); Toradol (Hives); Tramadol HCl (Hives); - Home Meds: 1. buspirone 10 mg Oral tab 1 tab 2 times per day 2. capsaicin Topical 3 times per day 3. dicyclomine 10 mg Oral cap 1 cap three times per day as needed 4. divalproex 250 mg oral Tb24 5. Flexeril 10 mg Oral tab 1 tab as needed 6. lidocaine jelly 1 application three times a day 7. Macrodantin 50 mg Oral cap 1 cap once daily 8. melatonin 3 mg Oral tab 1 mg as needed 9. prednisone 10 mg Oral tab 3 tabs once daily 10. pregabalin 150 mg Oral cap 1 cap 2 times per day 11. Rozerem 8 mg oral tab 1 tab once daily 12. Seroquel 100 mg Oral tab 2 times per day 13. tizanidine 2 mg oral tab 1 tabs every 3 hours as needed 14. topiramate 25 mg oral tab 2 times per day 15. Truvada 200-300 mg oral tab once daily 16. Xanax 0.25 mg Oral tab as needed out of Rx - PMHx: Anxiety; Bipolar disorder; Cellulitis Right Jaw; Chronic Back pain; Crohn's; Depression; Sciatica; Seizures; Substance Abuse; uterine cancer; - PSHx: Cholecystectomy; ; Laparoscopy; Hysterectomy; - Social history: Smoking status: Patient uses tobacco products, heavy tobacco smoker. No barriers to communication noted, The patient speaks fluent Tongan, Speaks appropriately for age. - Family history: No immediate family members are acutely ill. - : The pt / caregiver states he / she is not on anticoagulants. Home medication list is obtained from the patient. - Exposure Risk Screening:: None identified. APPLE THINNER: 05/13 01:05 LMP N/A - Hysterectomy [facility] Vital Signs: 01:05 BP 124 / 76; Pulse 94; Resp 20; Temp 97.4(T); Pulse Ox 100% on R/A; Weight 77.11 kg / jmb 170 lbs (R); Height 5 ft. 5 in. (165.10 cm) (R); Pain 8/10; 03:30 BP 122 / 62 (auto/); mv5 03:31 Pulse 84 MON; Pulse Ox 99% ; mv5 04:30 BP 111 / 73 (auto/); mv5 04:30 Pulse 82 MON; Pulse Ox 99% ; mv5 05:17 BP 112 / 74 (auto/); mv5 05:17 Pulse 80 MON; Pulse Ox 98% ; mv5 05:30 BP 104 / 65 (auto/); mv5 05:30 Pulse 82 MON; Pulse Ox 98% ; mv5 06:06 BP 109 / 69 (auto/); mv5 06:08 Pulse 78 MON; Pulse Ox 100% ; mv5 07:22 BP 110 / 60; Pulse 70; Resp 16; Temp 97.5; jmk 01:05 Body Mass Index 28.29 (77.11 kg, 165.10 cm) [facility] MDM: 02:00 [facility] Payment Agreement was scanned into [employer] and attached to record. slh 04:31 NS 0.9% 1000 ml IV at bolus once ordered. mm11 04:31 Ondansetron 4 mg IVP once ordered. mm11 04:31 morphine 4 mg IVP every 30 minutes; Document pain score/vitals after each dose (Hold if mm11 SBP < 90mmHg) x2 ordered. 04:31 IV Saline Lock ordered. mm11 04:31 Undress patient appropriately for examination ordered. mm11 04:32 Amylase Ordered. EDMS 04:32 Basic Metabolic Profile Ordered. EDMS 04:32 CBC with Diff Ordered. EDMS 04:32 Lipase Ordered. EDMS 04:32 Liver Profile Ordered. EDMS 04:32 Partial Thromboplastin Time Ordered. EDMS 04:32 Prothrombin Time Profile\E\INR Ordered. EDMS 04:32 Urinalysis Ordered. EDMS 04:32 Urine Culture Ordered. EDMS 04:32 NOTHING BY MOUTH+DIET ordered. EDMS 04:35 Financial registration complete. [facility] 05:35 Alum-Mag Hydroxide-Simeth Suspension 225 mg-200 mg-25 mg/5 mL 30 ml PO once ordered. mm11 05:35 Basic Metabolic Profile Reviewed. mm11 05:35 CBC with Diff Reviewed. mm11 05:35 Liver Profile Reviewed. mm11 05:35 Amylase Reviewed. mm11 05:35 Lipase Reviewed. mm11 05:35 Partial Thromboplastin Time Reviewed. mm11 05:35 Prothrombin Time Profile\E\INR Reviewed. mm11 05:36 CT ABD & PELVIS: IV Contrast Only Ordered. EDMS 07:07 Urinalysis Reviewed. mm11 07:07 CT ABD & PELVIS: IV Contrast Only Reviewed. mm11 07:08 oxyCODONE-acetaminophen 5 mg-325 mg 1 tabs PO once ordered. mm11 05/14 12:49 T-Sheet-- Draft Copy was scanned into [employer] and attached to record. gb Administered Medications: 05/13 04:51 Drug: NS 0.9% 1000 ml [sodium chloride 0.9 % intravenous solution] Route: IV; Rate: mv5 bolus; Site: left antecubital; 04:51 Drug: Ondansetron 4 mg [ondansetron HCl 2 mg/mL intravenous solution (2 mL)] Route: mv5 IVP; Site: left antecubital; 05:14 Follow up: Response: No Adverse Reaction mv5 04:51 Drug: morphine 4 mg [morphine 4 mg/mL intravenous cartridge (1 mL)] Route: IVP; Site: mv5 left antecubital; 05:15 Follow up: Response: No Adverse Reaction; No significant change. mv5 05:21 Drug: morphine 4 mg [morphine 4 mg/mL intravenous cartridge (1 mL)] Route: IVP; Site: mv5 left antecubital; 07:02 Follow up: Response: No Adverse Reaction mv5 05:40 Drug: Alum-Mag Hydroxide-Simeth 30 ml [aluminum-mag hydroxide-simethicone 225 mg-200 mv5 mg-25 mg/5 mL oral susp (30 mL)] Route: PO; 07:02 Follow up: Response: No Adverse Reaction mv5 07:22 Drug: oxyCODONE-acetaminophen 1 tabs [oxycodone-acetaminophen 5 mg-325 mg tablet (1 jmk tabs)] Route: PO; Addendum: 05/15/2016 13:02 Radiology Callback: A certified letter will be sent to the patient / guardian. ml certiried letter sent to pt re formalr ead of ct abd/p for fu .no pcp documented mlg. Signatures: Dispatcher [employer] EDCarol Ann Dior MD MD ml Knapp, Jean,RN RN Radha Hutchison, Peter Loza DO DO mm11 Norberto Odell,RN RN [facility] Rebeca Cee,RN RN mv5 The chart was reviewed and I authenticate all verbal orders and agree with the evaluation and treatment provided.Attachments: 05/13 02:[address] [facility] Payment Agreement [facility] 05/14 12:49 T-Sheet-- Draft Copy Chart Complete MTDD
--- NOTE | 2016-05-15 13:05 | EDDOCDS ---
Physician Documentation [facility] Name: Diana Hernandez Age: 30 yrs Sex: Female : 1985 Arrival Date: 05/13/2016 Time: 00:53 Bed 8 Private MD: Disposition: 05/13/16 07:09 Discharged to Home/Self Care. Impression: Abdominal and pelvic pain - Chronic. - Condition is Stable. - Discharge Instructions: Abdominal Pain, Adult. - Prescriptions for Percocet 5- 325 mg Oral Tablet - take 1 tablet by ORAL route every 6 hours As needed MDD: 4 tabs; 20 tablet. - Medication Reconciliation, Local Pharmacy Hours form. - Follow up: Private Physician; When: 2 - 3 days; Reason: Continuance of care. - Problem is an acute exacerbation. - Symptoms have improved. Historical: - Allergies: Bactrim (Hives); Codeine Sulfatethroat swells; Ibuprofen (Anaphylaxis); Toradol (Hives); Tramadol HCl (Hives); - Home Meds: 1. buspirone 10 mg Oral tab 1 tab 2 times per day 2. capsaicin Topical 3 times per day 3. dicyclomine 10 mg Oral cap 1 cap three times per day as needed 4. divalproex 250 mg oral Tb24 5. Flexeril 10 mg Oral tab 1 tab as needed 6. lidocaine jelly 1 application three times a day 7. Macrodantin 50 mg Oral cap 1 cap once daily 8. melatonin 3 mg Oral tab 1 mg as needed 9. prednisone 10 mg Oral tab 3 tabs once daily 10. pregabalin 150 mg Oral cap 1 cap 2 times per day 11. Rozerem 8 mg oral tab 1 tab once daily 12. Seroquel 100 mg Oral tab 2 times per day 13. tizanidine 2 mg oral tab 1 tabs every 3 hours as needed 14. topiramate 25 mg oral tab 2 times per day 15. Truvada 200-300 mg oral tab once daily 16. Xanax 0.25 mg Oral tab as needed out of Rx - PMHx: Anxiety; Bipolar disorder; Cellulitis Right Jaw; Chronic Back pain; Crohn's; Depression; Sciatica; Seizures; Substance Abuse; uterine cancer; - PSHx: Cholecystectomy; ; Laparoscopy; Hysterectomy; - Social history: Smoking status: Patient uses tobacco products, heavy tobacco smoker. No barriers to communication noted, The patient speaks fluent Malawian, Speaks appropriately for age. - Family history: No immediate family members are acutely ill. - : The pt / caregiver states he / she is not on anticoagulants. Home medication list is obtained from the patient. - Exposure Risk Screening:: None identified. 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 5 in. (165.10 cm) (R); Pain 8/10; 03:30 BP 122 / 62 (auto/); mv5 03:31 Pulse 84 MON; Pulse Ox 99% ; mv5 04:30 BP 111 / 73 (auto/); mv5 04:30 Pulse 82 MON; Pulse Ox 99% ; mv5 05:17 BP 112 / 74 (auto/); mv5 05:17 Pulse 80 MON; Pulse Ox 98% ; mv5 05:30 BP 104 / 65 (auto/); mv5 05:30 Pulse 82 MON; Pulse Ox 98% ; mv5 06:06 BP 109 / 69 (auto/); mv5 06:08 Pulse 78 MON; Pulse Ox 100% ; mv5 07:22 BP 110 / 60; Pulse 70; Resp 16; Temp 97.5; jmk 01:05 Body Mass Index 28.29 (77.11 kg, 165.10 cm) [facility] MDM: 02:00 [facility] Payment Agreement was scanned into [employer] and attached to record. slh 04:31 NS 0.9% 1000 ml IV at bolus once ordered. mm11 04:31 Ondansetron 4 mg IVP once ordered. mm11 04:31 morphine 4 mg IVP every 30 minutes; Document pain score/vitals after each dose (Hold if mm11 SBP < 90mmHg) x2 ordered. 04:31 IV Saline Lock ordered. mm11 04:31 Undress patient appropriately for examination ordered. mm11 04:32 Amylase Ordered. EDMS 04:32 Basic Metabolic Profile Ordered. EDMS 04:32 CBC with Diff Ordered. EDMS 04:32 Lipase Ordered. EDMS 04:32 Liver Profile Ordered. EDMS 04:32 Partial Thromboplastin Time Ordered. EDMS 04:32 Prothrombin Time Profile\E\INR Ordered. EDMS 04:32 Urinalysis Ordered. EDMS 04:32 Urine Culture Ordered. EDMS 04:32 NOTHING BY MOUTH+DIET ordered. EDMS 04:35 Financial registration complete. [facility] 05:35 Alum-Mag Hydroxide-Simeth Suspension 225 mg-200 mg-25 mg/5 mL 30 ml PO once ordered. mm11 05:35 Basic Metabolic Profile Reviewed. mm11 05:35 CBC with Diff Reviewed. mm11 05:35 Liver Profile Reviewed. mm11 05:35 Amylase Reviewed. mm11 05:35 Lipase Reviewed. mm11 05:35 Partial Thromboplastin Time Reviewed. mm11 05:35 Prothrombin Time Profile\E\INR Reviewed. mm11 05:36 CT ABD & PELVIS: IV Contrast Only Ordered. EDMS 07:07 Urinalysis Reviewed. mm11 07:07 CT ABD & PELVIS: IV Contrast Only Reviewed. mm11 07:08 oxyCODONE-acetaminophen 5 mg-325 mg 1 tabs PO once ordered. mm11 05/14 12:49 T-Sheet-- Draft Copy was scanned into [employer] and attached to record. gb Administered Medications: 05/13 04:51 Drug: NS 0.9% 1000 ml [sodium chloride 0.9 % intravenous solution] Route: IV; Rate: mv5 bolus; Site: left antecubital; 04:51 Drug: Ondansetron 4 mg [ondansetron HCl 2 mg/mL intravenous solution (2 mL)] Route: mv5 IVP; Site: left antecubital; 05:14 Follow up: Response: No Adverse Reaction mv5 04:51 Drug: morphine 4 mg [morphine 4 mg/mL intravenous cartridge (1 mL)] Route: IVP; Site: mv5 left antecubital; 05:15 Follow up: Response: No Adverse Reaction; No significant change. mv5 05:21 Drug: morphine 4 mg [morphine 4 mg/mL intravenous cartridge (1 mL)] Route: IVP; Site: mv5 left antecubital; 07:02 Follow up: Response: No Adverse Reaction mv5 05:40 Drug: Alum-Mag Hydroxide-Simeth 30 ml [aluminum-mag hydroxide-simethicone 225 mg-200 mv5 mg-25 mg/5 mL oral susp (30 mL)] Route: PO; 07:02 Follow up: Response: No Adverse Reaction mv5 07:22 Drug: oxyCODONE-acetaminophen 1 tabs [oxycodone-acetaminophen 5 mg-325 mg tablet (1 jmk tabs)] Route: PO; Addendum: 05/15/2016 13:02 Radiology Callback: A certified letter will be sent to the patient / guardian. ml certiried letter sent to pt re formalr ead of ct abd/p for fu .no pcp documented mlg. Signatures: Dispatcher [employer] EDCarol Ann Dior MD MD ml Knapp, Jean,RN RN Radha Hutchison, Peter Loza DO DO mm11 Norberto Odell,RN RN [facility] Rebeca Cee,RN RN mv5 The chart was reviewed and I authenticate all verbal orders and agree with the evaluation and treatment provided.Attachments: 05/13 02:00 [facility] Payment Agreement [facility] 05/14 12:49 T-Sheet-- Draft Copy MTDD
--- NOTE | 2016-05-15 13:05 | EDDOCDS ---
Physician Documentation [facility] Name: Diana Hernandez Age: 30 yrs Sex: Female : 1985 Arrival Date: 05/13/2016 Time: 00:53 Bed 8 Private MD: Disposition: 05/13/16 07:09 Discharged to Home/Self Care. Impression: Abdominal and pelvic pain - Chronic. - Condition is Stable. - Discharge Instructions: Abdominal Pain, Adult. - Prescriptions for Percocet 5- 325 mg Oral Tablet - take 1 tablet by ORAL route every 6 hours As needed MDD: 4 tabs; 20 tablet. - Medication Reconciliation, Local Pharmacy Hours form. - Follow up: Private Physician; When: 2 - 3 days; Reason: Continuance of care. - Problem is an acute exacerbation. - Symptoms have improved. Historical: - Allergies: Bactrim (Hives); Codeine Sulfatethroat swells; Ibuprofen (Anaphylaxis); Toradol (Hives); Tramadol HCl (Hives); - Home Meds: 1. buspirone 10 mg Oral tab 1 tab 2 times per day 2. capsaicin Topical 3 times per day 3. dicyclomine 10 mg Oral cap 1 cap three times per day as needed 4. divalproex 250 mg oral Tb24 5. Flexeril 10 mg Oral tab 1 tab as needed 6. lidocaine jelly 1 application three times a day 7. Macrodantin 50 mg Oral cap 1 cap once daily 8. melatonin 3 mg Oral tab 1 mg as needed 9. prednisone 10 mg Oral tab 3 tabs once daily 10. pregabalin 150 mg Oral cap 1 cap 2 times per day 11. Rozerem 8 mg oral tab 1 tab once daily 12. Seroquel 100 mg Oral tab 2 times per day 13. tizanidine 2 mg oral tab 1 tabs every 3 hours as needed 14. topiramate 25 mg oral tab 2 times per day 15. Truvada 200-300 mg oral tab once daily 16. Xanax 0.25 mg Oral tab as needed out of Rx - PMHx: Anxiety; Bipolar disorder; Cellulitis Right Jaw; Chronic Back pain; Crohn's; Depression; Sciatica; Seizures; Substance Abuse; uterine cancer; - PSHx: Cholecystectomy; ; Laparoscopy; Hysterectomy; - Social history: Smoking status: Patient uses tobacco products, heavy tobacco smoker. No barriers to communication noted, The patient speaks fluent [place]ian, Speaks appropriately for age. - Family history: No immediate family members are acutely ill. - : The pt / caregiver states he / she is not on anticoagulants. Home medication list is obtained from the patient. - Exposure Risk Screening:: None identified. 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 5 in. (165.10 cm) (R); Pain 8/10; 03:30 BP 122 / 62 (auto/); mv5 03:31 Pulse 84 MON; Pulse Ox 99% ; mv5 04:30 BP 111 / 73 (auto/); mv5 04:30 Pulse 82 MON; Pulse Ox 99% ; mv5 05:17 BP 112 / 74 (auto/); mv5 05:17 Pulse 80 MON; Pulse Ox 98% ; mv5 05:30 BP 104 / 65 (auto/); mv5 05:30 Pulse 82 MON; Pulse Ox 98% ; mv5 06:06 BP 109 / 69 (auto/); mv5 06:08 Pulse 78 MON; Pulse Ox 100% ; mv5 07:22 BP 110 / 60; Pulse 70; Resp 16; Temp 97.5; jmk 01:05 Body Mass Index 28.29 (77.11 kg, 165.10 cm) [facility] MDM: 02:00 [facility] Payment Agreement was scanned into [employer] and attached to record. slh 04:31 NS 0.9% 1000 ml IV at bolus once ordered. mm11 04:31 Ondansetron 4 mg IVP once ordered. mm11 04:31 morphine 4 mg IVP every 30 minutes; Document pain score/vitals after each dose (Hold if mm11 SBP < 90mmHg) x2 ordered. 04:31 IV Saline Lock ordered. mm11 04:31 Undress patient appropriately for examination ordered. mm11 04:32 Amylase Ordered. EDMS 04:32 Basic Metabolic Profile Ordered. EDMS 04:32 CBC with Diff Ordered. EDMS 04:32 Lipase Ordered. EDMS 04:32 Liver Profile Ordered. EDMS 04:32 Partial Thromboplastin Time Ordered. EDMS 04:32 Prothrombin Time Profile\E\INR Ordered. EDMS 04:32 Urinalysis Ordered. EDMS 04:32 Urine Culture Ordered. EDMS 04:32 NOTHING BY MOUTH+DIET ordered. EDMS 04:35 Financial registration complete. [facility] 05:35 Alum-Mag Hydroxide-Simeth Suspension 225 mg-200 mg-25 mg/5 mL 30 ml PO once ordered. mm11 05:35 Basic Metabolic Profile Reviewed. mm11 05:35 CBC with Diff Reviewed. mm11 05:35 Liver Profile Reviewed. mm11 05:35 Amylase Reviewed. mm11 05:35 Lipase Reviewed. mm11 05:35 Partial Thromboplastin Time Reviewed. mm11 05:35 Prothrombin Time Profile\E\INR Reviewed. mm11 05:36 CT ABD & PELVIS: IV Contrast Only Ordered. EDMS 07:07 Urinalysis Reviewed. mm11 07:07 CT ABD & PELVIS: IV Contrast Only Reviewed. mm11 07:08 oxyCODONE-acetaminophen 5 mg-325 mg 1 tabs PO once ordered. mm11 05/14 12:49 T-Sheet-- Draft Copy was scanned into [employer] and attached to record. gb Administered Medications: 05/13 04:51 Drug: NS 0.9% 1000 ml [sodium chloride 0.9 % intravenous solution] Route: IV; Rate: mv5 bolus; Site: left antecubital; 04:51 Drug: Ondansetron 4 mg [ondansetron HCl 2 mg/mL intravenous solution (2 mL)] Route: mv5 IVP; Site: left antecubital; 05:14 Follow up: Response: No Adverse Reaction mv5 04:51 Drug: morphine 4 mg [morphine 4 mg/mL intravenous cartridge (1 mL)] Route: IVP; Site: mv5 left antecubital; 05:15 Follow up: Response: No Adverse Reaction; No significant change. mv5 05:21 Drug: morphine 4 mg [morphine 4 mg/mL intravenous cartridge (1 mL)] Route: IVP; Site: mv5 left antecubital; 07:02 Follow up: Response: No Adverse Reaction mv5 05:40 Drug: Alum-Mag Hydroxide-Simeth 30 ml [aluminum-mag hydroxide-simethicone 225 mg-200 mv5 mg-25 mg/5 mL oral susp (30 mL)] Route: PO; 07:02 Follow up: Response: No Adverse Reaction mv5 07:22 Drug: oxyCODONE-acetaminophen 1 tabs [oxycodone-acetaminophen 5 mg-325 mg tablet (1 jmk tabs)] Route: PO; Addendum: 05/15/2016 13:02 Radiology Callback: A certified letter will be sent to the patient / guardian. ml certiried letter sent to pt re formalr ead of ct abd/p for fu .no pcp documented mlg. Signatures: Dispatcher [employer] EDCarol Ann Dior MD MD ml Knapp, Jean,RN RN Radha Hutchison, Peter Loza DO DO mm11 Norberto Odell,RN RN [facility] Rebeca Cee,RN RN mv5 The chart was reviewed and I authenticate all verbal orders and agree with the evaluation and treatment provided.Attachments: 05/13 02:00 [facility] Payment Agreement [facility] 05/14 12:49 T-Sheet-- Draft Copy MTDD
--- NOTE | 2016-05-15 13:05 | EDDOCDS ---
Physician Documentation [facility] Name: Diana Hernandez Age: 30 yrs Sex: Female : 1985 Arrival Date: 05/13/2016 Time: 00:53 Bed 8 Private MD: Disposition: 05/13/16 07:09 Discharged to Home/Self Care. Impression: Abdominal and pelvic pain - Chronic. - Condition is Stable. - Discharge Instructions: Abdominal Pain, Adult. - Prescriptions for Percocet 5- 325 mg Oral Tablet - take 1 tablet by ORAL route every 6 hours As needed MDD: 4 tabs; 20 tablet. - Medication Reconciliation, Local Pharmacy Hours form. - Follow up: Private Physician; When: 2 - 3 days; Reason: Continuance of care. - Problem is an acute exacerbation. - Symptoms have improved. Historical: - Allergies: Bactrim (Hives); Codeine Sulfatethroat swells; Ibuprofen (Anaphylaxis); Toradol (Hives); Tramadol HCl (Hives); - Home Meds: 1. buspirone 10 mg Oral tab 1 tab 2 times per day 2. capsaicin Topical 3 times per day 3. dicyclomine 10 mg Oral cap 1 cap three times per day as needed 4. divalproex 250 mg oral Tb24 5. Flexeril 10 mg Oral tab 1 tab as needed 6. lidocaine jelly 1 application three times a day 7. Macrodantin 50 mg Oral cap 1 cap once daily 8. melatonin 3 mg Oral tab 1 mg as needed 9. prednisone 10 mg Oral tab 3 tabs once daily 10. pregabalin 150 mg Oral cap 1 cap 2 times per day 11. Rozerem 8 mg oral tab 1 tab once daily 12. Seroquel 100 mg Oral tab 2 times per day 13. tizanidine 2 mg oral tab 1 tabs every 3 hours as needed 14. topiramate 25 mg oral tab 2 times per day 15. Truvada 200-300 mg oral tab once daily 16. Xanax 0.25 mg Oral tab as needed out of Rx - PMHx: Anxiety; Bipolar disorder; Cellulitis Right Jaw; Chronic Back pain; Crohn's; Depression; Sciatica; Seizures; Substance Abuse; uterine cancer; - PSHx: Cholecystectomy; ; Laparoscopy; Hysterectomy; - Social history: Smoking status: Patient uses tobacco products, heavy tobacco smoker. No barriers to communication noted, The patient speaks fluent Lithuanian, Speaks appropriately for age. - Family history: No immediate family members are acutely ill. - : The pt / caregiver states he / she is not on anticoagulants. Home medication list is obtained from the patient. - Exposure Risk Screening:: None identified. 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 5 in. (165.10 cm) (R); Pain 8/10; 03:30 BP 122 / 62 (auto/); mv5 03:31 Pulse 84 MON; Pulse Ox 99% ; mv5 04:30 BP 111 / 73 (auto/); mv5 04:30 Pulse 82 MON; Pulse Ox 99% ; mv5 05:17 BP 112 / 74 (auto/); mv5 05:17 Pulse 80 MON; Pulse Ox 98% ; mv5 05:30 BP 104 / 65 (auto/); mv5 05:30 Pulse 82 MON; Pulse Ox 98% ; mv5 06:06 BP 109 / 69 (auto/); mv5 06:08 Pulse 78 MON; Pulse Ox 100% ; mv5 07:22 BP 110 / 60; Pulse 70; Resp 16; Temp 97.5; jmk 01:05 Body Mass Index 28.29 (77.11 kg, 165.10 cm) [facility] MDM: 02:[facility] Payment Agreement was scanned into Quixhop and attached to record. slh 04:31 NS 0.9% 1000 ml IV at bolus once ordered. mm11 04:31 Ondansetron 4 mg IVP once ordered. mm11 04:31 morphine 4 mg IVP every 30 minutes; Document pain score/vitals after each dose (Hold if mm11 SBP < 90mmHg) x2 ordered. 04:31 IV Saline Lock ordered. mm11 04:31 Undress patient appropriately for examination ordered. mm11 04:32 Amylase Ordered. EDMS 04:32 Basic Metabolic Profile Ordered. EDMS 04:32 CBC with Diff Ordered. EDMS 04:32 Lipase Ordered. EDMS 04:32 Liver Profile Ordered. EDMS 04:32 Partial Thromboplastin Time Ordered. EDMS 04:32 Prothrombin Time Profile\E\INR Ordered. EDMS 04:32 Urinalysis Ordered. EDMS 04:32 Urine Culture Ordered. EDMS 04:32 NOTHING BY MOUTH+DIET ordered. EDMS 04:35 Financial registration complete. [facility] 05:35 Alum-Mag Hydroxide-Simeth Suspension 225 mg-200 mg-25 mg/5 mL 30 ml PO once ordered. mm11 05:35 Basic Metabolic Profile Reviewed. mm11 05:35 CBC with Diff Reviewed. mm11 05:35 Liver Profile Reviewed. mm11 05:35 Amylase Reviewed. mm11 05:35 Lipase Reviewed. mm11 05:35 Partial Thromboplastin Time Reviewed. mm11 05:35 Prothrombin Time Profile\E\INR Reviewed. mm11 05:36 CT ABD & PELVIS: IV Contrast Only Ordered. EDMS 07:07 Urinalysis Reviewed. mm11 07:07 CT ABD & PELVIS: IV Contrast Only Reviewed. mm11 07:08 oxyCODONE-acetaminophen 5 mg-325 mg 1 tabs PO once ordered. mm11 05/14 12:49 T-Sheet-- Draft Copy was scanned into Quixhop and attached to record. gb Administered Medications: 05/13 04:51 Drug: NS 0.9% 1000 ml [sodium chloride 0.9 % intravenous solution] Route: IV; Rate: mv5 bolus; Site: left antecubital; 04:51 Drug: Ondansetron 4 mg [ondansetron HCl 2 mg/mL intravenous solution (2 mL)] Route: mv5 IVP; Site: left antecubital; 05:14 Follow up: Response: No Adverse Reaction mv5 04:51 Drug: morphine 4 mg [morphine 4 mg/mL intravenous cartridge (1 mL)] Route: IVP; Site: mv5 left antecubital; 05:15 Follow up: Response: No Adverse Reaction; No significant change. mv5 05:21 Drug: morphine 4 mg [morphine 4 mg/mL intravenous cartridge (1 mL)] Route: IVP; Site: mv5 left antecubital; 07:02 Follow up: Response: No Adverse Reaction mv5 05:40 Drug: Alum-Mag Hydroxide-Simeth 30 ml [aluminum-mag hydroxide-simethicone 225 mg-200 mv5 mg-25 mg/5 mL oral susp (30 mL)] Route: PO; 07:02 Follow up: Response: No Adverse Reaction mv5 07:22 Drug: oxyCODONE-acetaminophen 1 tabs [oxycodone-acetaminophen 5 mg-325 mg tablet (1 jmk tabs)] Route: PO; Addendum: 05/15/2016 13:02 Radiology Callback: A certified letter will be sent to the patient / guardian. ml certiried letter sent to pt re formalr ead of ct abd/p for fu .no pcp documented mlg. Signatures: Dispatcher Med[employer] EDCarol Ann Dior MD MD ml Knapp, Jean,RN RN Radha Hutchison, Peter Loza DO DO mm11 Norberto Odell,RN RN Alta An [facility] Rebeca Cee,RN RN mv5 The chart was reviewed and I authenticate all verbal orders and agree with the evaluation and treatment provided.Attachments: 05/13 02:00 [facility] Payment Agreement [facility] 05/14 12:49 T-Sheet-- Draft Copy Chart Complete MTDD
--- NOTE | 2016-05-15 13:06 | EDDOCDS ---
Nurse's Notes [facility] Name: Diana Hernandez Age: 30 yrs Sex: Female : 1985 Arrival Date: 05/13/2016 Time: 00:53 Bed 8 Private MD: Diagnosis: Abdominal and pelvic pain-Chronic Presentation: 05/13 01:02 Presenting complaint: Patient states: Patient reports that she has been defecating [facility] blood. Had colonoscopy performed on Friday. Patient reports calling office of provider whom performed colonoscopy and informed to come in here. Adult Sepsis Screening: The patient does not have new or worsening altered mentation. Patient's respiratory rate is less than 22. Systolic blood pressure is greater than 100. Patient has a qSOFA score of 0- Negative Sepsis Screen. Suicide/Homicide risk assessment- the patient denies having any suicidal and/or homicidal ideations and does not present with any other emotional, behavioral or mental health complaints. Status: Patient is not a prepared foods service team member or dependent. Transition of care: patient was not received from another setting of care. 01:02 Acuity: PAULY Level 3 b 01:02 Method Of Arrival: Walkin/Carried/Asstd jmb Triage Assessment: 01:05 General: Appears in no apparent distress, Behavior is appropriate for age, cooperative. b Pain: Location: abdomen Pain currently is 8 out of 10 on a pain scale. HIV screening NA for this visit Offered previously. Neurological: Level of Consciousness is awake, alert, obeys commands, Oriented to person, place, time, Enrollment Services Dean are equal bilaterally Speech is normal, Facial symmetry appears normal, Facial symmetry: tongue is midline. Respiratory: Airway is patent Respiratory effort is even, unlabored, Respiratory pattern is regular, symmetrical. GI: Abdomen is non- distended. Derm: Skin is pink, warm & dry. Musculoskeletal: Range of motion intact in all extremities. COMMUNITY RECREATION COORDINATOR: 01:05 LMP N/A - Hysterectomy b Historical: - Allergies: Bactrim (Hives); Codeine Sulfatethroat swells; Ibuprofen (Anaphylaxis); Toradol (Hives); Tramadol HCl (Hives); - Home Meds: 1. buspirone 10 mg Oral tab 1 tab 2 times per day 2. capsaicin Topical 3 times per day 3. dicyclomine 10 mg Oral cap 1 cap three times per day as needed 4. divalproex 250 mg oral Tb24 5. Flexeril 10 mg Oral tab 1 tab as needed 6. lidocaine jelly 1 application three times a day 7. Macrodantin 50 mg Oral cap 1 cap once daily 8. melatonin 3 mg Oral tab 1 mg as needed 9. prednisone 10 mg Oral tab 3 tabs once daily 10. pregabalin 150 mg Oral cap 1 cap 2 times per day 11. Rozerem 8 mg oral tab 1 tab once daily 12. Seroquel 100 mg Oral tab 2 times per day 13. tizanidine 2 mg oral tab 1 tabs every 3 hours as needed 14. topiramate 25 mg oral tab 2 times per day 15. Truvada 200-300 mg oral tab once daily 16. Xanax 0.25 mg Oral tab as needed out of Rx - PMHx: Anxiety; Bipolar disorder; Cellulitis Right Jaw; Chronic Back pain; Crohn's; Depression; Sciatica; Seizures; Substance Abuse; uterine cancer; - PSHx: Cholecystectomy; ; Laparoscopy; Hysterectomy; - Social history: Smoking status: Patient uses tobacco products, heavy tobacco smoker. No barriers to communication noted, The patient speaks fluent Greek, Speaks appropriately for age. - Family history: No immediate family members are acutely ill. - : The pt / caregiver states he / she is not on anticoagulants. Home medication list is obtained from the patient. - Exposure Risk Screening:: None identified. Screenin:31 Screening information is obtained from the patient. Fall risk: No risks identified. mv5 Assistance ADL's: requires no assistance with activities of daily living. Abuse/DV Screen: The patient / caregiver reports he/she is: not in a situation that causes fear, pain or injury. Nutritional screening: No deficits noted. Advance Directives: There is no active DNR order. home support is adequate. Assessment: 03:32 General: Appears in no apparent distress. Pain: Location: right upper quadrant, left mv5 upper quadrant, right lower quadrant and left lower quadrant Pain currently is 8 out of 10 on a pain scale. Pain began increased today, noted symptoms since colonoscopy Friday. Neurological: Level of Consciousness is awake, alert, Oriented to person, place, time. Cardiovascular: Capillary refill < 3 seconds Heart tones S1 S2 present Pulses are all present. Rhythm is regular. Respiratory: Airway is patent Respiratory effort is even, unlabored, Respiratory pattern is regular, symmetrical. GI: Abdomen is flat, other Pt reports vomiting and diarrhea Bowel sounds present X 4 quads. Abd is tender to palpation. : No deficits noted. Derm: Skin is pink, warm & dry. 04:52 General: Appears in no apparent distress. General: Behavior is cooperative, pleasant. mv5 Neurological: Level of Consciousness is awake, alert. Respiratory: Airway is patent Respiratory effort is even, unlabored, Respiratory pattern is regular, symmetrical. Derm: Skin is pink, warm & dry. 05:41 General: Appears in no apparent distress. Neurological: Level of Consciousness is mv5 awake, alert, Oriented to person, place, time. Respiratory: Airway is patent Respiratory effort is even, unlabored, Respiratory pattern is regular, symmetrical. Derm: Skin is pink, warm & dry. 06:17 General: Appears in no apparent distress, Pt requesting pain medication for reported mv5 abdominal pain. MD aware.. 07:22 General: Appears states 4/10 discomfort yet readily accommodates position changes and jmk bending over to accommodates getting dressed, Upbeat demeanor and is very focused on prescription availability. receptive to discarge. Vital Signs: 01:05 BP 124 / 76; Pulse 94; Resp 20; Temp 97.4(T); Pulse Ox 100% on R/A; Weight 77.11 kg jm (R); Height 5 ft. 5 in. (165.10 cm) (R); Pain 8/10; 03:30 BP 122 / 62 (auto/); mv5 03:31 Pulse 84 MON; Pulse Ox 99% ; mv5 04:30 BP 111 / 73 (auto/); mv5 04:30 Pulse 82 MON; Pulse Ox 99% ; mv5 05:17 BP 112 / 74 (auto/); mv5 05:17 Pulse 80 MON; Pulse Ox 98% ; mv5 05:30 BP 104 / 65 (auto/); mv5 05:30 Pulse 82 MON; Pulse Ox 98% ; mv5 06:06 BP 109 / 69 (auto/); mv5 06:08 Pulse 78 MON; Pulse Ox 100% ; mv5 07:22 BP 110 / 60; Pulse 70; Resp 16; Temp 97.5; jmk 01:05 Body Mass Index 28.29 (77.11 kg, 165.10 cm) [facility] Vitals: 01:05 Log In Time: May 13, 2016 at 00:56. [facility] ED Course: 00:55 Patient visited by Hodan Funes Reg. hs2 00:55 Patient moved to Waiting hs2 01:03 Triage Initiated b 02:00 [facility] Payment Agreement was scanned into MVERSE and attached to record. [facility] 03:23 Rebeca Cee RN is Primary Nurse. gamaliel 03:23 Patient moved to 8 gamaliel 03:31 The patient / caregiver is instructed regarding the plan of care and ED course. mv5 03:35 Patient visited by Rebeca Cee RN. mv5 04:16 Peter Johnson DO is Attending Physician. mm11 04:16 Patient visited by Peter Johnson DO. mm11 04:30 Patient visited by Peter Johnson DO. mm11 04:30 Inserted saline lock: 18 gauge in left antecubital area and blood collected. The mv5 patient tolerated the procedure well. 04:51 Amylase Sent. mv5 04:51 Basic Metabolic Profile Sent. mv5 04:51 CBC with Diff Sent. mv5 04:51 Lipase Sent. mv5 04:51 Liver Profile Sent. mv5 04:51 Partial Thromboplastin Time Sent. mv5 04:51 Prothrombin Time Profile\E\INR Sent. mv5 05:00 Patient visited by Rebeca Cee RN. mv5 05:35 Patient visited by Peter Johnson DO. mm11 06:01 Patient visited by Rebeca Cee RN. mv5 06:07 Urinalysis Sent. nb2 06:07 Urine Culture Sent. nb2 06:25 Patient visited by Rebeca Cee RN. mv5 06:34 CT ABD & PELVIS: IV Contrast Only Returned. EDMS 07:02 Patient visited by Rebeca Cee RN. mv5 07:02 Discontinued intact, bleeding controlled, pressure dressing applied, No mv5 redness/swelling at site. 05/14 12:49 T-Sheet-- Draft Copy was scanned into MVERSE and attached to record. gb Administered Medications: 05/13 04:51 Drug: NS 0.9% 1000 ml [sodium chloride 0.9 % intravenous solution] Route: IV; Rate: mv5 bolus; Site: left antecubital; 04:51 Drug: Ondansetron 4 mg [ondansetron HCl 2 mg/mL intravenous solution (2 mL)] Route: mv5 IVP; Site: left antecubital; 05:14 Follow up: Response: No Adverse Reaction mv5 04:51 Drug: morphine 4 mg [morphine 4 mg/mL intravenous cartridge (1 mL)] Route: IVP; Site: mv5 left antecubital; 05:15 Follow up: Response: No Adverse Reaction; No significant change. mv5 05:21 Drug: morphine 4 mg [morphine 4 mg/mL intravenous cartridge (1 mL)] Route: IVP; Site: mv5 left antecubital; 07:02 Follow up: Response: No Adverse Reaction mv5 05:40 Drug: Alum-Mag Hydroxide-Simeth 30 ml [aluminum-mag hydroxide-simethicone 225 mg-200 mv5 mg-25 mg/5 mL oral susp (30 mL)] Route: PO; 07:02 Follow up: Response: No Adverse Reaction mv5 07:22 Drug: oxyCODONE-acetaminophen 1 tabs [oxycodone-acetaminophen 5 mg-325 mg tablet (1 jmk tabs)] Route: PO; Order Results: Lab Order: Amylase; SPEC'M 05/13/16 04:49 Test: AMYLASE; Value: 79; Range: 25-115; Units: U/L; Status: F Lab Order: Basic Metabolic Profile; SPEC'M 05/13/16 04:49 Test: GLUCOSE, FASTING; Value: 93; Range: 70-105; Units: MG/DL; Status: F Test: BLOOD UREA NITROGEN; Value: 9; Range: 7-18; Units: MG/DL; Status: F Test: CREATININE FOR GFR; Value: 0.56; Range: 0.55-1.02; Units: MG/DL; Status: F Test: GLOMERULAR FILTRATION RATE; Value: > 60.0; Range: >60; Status: F Test: SODIUM LEVEL; Value: 142; Range: 136-145; Units: MEQ/L; Status: F Test: POTASSIUM SERUM; Value: 3.7; Range: 3.5-5.1; Units: MEQ/L; Status: F Test: CHLORIDE LEVEL; Value: 107; Range: 98-107; Units: MEQ/L; Status: F Test: CARBON DIOXIDE LEVEL; Value: 28; Range: 21-32; Units: MEQ/L; Status: F Test: ANION GAP; Value: 7; Range: 8-16; Abnormal: Below low normal; Units: MEQ/L; Status: F Test: CALCIUM LEVEL; Value: 8.7; Range: 8.5-10.1; Units: MG/DL; Status: F Test Note: ; Units are mL/min/1.73 m2 Chronic Kidney Disease Staging per NKF: Stage I & II GFR >=60 Normal to Mildly Decreased Stage III GFR 30-59 Moderately Decreased Stage IV GFR 15-29 Severely Decreased Stage V GFR <15 Very Little GFR Left ESRD GFR <15 on UC ARCHITECT Lab Order: CBC with Diff; SPEC'M 05/13/16 04:49 Test: WHITE BLOOD COUNT; Value: 8.1; Range: 4.0-10.0; Units: K/mm3; Status: F Test: RED BLOOD COUNT; Value: 4.35; Range: 4.00-5.40; Units: M/mm3; Status: F Test: HEMOGLOBIN; Value: 13.6; Range: 12.0-16.0; Units: g/dl; Status: F Test: HEMATOCRIT; Value: 42.0; Range: 36.0-47.0; Units: %; Status: F Test: MEAN CORPUSCULAR VOLUME; Value: 96.6; Range: 80.0-96.0; Abnormal: Above high normal; Units: fl; Status: F Test: MEAN CORPUSCULAR HEMOGLOBIN; Value: 31.3; Range: 27.0-33.0; Units: pg; Status: F Test: MEAN CORPUSCULAR HGB CONC; Value: 32.3; Range: 32.0-36.5; Units: g/dl; Status: F Test: RED CELL DISTRIBUTION WIDTH; Value: 12.9; Range: 11.5-14.5; Units: %; Status: F Test: PLATELET COUNT, AUTOMATED; Value: 346; Range: 150-450; Units: k/mm3; Status: F Test: NEUTROPHILS %; Value: 49.4; Range: 36.0-66.0; Units: %; Status: F Test: LYMPH %; Value: 40.7; Range: 24.0-44.0; Units: %; Status: F Test: MONO %; Value: 4.3; Range: 0.0-5.0; Units: %; Status: F Test: EOS %; Value: 3.2; Range: 0.0-3.0; Abnormal: Above high normal; Units: %; Status: F Test: BASO %; Value: 0.6; Range: 0.0-1.0; Units: %; Status: F Test: LARGE UNSTAINED CELL %; Value: 1.9; Range: 0.0-4.0; Units: %; Status: F Test: NEUTROPHILS #; Value: 4.0; Range: 1.8-7.7; Units: K/mm3; Status: F Test: LYMPH #; Value: 3.3; Range: 1.5-4.5; Units: K/mm3; Status: F Test: MONO #; Value: 0.3; Range: 0.0-0.8; Units: K/mm3; Status: F Test: EOS #; Value: 0.3; Range: 0.0-0.50; Units: K/mm3; Status: F Test: BASO #; Value: 0.0; Range: 0.0-0.2; Units: K/mm3; Status: F Test: LARGE UNSTAINED CELL #; Value: 0.2; Range: 0.0-0.4; Units: K/mm3; Status: F Lab Order: Lipase; [facility] 05/13/16 04:49 Test: LIPASE; Value: 146; Range: 73-393; Units: U/L; Status: F Lab Order: Liver Profile; [facility] 05/13/16 04:49 Test: AST/SGOT; Value: 12; Range: 15-37; Abnormal: Below low normal; Units: U/L; Status: F Test: ALT/SGPT; Value: 21; Range: 12-78; Units: U/L; Status: F Test: ALKALINE PHOSPHATASE; Value: 96; Range: 45-117; Units: U/L; Status: F Test: BILIRUBIN,TOTAL; Value: 0.2; Range: 0.2-1.0; Units: MG/DL; Status: F Test: BILIRUBIN,DIRECT; Value: < 0.1; Range: 0.0-0.2; Units: MG/DL; Status: F Test: TOTAL PROTEIN; Value: 7.6; Range: 6.4-8.2; Units: GM/DL; Status: F Test: ALBUMIN; Value: 3.9; Range: 3.2-5.2; Units: GM/DL; Status: F Test: ALBUMIN/GLOBULIN RATIO; Value: 1.05; Range: 1.00-1.93; Status: F Lab Order: Partial Thromboplastin Time; [facility] 05/13/16 04:49 Test: PARTIAL THROMBOPLASTIN TIME; Value: 31.8; Range: 26.6-37.1; Units: SECONDS; Status: F Lab Order: Prothrombin Time Profile\E\INR; [facility] 05/13/16 04:49 Test: PROTHROMBIN TIME; Value: 13.6; Range: 12.3-14.5; Units: SECONDS; Status: F Test: INR; Value: 1.03; Status: F Test Note: ; THERAPUTIC HUMAN INR VALUES INDICATIONS NORMAL RANGES PROPHYLAXIS/TREATMENT OF: VENOUS THROMBOSIS 2.0-3.0 PULMONARY EMBOLISM 2.0-3.0 PREVENTION OF SYSTEMIC EMBOLISM FROM: TISSUE HEART VALVES 2.0-3.0 ACUTE MYOCARDIAL INFARCTION 2.0-3.0 VALVULAR HEART DISEASE 2.0-3.0 ATRIAL FIBRILLATION 2.0-3.0 MECHANICAL VALVES(HIGH RISK) 2.5-3.5 RECURRENT MYOCARDIAL INFARCTION 2.5-3.5 Lab Order: Urinalysis; [facility] 05/13/16 04:48 Test: APPEARANCE, URINE; Value: HAZY; Range: CLEAR; Status: F Test: COLOR, URINE; Value: YELLOW; Range: YELLOW; Status: F Test: PH,URINE; Value: 5.0; Range: 5.0-9.0; Units: UNITS; Status: F Test: SPECIFIC GRAVITY URINE AUTO; Value: 1.019; Range: 1.002-1.035; Status: F Test: PROTEIN, URINE AUTO; Value: NEGATIVE; Range: NEGATIVE; Units: mg/dL; Status: F Test: GLUCOSE, URINE (UA) AUTO; Value: NEGATIVE; Range: NEGATIVE; Units: mg/dL; Status: F Test: KETONE, URINE AUTO; Value: NEGATIVE; Range: NEGATIVE; Units: mg/dL; Status: F Test: UROBILINOGEN, URINE AUTO; Value: 0.2; Range: 0.0-2.0; Units: mg/dL; Status: F Test: BILIRUBIN, URINE AUTO; Value: NEGATIVE; Range: NEGATIVE; Status: F Test: NITRITE, URINE AUTO; Value: NEGATIVE; Range: NEGATIVE; Status: F Test: LEUKOCYTE ESTERASE, URINE AUTO; Value: NEGATIVE; Range: NEGATIVE; Status: F Test: BLOOD, URINE BLOOD; Value: NEGATIVE; Range: NEGATIVE; Status: F Test: WBC, URINE AUTO; Value: 1; Range: 0-3; Units: /HPF; Status: F Test: RBC, URINE AUTO; Value: 3; Range: 0-3; Units: /HPF; Status: F Test: BACTERIA, URINE AUTO; Value: NEGATIVE; Range: NEGATIVE; Status: F Test: SQUAMOUS EPITHELIAL CELL UR AU; Value: 2; Range: 0-6; Units: /HPF; Status: F Test: MUCUS, URINE; Value: SMALL; Range: NEGATIVE; Status: F Test: HYALINE CAST, URINE AUTO; Value: 0; Range: 0-1; Units: /LPF; Status: F Lab Order: Urine Culture; SPEC'M 05/13/16 04:48 Test: URINE CULTURE; Value: <EXTERNAL COMMENT eCWMed> FULL REPORT IN LAB NOTES (eCW and Medent).; Status: F Test: URINE CULTURE; Value: URINE CULTURE RESULT NO GROWTH CLINICAL SIGNIFICANCE 1 ORGANISM; Status: F Radiology Order: CT ABD & PELVIS: IV Contrast Only Test: CT ABD & PELVIS: IV Contrast Only REASON FOR EXAMINATION: abd pain after colonoscopy; ; CLINICAL HISTORY: Abdominal pain.; TECHNIQUE: Multiple axial, sagittal and coronal CT images were obtained through the abdomen and pelvi; s after administration of intravenous contrast material.; COMMENTS:; The liver is of uniform attenuation without mass or defect. There is mild biliary ductal dilatation.; The spleen is normal. The gallbladder is surgically absent. The pancreas is of normal contour and att; enuation characteristics. There is no evidence of adrenal mass.; Both kidneys demonstrate prompt and equal nephrograms. The kidneys are normal in size, shape and conf; iguration. There is no evidence of renal or ureteral mass. No renal or ureteral calculi are identifie; d. There is no hydroureter or hydronephrosis.; No evidence for appendicitis. There is no bowel wall thickening. No evidence for small or large ricky; l obstruction. There is no evidence of abdominal ascites or lymphadenopathy. Fluid filled bowels.; There is no evidence of intrinsic or extrinsic bladder mass. There is no pelvic ascites or lymphadeno; irene.; Images of the lung bases show no evidence of pleural or parenchymal mass. There are no pleural effusi; ons.; The bony structures are free of lytic or blastic lesions. Multilevel degenerative changes are seen in; volving the thoracolumbar spine. Scattered calcifications are seen involving the aorta and major bran; ches compatible with atherosclerosis.; IMPRESSION:; Enteritis/ileus.; Cholecystectomy.; Mild biliary ductal dilatation. This is unchanged.; No other change from 04/26/2016.; Thank you for your kind referral of this patient.; ; Outcome: 07:09 Discharge ordered by Provider. mm11 07:22 Discharge Assessment: Patient awake, alert and oriented x 3. No cognitive and/or k functional deficits noted. Patient verbalized understanding of disposition instructions. patient administered narcotics - no. The following High Risk Discharge criteria are identified: None. Discharged to home ambulatory. Condition: good. Discharge instructions given to patient, Instructed on discharge instructions, follow up and referral plans. medication usage, Demonstrated understanding of instructions, medications, Pt was receptive of discharge instructions/ teaching. No special radiology studies were completed. Property :Personal belongings accompany Pt. 07:25 Patient left the ED. ruddy Signatures: Dispatcher [employer] EDCole Bonilla,RN RN Radha Hutchison, Reg Reg gb Peter Johnson, DO mm11 Sol De Leon, MATERIAL EXPEDITOR MATERIAL EXPEDITOR Norberto BainsRN RN Alta An [facility] Hodan Funes, Reg Reg hs2 Rukhsana Holder2 Rebeca Cee,RN RN mv5 Chart Complete MTDD
== END 2016-05-13 07:25 | disposition home or self-care (01) ==
LOC: M ED 00:53
DX: R10.9 Unspecified abdominal pain (principal); K62.5 Hemorrhage of anus and rectum; G89.29 Other chronic pain; M54.30 Sciatica, unspecified side; F41.9 Anxiety disorder, unspecified; F32.9 Major depressive disorder, single episode, unspecified; R56.9 Unspecified convulsions; K50.90 Crohn's disease, unspecified, without complications; Z85.42 Personal history of malignant neoplasm of other parts of uterus; F19.10 Other psychoactive substance abuse, uncomplicated; Z86.19 Personal history of other infectious and parasitic diseases; Z79.899 Other long term (current) drug therapy; Z79.52 Long term (current) use of systemic steroids; Z88.1 Allergy status to other antibiotic agents; Z88.2 Allergy status to sulfonamides; Z88.5 Allergy status to narcotic agent; Z88.6 Allergy status to analgesic agent; Z88.8 Allergy status to other drugs, medicaments and biological substances; F17.210 Nicotine dependence, cigarettes, uncomplicated
CPT/HCPCS: 36415; 74177; 80048; 80076; 81001; 82150; 83690; 85025; 85610; 85730; 87086; 96374; 96375; 99284; J2405; Q9967

== ENCOUNTER 2016-05-25 01:02 | Emergency (ER) | payer OTHER ==
[2016-05-25] MEDS ORDERED: ONDANSETRON 4 MG ORAL DISINTEGRATING TAB (S0181) As Ordered ONE (01:39)
[2016-05-25] MEDS ORDERED: PERCOCET 5MG/325MG TAB As Ordered ONE (01:39)
[2016-05-25 02:00] LABS: CONTROL LINE UCG INT CTR LINE PRESENT
[2016-05-25 02:00] LABS: BASO # 0.1 K/mm3 (0.0-0.2); BASO % 0.9 % (0.0-1.0); EOS # 0.2 K/mm3 (0.0-0.50); EOS % 2.9 % (0.0-3.0); LARGE UNSTAINED CELL # 0.1 K/mm3 (0.0-0.4); LARGE UNSTAINED CELL % 1.7 % (0.0-4.0); LYMPH # 3.4 K/mm3 (1.5-4.5); LYMPH % 40.9 % (24.0-44.0); MEAN CORPUSCULAR HEMOGLOBIN 31.4 pg (27.0-33.0); MEAN CORPUSCULAR HGB CONC 32.8 g/dl (32.0-36.5); MEAN CORPUSCULAR VOLUME 95.5 fl (80.0-96.0); MONO # 0.3 K/mm3 (0.0-0.8); MONO % 3.7 % (0.0-5.0); NEUTROPHILS # 4.1 K/mm3 (1.8-7.7); NEUTROPHILS % 49.8 % (36.0-66.0); PLATELET COUNT, AUTOMATED 296 k/mm3 (150-450); RED CELL DISTRIBUTION WIDTH 13.1 % (11.5-14.5); WHITE BLOOD COUNT 8.3 K/mm3 (4.0-10.0)
[2016-05-25 02:23] LABS: ANION GAP 8 MEQ/L (8-16); BLOOD UREA NITROGEN 10 MG/DL (7-18); CALCIUM LEVEL 8.5 MG/DL (8.5-10.1); CARBON DIOXIDE LEVEL 28 MEQ/L (21-32); CHLORIDE LEVEL 107 MEQ/L (98-107); CREATININE FOR GFR 0.71 MG/DL (0.55-1.02); GLOMERULAR FILTRATION RATE > 60.0 (>60); GLUCOSE, FASTING 98 MG/DL (70-105); POTASSIUM SERUM 3.7 MEQ/L (3.5-5.1); SODIUM LEVEL 143 MEQ/L (136-145)
--- NOTE | 2016-05-25 02:42 | EDDOCDS ---
Nurse's Notes [facility] Name: Diana Hernandez Age: 30 yrs Sex: Female : 1985 Arrival Date: 05/25/2016 Time: 01:02 Bed I5 / M5 Private MD: Diagnosis: Low back pain;Vomiting Presentation: 05/25 01:17 Presenting complaint: Patient states: Right mid to low back pain radiating around to kmg1 right lower abdomen. Has felt this way for a couple of days. "Feels like a kidney stone. Has also been vomiting. Acute neurological deficits are not present. Mechanism of Injury: No Mechanism of Injury. Suicide/Homicide risk assessment- the patient denies having any suicidal and/or homicidal ideations and does not present with any other emotional, behavioral or mental health complaints. Status: Patient is not a service crew leader or dependent. Transition of care: patient was not received from another setting of care. 01:17 Acuity: PAULY Level 3 km 01:17 Method Of Arrival: Walkin/Carried/[place] [facility] [place] Assessment: 01:22 General: Appears in no apparent distress, comfortable, Behavior is appropriate for age, kmg1 cooperative, pleasant. Pain: Location: right mid back and right low back Pain currently is 9 out of 10 on a pain scale. Pain radiates to right lower quadrant Quality of pain is described as sharp. HIV screening NA for this visit Offered previously. GI: Reports nausea, vomiting. :. : Reports pain in right flank(s). Musculoskeletal: No deficits noted. 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 buspirone 10 mg Oral tab 1 tab 2 times per day (Last dose: 05/24/2016) 2. capsaicin Topical 3 times per day (Last dose: 05/24/2016) 3. dicyclomine 10 mg Oral cap 1 cap three times per day as needed (Last dose: 05/24/2016) 4. divalproex 250 mg oral Tb24 (Last dose: 05/24/2016) 5. lidocaine jelly 1 application three times a day (Last dose: 05/24/2016) 6. melatonin 3 mg Oral tab 1 mg as needed (Last dose: 05/24/2016) 7. prednisone 10 mg Oral tab 3 tabs once daily (Last dose: 05/24/2016) 8. pregabalin 150 mg Oral cap 1 cap 2 times per day (Last dose: 05/24/2016) 9. Rozerem 8 mg oral tab 1 tab once daily (Last dose: 05/24/2016) 10. Seroquel 100 mg Oral tab 2 times per day (Last dose: 05/24/2016) 11. tizanidine 2 mg oral tab 1 tabs every 3 hours as needed (Last dose: 05/24/2016) 12. topiramate 25 mg oral tab 2 times per day (Last dose: 05/24/2016) 13. Truvada 200-300 mg oral tab once daily (Last dose: 05/24/2016) 14. Xanax 0.25 mg Oral tab as needed out of Rx (Last dose: 05/24/2016) - PMHx: Anxiety; Bipolar disorder; Cellulitis Right Jaw; Chronic Back pain; Crohn's; Depression; Sciatica; Seizures; Substance Abuse; uterine cancer; Kidney stones; - PSHx: Cholecystectomy; ; Laparoscopy; Hysterectomy; - Social history: Smoking status: Patient uses tobacco products, light tobacco smoker. No barriers to communication noted, The patient speaks fluent Nepali, Speaks appropriately for age. - : The pt / caregiver states he / she is not on anticoagulants. Home medication list is obtained from the patient, [employer] import data. - Exposure Risk Screening:: None identified. Screenin:40 Screening information is obtained from the patient. Fall risk: No risks identified. slm Assistance ADL's: requires no assistance with activities of daily living. Abuse/DV Screen: The patient / caregiver reports he/she is: not in a situation that causes fear, pain or injury. Nutritional screening: No deficits noted. Advance Directives: Currently, there is no health care proxy. There is no active DNR order. There is no living will. There is no Power of [employer]. Advance directive information has not previously been placed in an [facility] medical record. Further advance directive information is declined. home support is adequate. Assessment: 01:57 General: Appears in no apparent distress, comfortable, Behavior is appropriate for age, slm cooperative. General: pt resting on stretcher c/o right lower back pain to abdomen . Pain: Location: right lower quadrant and right low back and right mid back. Respiratory: Airway is patent Respiratory effort is even, unlabored. 02:35 Reassessment: Patient appears in no apparent distress at this time. Patient states slm feeling better. Patient states symptoms have improved. Vital Signs: 01:22 BP 119 / 63; Pulse 102; Resp 16; Temp 97.7(O); Pulse Ox 98% on R/A; Weight 81.65 kg [facility] (R); Height 5 ft. 5 in. (165.10 cm) (R); Pain 9/10; 02:34 BP 121 / 71; Pulse 90; Resp 18; Temp 97.1; Pulse Ox 97% on R/A; slm 02:35 Pain 0/10; slm 01:22 Body Mass Index 29.95 (81.65 kg, 165.10 cm) [facility] Vitals: 01:22 Log In Time: May 25, 2016 at 01:04. [facility] [place] Course: 01:04 Patient visited by Hodan Funes, Umair. hs2 01:04 Patient moved to Waiting hs2 01:17 Patient moved to Triage 1 [facility] 01:18 Triage Initiated [facility] 01:20 Prasad Hernandez PA is PHCP. mo1 01:20 Damian Rooney DO is Attending Physician. mo1 01:26 Patient visited by Prasad eHrnandez PA. mo1 01:30 Patient visited by Maya Vick RN. [facility] 01:40 Patient moved to I5 / slm 01:49 Urine Test-In Lab Sent. slm 01:49 Urine Culture Sent. slm 01:49 UA Sent. slm 01:49 BMP Sent. slm 01:49 CBC with Diff Sent. slm 01:56 No IV's were initiated during this patient's visit. No procedures done that require slm assistance. Labs drawn. (by ED staff). Sent per order to lab. Urine collected. Clean catch specimen. 01:58 Patient visited by Dianna Gleason LPN. [facility] 02:41 The patient / caregiver is instructed regarding the plan of care and ED course. Patient slm has correct armband on for positive identification. Bed in low position. Call light in reach. Side rails up X 1. Administered Medications: 01:49 Drug: oxyCODONE-acetaminophen 1 tabs [oxycodone-acetaminophen 5 mg-325 mg tablet (1 slm tabs)] Route: PO; 02:35 Follow up: Pain 0/10 Adult [facility] 01:49 Drug: Ondansetron ODT 4 mg [ondansetron 4 mg disintegrating tablet (1 tabs)] Route: PO; slm Order Results: Lab Order: CBC with Diff; SPEC'M 05/25/16 01:46 Test: WHITE BLOOD COUNT; Value: 8.3; Range: 4.0-10.0; Units: K/mm3; Status: F Test: RED BLOOD COUNT; Value: 4.18; Range: 4.00-5.40; Units: M/mm3; Status: F Test: HEMOGLOBIN; Value: 13.1; Range: 12.0-16.0; Units: g/dl; Status: F Test: HEMATOCRIT; Value: 39.9; Range: 36.0-47.0; Units: %; Status: F Test: MEAN CORPUSCULAR VOLUME; Value: 95.5; Range: 80.0-96.0; Units: fl; Status: F Test: MEAN CORPUSCULAR HEMOGLOBIN; Value: 31.4; Range: 27.0-33.0; Units: pg; Status: F Test: MEAN CORPUSCULAR HGB CONC; Value: 32.8; Range: 32.0-36.5; Units: g/dl; Status: F Test: RED CELL DISTRIBUTION WIDTH; Value: 13.1; Range: 11.5-14.5; Units: %; Status: F Test: PLATELET COUNT, AUTOMATED; Value: 296; Range: 150-450; Units: k/mm3; Status: F Test: NEUTROPHILS %; Value: 49.8; Range: 36.0-66.0; Units: %; Status: F Test: LYMPH %; Value: 40.9; Range: 24.0-44.0; Units: %; Status: F Test: MONO %; Value: 3.7; Range: 0.0-5.0; Units: %; Status: F Test: EOS %; Value: 2.9; Range: 0.0-3.0; Units: %; Status: F Test: BASO %; Value: 0.9; Range: 0.0-1.0; Units: %; Status: F Test: LARGE UNSTAINED CELL %; Value: 1.7; Range: 0.0-4.0; Units: %; Status: F Test: NEUTROPHILS #; Value: 4.1; Range: 1.8-7.7; Units: K/mm3; Status: F Test: LYMPH #; Value: 3.4; Range: 1.5-4.5; Units: K/mm3; Status: F Test: MONO #; Value: 0.3; Range: 0.0-0.8; Units: K/mm3; Status: F Test: EOS #; Value: 0.2; Range: 0.0-0.50; Units: K/mm3; Status: F Test: BASO #; Value: 0.1; Range: 0.0-0.2; Units: K/mm3; Status: F Test: LARGE UNSTAINED CELL #; Value: 0.1; Range: 0.0-0.4; Units: K/mm3; Status: F Lab Order: [facility]; SPEC'M 05/25/16 01:46 Test: GLUCOSE, FASTING; Value: 98; Range: 70-105; Units: MG/DL; Status: F Test: BLOOD UREA NITROGEN; Value: 10; Range: 7-18; Units: MG/DL; Status: F Test: CREATININE FOR GFR; Value: 0.71; Range: 0.55-1.02; Units: MG/DL; Status: F Test: GLOMERULAR FILTRATION RATE; Value: > 60.0; Range: >60; Status: F Test: SODIUM LEVEL; Value: 143; Range: 136-145; Units: MEQ/L; Status: F Test: POTASSIUM SERUM; Value: 3.7; Range: 3.5-5.1; Units: MEQ/L; Status: F Test: CHLORIDE LEVEL; Value: 107; Range: 98-107; Units: MEQ/L; Status: F Test: CARBON DIOXIDE LEVEL; Value: 28; Range: 21-32; Units: MEQ/L; Status: F Test: ANION GAP; Value: 8; Range: 8-16; Units: MEQ/L; Status: F Test: CALCIUM LEVEL; Value: 8.5; Range: 8.5-10.1; Units: MG/DL; Status: F Test Note: ; Units are mL/min/1.73 m2 Chronic Kidney Disease Staging per NKF: Stage I & II GFR >=60 Normal to Mildly Decreased Stage III GFR 30-59 Moderately Decreased Stage IV GFR 15-29 Severely Decreased Stage V GFR <15 Very Little GFR Left ESRD GFR <15 on PRINTER SLOTTER FEEDER Lab Order: UA; SPEC'M 05/25/16 01:42 Test: APPEARANCE, URINE; Value: HAZY; Range: CLEAR; Status: F Test: COLOR, URINE; Value: YELLOW; Range: YELLOW; Status: F Test: PH,URINE; Value: 6.0; Range: 5.0-9.0; Units: UNITS; Status: F Test: SPECIFIC GRAVITY URINE AUTO; Value: 1.021; Range: 1.002-1.035; Status: F Test: PROTEIN, URINE AUTO; Value: NEGATIVE; Range: NEGATIVE; Units: mg/dL; Status: F Test: GLUCOSE, URINE (UA) AUTO; Value: NEGATIVE; Range: NEGATIVE; Units: mg/dL; Status: F Test: KETONE, URINE AUTO; Value: TRACE; Range: NEGATIVE; Abnormal: Above high normal; Units: mg/dL; Status: F Test: UROBILINOGEN, URINE AUTO; Value: 2.0; Range: 0.0-2.0; Abnormal: Above high normal; Units: mg/dL; Status: F Test: BILIRUBIN, URINE AUTO; Value: NEGATIVE; Range: NEGATIVE; Status: F Test: NITRITE, URINE AUTO; Value: NEGATIVE; Range: NEGATIVE; Status: F Test: LEUKOCYTE ESTERASE, URINE AUTO; Value: NEGATIVE; Range: NEGATIVE; Status: F Test: BLOOD, URINE BLOOD; Value: NEGATIVE; Range: NEGATIVE; Status: F Test: WBC, URINE AUTO; Value: 3; Range: 0-3; Units: /HPF; Status: F Test: RBC, URINE AUTO; Value: 3; Range: 0-3; Units: /HPF; Status: F Test: BACTERIA, URINE AUTO; Value: 1+; Range: NEGATIVE; Abnormal: Above high normal; Status: F Test: SQUAMOUS EPITHELIAL CELL UR AU; Value: 9; Range: 0-6; Units: /HPF; Status: F Test: MUCUS, URINE; Value: SMALL; Range: NEGATIVE; Status: F Test: HYALINE CAST, URINE AUTO; Value: 0; Range: 0-1; Units: /LPF; Status: F Lab Order: Urine Test-In Lab; SPEC'M 05/25/16 01:42 Test: URINE PREG TEST; Value: NEGATIVE; Range: NEGATIVE; Status: F Outcome: 02:30 Discharge ordered by Provider. mo1 02:36 Discharge Assessment: Patient awake, alert and oriented x 3. No cognitive and/or slm functional deficits noted. Patient verbalized understanding of disposition instructions. patient administered narcotics - yes. Pt provided with safe discharge. The following High Risk Discharge criteria are identified: None. Discharged to home ambulatory. Condition: good Condition: improved. Discharge instructions given to patient, Instructed on discharge instructions, follow up and referral plans. Demonstrated understanding of instructions, medications, Pt was receptive of discharge instructions/ teaching. No special radiology studies were completed. Property :Personal belongings accompany Pt. 02:41 Patient left the ED. slm Signatures: Maya Vick, RN RN km Prasad Hernandez PA PA mo1 Dianna Gleason LPN LPN slm Hodan Funes, Reg Reg hs2 MTDD
--- NOTE | 2016-05-25 02:42 | EDDOCDS ---
Physician Documentation [facility] Name: Diana Hernandez Age: 30 yrs Sex: Female : 1985 Arrival Date: 05/25/2016 Time: 01:02 Bed I5 / M5 Private MD: Disposition: 05/25/16 02:30 Discharged to Home/Self Care. Impression: Low back pain, Vomiting. - Condition is Stable. - Discharge Instructions: Back Pain, Adult, Nausea and Vomiting. - Medication Reconciliation, Local Pharmacy Hours form. - Follow up: Private Physician; When: Call to arrange an appointment; Reason: Recheck today's complaints, Continuance of care. - Problem is an acute exacerbation. - Symptoms are unchanged. Historical: - Allergies: Bactrim (Hives); Codeine Sulfatethroat swells; Ibuprofen (Anaphylaxis); Toradol (Hives); Tramadol HCl (Hives); - Home Meds: 1. buspirone 10 mg Oral tab 1 tab 2 times per day (Last dose: 05/24/2016) 2. capsaicin Topical 3 times per day (Last dose: 05/24/2016) 3. dicyclomine 10 mg Oral cap 1 cap three times per day as needed (Last dose: 05/24/2016) 4. divalproex 250 mg oral Tb24 (Last dose: 05/24/2016) 5. lidocaine jelly 1 application three times a day (Last dose: 05/24/2016) 6. melatonin 3 mg Oral tab 1 mg as needed (Last dose: 05/24/2016) 7. prednisone 10 mg Oral tab 3 tabs once daily (Last dose: 05/24/2016) 8. pregabalin 150 mg Oral cap 1 cap 2 times per day (Last dose: 05/24/2016) 9. Rozerem 8 mg oral tab 1 tab once daily (Last dose: 05/24/2016) 10. Seroquel 100 mg Oral tab 2 times per day (Last dose: 05/24/2016) 11. tizanidine 2 mg oral tab 1 tabs every 3 hours as needed (Last dose: 05/24/2016) 12. topiramate 25 mg oral tab 2 times per day (Last dose: 05/24/2016) 13. Truvada 200-300 mg oral tab once daily (Last dose: 05/24/2016) 14. Xanax 0.25 mg Oral tab as needed out of Rx (Last dose: 05/24/2016) - PMHx: Anxiety; Bipolar disorder; Cellulitis Right Jaw; Chronic Back pain; Crohn's; Depression; Sciatica; Seizures; Substance Abuse; uterine cancer; Kidney stones; - PSHx: Cholecystectomy; ; Laparoscopy; Hysterectomy; - Social history: Smoking status: Patient uses tobacco products, light tobacco smoker. No barriers to communication noted, The patient speaks fluent [place] African, Speaks appropriately for age. - : The pt / caregiver states he / she is not on anticoagulants. Home medication list is obtained from the patient, [employer] import data. - Exposure Risk Screening:: None identified. 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 5 in. (165.10 cm) (R); Pain 9/10; 02:34 BP 121 / 71; Pulse 90; Resp 18; Temp 97.1; Pulse Ox 97% on R/A; slm 02:35 Pain 0/10; slm 01:22 Body Mass Index 29.95 (81.65 kg, 165.10 cm) km MDM: 01:36 oxyCODONE-acetaminophen 5 mg-325 mg 1 tabs PO once ordered. mo1 01:36 Ondansetron ODT Oral Disintegrating Tablet 4 mg PO once ordered. mo1 01:37 CBC with Diff Ordered. EDMS 01:37 BMP Ordered. EDMS 01:37 UA Ordered. EDMS 01:37 Urine Culture Ordered. EDMS 01:39 Urine Test-In Lab Ordered. EDMS 02:02 Financial registration complete. hs2 02:07 UA Reviewed. mo1 02:08 CBC with Diff Reviewed. mo1 02:08 Urine Test-In Lab Reviewed. mo1 02:27 BMP Reviewed. mo1 Administered Medications: 01:49 Drug: oxyCODONE-acetaminophen 1 tabs [oxycodone-acetaminophen 5 mg-325 mg tablet (1 slm tabs)] Route: PO; 02:35 Follow up: Pain 0/10 Adult [facility] 01:49 Drug: Ondansetron ODT 4 mg [ondansetron 4 mg disintegrating tablet (1 tabs)] Route: PO; [facility] Signatures: Dispatcher [employer] Maya Duong, RN RN kmg1 Prasad Hernandez PA PA mo1 Dianna Gleason LPN FRUIT [employer] NUT FARMWORKER [facility] Hodan Funes, Reg Reg hs2 MTDD
--- NOTE | 2016-05-27 03:43 | EDDOCDS ---
Nurse's Notes [facility] Name: Diana Hernandez Age: 30 yrs Sex: Female : 1985 Arrival Date: 05/25/2016 Time: 01:02 Bed I5 / M5 Private MD: Diagnosis: Low back pain;Vomiting Presentation: 05/25 01:17 Presenting complaint: Patient states: Right mid to low back pain radiating around to kmg1 right lower abdomen. Has felt this way for a couple of days. "Feels like a kidney stone. Has also been vomiting. Acute neurological deficits are not present. Mechanism of Injury: No Mechanism of Injury. Suicide/Homicide risk assessment- the patient denies having any suicidal and/or homicidal ideations and does not present with any other emotional, behavioral or mental health complaints. Status: Patient is not a service planner or dependent. Transition of care: patient was not received from another setting of care. 01:17 Acuity: PAULY Level 3 km 01:17 Method Of Arrival: Walkin/Carried/[place] [facility] [place] Assessment: 01:22 General: Appears in no apparent distress, comfortable, Behavior is appropriate for age, kmg1 cooperative, pleasant. Pain: Location: right mid back and right low back Pain currently is 9 out of 10 on a pain scale. Pain radiates to right lower quadrant Quality of pain is described as sharp. HIV screening NA for this visit Offered previously. GI: Reports nausea, vomiting. :. : Reports pain in right flank(s). Musculoskeletal: No deficits noted. BUNCH BREAKER: 01:22 LMP N/A - Hysterectomy km Historical: - Allergies: Bactrim (Hives); Codeine Sulfatethroat swells; Ibuprofen (Anaphylaxis); Toradol (Hives); Tramadol HCl (Hives); - Home Meds: 1. buspirone 10 mg Oral tab 1 tab 2 times per day (Last dose: 05/24/2016) 2. capsaicin Topical 3 times per day (Last dose: 05/24/2016) 3. dicyclomine 10 mg Oral cap 1 cap three times per day as needed (Last dose: 05/24/2016) 4. divalproex 250 mg oral Tb24 (Last dose: 05/24/2016) 5. lidocaine jelly 1 application three times a day (Last dose: 05/24/2016) 6. melatonin 3 mg Oral tab 1 mg as needed (Last dose: 05/24/2016) 7. prednisone 10 mg Oral tab 3 tabs once daily (Last dose: 05/24/2016) 8. pregabalin 150 mg Oral cap 1 cap 2 times per day (Last dose: 05/24/2016) 9. Rozerem 8 mg oral tab 1 tab once daily (Last dose: 05/24/2016) 10. Seroquel 100 mg Oral tab 2 times per day (Last dose: 05/24/2016) 11. tizanidine 2 mg oral tab 1 tabs every 3 hours as needed (Last dose: 05/24/2016) 12. topiramate 25 mg oral tab 2 times per day (Last dose: 05/24/2016) 13. Truvada 200-300 mg oral tab once daily (Last dose: 05/24/2016) 14. Xanax 0.25 mg Oral tab as needed out of Rx (Last dose: 05/24/2016) - PMHx: Anxiety; Bipolar disorder; Cellulitis Right Jaw; Chronic Back pain; Crohn's; Depression; Sciatica; Seizures; Substance Abuse; uterine cancer; Kidney stones; - PSHx: Cholecystectomy; ; Laparoscopy; Hysterectomy; - Social history: Smoking status: Patient uses tobacco products, light tobacco smoker. No barriers to communication noted, The patient speaks fluent Slovak, Speaks appropriately for age. - : The pt / caregiver states he / she is not on anticoagulants. Home medication list is obtained from the patient, [employer] import data. - Exposure Risk Screening:: None identified. Screenin:40 Screening information is obtained from the patient. Fall risk: No risks identified. slm Assistance ADL's: requires no assistance with activities of daily living. Abuse/DV Screen: The patient / caregiver reports he/she is: not in a situation that causes fear, pain or injury. Nutritional screening: No deficits noted. Advance Directives: Currently, there is no health care proxy. There is no active DNR order. There is no living will. There is no Power of Vacuum Worker. Advance directive information has not previously been placed in an [facility] medical record. Further advance directive information is declined. home support is adequate. Assessment: 01:57 General: Appears in no apparent distress, comfortable, Behavior is appropriate for age, slm cooperative. General: pt resting on stretcher c/o right lower back pain to abdomen . Pain: Location: right lower quadrant and right low back and right mid back. Respiratory: Airway is patent Respiratory effort is even, unlabored. 02:35 Reassessment: Patient appears in no apparent distress at this time. Patient states slm feeling better. Patient states symptoms have improved. Vital Signs: 01:22 BP 119 / 63; Pulse 102; Resp 16; Temp 97.7(O); Pulse Ox 98% on R/A; Weight 81.65 kg [facility] (R); Height 5 ft. 5 in. (165.10 cm) (R); Pain 9/10; 02:34 BP 121 / 71; Pulse 90; Resp 18; Temp 97.1; Pulse Ox 97% on R/A; slm 02:35 Pain 0/10; slm 01:22 Body Mass Index 29.95 (81.65 kg, 165.10 cm) [facility] Vitals: 01:22 Log In Time: May 25, 2016 at 01:04. [facility] ED Course: 01:04 Patient visited by Hodan Funes, Umair. hs2 01:04 Patient moved to Waiting hs2 01:17 Patient moved to Triage 1 [facility] 01:18 Triage Initiated [facility] 01:20 Prasad Hernandez PA is PHCP. mo1 01:20 Damian Rooney DO is Attending Physician. mo1 01:26 Patient visited by Prasad Hernandez PA. mo1 01:30 Patient visited by Maya Vick RN. [facility] 01:40 Patient moved to I5 / slm 01:49 Urine Test-In Lab Sent. slm 01:49 Urine Culture Sent. slm 01:49 UA Sent. slm 01:49 BMP Sent. slm 01:49 CBC with Diff Sent. slm 01:56 No IV's were initiated during this patient's visit. No procedures done that require slm assistance. Labs drawn. (by ED staff). Sent per order to lab. Urine collected. Clean catch specimen. 01:58 Patient visited by Dianna Gleason LPN. [facility] 02:41 The patient / caregiver is instructed regarding the plan of care and ED course. Patient slm has correct armband on for positive identification. Bed in low position. Call light in reach. Side rails up X 1. 04:50 [facility] Payment Agreement was scanned into [employer] and attached to record. hs2 09:22 T-Sheet-- Draft Copy was scanned into [employer] and attached to record. [facility] Administered Medications: 01:49 Drug: oxyCODONE-acetaminophen 1 tabs [oxycodone-acetaminophen 5 mg-325 mg tablet (1 slm tabs)] Route: PO; 02:35 Follow up: Pain 0/10 Adult slm 01:49 Drug: Ondansetron ODT 4 mg [ondansetron 4 mg disintegrating tablet (1 tabs)] Route: PO; slm Order Results: Lab Order: CBC with Diff; SPEC'M 05/25/16 01:46 Test: WHITE BLOOD COUNT; Value: 8.3; Range: 4.0-10.0; Units: K/mm3; Status: F Test: RED BLOOD COUNT; Value: 4.18; Range: 4.00-5.40; Units: M/mm3; Status: F Test: HEMOGLOBIN; Value: 13.1; Range: 12.0-16.0; Units: g/dl; Status: F Test: HEMATOCRIT; Value: 39.9; Range: 36.0-47.0; Units: %; Status: F Test: MEAN CORPUSCULAR VOLUME; Value: 95.5; Range: 80.0-96.0; Units: fl; Status: F Test: MEAN CORPUSCULAR HEMOGLOBIN; Value: 31.4; Range: 27.0-33.0; Units: pg; Status: F Test: MEAN CORPUSCULAR HGB CONC; Value: 32.8; Range: 32.0-36.5; Units: g/dl; Status: F Test: RED CELL DISTRIBUTION WIDTH; Value: 13.1; Range: 11.5-14.5; Units: %; Status: F Test: PLATELET COUNT, AUTOMATED; Value: 296; Range: 150-450; Units: k/mm3; Status: F Test: NEUTROPHILS %; Value: 49.8; Range: 36.0-66.0; Units: %; Status: F Test: LYMPH %; Value: 40.9; Range: 24.0-44.0; Units: %; Status: F Test: MONO %; Value: 3.7; Range: 0.0-5.0; Units: %; Status: F Test: EOS %; Value: 2.9; Range: 0.0-3.0; Units: %; Status: F Test: BASO %; Value: 0.9; Range: 0.0-1.0; Units: %; Status: F Test: LARGE UNSTAINED CELL %; Value: 1.7; Range: 0.0-4.0; Units: %; Status: F Test: NEUTROPHILS #; Value: 4.1; Range: 1.8-7.7; Units: K/mm3; Status: F Test: LYMPH #; Value: 3.4; Range: 1.5-4.5; Units: K/mm3; Status: F Test: MONO #; Value: 0.3; Range: 0.0-0.8; Units: K/mm3; Status: F Test: EOS #; Value: 0.2; Range: 0.0-0.50; Units: K/mm3; Status: F Test: BASO #; Value: 0.1; Range: 0.0-0.2; Units: K/mm3; Status: F Test: LARGE UNSTAINED CELL #; Value: 0.1; Range: 0.0-0.4; Units: K/mm3; Status: F Lab Order: [facility]; SPEC'M 05/25/16 01:46 Test: GLUCOSE, FASTING; Value: 98; Range: 70-105; Units: MG/DL; Status: F Test: BLOOD UREA NITROGEN; Value: 10; Range: 7-18; Units: MG/DL; Status: F Test: CREATININE FOR GFR; Value: 0.71; Range: 0.55-1.02; Units: MG/DL; Status: F Test: GLOMERULAR FILTRATION RATE; Value: > 60.0; Range: >60; Status: F Test: SODIUM LEVEL; Value: 143; Range: 136-145; Units: MEQ/L; Status: F Test: POTASSIUM SERUM; Value: 3.7; Range: 3.5-5.1; Units: MEQ/L; Status: F Test: CHLORIDE LEVEL; Value: 107; Range: 98-107; Units: MEQ/L; Status: F Test: CARBON DIOXIDE LEVEL; Value: 28; Range: 21-32; Units: MEQ/L; Status: F Test: ANION GAP; Value: 8; Range: 8-16; Units: MEQ/L; Status: F Test: CALCIUM LEVEL; Value: 8.5; Range: 8.5-10.1; Units: MG/DL; Status: F Test Note: ; Units are mL/min/1.73 m2 Chronic Kidney Disease Staging per NKF: Stage I & II GFR >=60 Normal to Mildly Decreased Stage III GFR 30-59 Moderately Decreased Stage IV GFR 15-29 Severely Decreased Stage V GFR <15 Very Little GFR Left ESRD GFR <15 on [employer] Lab Order: UA; SPEC'M 05/25/16 01:42 Test: APPEARANCE, URINE; Value: HAZY; Range: CLEAR; Status: F Test: COLOR, URINE; Value: YELLOW; Range: YELLOW; Status: F Test: PH,URINE; Value: 6.0; Range: 5.0-9.0; Units: UNITS; Status: F Test: SPECIFIC GRAVITY URINE AUTO; Value: 1.021; Range: 1.002-1.035; Status: F Test: PROTEIN, URINE AUTO; Value: NEGATIVE; Range: NEGATIVE; Units: mg/dL; Status: F Test: GLUCOSE, URINE (UA) AUTO; Value: NEGATIVE; Range: NEGATIVE; Units: mg/dL; Status: F Test: KETONE, URINE AUTO; Value: TRACE; Range: NEGATIVE; Abnormal: Above high normal; Units: mg/dL; Status: F Test: UROBILINOGEN, URINE AUTO; Value: 2.0; Range: 0.0-2.0; Abnormal: Above high normal; Units: mg/dL; Status: F Test: BILIRUBIN, URINE AUTO; Value: NEGATIVE; Range: NEGATIVE; Status: F Test: NITRITE, URINE AUTO; Value: NEGATIVE; Range: NEGATIVE; Status: F Test: LEUKOCYTE ESTERASE, URINE AUTO; Value: NEGATIVE; Range: NEGATIVE; Status: F Test: BLOOD, URINE BLOOD; Value: NEGATIVE; Range: NEGATIVE; Status: F Test: WBC, URINE AUTO; Value: 3; Range: 0-3; Units: /HPF; Status: F Test: RBC, URINE AUTO; Value: 3; Range: 0-3; Units: /HPF; Status: F Test: BACTERIA, URINE AUTO; Value: 1+; Range: NEGATIVE; Abnormal: Above high normal; Status: F Test: SQUAMOUS EPITHELIAL CELL UR AU; Value: 9; Range: 0-6; Units: /HPF; Status: F Test: MUCUS, URINE; Value: SMALL; Range: NEGATIVE; Status: F Test: HYALINE CAST, URINE AUTO; Value: 0; Range: 0-1; Units: /LPF; Status: F Lab Order: Urine Culture; SPEC'M 05/25/16 01:42 Test: URINE CULTURE; Value: <EXTERNAL COMMENT eCWMed> FULL REPORT IN LAB NOTES (eCW and Medent).; Status: F Test: URINE CULTURE; Value: URINE CULTURE RESULT SPECIMEN APPEARS CONTAMINATED; Status: F Lab Order: Urine Test-In Lab; SPEC'M 05/25/16 01:42 Test: URINE PREG TEST; Value: NEGATIVE; Range: NEGATIVE; Status: F Outcome: 02:30 Discharge ordered by Provider. mo1 02:36 Discharge Assessment: Patient awake, alert and oriented x 3. No cognitive and/or slm functional deficits noted. Patient verbalized understanding of disposition instructions. patient administered narcotics - yes. Pt provided with safe discharge. The following High Risk Discharge criteria are identified: None. Discharged to home ambulatory. Condition: good Condition: improved. Discharge instructions given to patient, Instructed on discharge instructions, follow up and referral plans. Demonstrated understanding of instructions, medications, Pt was receptive of discharge instructions/ teaching. No special radiology studies were completed. Property :Personal belongings accompany Pt. 02:41 Patient left the ED. slm Signatures: Maya Vick, TALA RN km Prasad Hernandez PA PA mo1 Dianna Gleason,[employer] LEADER slm Hodan Funes, Reg Reg hs2 Naa Quinn Chart Complete MTDD
--- NOTE | 2016-05-27 03:43 | EDDOCDS ---
Physician Documentation [facility] Name: Diana Hernandez Age: 30 yrs Sex: Female : 1985 Arrival Date: 05/25/2016 Time: 01:02 Bed I5 / M5 Private MD: Disposition: 05/25/16 02:30 Discharged to Home/Self Care. Impression: Low back pain, Vomiting. - Condition is Stable. - Discharge Instructions: Back Pain, Adult, Nausea and Vomiting. - Medication Reconciliation, Local Pharmacy Hours form. - Follow up: Private Physician; When: Call to arrange an appointment; Reason: Recheck today's complaints, Continuance of care. - Problem is an acute exacerbation. - Symptoms are unchanged. Historical: - Allergies: Bactrim (Hives); Codeine Sulfatethroat swells; Ibuprofen (Anaphylaxis); Toradol (Hives); Tramadol HCl (Hives); - Home Meds: 1. buspirone 10 mg Oral tab 1 tab 2 times per day (Last dose: 05/24/2016) 2. capsaicin Topical 3 times per day (Last dose: 05/24/2016) 3. dicyclomine 10 mg Oral cap 1 cap three times per day as needed (Last dose: 05/24/2016) 4. divalproex 250 mg oral Tb24 (Last dose: 05/24/2016) 5. lidocaine jelly 1 application three times a day (Last dose: 05/24/2016) 6. melatonin 3 mg Oral tab 1 mg as needed (Last dose: 05/24/2016) 7. prednisone 10 mg Oral tab 3 tabs once daily (Last dose: 05/24/2016) 8. pregabalin 150 mg Oral cap 1 cap 2 times per day (Last dose: 05/24/2016) 9. Rozerem 8 mg oral tab 1 tab once daily (Last dose: 05/24/2016) 10. Seroquel 100 mg Oral tab 2 times per day (Last dose: 05/24/2016) 11. tizanidine 2 mg oral tab 1 tabs every 3 hours as needed (Last dose: 05/24/2016) 12. topiramate 25 mg oral tab 2 times per day (Last dose: 05/24/2016) 13. Truvada 200-300 mg oral tab once daily (Last dose: 05/24/2016) 14. Xanax 0.25 mg Oral tab as needed out of Rx (Last dose: 05/24/2016) - PMHx: Anxiety; Bipolar disorder; Cellulitis Right Jaw; Chronic Back pain; Crohn's; Depression; Sciatica; Seizures; Substance Abuse; uterine cancer; Kidney stones; - PSHx: Cholecystectomy; ; Laparoscopy; Hysterectomy; - Social history: Smoking status: Patient uses tobacco products, light tobacco smoker. No barriers to communication noted, The patient speaks fluent Nicaraguan, Speaks appropriately for age. - : The pt / caregiver states he / she is not on anticoagulants. Home medication list is obtained from the patient, [employer] import data. - Exposure Risk Screening:: None identified. SKIDDER RUNNER: 05/25 01:22 LMP N/A - Hysterectomy km Vital Signs: 01:22 BP 119 / 63; Pulse 102; Resp 16; Temp 97.7(O); Pulse Ox 98% on R/A; Weight 81.65 kg / kmg1 180.01 lbs (R); Height 5 ft. 5 in. (165.10 cm) (R); Pain 9/10; 02:34 BP 121 / 71; Pulse 90; Resp 18; Temp 97.1; Pulse Ox 97% on R/A; slm 02:35 Pain 0/10; slm 01:22 Body Mass Index 29.95 (81.65 kg, 165.10 cm) km MDM: 01:36 oxyCODONE-acetaminophen 5 mg-325 mg 1 tabs PO once ordered. mo1 01:36 Ondansetron ODT Oral Disintegrating Tablet 4 mg PO once ordered. mo1 01:37 CBC with Diff Ordered. EDMS 01:37 BMP Ordered. EDMS 01:37 UA Ordered. EDMS 01:37 Urine Culture Ordered. EDMS 01:39 Urine Test-In Lab Ordered. EDMS 02:02 Financial registration complete. hs2 02:07 UA Reviewed. mo1 02:08 CBC with Diff Reviewed. mo1 02:08 Urine Test-In Lab Reviewed. mo1 02:27 BMP Reviewed. mo1 04:50 [facility] Payment Agreement was scanned into [employer] and attached to record. hs2 09:22 T-Sheet-- Draft Copy was scanned into [employer] and attached to record. [facility] Administered Medications: 01:49 Drug: oxyCODONE-acetaminophen 1 tabs [oxycodone-acetaminophen 5 mg-325 mg tablet (1 slm tabs)] Route: PO; 02:35 Follow up: Pain 0/10 Adult [facility] 01:49 Drug: Ondansetron ODT 4 mg [ondansetron 4 mg disintegrating tablet (1 tabs)] Route: PO; [facility] Signatures: Dispatcher [employer] EDMaya Gu RN RN kmg1 Prasad Hernandez PA PA mo1 Dianna Gleason LPN POLYMER CHEMIST [facility] Hodan Funes, Reg Reg hs2 Naa Quinn [facility] The chart was reviewed and I authenticate all verbal orders and agree with the evaluation and treatment provided.Attachments: 04:50 [facility] Payment Agreement hs2 09:22 T-Sheet-- Draft Copy [facility] Chart Complete MTDD
--- NOTE | 2016-05-27 03:43 | EDDOCDS ---
Physician Documentation [facility] Name: Diana Hernandez Age: 30 yrs Sex: Female : 1985 Arrival Date: 05/25/2016 Time: 01:02 Bed I5 / M5 Private MD: Disposition: 05/25/16 02:30 Discharged to Home/Self Care. Impression: Low back pain, Vomiting. - Condition is Stable. - Discharge Instructions: Back Pain, Adult, Nausea and Vomiting. - Medication Reconciliation, Local Pharmacy Hours form. - Follow up: Private Physician; When: Call to arrange an appointment; Reason: Recheck today's complaints, Continuance of care. - Problem is an acute exacerbation. - Symptoms are unchanged. Historical: - Allergies: Bactrim (Hives); Codeine Sulfatethroat swells; Ibuprofen (Anaphylaxis); Toradol (Hives); Tramadol HCl (Hives); - Home Meds: 1. buspirone 10 mg Oral tab 1 tab 2 times per day (Last dose: 05/24/2016) 2. capsaicin Topical 3 times per day (Last dose: 05/24/2016) 3. dicyclomine 10 mg Oral cap 1 cap three times per day as needed (Last dose: 05/24/2016) 4. divalproex 250 mg oral Tb24 (Last dose: 05/24/2016) 5. lidocaine jelly 1 application three times a day (Last dose: 05/24/2016) 6. melatonin 3 mg Oral tab 1 mg as needed (Last dose: 05/24/2016) 7. prednisone 10 mg Oral tab 3 tabs once daily (Last dose: 05/24/2016) 8. pregabalin 150 mg Oral cap 1 cap 2 times per day (Last dose: 05/24/2016) 9. Rozerem 8 mg oral tab 1 tab once daily (Last dose: 05/24/2016) 10. Seroquel 100 mg Oral tab 2 times per day (Last dose: 05/24/2016) 11. tizanidine 2 mg oral tab 1 tabs every 3 hours as needed (Last dose: 05/24/2016) 12. topiramate 25 mg oral tab 2 times per day (Last dose: 05/24/2016) 13. Truvada 200-300 mg oral tab once daily (Last dose: 05/24/2016) 14. Xanax 0.25 mg Oral tab as needed out of Rx (Last dose: 05/24/2016) - PMHx: Anxiety; Bipolar disorder; Cellulitis Right Jaw; Chronic Back pain; Crohn's; Depression; Sciatica; Seizures; Substance Abuse; uterine cancer; Kidney stones; - PSHx: Cholecystectomy; ; Laparoscopy; Hysterectomy; - Social history: Smoking status: Patient uses tobacco products, light tobacco smoker. No barriers to communication noted, The patient speaks fluent Iranian, Speaks appropriately for age. - : The pt / caregiver states he / she is not on anticoagulants. Home medication list is obtained from the patient, [employer] import data. - Exposure Risk Screening:: None identified. ASPHALT BLENDER: 05/25 01:22 LMP N/A - Hysterectomy km Vital Signs: 01:22 BP 119 / 63; Pulse 102; Resp 16; Temp 97.7(O); Pulse Ox 98% on R/A; Weight 81.65 kg / kmg1 180.01 lbs (R); Height 5 ft. 5 in. (165.10 cm) (R); Pain 9/10; 02:34 BP 121 / 71; Pulse 90; Resp 18; Temp 97.1; Pulse Ox 97% on R/A; slm 02:35 Pain 0/10; slm 01:22 Body Mass Index 29.95 (81.65 kg, 165.10 cm) km MDM: 01:36 oxyCODONE-acetaminophen 5 mg-325 mg 1 tabs PO once ordered. mo1 01:36 Ondansetron ODT Oral Disintegrating Tablet 4 mg PO once ordered. mo1 01:37 CBC with Diff Ordered. EDMS 01:37 BMP Ordered. EDMS 01:37 UA Ordered. EDMS 01:37 Urine Culture Ordered. EDMS 01:39 Urine Test-In Lab Ordered. EDMS 02:02 Financial registration complete. hs2 02:07 UA Reviewed. mo1 02:08 CBC with Diff Reviewed. mo1 02:08 Urine Test-In Lab Reviewed. mo1 02:27 BMP Reviewed. mo1 04:50 [facility] Payment Agreement was scanned into [employer] and attached to record. hs2 09:22 T-Sheet-- Draft Copy was scanned into [employer] and attached to record. [facility] Administered Medications: 01:49 Drug: oxyCODONE-acetaminophen 1 tabs [oxycodone-acetaminophen 5 mg-325 mg tablet (1 slm tabs)] Route: PO; 02:35 Follow up: Pain 0/10 Adult [facility] 01:49 Drug: Ondansetron ODT 4 mg [ondansetron 4 mg disintegrating tablet (1 tabs)] Route: PO; [facility] Signatures: Dispatcher [employer] EDMaya Gu RN RN kmg1 Prasad Hernandez PA PA mo1 Dianna Gleason LPN [employer] [facility] Hodan Funes, Reg Reg hs2 Naa Quinn [facility] The chart was reviewed and I authenticate all verbal orders and agree with the evaluation and treatment provided.Attachments: 04:50 [facility] Payment Agreement hs2 09:22 T-Sheet-- Draft Copy [facility] Chart Complete MTDD
== END 2016-05-25 02:41 | disposition home or self-care (01) ==
LOC: M ED 01:02
DX: R10.9 Unspecified abdominal pain (principal); R11.2 Nausea with vomiting, unspecified; R19.7 Diarrhea, unspecified; F31.9 Bipolar disorder, unspecified; G89.29 Other chronic pain; M54.30 Sciatica, unspecified side; K50.90 Crohn's disease, unspecified, without complications; R56.9 Unspecified convulsions; N80.9 Endometriosis, unspecified; Z85.42 Personal history of malignant neoplasm of other parts of uterus; Z87.442 Personal history of urinary calculi; F41.9 Anxiety disorder, unspecified; F19.10 Other psychoactive substance abuse, uncomplicated; Z79.899 Other long term (current) drug therapy; Z79.52 Long term (current) use of systemic steroids; Z88.1 Allergy status to other antibiotic agents; Z88.2 Allergy status to sulfonamides; Z88.5 Allergy status to narcotic agent; Z88.6 Allergy status to analgesic agent; Z88.8 Allergy status to other drugs, medicaments and biological substances; F17.210 Nicotine dependence, cigarettes, uncomplicated

== ENCOUNTER 2016-06-10 01:17 | Emergency (ER) | payer OTHER ==
[~2016-06-10] VITALS: Ht 165.1 cm; Wt 81.6 kg
[2016-06-10] MEDS ORDERED: LYRI75CA PO (01:39)
[2016-06-10] MEDS ORDERED: NS 1,000 ML IV ONE (05:30)
[2016-06-10 05:56] LABS: BASO % 0.6 % (0.0-1.0); EOS # 0.2 K/mm3 (0.0-0.50); EOS % 3.5 % (0.0-3.0); LARGE UNSTAINED CELL # 0.1 K/mm3 (0.0-0.4); LARGE UNSTAINED CELL % 1.3 % (0.0-4.0); LYMPH % 32.4 % (24.0-44.0); MEAN CORPUSCULAR HEMOGLOBIN 32.4 pg (27.0-33.0); MEAN CORPUSCULAR HGB CONC 33.9 g/dl (32.0-36.5); MEAN CORPUSCULAR VOLUME 95.6 fl (80.0-96.0); MONO # 0.4 K/mm3 (0.0-0.8); MONO % 6.1 % (0.0-5.0); NEUTROPHILS # 3.5 K/mm3 (1.8-7.7); NEUTROPHILS % 56.2 % (36.0-66.0); PLATELET COUNT, AUTOMATED 252 k/mm3 (150-450); RED CELL DISTRIBUTION WIDTH 12.8 % (11.5-14.5); WHITE BLOOD COUNT 6.3 K/mm3 (4.0-10.0)
[2016-06-10 06:09] LABS: CONTROL LINE HCG INT CTR LINE PRESENT
[2016-06-10] MEDS ORDERED: ONDANSETRON 4MG/2ML VIAL (J2405) IV ONE (06:15)
[2016-06-10] MEDS ORDERED: MORPHINE 4 MG/ML 1ML SYRINGE IV PRN (06:15)
[2016-06-10 06:17] LABS: ALBUMIN 3.8 GM/DL (3.2-5.2); ALBUMIN/GLOBULIN RATIO 1.19 (1.00-1.93); ALKALINE PHOSPHATASE 78 U/L (45-117); ALT/SGPT 17 U/L (12-78); ANION GAP 7 MEQ/L (8-16); AST/SGOT 12 U/L (15-37); BILIRUBIN,DIRECT < 0.1 MG/DL (0.0-0.2); BILIRUBIN,TOTAL 0.2 MG/DL (0.2-1.0); BLOOD UREA NITROGEN 10 MG/DL (7-18); CALCIUM LEVEL 8.4 MG/DL (8.5-10.1); CARBON DIOXIDE LEVEL 27 MEQ/L (21-32); CHLORIDE LEVEL 111 MEQ/L (98-107); GLOMERULAR FILTRATION RATE > 60.0 (>60); GLUCOSE, FASTING 86 MG/DL (70-105); POTASSIUM SERUM 3.6 MEQ/L (3.5-5.1); SODIUM LEVEL 145 MEQ/L (136-145)
--- NOTE | 2016-06-10 08:41 | REP ---
CT study of the abdomen and pelvis without IV or oral contrast: History: Renal colic. Comparison study April 26, 2016. CT findings: Digital warehouse assembly worker radiograph demonstrates clips in the right upper quadrant consistent with previous cholecystectomy. The lung bases are clear. The liver and the spleen are normal in size, homogeneous in texture. There are several accessory splenules again noted. No adrenal lesion is seen on either side. No pancreatic abnormality is observed. No intrarenal calculus or hydronephrosis is seen. The kidneys appear morphologically intact. Normal caliber aorta is seen. No bladder calculus or ureteral calculus is seen. A normal appendix is observed. Seminal vesicles and prostate are intact. Small and large intestinal bowel loops are normal. No abdominal wall defect is seen. No bony destructive lesion is appreciated. Impression: Patient status post prior cholecystectomy. No urinary tract calculus is seen. No hydronephrosis is seen. No acute intra-abdominal abnormality. Signed by Maynor Omer MD 06/10/2016 12:16 P
[2016-06-10 09:12] VITALS: BP 122/73
== END 2016-06-10 09:24 | disposition home or self-care (01) ==
LOC: M ED 03:20
DX: G89.29 Other chronic pain (principal); R10.9 Unspecified abdominal pain; R11.0 Nausea; Z87.442 Personal history of urinary calculi; Z79.899 Other long term (current) drug therapy; Z88.2 Allergy status to sulfonamides; Z88.5 Allergy status to narcotic agent; Z88.8 Allergy status to other drugs, medicaments and biological substances; L23.1 Allergic contact dermatitis due to adhesives
CPT/HCPCS: 36415; 74176; 80048; 80076; 81001; 83690; 84703; 85025; 87086; 93041; 96374; 96375; 99284; J2405

== ENCOUNTER 2016-06-13 02:35 | Emergency (ER) | payer OTHER ==
[~2016-06-13] VITALS: Ht 165.1 cm; Wt 81.6 kg
[~2016-06-13 02:35] MED LIST changes: +LYRI75CA PO
[2016-06-13 03:51] LABS: EOS # 0.2 K/mm3 (0.0-0.50); LARGE UNSTAINED CELL # 0.1 K/mm3 (0.0-0.4); LARGE UNSTAINED CELL % 2.3 % (0.0-4.0); LYMPH # 1.8 K/mm3 (1.5-4.5); LYMPH % 37.1 % (24.0-44.0); MEAN CORPUSCULAR HEMOGLOBIN 31.5 pg (27.0-33.0); MEAN CORPUSCULAR HGB CONC 33.8 g/dl (32.0-36.5); MEAN CORPUSCULAR VOLUME 93.4 fl (80.0-96.0); MONO # 0.4 K/mm3 (0.0-0.8); MONO % 8.3 % (0.0-5.0); NEUTROPHILS # 2.1 K/mm3 (1.8-7.7); NEUTROPHILS % 46.3 % (36.0-66.0); PLATELET COUNT, AUTOMATED 236 k/mm3 (150-450); RED CELL DISTRIBUTION WIDTH 12.9 % (11.5-14.5); WHITE BLOOD COUNT 4.6 K/mm3 (4.0-10.0)
[2016-06-13 03:53] LABS: CONTROL LINE HCG INT CTR LINE PRESENT
[2016-06-13 04:00] LABS: ALBUMIN 3.8 GM/DL (3.2-5.2); ALBUMIN/GLOBULIN RATIO 1.27 (1.00-1.93); ALKALINE PHOSPHATASE 89 U/L (45-117); ALT/SGPT 44 U/L (12-78); AMYLASE 31 U/L (25-115); ANION GAP 9 MEQ/L (8-16); AST/SGOT 21 U/L (15-37); BILIRUBIN,DIRECT < 0.1 MG/DL (0.0-0.2); BILIRUBIN,TOTAL 0.2 MG/DL (0.2-1.0); BLOOD UREA NITROGEN 10 MG/DL (7-18); CALCIUM LEVEL 8.5 MG/DL (8.5-10.1); CARBON DIOXIDE LEVEL 27 MEQ/L (21-32); CHLORIDE LEVEL 109 MEQ/L (98-107); CREATININE FOR GFR 0.61 MG/DL (0.55-1.02); GLOMERULAR FILTRATION RATE > 60.0 (>60); GLUCOSE, FASTING 130 MG/DL (70-105); POTASSIUM SERUM 3.1 MEQ/L (3.5-5.1); SODIUM LEVEL 145 MEQ/L (136-145); TOTAL PROTEIN 6.8 GM/DL (6.4-8.2)
[2016-06-13] MEDS ORDERED: ACETAMINOPHEN 325 MG TAB PO ONE (04:00)
[2016-06-13 04:19] LABS: CALCIUM OXALATE CRYSTALS MODERATE
[2016-06-13] MEDS ORDERED: POTASSIUM CHLORIDE 10 MEQ SR TABLET PO ONE (04:30)
--- NOTE | 2016-06-13 05:20 | REPUSA ---
CLINICAL HISTORY: Abdominal pain. TECHNIQUE: Multiple axial, sagittal and coronal CT images were obtained through the abdomen and pelvi s without administration of oral or IV contrast material. COMMENTS: The liver is of uniform attenuation without mass or defect. There is no intra or extrahepatic biliary ductal dilatation. The spleen is normal. The gallbladder is within normal limits. The pancreas is of normal contour and attenuation characteristics. There is no evidence of adrenal mass. The kidneys are normal in size, shape and configuration. No renal or ureteral calculi are identified. There is no hydroureter or hydronephrosis. There is no evidence for appendicitis. There is no bowel wall thickening. No evidence for small or la rge bowel obstruction. There is no evidence of abdominal ascites or lymphadenopathy. There is no evidence of intrinsic or extrinsic bladder mass. There is no pelvic ascites or lymphadeno irene. Fluid-filled distended stomach suggestive of gastroparesis. Prior hysterectomy. Mild/moderate fecal s tasis. Mildly thickened bladder. Images of the lung bases show no evidence of pleural or parenchymal mass. There are no pleural effusi ons. The bony structures are free of lytic or blastic lesions. IMPRESSION: Gastroparesis. Hysterectomy. Mildly thickened bladder. Thank you for your kind referral of this patient.
[2016-06-13 06:01] VITALS: BP 128/82
== END 2016-06-13 06:02 | disposition home or self-care (01) ==
LOC: M ED 03:09
DX: Z76.5 Malingerer [conscious simulation] (principal); G89.29 Other chronic pain; R10.9 Unspecified abdominal pain; K31.84 Gastroparesis; F32.9 Major depressive disorder, single episode, unspecified; F17.200 Nicotine dependence, unspecified, uncomplicated; Z90.49 Acquired absence of other specified parts of digestive tract; Z90.79 Acquired absence of other genital organ(s); Z88.5 Allergy status to narcotic agent; Z88.6 Allergy status to analgesic agent; Z88.8 Allergy status to other drugs, medicaments and biological substances; Z91.09 Other allergy status, other than to drugs and biological substances

== ENCOUNTER 2016-06-25 21:24 | Emergency (ER) | payer OTHER ==
[~2016-06-25] VITALS: Ht 165.1 cm; Wt 81.6 kg
[2016-06-25 22:55] LABS: BASO % 0.7 % (0.0-1.0); EOS # 0.2 K/mm3 (0.0-0.50); EOS % 3.1 % (0.0-3.0); LARGE UNSTAINED CELL # 0.1 K/mm3 (0.0-0.4); LARGE UNSTAINED CELL % 1.3 % (0.0-4.0); LYMPH # 2.7 K/mm3 (1.5-4.5); LYMPH % 41.8 % (24.0-44.0); MEAN CORPUSCULAR HEMOGLOBIN 32.5 pg (27.0-33.0); MEAN CORPUSCULAR HGB CONC 34.1 g/dl (32.0-36.5); MONO # 0.3 K/mm3 (0.0-0.8); NEUTROPHILS # 3.1 K/mm3 (1.8-7.7); NEUTROPHILS % 49.1 % (36.0-66.0); PLATELET COUNT, AUTOMATED 260 k/mm3 (150-450); RED CELL DISTRIBUTION WIDTH 12.9 % (11.5-14.5); WHITE BLOOD COUNT 6.2 K/mm3 (4.0-10.0)
[2016-06-25] MEDS ORDERED: IBUPROFEN 600 MG TAB As Ordered ONE (23:41)
[2016-06-25] MEDS ORDERED: IBUPROFEN 600 MG TAB PO ONE (23:45)
[2016-06-25 23:46] LABS: CONTROL LINE HCG INT CTR LINE PRESENT
[2016-06-25 23:51] LABS: ANION GAP 8 MEQ/L (8-16); BLOOD UREA NITROGEN 8 MG/DL (7-18); CARBON DIOXIDE LEVEL 27 MEQ/L (21-32); CHLORIDE LEVEL 108 MEQ/L (98-107); CREATININE FOR GFR 0.52 MG/DL (0.55-1.02); GLOMERULAR FILTRATION RATE > 60.0 (>60); GLUCOSE, FASTING 87 MG/DL (70-105); POTASSIUM SERUM 3.4 MEQ/L (3.5-5.1); SODIUM LEVEL 143 MEQ/L (136-145)
[2016-06-26] MEDS ORDERED: ISOVUE-370 76% 100ML VIAL (Q9967) As Ordered ONE (00:05)
--- NOTE | 2016-06-26 00:30 | REPUSA ---
CT angiogram of the chest Clinical statement: Chest pain and shortness of breath. Technique: Multiple axial CT images were obtained from the thoracic inlet through the upper abdomen a fter a bolus administration of nonionic intravenous contrast. Coronal and sagittal reconstructions we re also obtained. No comparison is available. Findings: The pulmonary arteries are well-opacified with contrast, with no intraluminal filling defec ts to suggest embolism. The thoracic aorta is unremarkable. Thyroid gland is within normal limits. Th ere is no thoracic lymphadenopathy. There are no pericardial or pleural effusions. The lungs are larry r. Limited imaging of the upper abdomen is unremarkable. There are no suspicious osseous lesions. Impression: Unremarkable CT examination of the chest. No evidence of pulmonary embolism.
[2016-06-26 00:32] VITALS: BP 92/51
== END 2016-06-26 01:08 | disposition home or self-care (01) ==
LOC: M ED 21:58
DX: R07.89 Other chest pain (principal); G89.29 Other chronic pain; R10.9 Unspecified abdominal pain; F31.9 Bipolar disorder, unspecified; N20.0 Calculus of kidney; Z20.6 Contact with and (suspected) exposure to human immunodeficiency virus [HIV]; F17.200 Nicotine dependence, unspecified, uncomplicated; Z90.49 Acquired absence of other specified parts of digestive tract; Z79.899 Other long term (current) drug therapy; Z88.5 Allergy status to narcotic agent; Z88.6 Allergy status to analgesic agent; Z88.8 Allergy status to other drugs, medicaments and biological substances; Z91.89 Other specified personal risk factors, not elsewhere classified
CPT/HCPCS: 36415; 71275; 80048; 81001; 84703; 85025; 87086; 99283; Q9967

== ENCOUNTER → 2016-06-26 | Outpatient (CLI) | payer OTHER ==
[2016-06-26 15:26] LABS: MEAN CORPUSCULAR HEMOGLOBIN 32.3 pg (27.0-33.0); MEAN CORPUSCULAR HGB CONC 33.7 g/dl (32.0-36.5); MEAN CORPUSCULAR VOLUME 95.8 fl (80.0-96.0); RED CELL DISTRIBUTION WIDTH 12.9 % (11.5-14.5); WHITE BLOOD COUNT 6.7 K/mm3 (4.0-10.0)
[2016-06-26 16:05] LABS: ALBUMIN 3.9 GM/DL (3.2-5.2); ALBUMIN/GLOBULIN RATIO 1.22 (1.00-1.93); ALKALINE PHOSPHATASE 88 U/L (45-117); ALT/SGPT 34 U/L (12-78); AMYLASE 36 U/L (25-115); ANION GAP 6 MEQ/L (8-16); AST/SGOT 24 U/L (15-37); BILIRUBIN,TOTAL 0.4 MG/DL (0.2-1.0); BLOOD UREA NITROGEN 12 MG/DL (7-18); CALCIUM LEVEL 9.1 MG/DL (8.5-10.1); CARBON DIOXIDE LEVEL 28 MEQ/L (21-32); CHLORIDE LEVEL 107 MEQ/L (98-107); GLOMERULAR FILTRATION RATE > 60.0 (>60); GLUCOSE, FASTING 110 MG/DL (70-105); POTASSIUM SERUM 3.8 MEQ/L (3.5-5.1); SODIUM LEVEL 141 MEQ/L (136-145); TOTAL PROTEIN 7.1 GM/DL (6.4-8.2)
== END ==
LOC: M LAB 14:27
PROVIDERS: ATTEND Family Medicine
DX: D64.9 Anemia, unspecified (principal); N39.0 Urinary tract infection, site not specified

== ENCOUNTER 2016-07-10 15:08 | Emergency (ER) | payer OTHER ==
[~2016-07-10] VITALS: Ht 167.6 cm; Wt 81.6 kg
[2016-07-10 15:09] VITALS: BP 120/63
[2016-07-10] MEDS ORDERED: XANA1TAB2 PO (15:18)
[2016-07-10] MEDS ORDERED: ZANT300T PO (17:41)
[2016-07-10] MEDS ORDERED: NORCO, ANEXSIA 5/325MG TABLET (HYDROcodone/ACETAMINOPHEN) PO ONE (17:45)
[2016-07-11] MEDS ORDERED: NORCOTAB PO (19:33)
== END 2016-07-10 17:50 | disposition home or self-care (01) ==
LOC: M ED 16:52
DX: K58.9 Irritable bowel syndrome, unspecified (principal); R56.9 Unspecified convulsions; M54.5 Low back pain; D75.9 Disease of blood and blood-forming organs, unspecified; F41.9 Anxiety disorder, unspecified; F32.9 Major depressive disorder, single episode, unspecified; Z87.442 Personal history of urinary calculi; Z87.440 Personal history of urinary (tract) infections; Z79.899 Other long term (current) drug therapy; Z88.5 Allergy status to narcotic agent; Z88.8 Allergy status to other drugs, medicaments and biological substances; Z88.6 Allergy status to analgesic agent; Z91.89 Other specified personal risk factors, not elsewhere classified

== ENCOUNTER 2016-07-11 15:38 | Emergency (ER) | payer OTHER ==
[~2016-07-11] VITALS: Ht 165.1 cm; Wt 81.6 kg
[~2016-07-11 15:38] MED LIST changes: +XANA1TAB2 PO; +ZANT300T PO
[2016-07-11 15:39] VITALS: BP 126/66
[2016-07-11] MEDS ORDERED: ACETAMINOPHEN 325 MG TAB PO ONE (17:30)
[2016-07-11] MEDS ORDERED: NORCO, ANEXSIA 5/325MG TABLET (HYDROcodone/ACETAMINOPHEN) PO ONE (18:00)
--- NOTE | 2016-07-11 19:00 | REPUSA ---
CLINICAL HISTORY: Right flank pain. TECHNIQUE: Realtime sonographic images were obtained in multiple projections. COMMENTS: The right kidney measures 13.0 cm and the left kidney measures 11.3 cm. Both kidneys are free of hy dronephrosis. There is no evidence of solid or cystic mass. There is no perinephric fluid. There is n o renal calculus. IMPRESSION: Normal study. Thank you for your kind referral of this patient.
[2016-07-11] MEDS ORDERED: NORCOTAB PO (19:33)
== END 2016-07-11 19:57 | disposition home or self-care (01) ==
LOC: M ED 16:52
DX: G89.29 Other chronic pain (principal); R10.9 Unspecified abdominal pain; F31.9 Bipolar disorder, unspecified; R56.9 Unspecified convulsions; F17.200 Nicotine dependence, unspecified, uncomplicated; Z79.899 Other long term (current) drug therapy; Z88.5 Allergy status to narcotic agent; Z88.8 Allergy status to other drugs, medicaments and biological substances; Z88.6 Allergy status to analgesic agent; Z88.0 Allergy status to penicillin; Z91.89 Other specified personal risk factors, not elsewhere classified

== ENCOUNTER → 2016-07-17 | Outpatient (CLI) | payer OTHER ==
[~2016-07-17] MED LIST changes: +E-Z PAQUE 60% w/v SUSP 355ML BOTTLE As Ordered ONE; +E-Z-GAS II EFFERVESCENT PACKET (SODIUM BICARB./CITRIC ACID/SIMETHICONE) As Ordered ONE; +E-Z-HD 98% w/w 340GM SUSP BTL As Ordered ONE
--- NOTE | 2016-07-17 17:51 | REP ---
UPPER GI, AIR CONTRAST: The procedure was performed under the direct supervision of Dr. Omer. The images were reviewed with Dr. Omer. The field pipe lines supervisor films shows no organomegaly or pathological masses. The intestinal gas pattern is nonspecific. There are surgical clips noted in the right upper quadrant. Liquid barium and gas-producing granules were given in the erect position as well as liquid barium in the prone oblique position in order to perform a double-contrast upper GI examination. The oral and pharyngeal stage of deglutition are unremarkable. Esophageal transport is prompt and efficient and there is no esophagitis, stricture, mucosal ring, or hiatal hernia. There is full column gastroesophageal reflux demonstrated to the level of the thoracic inlet. The stomach mills are normally outlined. The rugal folds are smooth and regular. There is no gastritis, neoplasm, or ulcer disease. The duodenal mills are normally outlined. The mucosal folds are smooth and regular. There is no duodenitis, pancreatitis, peptic ulcer disease, or neoplasm. The visualized portion of the proximal small bowel appears normal in course and caliber. IMPRESSION: There is full column gastroesophageal reflux demonstrated to the level of the thoracic inlet. Otherwise unremarkable double contrast upper GI examination. 2 minutes and 19 seconds of fluoroscopic time was utilized for this procedure. Reviewed by NATALIIA Peetrson 07/18/2016 04:07 PEdited and Signed by Maynor Omer MD 07/18/2016 04:45 P
== END ==
LOC: M RAD 08:54
PROVIDERS: ATTEND Family Medicine
DX: R10.13 Epigastric pain (principal); K27.9 Peptic ulcer, site unspecified, unspecified as acute or chronic, without hemorrhage or perforation

== ENCOUNTER 2016-07-31 01:34 | Emergency (ER) | payer OTHER ==
[~2016-07-31] VITALS: Ht 165.1 cm; Wt 81.6 kg
[~2016-07-31 01:34] MED LIST changes: -E-Z PAQUE 60% w/v SUSP 355ML BOTTLE As Ordered ONE; -E-Z-GAS II EFFERVESCENT PACKET (SODIUM BICARB./CITRIC ACID/SIMETHICONE) As Ordered ONE; -E-Z-HD 98% w/w 340GM SUSP BTL As Ordered ONE
[2016-07-31 01:48] VITALS: BP 145/58
[2016-07-31 03:23] LABS: CONTROL LINE UCG INT CTR LINE PRESENT
[2016-07-31 03:39] LABS: BASO % 0.5 % (0.0-1.0); EOS # 0.3 K/mm3 (0.0-0.50); LARGE UNSTAINED CELL # 0.1 K/mm3 (0.0-0.4); LARGE UNSTAINED CELL % 1.2 % (0.0-4.0); LYMPH # 2.8 K/mm3 (1.5-4.5); LYMPH % 25.7 % (24.0-44.0); MEAN CORPUSCULAR HEMOGLOBIN 32.1 pg (27.0-33.0); MEAN CORPUSCULAR HGB CONC 33.3 g/dl (32.0-36.5); MEAN CORPUSCULAR VOLUME 96.5 fl (80.0-96.0); MONO # 0.4 K/mm3 (0.0-0.8); MONO % 3.5 % (0.0-5.0); NEUTROPHILS # 6.8 K/mm3 (1.8-7.7); PLATELET COUNT, AUTOMATED 255 k/mm3 (150-450); RED CELL DISTRIBUTION WIDTH 13.1 % (11.5-14.5); WHITE BLOOD COUNT 10.3 K/mm3 (4.0-10.0)
[2016-07-31 04:00] LABS: ALBUMIN 3.4 GM/DL (3.2-5.2); ALBUMIN/GLOBULIN RATIO 1.13 (1.00-1.93); ALKALINE PHOSPHATASE 85 U/L (45-117); ALT/SGPT 17 U/L (12-78); ANION GAP 7 MEQ/L (8-16); AST/SGOT 9 U/L (15-37); BILIRUBIN,DIRECT < 0.1 MG/DL (0.0-0.2); BILIRUBIN,TOTAL 0.2 MG/DL (0.2-1.0); BLOOD UREA NITROGEN 10 MG/DL (7-18); CALCIUM LEVEL 8.2 MG/DL (8.5-10.1); CARBON DIOXIDE LEVEL 28 MEQ/L (21-32); CHLORIDE LEVEL 108 MEQ/L (98-107); CREATININE FOR GFR 0.65 MG/DL (0.55-1.02); GLOMERULAR FILTRATION RATE > 60.0 (>60); GLUCOSE, FASTING 95 MG/DL (70-105); POTASSIUM SERUM 3.5 MEQ/L (3.5-5.1); SODIUM LEVEL 143 MEQ/L (136-145); TOTAL PROTEIN 6.4 GM/DL (6.4-8.2)
[2016-07-31] MEDS ORDERED: MORPHINE 2 MG/ML 1ML SYRINGE IV ONE (04:00)
[2016-07-31] MEDS ORDERED: PERCOCET 5MG/325MG TAB PO ONE (04:30)
[2016-07-31] MEDS ORDERED: KETOROLAC 30 MG/ML VIAL (J1885) IV ONE (04:30)
== END 2016-07-31 05:03 | disposition home or self-care (01) ==
LOC: M ED 03:04
DX: R10.9 Unspecified abdominal pain (principal); F33.9 Major depressive disorder, recurrent, unspecified; F41.9 Anxiety disorder, unspecified; F19.10 Other psychoactive substance abuse, uncomplicated; N80.9 Endometriosis, unspecified; F17.200 Nicotine dependence, unspecified, uncomplicated

== ENCOUNTER 2016-08-03 23:43 | Emergency (ER) | payer OTHER ==
[2016-08-04] MEDS ORDERED: NS 1,000 ML IV ONE (02:45)
[2016-08-04] MEDS ORDERED: ONDANSETRON 4MG/2ML VIAL (J2405) IV ONE (02:45)
[2016-08-04] MEDS: MORPHINE 4 MG/ML 1ML SYRINGE IV PRN ×2 (02:52→03:22)
[2016-08-04 02:55] LABS: BASO # 0.1 K/mm3 (0.0-0.2); EOS # 0.3 K/mm3 (0.0-0.50); LARGE UNSTAINED CELL # 0.1 K/mm3 (0.0-0.4); LARGE UNSTAINED CELL % 1.7 % (0.0-4.0); LYMPH # 3.4 K/mm3 (1.5-4.5); MEAN CORPUSCULAR HGB CONC 33.1 g/dl (32.0-36.5); MEAN CORPUSCULAR VOLUME 96.6 fl (80.0-96.0); MONO # 0.3 K/mm3 (0.0-0.8); MONO % 4.2 % (0.0-5.0); NEUTROPHILS # 3.7 K/mm3 (1.8-7.7); NEUTROPHILS % 47.1 % (36.0-66.0); PLATELET COUNT, AUTOMATED 295 k/mm3 (150-450); RED CELL DISTRIBUTION WIDTH 12.9 % (11.5-14.5); WHITE BLOOD COUNT 7.8 K/mm3 (4.0-10.0)
[2016-08-04 03:20] LABS: CONTROL LINE HCG INT CTR LINE PRESENT
[2016-08-04 03:28] LABS: ALBUMIN 3.7 GM/DL (3.2-5.2); ALBUMIN/GLOBULIN RATIO 1.06 (1.00-1.93); ALKALINE PHOSPHATASE 91 U/L (45-117); ALT/SGPT 22 U/L (12-78); ANION GAP 5 MEQ/L (8-16); AST/SGOT 14 U/L (15-37); BILIRUBIN,DIRECT < 0.1 MG/DL (0.0-0.2); BILIRUBIN,TOTAL 0.2 MG/DL (0.2-1.0); BLOOD UREA NITROGEN 10 MG/DL (7-18); CALCIUM LEVEL 8.5 MG/DL (8.5-10.1); CARBON DIOXIDE LEVEL 31 MEQ/L (21-32); CHLORIDE LEVEL 106 MEQ/L (98-107); CREATININE FOR GFR 0.68 MG/DL (0.55-1.02); GLOMERULAR FILTRATION RATE > 60.0 (>60); GLUCOSE, FASTING 92 MG/DL (70-105); POTASSIUM SERUM 3.5 MEQ/L (3.5-5.1); SODIUM LEVEL 142 MEQ/L (136-145); TOTAL PROTEIN 7.2 GM/DL (6.4-8.2)
[2016-08-04] MEDS ORDERED: HYDROmorphone HCL 1 MG/ML SYRINGE (J1170) IV ONE ×2 (03:45→06:00)
[2016-08-04] MEDS ORDERED: OXYC1TAB23 PO (06:23)
[2016-08-04 06:40] VITALS: BP 114/70
--- NOTE | 2016-08-04 07:00 | REPUSA ---
TECHNIQUE: CT the abdomen and pelvis was performed without contrast utilizing a standard protocol. 2- D sagittal and coronal reformatted images were also performed. HISTORY: RT FLANK PAIN COMPARISON: Exam dated 06/13/2016. FINDINGS: The lower thorax is unremarkable as seen. The abdomen and pelvis demonstrate cholecystectomy. There are no renal or ureteral calculi and no hydroureteronephrosis is appreciated. The bowel loops and mesentery and internal organs are unremarkable as seen within the limits of a non contrast exam. The appendix is very thin and unremarkable, though contains some subtle nonspecific internal hyperden sity/mineralization. Hysterectomy is noted. There is no free fluid in the abdomen or pelvis and no lymphadenopathy or free air is appreciated. The osseous structures as seen and the overlying soft tissues and the remainder of this exam is unrem arkable. IMPRESSION: 1. Unremarkable CT of the abdomen and pelvis within the limits of a noncontrast exam. Thank you for this referral and allowing us to care for your patient.
== END 2016-08-04 06:52 | disposition home or self-care (01) ==
LOC: M ED 08-04 01:33
DX: G89.29 Other chronic pain (principal); R10.9 Unspecified abdominal pain
CPT/HCPCS: 36415; 74176; 80048; 80076; 83690; 84703; 85025; 93041; 96374; 96375; 96376; 99284; J1170; J2405

== ENCOUNTER 2016-08-19 21:29 | Emergency (ER) | payer OTHER ==
[~2016-08-19] VITALS: Ht 165.1 cm; Wt 81.6 kg
[~2016-08-19 21:29] MED LIST changes: +OXYC1TAB23 PO
[2016-08-19] MEDS ORDERED: ALPR1TAB3 (21:39)
[2016-08-19] MEDS ORDERED: SUCR1TAB56 (21:39)
[2016-08-20] MEDS ORDERED: ONDANSETRON 4MG/2ML VIAL (J2405) IV ONE (02:45)
[2016-08-20] MEDS ORDERED: NS 1,000 ML IV ONE (02:45)
[2016-08-20] MEDS: HYDROmorphone HCL 1 MG/ML SYRINGE (J1170) IV PRN ×2 (03:10→03:47)
[2016-08-20 03:18] LABS: BASO # 0.1 K/mm3 (0.0-0.2); BASO % 0.8 % (0.0-1.0); EOS # 0.3 K/mm3 (0.0-0.50); EOS % 3.6 % (0.0-3.0); LARGE UNSTAINED CELL # 0.1 K/mm3 (0.0-0.4); LARGE UNSTAINED CELL % 1.5 % (0.0-4.0); LYMPH # 3.5 K/mm3 (1.5-4.5); LYMPH % 36.7 % (24.0-44.0); MEAN CORPUSCULAR HEMOGLOBIN 32.6 pg (27.0-33.0); MEAN CORPUSCULAR HGB CONC 33.8 g/dl (32.0-36.5); MEAN CORPUSCULAR VOLUME 96.7 fl (80.0-96.0); MONO # 0.3 K/mm3 (0.0-0.8); MONO % 3.3 % (0.0-5.0); NEUTROPHILS % 54.1 % (36.0-66.0); PLATELET COUNT, AUTOMATED 283 k/mm3 (150-450); RED CELL DISTRIBUTION WIDTH 12.9 % (11.5-14.5); WHITE BLOOD COUNT 9.3 K/mm3 (4.0-10.0)
[2016-08-20 04:12] LABS: ALBUMIN 3.2 GM/DL (3.2-5.2); ALBUMIN/GLOBULIN RATIO 1.07 (1.00-1.93); ALKALINE PHOSPHATASE 67 U/L (45-117); ALT/SGPT 30 U/L (12-78); ANION GAP 5 MEQ/L (8-16); AST/SGOT 19 U/L (15-37); BILIRUBIN,DIRECT < 0.1 MG/DL (0.0-0.2); BILIRUBIN,TOTAL 0.1 MG/DL (0.2-1.0); BLOOD UREA NITROGEN 11 MG/DL (7-18); CALCIUM LEVEL 7.7 MG/DL (8.5-10.1); CARBON DIOXIDE LEVEL 31 MEQ/L (21-32); CHLORIDE LEVEL 107 MEQ/L (98-107); CREATININE FOR GFR 0.62 MG/DL (0.55-1.02); GLOMERULAR FILTRATION RATE > 60.0 (>60); GLUCOSE, FASTING 95 MG/DL (70-105); POTASSIUM SERUM 3.4 MEQ/L (3.5-5.1); SODIUM LEVEL 143 MEQ/L (136-145); TOTAL PROTEIN 6.2 GM/DL (6.4-8.2)
[2016-08-20 04:20] LABS: METHADONE URINE NEGATIVE (NEGATIVE)
[2016-08-20] MEDS ORDERED: PERC5TAB6 PO (05:39)
[2016-08-20] MEDS ORDERED: OXYCODONE/APAP 5MG/325MG(BULK FOR ED) 1 TABLET PO ONE (05:45)
[2016-08-20 06:02] VITALS: BP 107/55
--- NOTE | 2016-08-20 08:02 | REP ---
Clinical: Abdominal pain. Technique: Upright view of the chest with supine and upright views of the abdomen and pelvis. Findings: Frontal upright view of the chest demonstrates no acute cardiopulmonary process or free air below the diaphragm to suspect pneumoperitoneum. Supine and upright views of the abdomen and pelvis demonstrate nonspecific bowel gas pattern without obstruction or perforation. No organomegaly. No abnormal calcifications. Skeletal structures normal for age. Impression: Nonspecific bowel gas pattern. Signed by Flash Mazariegos MD 08/20/2016 07:53 A
== END 2016-08-20 06:06 | disposition home or self-care (01) ==
LOC: M ED 22:57
DX: G89.29 Other chronic pain (principal); R10.9 Unspecified abdominal pain; Z79.899 Other long term (current) drug therapy; Z88.2 Allergy status to sulfonamides; Z88.5 Allergy status to narcotic agent; Z88.6 Allergy status to analgesic agent; Z88.8 Allergy status to other drugs, medicaments and biological substances; Z91.09 Other allergy status, other than to drugs and biological substances

== ENCOUNTER 2016-09-02 22:33 | Emergency (ER) | payer OTHER ==
[~2016-09-02] VITALS: Ht 165.1 cm; Wt 81.6 kg
[~2016-09-02 22:33] MED LIST changes: +ALPR1TAB3; +PERC5TAB6 PO; +SUCR1TAB56
[2016-09-02] MEDS ORDERED: ZANT300T PO (22:53)
[2016-09-03] MEDS ORDERED: HYDROmorphone HCL 1 MG/ML SYRINGE (J1170) IM ONE (04:15)
[2016-09-03] MEDS ORDERED: PERC5TAB6 PO (05:44)
[2016-09-03] MEDS ORDERED: OXYCODONE/APAP 5MG/325MG(BULK FOR ED) 1 TABLET PO ONE (05:45)
--- NOTE | 2016-09-03 05:53 | REP ---
Clinical: Acute abdominal pain. Technique: Upright view of the chest with supine and upright views of the abdomen and pelvis. Findings: Frontal upright view of the chest demonstrates no acute cardiopulmonary process or free air below the diaphragm to suspect pneumoperitoneum. Supine and upright views of the abdomen and pelvis demonstrate nonspecific bowel gas pattern without obstruction or perforation. No organomegaly. No abnormal calcifications. Skeletal structures normal for age. Evidence for prior cholecystectomy. Impression: Nonspecific bowel gas pattern. Signed by Flash Mazariegos MD 09/03/2016 05:44 A
[2016-09-03 05:59] VITALS: BP 128/78
== END 2016-09-03 06:00 | disposition home or self-care (01) ==
LOC: M ED 23:55
DX: G89.29 Other chronic pain (principal); R10.9 Unspecified abdominal pain; F17.200 Nicotine dependence, unspecified, uncomplicated; Z90.49 Acquired absence of other specified parts of digestive tract; Z79.899 Other long term (current) drug therapy; Z88.2 Allergy status to sulfonamides; Z88.5 Allergy status to narcotic agent; Z88.8 Allergy status to other drugs, medicaments and biological substances; Z91.09 Other allergy status, other than to drugs and biological substances

== ENCOUNTER 2016-09-06 23:55 | Emergency (ER) | payer OTHER ==
[~2016-09-06] VITALS: Ht 165.1 cm; Wt 81.6 kg
[2016-09-07] MEDS ORDERED: clonazePAM 0.5 MG TAB PO ONE (02:15)
[2016-09-07 02:47] VITALS: BP 116/71
--- NOTE | 2016-09-08 19:19 | ECGEPIP ---
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
== END 2016-09-07 02:56 | disposition home or self-care (01) ==
LOC: EDBD 23:55 → M ED 09-07 02:33
DX: F41.9 Anxiety disorder, unspecified (principal); Z72.89 Other problems related to lifestyle; Z76.5 Malingerer [conscious simulation]; G89.29 Other chronic pain; F17.210 Nicotine dependence, cigarettes, uncomplicated; Z79.899 Other long term (current) drug therapy; Z88.8 Allergy status to other drugs, medicaments and biological substances; Z88.5 Allergy status to narcotic agent; Z88.2 Allergy status to sulfonamides; Z91.048 Other nonmedicinal substance allergy status

== ENCOUNTER 2016-09-12 00:12 | Emergency (ER) | payer OTHER ==
[~2016-09-12] VITALS: Ht 165.1 cm; Wt 84.0 kg
[2016-09-12] MEDS ORDERED: BUSP5TA PO (00:25)
[2016-09-12] MEDS ORDERED: DICYCLOMINE INJ 20MG/2ML (J0500) IM ONE (03:15)
[2016-09-12 03:26] LABS: BASO # 0.1 K/mm3 (0.0-0.2); BASO % 0.6 % (0.0-1.0); EOS # 0.2 K/mm3 (0.0-0.50); EOS % 2.2 % (0.0-3.0); LARGE UNSTAINED CELL # 0.1 K/mm3 (0.0-0.4); LARGE UNSTAINED CELL % 1.2 % (0.0-4.0); LYMPH # 3.4 K/mm3 (1.5-4.5); LYMPH % 32.7 % (24.0-44.0); MEAN CORPUSCULAR HEMOGLOBIN 32.5 pg (27.0-33.0); MEAN CORPUSCULAR VOLUME 95.6 fl (80.0-96.0); MONO # 0.3 K/mm3 (0.0-0.8); MONO % 3.3 % (0.0-5.0); NEUTROPHILS # 6.3 K/mm3 (1.8-7.7); NEUTROPHILS % 60.1 % (36.0-66.0); PLATELET COUNT, AUTOMATED 266 k/mm3 (150-450); RED CELL DISTRIBUTION WIDTH 12.9 % (11.5-14.5); WHITE BLOOD COUNT 10.5 K/mm3 (4.0-10.0)
[2016-09-12 03:51] LABS: ALBUMIN 3.5 GM/DL (3.2-5.2); ALBUMIN/GLOBULIN RATIO 1.13 (1.00-1.93); ALKALINE PHOSPHATASE 83 U/L (45-117); ALT/SGPT 33 U/L (12-78); AMYLASE 51 U/L (25-115); ANION GAP 6 MEQ/L (8-16); AST/SGOT 17 U/L (15-37); BILIRUBIN,DIRECT < 0.1 MG/DL (0.0-0.2); BILIRUBIN,TOTAL 0.3 MG/DL (0.2-1.0); BLOOD UREA NITROGEN 6 MG/DL (7-18); CALCIUM LEVEL 8.3 MG/DL (8.5-10.1); CARBON DIOXIDE LEVEL 28 MEQ/L (21-32); CHLORIDE LEVEL 107 MEQ/L (98-107); CREATININE FOR GFR 0.58 MG/DL (0.55-1.02); GLOMERULAR FILTRATION RATE > 60.0 (>60); GLUCOSE, FASTING 87 MG/DL (70-105); POTASSIUM SERUM 3.3 MEQ/L (3.5-5.1); SODIUM LEVEL 141 MEQ/L (136-145); TOTAL PROTEIN 6.6 GM/DL (6.4-8.2)
[2016-09-12 03:53] LABS: CONTROL LINE HCG INT CTR LINE PRESENT
--- NOTE | 2016-09-12 04:42 | REP ---
Clinical: Renal colic. Comparison: 08/04/2016. Findings: Lung bases clear. Visualized heart and pericardium normal. Liver, spleen, pancreas, bilateral adrenal glands and kidneys are normal for noncontrast evaluation. Specifically, no perinephric stranding, hydroureteronephrosis, intrarenal or obstructing ureteral calculi are identified. The patient is status post cholecystectomy. The enteric system is without obstruction or acute inflammatory process. Normal terminal ileum and appendix identified in the right lower quadrant. Scattered sigmoid diverticula without acute diverticulitis noted in the pelvis. Pelvis demonstrates normal bladder and evidence for prior hysterectomy. No pelvic fluid or ascites. No free air. No adenopathy. No mass lesion. Skeletal structures are intact. Impression: 1. No acute abdominopelvic pathology appreciated. 2. Scattered diverticula without acute diverticulitis. Signed by Flash Mazariegos MD 09/12/2016 04:33 A
[2016-09-12 04:56] VITALS: BP 132/57
== END 2016-09-12 05:02 | disposition home or self-care (01) ==
LOC: EDBD 00:12 → M ED 01:24
DX: G89.29 Other chronic pain (principal); R10.9 Unspecified abdominal pain; K57.30 Diverticulosis of large intestine without perforation or abscess without bleeding; K21.9 Gastro-esophageal reflux disease without esophagitis; F11.20 Opioid dependence, uncomplicated; F17.200 Nicotine dependence, unspecified, uncomplicated; Z79.899 Other long term (current) drug therapy; Z88.5 Allergy status to narcotic agent; Z88.8 Allergy status to other drugs, medicaments and biological substances; Z88.6 Allergy status to analgesic agent; Z88.0 Allergy status to penicillin; Z91.89 Other specified personal risk factors, not elsewhere classified

== ENCOUNTER 2016-09-29 23:05 | Emergency (ER) | payer OTHER ==
[~2016-09-29 23:05] MED LIST changes: +BUSP5TA PO; +OXYC-141 PO; -OXYC-299 PO; +PERC5TAB12 PO; -PERC5TAB6 PO; -SENO8.6T2 PO; +SENO8.6T5 PO; +TRUVTAB PO; -TRUVTAB3 PO
[2016-09-30] MEDS ORDERED: PERCOCET 5MG/325MG TAB PO ONE (01:15)
[2016-09-30 01:34] LABS: METHADONE URINE NEGATIVE (NEGATIVE)
[2016-09-30] MEDS ORDERED: PERC5TAB12 PO (01:52)
[2016-09-30] MEDS ORDERED: OXYCODONE/APAP 5MG/325MG(BULK FOR ED) 1 TABLET PO ONE (02:00)
[2016-09-30 02:06] VITALS: BP 110/63
--- NOTE | 2016-09-30 06:50 | REP ---
Clinical: Epigastric and abdominal pain. Technique: Upright view of the chest with supine and upright views of the abdomen and pelvis. Findings: Frontal upright view of the chest demonstrates no acute cardiopulmonary process or free air below the diaphragm to suspect pneumoperitoneum. Supine and upright views of the abdomen and pelvis demonstrate nonspecific bowel gas pattern without obstruction or perforation. No organomegaly. Status post cholecystectomy. No abnormal calcifications. Skeletal structures normal for age. Impression: Nonspecific bowel gas pattern. Signed by Flash Mazariegos MD 09/30/2016 06:42 A
== END 2016-09-30 02:13 | disposition home or self-care (01) ==
LOC: M ED 23:05
DX: G89.29 Other chronic pain (principal); R10.9 Unspecified abdominal pain; F17.200 Nicotine dependence, unspecified, uncomplicated; K40.90 Unilateral inguinal hernia, without obstruction or gangrene, not specified as recurrent; Z79.899 Other long term (current) drug therapy; Z88.5 Allergy status to narcotic agent; Z88.6 Allergy status to analgesic agent; Z88.1 Allergy status to other antibiotic agents; Z91.89 Other specified personal risk factors, not elsewhere classified

== ENCOUNTER 2016-10-20 21:02 | Emergency (ER) | payer OTHER ==
[~2016-10-20] VITALS: Ht 165.1 cm; Wt 77.7 kg
[2016-10-20] MEDS ORDERED: ONDANSETRON 4MG/2ML VIAL (J2405) IV ONE (23:45)
[2016-10-20] MEDS ORDERED: NS 1,000 ML IV ONE (23:45)
[2016-10-20] MEDS ORDERED: MORPHINE 4 MG/ML 1ML SYRINGE IV ONE (23:45)
[2016-10-21 00:25] LABS: BASO # 0.1 K/mm3 (0.0-0.2); EOS # 0.3 K/mm3 (0.0-0.50); EOS % 3.8 % (0.0-3.0); LARGE UNSTAINED CELL # 0.2 K/mm3 (0.0-0.4); LARGE UNSTAINED CELL % 3.3 % (0.0-4.0); LYMPH # 3.3 K/mm3 (1.5-4.5); LYMPH % 44.6 % (24.0-44.0); MEAN CORPUSCULAR HEMOGLOBIN 32.4 pg (27.0-33.0); MEAN CORPUSCULAR HGB CONC 34.2 g/dl (32.0-36.5); MEAN CORPUSCULAR VOLUME 94.8 fl (80.0-96.0); MONO # 0.2 K/mm3 (0.0-0.8); MONO % 3.2 % (0.0-5.0); PLATELET COUNT, AUTOMATED 208 k/mm3 (150-450); WHITE BLOOD COUNT 6.8 K/mm3 (4.0-10.0)
[2016-10-21 00:49] LABS: ALBUMIN 3.6 GM/DL (3.2-5.2); ALBUMIN/GLOBULIN RATIO 1.13 (1.00-1.93); ALKALINE PHOSPHATASE 74 U/L (45-117); ALT/SGPT 26 U/L (12-78); AMYLASE 44 U/L (25-115); ANION GAP 7 MEQ/L (8-16); AST/SGOT 17 U/L (15-37); BILIRUBIN,DIRECT < 0.1 MG/DL (0.0-0.2); BILIRUBIN,TOTAL 0.2 MG/DL (0.2-1.0); BLOOD UREA NITROGEN 11 MG/DL (7-18); CALCIUM LEVEL 8.8 MG/DL (8.5-10.1); CARBON DIOXIDE LEVEL 29 MEQ/L (21-32); CHLORIDE LEVEL 109 MEQ/L (98-107); CREATININE FOR GFR 0.53 MG/DL (0.55-1.02); GLOMERULAR FILTRATION RATE > 60.0 (>60); GLUCOSE, FASTING 89 MG/DL (70-105); POTASSIUM SERUM 3.4 MEQ/L (3.5-5.1); SODIUM LEVEL 145 MEQ/L (136-145); TOTAL PROTEIN 6.8 GM/DL (6.4-8.2)
[2016-10-21] MEDS ORDERED: MORPHINE 4 MG/ML 1ML SYRINGE IV ONE (01:15)
--- NOTE | 2016-10-21 01:30 | REPUSA ---
CLINICAL HISTORY: Abdominal pain. TECHNIQUE: Realtime sonographic images were obtained in multiple projections. COMMENTS: Comparison is made to prior CT exam performed on 09/12/2016. The liver is of normal size, parenchyma demonstrates normal echogenicity. No discrete hepatic mass is seen. There is no intra or extrahepatic biliary ductal dilatation. CBD measures 6.7 mm. The gallbladder is surgically absent. The gallbladder wall is not thickened and there is no pericholecystic fluid. There is no abdominal ascites. Limited evaluation of the pancreas secondary to gaseous bowel distention. The right kidney measures 12.5x5.5x4.7 cm , free of hydronephrosis. IMPRESSION: Prior cholecystectomy. Thank you for your kind referral of this patient.
[2016-10-21 01:35] LABS: CALCIUM OXALATE CRYSTALS SMALL
--- NOTE | 2016-10-21 02:00 | REPUSA ---
CLINICAL HISTORY: Abdominal pain. TECHNIQUE: Multiple axial, sagittal and coronal CT images were obtained through the abdomen and pelvi s without administration of oral or IV contrast material. COMMENTS: Comparison is made to the prior exam on 08/04/2016. The liver is of uniform attenuation without mass or defect. There is no intra or extrahepatic biliary ductal dilatation. The spleen is normal. The gallbladder is surgically absent. The pancreas is of no rmal contour and attenuation characteristics. There is no evidence of adrenal mass. The kidneys are normal in size, shape and configuration. No renal or ureteral calculi are identified. There is no hydroureter or hydronephrosis. There is no evidence for appendicitis. There is no bowel wall thickening. No evidence for small or la rge bowel obstruction. There is no evidence of abdominal ascites or lymphadenopathy. There is no evidence of intrinsic or extrinsic bladder mass. There is no pelvic ascites or lymphadeno irene. Atelectatic changes of the right lower lobe. Images of the lung bases show no evidence of pleural or parenchymal mass. There are no pleural effusi ons. The bony structures are free of lytic or blastic lesions. IMPRESSION: No acute pathology is seen. No changes noted since the prior exam. Thank you for your kind referral of this patient.
[2016-10-21 02:19] VITALS: BP 97/62
== END 2016-10-21 02:31 | disposition home or self-care (01) ==
LOC: M ED 21:02
DX: G89.29 Other chronic pain (principal); R10.9 Unspecified abdominal pain; F17.200 Nicotine dependence, unspecified, uncomplicated; Z79.899 Other long term (current) drug therapy; Z88.5 Allergy status to narcotic agent; Z88.6 Allergy status to analgesic agent; Z91.89 Other specified personal risk factors, not elsewhere classified
CPT/HCPCS: 74176; 76705; 80048; 80076; 81001; 81025; 82150; 83690; 85025; 87086; 96374; 96375; 96376; 99283; J2405

== ENCOUNTER 2016-10-22 21:03 | Emergency (ER) | payer OTHER ==
[~2016-10-22] VITALS: Ht 165.1 cm; Wt 78.9 kg
[2016-10-22 21:04] VITALS: BP 101/58
[2016-10-22] MEDS ORDERED: OXYCODONE/APAP 5MG/325MG(BULK FOR ED) 1 TABLET PO ONE (21:45)
== END 2016-10-22 22:09 | disposition home or self-care (01) ==
LOC: M ED 21:03
DX: R10.11 Right upper quadrant pain (principal); R10.31 Right lower quadrant pain; R11.2 Nausea with vomiting, unspecified; R19.7 Diarrhea, unspecified; F31.9 Bipolar disorder, unspecified; K44.9 Diaphragmatic hernia without obstruction or gangrene; R56.9 Unspecified convulsions; K21.9 Gastro-esophageal reflux disease without esophagitis; K50.919 Crohn's disease, unspecified, with unspecified complications; Z87.442 Personal history of urinary calculi; F17.200 Nicotine dependence, unspecified, uncomplicated; Z79.899 Other long term (current) drug therapy; Z88.5 Allergy status to narcotic agent; Z88.6 Allergy status to analgesic agent; Z88.0 Allergy status to penicillin; Z88.8 Allergy status to other drugs, medicaments and biological substances

== ENCOUNTER 2016-10-30 23:52 | Emergency (ER) | payer OTHER ==
[~2016-10-30] VITALS: Ht 165.1 cm; Wt 81.8 kg
[2016-10-31 04:45] VITALS: BP 115/72
[2016-10-31] MEDS ORDERED: ACETAMINOPHEN 325 MG TAB PO ONE (04:45)
== END 2016-10-31 05:05 | disposition home or self-care (01) ==
LOC: M ED 23:52
DX: G89.29 Other chronic pain (principal); R10.9 Unspecified abdominal pain; F17.210 Nicotine dependence, cigarettes, uncomplicated; Z88.2 Allergy status to sulfonamides; Z88.5 Allergy status to narcotic agent; Z88.8 Allergy status to other drugs, medicaments and biological substances; Z88.6 Allergy status to analgesic agent; Z79.899 Other long term (current) drug therapy

== ENCOUNTER 2016-11-03 21:17 | Emergency (ER) | payer OTHER ==
[~2016-11-03] VITALS: Ht 165.1 cm; Wt 81.8 kg
[2016-11-03] MEDS ORDERED: OXYC1TAB23 PO (21:30)
[2016-11-03] MEDS ORDERED: NORCO, ANEXSIA 5/325MG TABLET (HYDROcodone/ACETAMINOPHEN) PO ONE (23:15)
[2016-11-03] MEDS ORDERED: TRIMETHOBENZAMIDE HCL INJ 200 MG/2 ML VIAL (J3250) IM ONE (23:15)
[2016-11-04 00:10] LABS: MEAN CORPUSCULAR HGB CONC 34.3 g/dl (32.0-36.5); MEAN CORPUSCULAR VOLUME 93.3 fl (80.0-96.0); WHITE BLOOD COUNT 5.4 K/mm3 (4.0-10.0)
[2016-11-04 00:11] LABS: BASO # 0.1 K/mm3 (0.0-0.2); BASO % 1.1 % (0.0-1.0); EOS # 0.2 K/mm3 (0.0-0.50); EOS % 3.2 % (0.0-3.0); LARGE UNSTAINED CELL # 0.1 K/mm3 (0.0-0.4); LARGE UNSTAINED CELL % 1.6 % (0.0-4.0); LYMPH # 2.4 K/mm3 (1.5-4.5); LYMPH % 44.2 % (24.0-44.0); MONO # 0.3 K/mm3 (0.0-0.8); NEUTROPHILS # 2.4 K/mm3 (1.8-7.7); NEUTROPHILS % 44.9 % (36.0-66.0); PLATELET COUNT, AUTOMATED 279 k/mm3 (150-450); RED CELL DISTRIBUTION WIDTH 12.9 % (11.5-14.5)
[2016-11-04 00:25] LABS: ANION GAP 5 MEQ/L (8-16); BLOOD UREA NITROGEN 6 MG/DL (7-18); CALCIUM LEVEL 8.6 MG/DL (8.5-10.1); CARBON DIOXIDE LEVEL 31 MEQ/L (21-32); CHLORIDE LEVEL 109 MEQ/L (98-107); CREATININE FOR GFR 0.58 MG/DL (0.55-1.02); GLOMERULAR FILTRATION RATE > 60.0 (>60); GLUCOSE, FASTING 104 MG/DL (70-105); POTASSIUM SERUM 3.6 MEQ/L (3.5-5.1); SODIUM LEVEL 145 MEQ/L (136-145)
--- NOTE | 2016-11-04 01:00 | REPUSA ---
CLINICAL HISTORY: Right flank pain. TECHNIQUE: Realtime sonographic images were obtained in multiple projections. COMMENTS: The right kidney measures 12.5x5.3x3.4 cm and the left kidney measures 11.1x5.2x4.8 cm. Both kidneys are free of hydronephrosis. There is no evidence of solid or cystic mass. There is no perinephric flu id. There is no renal calculus. 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 Hypoechoic area is noted in the mid posterior cortex of the right kidney probably representing a column of Gonzalo. Underdistended bladder. IMPRESSION: Underdistended bladder. Prominent hypoechoic area in the midportion cortex of the right kidney representing a column of Berti n. Thank you for your kind referral of this patient.
[2016-11-04] MEDS ORDERED: TIGA300C2 PO (01:03)
[2016-11-04 01:19] VITALS: BP 124/71
== END 2016-11-04 01:24 | disposition home or self-care (01) ==
LOC: M ED 21:17
DX: R10.9 Unspecified abdominal pain (principal); Z87.442 Personal history of urinary calculi; K50.919 Crohn's disease, unspecified, with unspecified complications; K46.9 Unspecified abdominal hernia without obstruction or gangrene; N80.9 Endometriosis, unspecified; F41.9 Anxiety disorder, unspecified; F32.9 Major depressive disorder, single episode, unspecified; F17.200 Nicotine dependence, unspecified, uncomplicated; F19.10 Other psychoactive substance abuse, uncomplicated; Z79.899 Other long term (current) drug therapy; Z88.5 Allergy status to narcotic agent; Z88.6 Allergy status to analgesic agent; Z88.1 Allergy status to other antibiotic agents; Z91.89 Other specified personal risk factors, not elsewhere classified
CPT/HCPCS: 76775; 80048; 81001; 85025; 96374; 99283; J3250

== ENCOUNTER 2017-02-01 01:13 | Emergency (ER) | payer OTHER ==
[~2017-02-01] VITALS: Ht 165.1 cm; Wt 73.0 kg
[~2017-02-01 01:13] MED LIST changes: +TIGA300C2 PO
[2017-02-01 01:25] VITALS: BP 125/63
== END 2017-02-01 01:59 | disposition home or self-care (01) ==
LOC: M ED 01:13
DX: S70.261A Insect bite (nonvenomous), right hip, initial encounter (principal); W57.XXXA Bitten or stung by nonvenomous insect and other nonvenomous arthropods, initial encounter; Y92.9 Unspecified place or not applicable; Y93.9 Activity, unspecified; Y99.9 Unspecified external cause status; F31.9 Bipolar disorder, unspecified; R56.9 Unspecified convulsions; F17.200 Nicotine dependence, unspecified, uncomplicated; Z79.899 Other long term (current) drug therapy; Z88.5 Allergy status to narcotic agent; Z88.1 Allergy status to other antibiotic agents; Z88.8 Allergy status to other drugs, medicaments and biological substances; Z88.6 Allergy status to analgesic agent; Z91.89 Other specified personal risk factors, not elsewhere classified

== ENCOUNTER 2017-02-22 00:54 | Emergency (ER) | payer OTHER ==
[~2017-02-22] VITALS: Ht 165.1 cm; Wt 81.8 kg
[2017-02-22 04:48] LABS: BASO # 0.1 10^3/uL (0.0-0.2); EOS # 0.2 10^3/uL (0.0-0.50); EOS % 2.2 % (0.0-3.0); IMMATURE GRANULOCYTE % 0.4 % (0-0); LYMPH # 2.6 10^3/uL (1.5-4.5); LYMPH % 36.8 % (24.0-44.0); MEAN CORPUSCULAR HEMOGLOBIN 31.2 pg (27.0-33.0); MEAN CORPUSCULAR HGB CONC 33.5 g/dl (32.0-36.5); MEAN CORPUSCULAR VOLUME 93.2 fl (80.0-96.0); MONO # 0.5 10^3/uL (0.0-0.8); MONO % 7.2 % (0.0-5.0); NEUTROPHILS # 3.6 10^3/uL (1.8-7.7); NEUTROPHILS % 52.4 % (36.0-66.0); PLATELET COUNT, AUTOMATED 228 10^3/uL (150-450); RED CELL DISTRIBUTION WIDTH 14.6 % (11.5-14.5); WHITE BLOOD COUNT 6.9 10^3/uL (4.0-10.0)
[2017-02-22 04:59] LABS: ALBUMIN 3.2 GM/DL (3.2-5.2); ALBUMIN/GLOBULIN RATIO 0.97 (1.00-1.93); ALKALINE PHOSPHATASE 60 U/L (45-117); ALT/SGPT 155 U/L (12-78); ANION GAP 7 MEQ/L (8-16); AST/SGOT 98 U/L (7-37); BILIRUBIN,DIRECT 0.2 MG/DL (0.0-0.2); BILIRUBIN,TOTAL 0.6 MG/DL (0.2-1.0); BLOOD UREA NITROGEN 8 MG/DL (7-18); CALCIUM LEVEL 8.6 MG/DL (8.5-10.1); CARBON DIOXIDE LEVEL 29 MEQ/L (21-32); CHLORIDE LEVEL 107 MEQ/L (98-107); CREATININE FOR GFR 0.57 MG/DL (0.55-1.02); GLOMERULAR FILTRATION RATE > 60.0 (>60); GLUCOSE, FASTING 84 MG/DL (70-105); SODIUM LEVEL 143 MEQ/L (136-145); TOTAL PROTEIN 6.5 GM/DL (6.4-8.2)
[2017-02-22 05:07] LABS: POTASSIUM SERUM 2.9 MEQ/L (3.5-5.1)
[2017-02-22] MEDS ORDERED: POTASSIUM CHLORIDE 10 MEQ SR TABLET PO ONE (05:30)
[2017-02-22] MEDS ORDERED: CIPROFLOXACIN 500 MG TAB PO ONE (05:45)
[2017-02-22] MEDS ORDERED: PHENAZOPYRIDINE 100 MG TAB PO ONE (05:45)
--- NOTE | 2017-02-22 05:50 | REPUSA ---
CLINICAL HISTORY: Abdominal pain. TECHNIQUE: Multiple axial, sagittal and coronal CT images were obtained through the abdomen and pelvi s without administration of oral or IV contrast material. COMMENTS: Comparison to prior exam of 10/21/2016. The liver is mildly enlarged with decreased attenuation without mass or defect. There is no intra or extrahepatic biliary ductal dilatation. The spleen is normal. The gallbladder is surgically absent. The pancreas is of normal contour and attenuation characteristics. There is no evidence of adrenal ma ss. The kidneys are normal in size, shape and configuration. No renal or ureteral calculi are identified. There is no hydroureter or hydronephrosis. Fluid-filled small bowels. There is no evidence for appendicitis. There is no bowel wall thickening. No evidence for small or la rge bowel obstruction. There is no evidence of abdominal ascites or lymphadenopathy. There is no evidence of intrinsic or extrinsic bladder mass. There is no pelvic ascites or lymphadeno irene. Images of the lung bases show no evidence of pleural or parenchymal mass. There are no pleural effusi ons. The bony structures are free of lytic or blastic lesions. Multilevel degenerative changes are seen in volving the thoracolumbar spine. Scattered calcifications are seen involving the aorta and major branches compatible with atherosclero sis. Fat containing umbilical hernia without incarceration. IMPRESSION: Fluid filled small bowels. Enteritis versus mild ileus. Thank you for your kind referral of this patient.
[2017-02-22] MEDS ORDERED: PYRI1TAB5 PO (06:02)
[2017-02-22] MEDS ORDERED: CIPR-249 PO (06:02)
[2017-02-22 06:27] VITALS: BP 114/74
== END 2017-02-22 06:29 | disposition home or self-care (01) ==
LOC: M ED 00:54
DX: N39.0 Urinary tract infection, site not specified (principal); K58.9 Irritable bowel syndrome, unspecified; F17.200 Nicotine dependence, unspecified, uncomplicated; Z79.899 Other long term (current) drug therapy; Z88.5 Allergy status to narcotic agent; Z88.8 Allergy status to other drugs, medicaments and biological substances; Z88.1 Allergy status to other antibiotic agents; Z91.89 Other specified personal risk factors, not elsewhere classified

== ENCOUNTER 2017-04-15 02:01 | Emergency (ER) | payer OTHER | END 2017-04-15 04:23 | disposition left against medical advice (07) | LOC: M ED 02:01 | DX: Z53.21 Procedure and treatment not carried out due to patient leaving prior to being seen by health care provider (principal) ==

== ENCOUNTER 2017-05-08 21:48 | Emergency (ER) | payer OTHER ==
[2017-05-09] MEDS ORDERED: GASTROGRAFIN SOLUTION 30ML (Q9963) As Ordered (04:59)
[2017-05-09] MEDS: GASTROGRAFIN SOLUTION 30ML PO ×2 (05:10→05:35)
[2017-05-09 05:19] LABS: BASO % 0.8 % (0.0-1.0); EOS # 0.1 10^3/uL (0.0-0.50); EOS % 1.8 % (0.0-3.0); HEMATOCRIT 42.1 % (36.0-47.0); HEMOGLOBIN 14.4 g/dl (12.0-16.0); LYMPH # 1.9 10^3/uL (1.5-4.5); MEAN CORPUSCULAR HEMOGLOBIN 31.9 pg (27.0-33.0); MEAN CORPUSCULAR HGB CONC 34.2 g/dl (32.0-36.5); MEAN CORPUSCULAR VOLUME 93.3 fl (80.0-96.0); MONO # 0.4 10^3/uL (0.0-0.8); MONO % 11.2 % (0.0-5.0); NEUTROPHILS # 1.5 10^3/uL (1.8-7.7); NEUTROPHILS % 38.2 % (36.0-66.0); PLATELET COUNT, AUTOMATED 155 10^3/uL (150-450); RED BLOOD COUNT 4.51 10^6/uL (4.00-5.40); RED CELL DISTRIBUTION WIDTH 14.6 % (11.5-14.5); WHITE BLOOD COUNT 3.9 10^3/uL (4.0-10.0)
[2017-05-09 05:40] LABS: ALBUMIN 3.6 GM/DL (3.2-5.2); ALBUMIN/GLOBULIN RATIO 1.33 (1.00-1.93); ALKALINE PHOSPHATASE 67 U/L (45-117); ALT/SGPT 250 U/L (12-78); ANION GAP 6 MEQ/L (8-16); AST/SGOT 202 U/L (7-37); BILIRUBIN,DIRECT 0.2 MG/DL (0.0-0.2); BILIRUBIN,TOTAL 0.4 MG/DL (0.2-1.0); BLOOD UREA NITROGEN 5 MG/DL (7-18); CALCIUM LEVEL 8.1 MG/DL (8.5-10.1); CARBON DIOXIDE LEVEL 29 MEQ/L (21-32); CHLORIDE LEVEL 110 MEQ/L (98-107); CREATININE FOR GFR 0.42 MG/DL (0.55-1.30); GLOMERULAR FILTRATION RATE > 60.0 (>60); GLUCOSE, FASTING 94 MG/DL (70-100); LIPASE 126 U/L (73-393); POTASSIUM SERUM 3.3 MEQ/L (3.5-5.1); SODIUM LEVEL 145 MEQ/L (136-145); TOTAL PROTEIN 6.3 GM/DL (6.4-8.2)
[2017-05-09 05:41] LABS: AMORPHOUS SEDIMENT MODERATE (NEGATIVE); APPEARANCE, URINE CLOUDY (CLEAR); BACTERIA, URINE AUTO NEGATIVE (NEGATIVE); BILIRUBIN, URINE AUTO NEGATIVE (NEGATIVE); BLOOD, URINE BLOOD NEGATIVE (NEGATIVE); COLOR, URINE YELLOW (YELLOW); GLUCOSE, URINE (UA) AUTO NEGATIVE (NEGATIVE); KETONE, URINE AUTO NEGATIVE (NEGATIVE); LEUKOCYTE ESTERASE, URINE AUTO NEGATIVE (NEGATIVE); MUCUS, URINE MODERATE (NEGATIVE); NITRITE, URINE AUTO NEGATIVE (NEGATIVE); PROTEIN, URINE AUTO NEGATIVE (NEGATIVE); RBC, URINE AUTO 1 /HPF (0-3); SPECIFIC GRAVITY URINE AUTO 1.017 (1.002-1.035); SQUAMOUS EPITHELIAL CELL UR AU 2 /HPF (0-6); WBC, URINE AUTO 0 /HPF (0-3)
[2017-05-09] MEDS: ACETAMINOPHEN 325 MG TAB PO (06:59)
== END 2017-05-09 07:47 | disposition home or self-care (01) ==
LOC: M ED 21:48
DX: G89.29 Other chronic pain (principal); K50.919 Crohn's disease, unspecified, with unspecified complications; F17.200 Nicotine dependence, unspecified, uncomplicated; Z79.899 Other long term (current) drug therapy; Z88.5 Allergy status to narcotic agent; Z88.6 Allergy status to analgesic agent; Z88.1 Allergy status to other antibiotic agents; Z88.8 Allergy status to other drugs, medicaments and biological substances; Z91.89 Other specified personal risk factors, not elsewhere classified
CPT/HCPCS: 74176

== ENCOUNTER 2017-06-09 21:44 | Emergency (ER) | payer OTHER, MEDICAID ==
[2017-06-09] MEDS: ONDANSETRON 4 MG ORAL DISINTEGRATING TAB (S0181) PO ×2 (22:36)
[2017-06-09] MEDS: MORPHINE 4 MG/ML 1ML VIAL (J2270) IM ×2 (22:36)
[2017-06-09 23:01] LABS: BASO # 0.1 10^3/uL (0.0-0.2); BASO % 0.6 % (0.0-1.0); EOS # 0.2 10^3/uL (0.0-0.50); EOS % 1.9 % (0.0-3.0); HEMATOCRIT 42.4 % (36.0-47.0); HEMOGLOBIN 14.6 g/dl (12.0-16.0); LYMPH # 3.6 10^3/uL (1.5-4.5); LYMPH % 45.4 % (24.0-44.0); MEAN CORPUSCULAR HEMOGLOBIN 33.1 pg (27.0-33.0); MEAN CORPUSCULAR HGB CONC 34.4 g/dl (32.0-36.5); MEAN CORPUSCULAR VOLUME 96.1 fl (80.0-96.0); MONO # 0.6 10^3/uL (0.0-0.8); NEUTROPHILS # 3.5 10^3/uL (1.8-7.7); NEUTROPHILS % 45.1 % (36.0-66.0); PLATELET COUNT, AUTOMATED 214 10^3/uL (150-450); RED BLOOD COUNT 4.41 10^6/uL (4.00-5.40); RED CELL DISTRIBUTION WIDTH 13.5 % (11.5-14.5); WHITE BLOOD COUNT 7.9 10^3/uL (4.0-10.0)
[2017-06-09 23:04] LABS: KETONE, URINE AUTO RFX NEGATIVE (NEGATIVE); LEUKOCYTE ESTERASE UR AUTO RFX NEGATIVE (NEGATIVE); MUCUS, URINE RFX SMALL (NEGATIVE); NITRITE, URINE AUTO RFX NEGATIVE (NEGATIVE); RBC, URINE AUTO RFX 1 /HPF (0-3); SPECIFIC GRAVITY UR AUTO RFX 1.009 (1.002-1.035); SQUAM EPITHELIAL CELL UR AURFX 1 /HPF (0-6); WBC, URINE AUTO RFX 1 /HPF (0-3)
[2017-06-09 23:11] LABS: INR 1.04; PROTHROMBIN TIME 13.8 SECONDS (12.4-14.5)
[2017-06-09 23:23] LABS: ALBUMIN 3.8 GM/DL (3.2-5.2); ALBUMIN/GLOBULIN RATIO 1.41 (1.00-1.93); ALKALINE PHOSPHATASE 85 U/L (45-117); ALT/SGPT 191 U/L (12-78); AMYLASE 41 U/L (25-115); ANION GAP 6 MEQ/L (8-16); AST/SGOT 161 U/L (7-37); BILIRUBIN,DIRECT 0.3 MG/DL (0.0-0.2); BILIRUBIN,TOTAL 0.5 MG/DL (0.2-1.0); BLOOD UREA NITROGEN 4 MG/DL (7-18); CALCIUM LEVEL 8.5 MG/DL (8.5-10.1); CARBON DIOXIDE LEVEL 28 MEQ/L (21-32); CHLORIDE LEVEL 109 MEQ/L (98-107); CREATININE FOR GFR 0.62 MG/DL (0.55-1.30); GLOMERULAR FILTRATION RATE > 60.0 (>60); GLUCOSE, FASTING 93 MG/DL (70-100); LIPASE 125 U/L (73-393); POTASSIUM SERUM 3.1 MEQ/L (3.5-5.1); SODIUM LEVEL 143 MEQ/L (136-145); TOTAL PROTEIN 6.5 GM/DL (6.4-8.2)
[2017-06-09] MEDS: POTASSIUM CHLORIDE 10 MEQ SR TABLET PO ×2 (23:52)
[2017-06-11 10:21] LABS: HEPATITIS B SURFACE ANTIGEN NEGATIVE (NEGATIVE)
[2017-06-11 10:48] LABS: HEPATITIS B CORE ANTIBODY IGM NEGATIVE (NEGATIVE)
[2017-06-11 10:50] LABS: HEPATITIS A ANTIBODY IGM NEGATIVE (NEGATIVE)
[2017-06-11 11:17] LABS: HEPATITIS C VIRUS ABY INDEX > 11.0 INDEX (<0.8)
[2017-06-14 00:06] LABS: HCV RNA NAA QUALITATIVE Positive (Negative)
== END 2017-06-10 00:16 | disposition home or self-care (01) ==
LOC: M ED 06-10 00:16
DX: B17.9 Acute viral hepatitis, unspecified (principal); R10.9 Unspecified abdominal pain; G89.29 Other chronic pain; K50.90 Crohn's disease, unspecified, without complications; F17.210 Nicotine dependence, cigarettes, uncomplicated; F31.9 Bipolar disorder, unspecified; F90.9 Attention-deficit hyperactivity disorder, unspecified type; N80.9 Endometriosis, unspecified; Z79.899 Other long term (current) drug therapy; Z86.69 Personal history of other diseases of the nervous system and sense organs; Z87.442 Personal history of urinary calculi; Z87.19 Personal history of other diseases of the digestive system; Z87.39 Personal history of other diseases of the musculoskeletal system and connective tissue; Z88.5 Allergy status to narcotic agent; Z88.8 Allergy status to other drugs, medicaments and biological substances; Z88.1 Allergy status to other antibiotic agents; Z91.048 Other nonmedicinal substance allergy status
CPT/HCPCS: J2270

== ENCOUNTER → 2017-06-09 | Outpatient (CLI) | payer MEDICAID | LOC: M OUTALCOH 11:10 | DX: Z13.9 Encounter for screening, unspecified (principal); F12.20 Cannabis dependence, uncomplicated; F10.20 Alcohol dependence, uncomplicated ==

== ENCOUNTER 2017-06-18 00:54 | Emergency (ER) | payer OTHER | END 2017-06-18 07:03 | disposition home or self-care (01) | LOC: M ED 00:54 | DX: S60.221A Contusion of right hand, initial encounter (principal); W07.XXXA Fall from chair, initial encounter; Y92.89 Other specified places as the place of occurrence of the external cause; Z88.5 Allergy status to narcotic agent; Z88.8 Allergy status to other drugs, medicaments and biological substances; Z91.048 Other nonmedicinal substance allergy status; Z79.899 Other long term (current) drug therapy | CPT/HCPCS: 73130 ==

== ENCOUNTER → 2017-07-29 | Outpatient (REF) | payer OTHER ==
[2017-07-29 15:55] LABS: ALBUMIN 4.5 GM/DL (3.2-5.2); ALBUMIN/GLOBULIN RATIO 1.32 (1.00-1.93); ALKALINE PHOSPHATASE 68 U/L (45-117); ALT/SGPT 257 U/L (12-78); AST/SGOT 186 U/L (7-37); BILIRUBIN,DIRECT 0.3 MG/DL (0.0-0.2); BILIRUBIN,TOTAL 0.8 MG/DL (0.2-1.0); TOTAL PROTEIN 7.9 GM/DL (6.4-8.2)
[2017-07-30 10:39] LABS: HIV 1&2 SCREEN CENTAUR NEGATIVE (NEGATIVE)
[2017-08-02 00:07] LABS: ALPHA 2-MACROGLOBULIN 342 mg/dL (110-276); ALT 246 IU/L (0-40); APOLIPOPROTEIN A-1 106 mg/dL (116-209); FIBROSIS SCORE 0.66 (0.00-0.21); GGT 169 IU/L (0-60); HAPTOGLOBIN 89 mg/dL (34-200); HEPATITIS C QUANTITATION 2033090 IU/mL (.); HEPATITIS C VIRUS GENOTYPE 3 (.); NECROINFLAM SCORE 0.91 (0.00-0.17); NECROINFLAMM GRADE A3-Severe activity (.); TOTAL BILIRUBIN 0.7 mg/dL (0.0-1.2)
== END ==
LOC: M SFHCPLAZ 11:48
DX: B18.2 Chronic viral hepatitis C (principal); Z20.6 Contact with and (suspected) exposure to human immunodeficiency virus [HIV]
CPT/HCPCS: 84460

== ENCOUNTER 2017-07-30 21:56 | Emergency (ER) | payer OTHER ==
[2017-07-31] MEDS: NS 1,000 ML IV
[2017-07-31] MEDS: MORPHINE 4 MG/ML 1ML VIAL/SYRINGE (J2270) IV
[2017-07-31] MEDS: TRIMETHOBENZAMIDE HCL INJ 200 MG/2 ML VIAL (J3250) IM
[2017-07-31 00:27] LABS: BASO # 0.1 10^3/uL (0.0-0.2); EOS # 0.3 10^3/uL (0.0-0.50); HEMOGLOBIN 14.2 g/dl (12.0-15.5); IMMATURE GRANULOCYTE % 0.2 % (0-3.0); LYMPH # 3.4 10^3/uL (1.5-4.5); MEAN CORPUSCULAR HEMOGLOBIN 33.1 pg (27.0-33.0); MEAN CORPUSCULAR HGB CONC 35.5 g/dl (32.0-36.5); MEAN CORPUSCULAR VOLUME 93.2 fl (80.0-96.0); MONO # 0.5 10^3/uL (0.0-0.8); MONO % 7.2 % (0.0-5.0); NEUTROPHILS # 2.1 10^3/uL (1.8-7.7); NEUTROPHILS % 32.6 % (36.0-66.0); PLATELET COUNT, AUTOMATED 176 10^3/uL (150-450); RED BLOOD COUNT 4.29 10^6/uL (4.00-5.40); RED CELL DISTRIBUTION WIDTH 12.4 % (11.5-14.5); WHITE BLOOD COUNT 6.3 10^3/uL (4.0-10.0)
[2017-07-31 00:40] LABS: KETONE, URINE AUTO RFX NEGATIVE (NEGATIVE); LEUKOCYTE ESTERASE UR AUTO RFX NEGATIVE (NEGATIVE); MUCUS, URINE RFX LARGE (NEGATIVE); NITRITE, URINE AUTO RFX NEGATIVE (NEGATIVE); RBC, URINE AUTO RFX 4 /HPF (0-3); SPECIFIC GRAVITY UR AUTO RFX 1.029 (1.002-1.035); SQUAM EPITHELIAL CELL UR AURFX 7 /HPF (0-6); WBC, URINE AUTO RFX 1 /HPF (0-3)
[2017-07-31 00:48] LABS: ALBUMIN 3.8 GM/DL (3.2-5.2); ALBUMIN/GLOBULIN RATIO 1.12 (1.00-1.93); ALKALINE PHOSPHATASE 58 U/L (45-117); ALT/SGPT 214 U/L (12-78); AMYLASE 31 U/L (25-115); ANION GAP 5 MEQ/L (8-16); AST/SGOT 143 U/L (7-37); BILIRUBIN,DIRECT 0.2 MG/DL (0.0-0.2); BILIRUBIN,TOTAL 0.7 MG/DL (0.2-1.0); BLOOD UREA NITROGEN 8 MG/DL (7-18); C REACTIVE PROTEIN QUANTITATIV < 0.30 MG/DL (0.00-0.30); CALCIUM LEVEL 8.9 MG/DL (8.5-10.1); CARBON DIOXIDE LEVEL 32 MEQ/L (21-32); CHLORIDE LEVEL 103 MEQ/L (98-107); CREATININE FOR GFR 0.61 MG/DL (0.55-1.30); GLOMERULAR FILTRATION RATE > 60.0 (>60); GLUCOSE, FASTING 58 MG/DL (70-100); LIPASE 138 U/L (73-393); POTASSIUM SERUM 2.7 MEQ/L (3.5-5.1); SODIUM LEVEL 140 MEQ/L (136-145); TOTAL PROTEIN 7.2 GM/DL (6.4-8.2)
[2017-07-31] MEDS: POTASSIUM CHLORIDE 10 MEQ SR TABLET PO (01:45)
[2017-07-31] MEDS ORDERED: KCL 10MEQ/100ML SWI (KRUN) 10 MEQ in APPROPRIATE DILUENT 1 EA IV (01:45)
[2017-07-31] MEDS: HYDROmorphone HCL 1 MG/ML SYRINGE (J1170) IV (01:45)
[2017-07-31] MEDS: KCL 10MEQ/100ML SWI (KRUN) 10 MEQ in APPROPRIATE DILUENT 1 EA IV (01:45)
[2017-07-31 04:01] LABS: ANION GAP 8 MEQ/L (8-16); BLOOD UREA NITROGEN 7 MG/DL (7-18); CALCIUM LEVEL 8.1 MG/DL (8.5-10.1); CARBON DIOXIDE LEVEL 29 MEQ/L (21-32); CHLORIDE LEVEL 105 MEQ/L (98-107); CREATININE FOR GFR 0.54 MG/DL (0.55-1.30); GLOMERULAR FILTRATION RATE > 60.0 (>60); GLUCOSE, FASTING 114 MG/DL (70-100); POTASSIUM SERUM 2.9 MEQ/L (3.5-5.1); SODIUM LEVEL 142 MEQ/L (136-145)
== END 2017-07-31 05:21 | disposition home or self-care (01) ==
LOC: M ED 07-31 05:21
DX: E87.6 Hypokalemia (principal); R10.11 Right upper quadrant pain; R11.2 Nausea with vomiting, unspecified; B19.9 Unspecified viral hepatitis without hepatic coma; Z87.442 Personal history of urinary calculi; K50.90 Crohn's disease, unspecified, without complications; R51 Headache; F44.9 Dissociative and conversion disorder, unspecified; K76.0 Fatty (change of) liver, not elsewhere classified; F20.9 Schizophrenia, unspecified; M54.9 Dorsalgia, unspecified; F31.9 Bipolar disorder, unspecified; F90.9 Attention-deficit hyperactivity disorder, unspecified type; F41.9 Anxiety disorder, unspecified; N80.9 Endometriosis, unspecified; F17.200 Nicotine dependence, unspecified, uncomplicated; Z88.5 Allergy status to narcotic agent; Z88.2 Allergy status to sulfonamides; Z91.048 Other nonmedicinal substance allergy status; Z79.899 Other long term (current) drug therapy
CPT/HCPCS: J1170

== ENCOUNTER 2017-08-09 15:01 | Emergency (ER) | payer OTHER ==
[2017-08-09] MEDS: NS 1,000 ML IV (15:55)
[2017-08-09] MEDS: LORazepam 2 MG/ML VIAL (J2060) IV ×2 (15:55→17:26)
[2017-08-09 15:56] LABS: HEMATOCRIT 43.7 % (36.0-47.0); HEMOGLOBIN 14.8 g/dl (12.0-15.5); MEAN CORPUSCULAR HEMOGLOBIN 32.7 pg (27.0-33.0); MEAN CORPUSCULAR HGB CONC 33.9 g/dl (32.0-36.5); MEAN CORPUSCULAR VOLUME 96.7 fl (80.0-96.0); PLATELET COUNT, AUTOMATED 177 10^3/uL (150-450); RED BLOOD COUNT 4.52 10^6/uL (4.00-5.40); RED CELL DISTRIBUTION WIDTH 12.9 % (11.5-14.5)
[2017-08-09 16:17] LABS: AMPHETAMINES LEVEL URINE NEGATIVE (NEGATIVE); BARBITURATES URINE NEGATIVE (NEGATIVE); BENZODIAZEPINES URINE NEGATIVE (NEGATIVE); CANNABINOIDS URINE POSITIVE (NEGATIVE); COCAINE METABOLITE URINE NEGATIVE (NEGATIVE); METHADONE URINE NEGATIVE (NEGATIVE); OPIATES URINE NEGATIVE (NEGATIVE); PHENCYCLIDINE URINE NEGATIVE (NEGATIVE)
[2017-08-09 16:19] LABS: CONTROL LINE HCG INT CTR LINE PRESENT; HCG, SERUM QUALITATIVE NEGATIVE (NEGATIVE)
[2017-08-09 16:36] LABS: ALBUMIN 4.3 GM/DL (3.2-5.2); ALBUMIN/GLOBULIN RATIO 1.23 (1.00-1.93); ALKALINE PHOSPHATASE 76 U/L (45-117); ALT/SGPT 227 U/L (12-78); ANION GAP 7 MEQ/L (8-16); AST/SGOT 138 U/L (7-37); BILIRUBIN,DIRECT 0.2 MG/DL (0.0-0.2); BILIRUBIN,TOTAL 0.3 MG/DL (0.2-1.0); BLOOD UREA NITROGEN 7 MG/DL (7-18); CALCIUM LEVEL 9.2 MG/DL (8.5-10.1); CARBON DIOXIDE LEVEL 28 MEQ/L (21-32); CHLORIDE LEVEL 112 MEQ/L (98-107); CREATININE FOR GFR 0.69 MG/DL (0.55-1.30); GLOMERULAR FILTRATION RATE > 60.0 (>60); GLUCOSE, FASTING 82 MG/DL (70-100); POTASSIUM SERUM 3.5 MEQ/L (3.5-5.1); SALICYLATE LEVEL 2.1 MG/DL (5.0-30.0); SODIUM LEVEL 147 MEQ/L (136-145); THYROID STIMULATING HORMONE 0.502 uIU/ML (0.358-3.740); TOTAL PROTEIN 7.8 GM/DL (6.4-8.2)
[2017-08-09 16:39] LABS: ACETAMINOPHEN LEVEL < 2.0 UG/ML (10.0-30.0); ETHYL ALCOHOL (ETHANOL) < 0.003 % (0.000-0.010)
== END 2017-08-09 18:36 | disposition home or self-care (01) ==
LOC: M ED 15:01
DX: F19.20 Other psychoactive substance dependence, uncomplicated (principal); R00.0 Tachycardia, unspecified; R94.31 Abnormal electrocardiogram [ECG] [EKG]; F41.9 Anxiety disorder, unspecified; F32.9 Major depressive disorder, single episode, unspecified; G89.29 Other chronic pain; M54.5 Low back pain; F17.200 Nicotine dependence, unspecified, uncomplicated; F12.10 Cannabis abuse, uncomplicated; Z79.891 Long term (current) use of opiate analgesic; Z79.899 Other long term (current) drug therapy; Z88.5 Allergy status to narcotic agent; Z88.6 Allergy status to analgesic agent; Z88.1 Allergy status to other antibiotic agents; Z88.8 Allergy status to other drugs, medicaments and biological substances; Z91.89 Other specified personal risk factors, not elsewhere classified
CPT/HCPCS: J2060

== ENCOUNTER 2017-08-17 22:02 | Emergency (ER) | payer OTHER ==
[2017-08-18 01:32] LABS: BASO # 0.1 10^3/uL (0.0-0.2); BASO % 0.7 % (0.0-1.0); EOS # 0.2 10^3/uL (0.0-0.50); EOS % 3.6 % (0.0-3.0); HEMATOCRIT 40.9 % (36.0-47.0); HEMOGLOBIN 13.9 g/dl (12.0-15.5); IMMATURE GRANULOCYTE % 0.1 % (0-3.0); LYMPH # 3.1 10^3/uL (1.5-4.5); MEAN CORPUSCULAR HEMOGLOBIN 32.7 pg (27.0-33.0); MEAN CORPUSCULAR VOLUME 96.2 fl (80.0-96.0); MONO # 0.4 10^3/uL (0.0-0.8); MONO % 6.4 % (0.0-5.0); NEUTROPHILS # 2.9 10^3/uL (1.8-7.7); NEUTROPHILS % 43.2 % (36.0-66.0); PLATELET COUNT, AUTOMATED 194 10^3/uL (150-450); RED BLOOD COUNT 4.25 10^6/uL (4.00-5.40); RED CELL DISTRIBUTION WIDTH 13.3 % (11.5-14.5); WHITE BLOOD COUNT 6.7 10^3/uL (4.0-10.0)
[2017-08-18 01:53] LABS: ALBUMIN 3.8 GM/DL (3.2-5.2); ALBUMIN/GLOBULIN RATIO 1.19 (1.00-1.93); ALKALINE PHOSPHATASE 56 U/L (45-117); ALT/SGPT 130 U/L (12-78); ANION GAP 5 MEQ/L (8-16); AST/SGOT 86 U/L (7-37); BILIRUBIN,DIRECT 0.1 MG/DL (0.0-0.2); BILIRUBIN,TOTAL 0.4 MG/DL (0.2-1.0); BLOOD UREA NITROGEN 9 MG/DL (7-18); CALCIUM LEVEL 8.5 MG/DL (8.5-10.1); CARBON DIOXIDE LEVEL 28 MEQ/L (21-32); CHLORIDE LEVEL 109 MEQ/L (98-107); CREATININE FOR GFR 0.44 MG/DL (0.55-1.30); GLOMERULAR FILTRATION RATE > 60.0 (>60); GLUCOSE, FASTING 89 MG/DL (70-100); LIPASE 894 U/L (73-393); POTASSIUM SERUM 3.5 MEQ/L (3.5-5.1); SODIUM LEVEL 142 MEQ/L (136-145)
[2017-08-18] MEDS: PERCOCET 5MG/325MG TAB PO (03:30)
[2017-08-18] MEDS: OXYCODONE/APAP 5MG/325MG(BULK FOR ED) 1 TABLET PO (03:30)
[2017-08-18] MEDS: METOCLOPRAMIDE 5 MG TAB PO (03:30)
== END 2017-08-18 03:34 | disposition home or self-care (01) ==
LOC: M ED 08-18 03:34
DX: R10.9 Unspecified abdominal pain (principal); N80.9 Endometriosis, unspecified; B18.2 Chronic viral hepatitis C; F31.9 Bipolar disorder, unspecified; F90.9 Attention-deficit hyperactivity disorder, unspecified type; R56.9 Unspecified convulsions; R51 Headache
CPT/HCPCS: 83690

== ENCOUNTER → 2017-08-19 | Outpatient (REF) | LOC: M SMT 13:45 | DX: M54.5 Low back pain (principal) ==

== ENCOUNTER 2017-08-27 09:30 | Day surgery (SDC) | payer OTHER ==
[2017-08-27] MEDS: NS 1,000 ML IV (10:00)
[2017-08-27] MEDS ORDERED: PROPOFOL 200 MG/20 ML VIAL As Ordered (11:35)
[2017-08-27] MEDS ORDERED: LIDOCAINE 2% INJ 100 MG/5 ML SDV (FOR ANES.) As Ordered (11:35)
== END 2017-08-27 12:20 | disposition home or self-care (01) ==
LOC: M OPP 09:30
DX: R10.13 Epigastric pain (principal); B18.2 Chronic viral hepatitis C; R11.2 Nausea with vomiting, unspecified; R63.4 Abnormal weight loss; F41.9 Anxiety disorder, unspecified; F32.9 Major depressive disorder, single episode, unspecified; F17.210 Nicotine dependence, cigarettes, uncomplicated; G43.909 Migraine, unspecified, not intractable, without status migrainosus; Z79.899 Other long term (current) drug therapy; Z88.8 Allergy status to other drugs, medicaments and biological substances; Z91.013 Allergy to seafood; Z91.048 Other nonmedicinal substance allergy status; Z86.2 Personal history of diseases of the blood and blood-forming organs and certain disorders involving the immune mechanism; Z86.69 Personal history of other diseases of the nervous system and sense organs; Z86.59 Personal history of other mental and behavioral disorders; Z90.711 Acquired absence of uterus with remaining cervical stump; Z90.49 Acquired absence of other specified parts of digestive tract
CPT/HCPCS: 43239

== ENCOUNTER 2017-09-11 15:12 | Outpatient (RCR) | payer MEDICAID | END 2017-09-27 | LOC: M OUTALCOH 15:12 | DX: F11.20 Opioid dependence, uncomplicated (principal); F17.200 Nicotine dependence, unspecified, uncomplicated ==

== ENCOUNTER → 2017-09-11 | Outpatient (REF) | payer MEDICAID | LOC: M LAB REF 17:00 | DX: F11.20 Opioid dependence, uncomplicated (principal) ==

== ENCOUNTER 2017-09-16 00:17 | Emergency (ER) | payer MEDICAID | END 2017-09-16 00:24 | disposition left against medical advice (07) | LOC: M ED 00:17 | DX: Z53.21 Procedure and treatment not carried out due to patient leaving prior to being seen by health care provider (principal) ==

== ENCOUNTER 2017-09-17 02:09 | Emergency (ER) | payer MEDICAID | END 2017-09-17 03:11 | disposition left against medical advice (07) | LOC: M ED 02:09 | DX: Z53.29 Procedure and treatment not carried out because of patient's decision for other reasons (principal) ==

== ENCOUNTER 2017-11-01 23:25 | Emergency (ER) | payer OTHER, MEDICAID ==
[2017-11-02 02:14] LABS: BASO % 0.4 % (0.0-1.0); EOS # 0.2 10^3/uL (0.0-0.50); EOS % 2.2 % (0.0-3.0); HEMATOCRIT 35.4 % (36.0-47.0); HEMOGLOBIN 12.2 g/dl (12.0-15.5); IMMATURE GRANULOCYTE % 0.3 % (0-3.0); LYMPH # 4.5 10^3/uL (1.5-4.5); LYMPH % 44.9 % (24.0-44.0); MEAN CORPUSCULAR HEMOGLOBIN 33.3 pg (27.0-33.0); MEAN CORPUSCULAR HGB CONC 34.5 g/dl (32.0-36.5); MEAN CORPUSCULAR VOLUME 96.7 fl (80.0-96.0); MONO # 0.4 10^3/uL (0.0-0.8); MONO % 4.4 % (0.0-5.0); NEUTROPHILS # 4.8 10^3/uL (1.8-7.7); NEUTROPHILS % 47.8 % (36.0-66.0); PLATELET COUNT, AUTOMATED 230 10^3/uL (150-450); RED BLOOD COUNT 3.66 10^6/uL (4.00-5.40); RED CELL DISTRIBUTION WIDTH 12.7 % (11.5-14.5)
[2017-11-02 02:30] LABS: CONTROL LINE HCG INT CTR LINE PRESENT; HCG, SERUM QUALITATIVE NEGATIVE (NEGATIVE)
[2017-11-02 02:38] LABS: ALBUMIN/GLOBULIN RATIO 1.15 (1.00-1.93); ALKALINE PHOSPHATASE 45 U/L (45-117); ALT/SGPT 11 U/L (12-78); ANION GAP 7 MEQ/L (8-16); AST/SGOT 9 U/L (7-37); BILIRUBIN,DIRECT < 0.1 MG/DL (0.0-0.2); BILIRUBIN,TOTAL 0.3 MG/DL (0.2-1.0); BLOOD UREA NITROGEN 9 MG/DL (7-18); CALCIUM LEVEL 8.1 MG/DL (8.5-10.1); CARBON DIOXIDE LEVEL 28 MEQ/L (21-32); CHLORIDE LEVEL 109 MEQ/L (98-107); CREATININE FOR GFR 0.46 MG/DL (0.55-1.30); GLOMERULAR FILTRATION RATE > 60.0 (>60); GLUCOSE, FASTING 81 MG/DL (70-100); LIPASE 291 U/L (73-393); POTASSIUM SERUM 3.2 MEQ/L (3.5-5.1); SODIUM LEVEL 144 MEQ/L (136-145); TOTAL PROTEIN 5.6 GM/DL (6.4-8.2)
[2017-11-02 02:49] LABS: AMORPHOUS SEDIMENT RFX MODERATE (NEGATIVE); KETONE, URINE AUTO RFX NEGATIVE (NEGATIVE); LEUKOCYTE ESTERASE UR AUTO RFX NEGATIVE (NEGATIVE); MUCUS, URINE RFX MODERATE (NEGATIVE); NITRITE, URINE AUTO RFX NEGATIVE (NEGATIVE); RBC, URINE AUTO RFX 2 /HPF (0-3); SQUAM EPITHELIAL CELL UR AURFX 2 /HPF (0-6); WBC, URINE AUTO RFX 0 /HPF (0-3)
[2017-11-02] MEDS: MORPHINE 4 MG/ML 1ML VIAL/SYRINGE (J2270) IM (03:53)
== END 2017-11-02 04:13 | disposition home or self-care (01) ==
LOC: M ED 23:25
DX: R52 Pain, unspecified (principal); Z76.5 Malingerer [conscious simulation]; Z79.899 Other long term (current) drug therapy; Z88.2 Allergy status to sulfonamides; Z88.5 Allergy status to narcotic agent; Z88.8 Allergy status to other drugs, medicaments and biological substances; Z91.013 Allergy to seafood; Z91.048 Other nonmedicinal substance allergy status; F17.210 Nicotine dependence, cigarettes, uncomplicated
CPT/HCPCS: J2270

== ENCOUNTER 2017-11-08 23:32 | Emergency (ER) | payer OTHER ==
[2017-11-09 01:35] LABS: BASO # 0.1 10^3/uL (0.0-0.2); BASO % 0.7 % (0.0-1.0); EOS # 0.2 10^3/uL (0.0-0.50); EOS % 2.8 % (0.0-3.0); HEMATOCRIT 36.8 % (36.0-47.0); HEMOGLOBIN 12.4 g/dl (12.0-15.5); IMMATURE GRANULOCYTE % 0.1 % (0-3.0); LYMPH # 3.9 10^3/uL (1.5-4.5); LYMPH % 55.1 % (24.0-44.0); MEAN CORPUSCULAR HEMOGLOBIN 33.2 pg (27.0-33.0); MEAN CORPUSCULAR HGB CONC 33.7 g/dl (32.0-36.5); MEAN CORPUSCULAR VOLUME 98.7 fl (80.0-96.0); MONO # 0.4 10^3/uL (0.0-0.8); MONO % 5.1 % (0.0-5.0); NEUTROPHILS # 2.6 10^3/uL (1.8-7.7); NEUTROPHILS % 36.2 % (36.0-66.0); PLATELET COUNT, AUTOMATED 224 10^3/uL (150-450); RED BLOOD COUNT 3.73 10^6/uL (4.00-5.40); WHITE BLOOD COUNT 7.1 10^3/uL (4.0-10.0)
[2017-11-09 02:35] LABS: ALBUMIN 3.2 GM/DL (3.2-5.2); ALBUMIN/GLOBULIN RATIO 1.07 (1.00-1.93); ALKALINE PHOSPHATASE 49 U/L (45-117); ALT/SGPT 15 U/L (12-78); ANION GAP 4 MEQ/L (8-16); AST/SGOT 12 U/L (7-37); BILIRUBIN,DIRECT < 0.1 MG/DL (0.0-0.2); BILIRUBIN,TOTAL 0.2 MG/DL (0.2-1.0); BLOOD UREA NITROGEN 7 MG/DL (7-18); CARBON DIOXIDE LEVEL 32 MEQ/L (21-32); CHLORIDE LEVEL 107 MEQ/L (98-107); CREATININE FOR GFR 0.57 MG/DL (0.55-1.30); GLOMERULAR FILTRATION RATE > 60.0 (>60); GLUCOSE, FASTING 88 MG/DL (70-100); LIPASE 335 U/L (73-393); POTASSIUM SERUM 3.5 MEQ/L (3.5-5.1); SODIUM LEVEL 143 MEQ/L (136-145); TOTAL PROTEIN 6.2 GM/DL (6.4-8.2)
== END 2017-11-09 03:01 | disposition left against medical advice (07) ==
LOC: M ED 23:32
DX: Z76.5 Malingerer [conscious simulation] (principal); G89.29 Other chronic pain; R10.9 Unspecified abdominal pain; F17.200 Nicotine dependence, unspecified, uncomplicated; F19.20 Other psychoactive substance dependence, uncomplicated
CPT/HCPCS: 74021

== ENCOUNTER 2017-11-13 23:11 | Emergency (ER) | payer OTHER ==
[2017-11-14] MEDS: OXYCODONE/APAP 5MG/325MG(BULK FOR ED) 1 TABLET PO (05:25)
== END 2017-11-14 05:39 | disposition home or self-care (01) ==
LOC: M ED 23:11
DX: R10.9 Unspecified abdominal pain (principal); G89.29 Other chronic pain; F17.200 Nicotine dependence, unspecified, uncomplicated; Z91.013 Allergy to seafood; Z88.6 Allergy status to analgesic agent; Z88.5 Allergy status to narcotic agent; Z88.8 Allergy status to other drugs, medicaments and biological substances; Z88.2 Allergy status to sulfonamides; Z91.048 Other nonmedicinal substance allergy status
CPT/HCPCS: 99283

== ENCOUNTER 2017-12-09 22:23 | Emergency (ER) | payer OTHER ==
[2017-12-09] MEDS: MORPHINE 4 MG/ML 1ML VIAL/SYRINGE (J2270) IV (23:29)
[2017-12-09] MEDS: GASTROGRAFIN SOLUTION 30ML PO ×2 (23:29→23:55)
[2017-12-09] MEDS: ONDANSETRON 4MG/2ML VIAL (J2405) IV (23:29)
[2017-12-09] MEDS: NS 1,000 ML IV (23:30)
[2017-12-09 23:50] LABS: KETONE, URINE AUTO RFX NEGATIVE (NEGATIVE); LEUKOCYTE ESTERASE UR AUTO RFX NEGATIVE (NEGATIVE); NITRITE, URINE AUTO RFX NEGATIVE (NEGATIVE); RBC, URINE AUTO RFX 1 /HPF (0-3); SPECIFIC GRAVITY UR AUTO RFX 1.005 (1.002-1.035); SQUAM EPITHELIAL CELL UR AURFX 2 /HPF (0-6); WBC, URINE AUTO RFX 0 /HPF (0-3)
[2017-12-10 00:03] LABS: CONTROL LINE HCG INT CTR LINE PRESENT; HCG, SERUM QUALITATIVE NEGATIVE (NEGATIVE)
[2017-12-10 00:08] LABS: AMPHETAMINES LEVEL URINE NEGATIVE (NEGATIVE); BARBITURATES URINE NEGATIVE (NEGATIVE); BENZODIAZEPINES URINE NEGATIVE (NEGATIVE); CANNABINOIDS URINE POSITIVE (NEGATIVE); COCAINE METABOLITE URINE NEGATIVE (NEGATIVE); METHADONE URINE NEGATIVE (NEGATIVE); OPIATES URINE NEGATIVE (NEGATIVE); PHENCYCLIDINE URINE NEGATIVE (NEGATIVE)
[2017-12-10] MEDS: MORPHINE 4 MG/ML 1ML VIAL/SYRINGE (J2270) IV (00:08)
[2017-12-10 00:09] LABS: ALBUMIN/GLOBULIN RATIO 1.48 (1.00-1.93); ALKALINE PHOSPHATASE 55 U/L (45-117); ALT/SGPT 13 U/L (12-78); ANION GAP 7 MEQ/L (8-16); AST/SGOT 15 U/L (7-37); BILIRUBIN,DIRECT < 0.1 MG/DL (0.0-0.2); BILIRUBIN,TOTAL 0.3 MG/DL (0.2-1.0); BLOOD UREA NITROGEN 7 MG/DL (7-18); CALCIUM LEVEL 8.7 MG/DL (8.5-10.1); CARBON DIOXIDE LEVEL 29 MEQ/L (21-32); CHLORIDE LEVEL 107 MEQ/L (98-107); CREATININE FOR GFR 0.61 MG/DL (0.55-1.30); GLOMERULAR FILTRATION RATE > 60.0 (>60); GLUCOSE, FASTING 71 MG/DL (70-100); LIPASE 406 U/L (73-393); POTASSIUM SERUM 3.3 MEQ/L (3.5-5.1); SODIUM LEVEL 143 MEQ/L (136-145); TOTAL PROTEIN 6.7 GM/DL (6.4-8.2)
[2017-12-10 00:09] LABS: LACTIC ACID SEPSIS PROTOCOL 0.8 MMOL/L (0.4-2.0)
[2017-12-10 00:10] LABS: BASO # 0.1 10^3/uL (0.0-0.2); EOS # 0.2 10^3/uL (0.0-0.50); EOS % 3.1 % (0.0-3.0); HEMATOCRIT 38.2 % (36.0-47.0); HEMOGLOBIN 13.1 g/dl (12.0-15.5); IMMATURE GRANULOCYTE % 0.1 % (0-3.0); LYMPH # 4.3 10^3/uL (1.5-4.5); LYMPH % 58.6 % (24.0-44.0); MEAN CORPUSCULAR HEMOGLOBIN 33.5 pg (27.0-33.0); MEAN CORPUSCULAR HGB CONC 34.3 g/dl (32.0-36.5); MEAN CORPUSCULAR VOLUME 97.7 fl (80.0-96.0); MONO # 0.5 10^3/uL (0.0-0.8); MONO % 6.3 % (0.0-5.0); NEUTROPHILS # 2.3 10^3/uL (1.8-7.7); NEUTROPHILS % 30.9 % (36.0-66.0); PLATELET COUNT, AUTOMATED 207 10^3/uL (150-450); RED BLOOD COUNT 3.91 10^6/uL (4.00-5.40); RED CELL DISTRIBUTION WIDTH 12.6 % (11.5-14.5); WHITE BLOOD COUNT 7.3 10^3/uL (4.0-10.0)
[2017-12-10] MEDS ORDERED: ISOVUE-370 76% 100ML VIAL (Q9967) As Ordered (00:55)
[2017-12-10] MEDS: fentaNYL 100 MCG/2 ML INJECTION (J3010) IV (00:57)
[2017-12-10] MEDS: OXYCODONE/APAP 5MG/325MG(BULK FOR ED) 1 TABLET PO (03:15)
== END 2017-12-10 03:37 | disposition home or self-care (01) ==
LOC: M ED 12-10 03:37
DX: R10.9 Unspecified abdominal pain (principal); R11.0 Nausea; K90.0 Celiac disease; Z87.891 Personal history of nicotine dependence; Z88.6 Allergy status to analgesic agent; Z88.5 Allergy status to narcotic agent; Z88.8 Allergy status to other drugs, medicaments and biological substances; Z88.2 Allergy status to sulfonamides; Z91.013 Allergy to seafood; Z91.048 Other nonmedicinal substance allergy status; Z79.899 Other long term (current) drug therapy
CPT/HCPCS: J2270

== ENCOUNTER 2017-12-20 23:03 | Emergency (ER) | payer OTHER ==
[2017-12-21] MEDS: PERCOCET 5MG/325MG TAB PO (00:57)
[2017-12-21 01:03] LABS: AMORPHOUS SEDIMENT RFX SMALL (NEGATIVE); CALCIUM OXALATE CRYSTALS RFX SMALL; KETONE, URINE AUTO RFX NEGATIVE (NEGATIVE); LEUKOCYTE ESTERASE UR AUTO RFX NEGATIVE (NEGATIVE); MUCUS, URINE RFX SMALL (NEGATIVE); NITRITE, URINE AUTO RFX NEGATIVE (NEGATIVE); RBC, URINE AUTO RFX 7 /HPF (0-3); SQUAM EPITHELIAL CELL UR AURFX 1 /HPF (0-6); WBC, URINE AUTO RFX 1 /HPF (0-3)
[2017-12-21 01:19] LABS: AMPHETAMINES LEVEL URINE NEGATIVE (NEGATIVE); BARBITURATES URINE NEGATIVE (NEGATIVE); BENZODIAZEPINES URINE NEGATIVE (NEGATIVE); CANNABINOIDS URINE POSITIVE (NEGATIVE); COCAINE METABOLITE URINE NEGATIVE (NEGATIVE); METHADONE URINE NEGATIVE (NEGATIVE); OPIATES URINE NEGATIVE (NEGATIVE); PHENCYCLIDINE URINE NEGATIVE (NEGATIVE)
[2017-12-21] MEDS: ONDANSETRON 4MG/2ML VIAL (J2405) IV (02:19)
[2017-12-21] MEDS: HYDROMORPHONE HCL 0.5 MG/ 0.5 ML SYRINGE (J1170 PER 1) IV (02:20)
[2017-12-21] MEDS: NS 1,000 ML IV (02:20)
[2017-12-21 02:47] LABS: MEAN CORPUSCULAR HEMOGLOBIN 33.1 pg (27.0-33.0); MEAN CORPUSCULAR HGB CONC 33.3 g/dl (32.0-36.5); MEAN CORPUSCULAR VOLUME 99.2 fl (80.0-96.0); PLATELET COUNT, AUTOMATED 165 10^3/uL (150-450); RED BLOOD COUNT 3.63 10^6/uL (4.00-5.40); RED CELL DISTRIBUTION WIDTH 12.7 % (11.5-14.5); WHITE BLOOD COUNT 8.6 10^3/uL (4.0-10.0)
[2017-12-21 02:51] LABS: ADD MANUAL DIFFER YES; DIFF SLIDE NUMBER 85; POS COUNT POS FLAG; POSITIVE DIFF POS FLAG
[2017-12-21 03:15] LABS: ATYPICAL LYMPH 1 % (0-5); BASOPHILS 1 % (0-4); EOSINOPHILS 2 % (0-5); LYMPHOCYTES 55 % (16-52); MONOCYTES 5 % (0-8); NEUTROPHILS 36 % (35-75)
[2017-12-21 03:16] LABS: PLATELET ESTIMATE NORMAL (NORMAL)
[2017-12-21 03:17] LABS: MICROCYTOSIS 1+
[2017-12-21 03:25] LABS: ALBUMIN 3.3 GM/DL (3.2-5.2); ALBUMIN/GLOBULIN RATIO 1.27 (1.00-1.93); ALKALINE PHOSPHATASE 53 U/L (45-117); ALT/SGPT 16 U/L (12-78); ANION GAP 9 MEQ/L (8-16); AST/SGOT 23 U/L (7-37); BILIRUBIN,DIRECT < 0.1 MG/DL (0.0-0.2); BILIRUBIN,TOTAL 0.2 MG/DL (0.2-1.0); BLOOD UREA NITROGEN 9 MG/DL (7-18); CALCIUM LEVEL 8.1 MG/DL (8.5-10.1); CARBON DIOXIDE LEVEL 28 MEQ/L (21-32); CHLORIDE LEVEL 109 MEQ/L (98-107); CREATININE FOR GFR 0.51 MG/DL (0.55-1.30); GLOMERULAR FILTRATION RATE > 60.0 (>60); GLUCOSE, FASTING 76 MG/DL (70-100); LIPASE 233 U/L (73-393); POTASSIUM SERUM 3.6 MEQ/L (3.5-5.1); SODIUM LEVEL 146 MEQ/L (136-145); TOTAL PROTEIN 5.9 GM/DL (6.4-8.2)
[2017-12-21] MEDS: OXYCODONE/APAP 5MG/325MG(BULK FOR ED) 1 TABLET PO (03:54)
== END 2017-12-21 04:00 | disposition home or self-care (01) ==
LOC: M ED 23:03
DX: G89.29 Other chronic pain (principal); R10.9 Unspecified abdominal pain; K90.0 Celiac disease; Z87.442 Personal history of urinary calculi; Z88.2 Allergy status to sulfonamides; Z88.5 Allergy status to narcotic agent; Z88.8 Allergy status to other drugs, medicaments and biological substances; Z91.013 Allergy to seafood; Z91.048 Other nonmedicinal substance allergy status; F17.210 Nicotine dependence, cigarettes, uncomplicated
CPT/HCPCS: J2405

== ENCOUNTER 2017-12-29 23:51 | Emergency (ER) | payer OTHER ==
[2017-12-30 01:01] LABS: BASO # 0.1 10^3/uL (0.0-0.2); BASO % 0.6 % (0.0-1.0); EOS # 0.2 10^3/uL (0.0-0.50); EOS % 2.6 % (0.0-3.0); HEMATOCRIT 38.4 % (36.0-47.0); HEMOGLOBIN 13.1 g/dl (12.0-15.5); IMMATURE GRANULOCYTE % 0.1 % (0-3.0); LYMPH # 4.2 10^3/uL (1.5-4.5); LYMPH % 54.5 % (24.0-44.0); MEAN CORPUSCULAR HEMOGLOBIN 33.6 pg (27.0-33.0); MEAN CORPUSCULAR HGB CONC 34.1 g/dl (32.0-36.5); MEAN CORPUSCULAR VOLUME 98.5 fl (80.0-96.0); MONO # 0.4 10^3/uL (0.0-0.8); MONO % 5.6 % (0.0-5.0); NEUTROPHILS # 2.8 10^3/uL (1.8-7.7); NEUTROPHILS % 36.6 % (36.0-66.0); PLATELET COUNT, AUTOMATED 219 10^3/uL (150-450); RED CELL DISTRIBUTION WIDTH 12.8 % (11.5-14.5); WHITE BLOOD COUNT 7.7 10^3/uL (4.0-10.0)
[2017-12-30] MEDS: ONDANSETRON 4 MG ORAL DISINTEGRATING TAB (Q0162 PER 1MG) PO (01:12)
[2017-12-30] MEDS: NORCO, ANEXSIA 5/325MG TABLET (HYDROcodone/ACETAMINOPHEN) PO (01:13)
[2017-12-30 01:26] LABS: ALBUMIN 3.6 GM/DL (3.2-5.2); ALKALINE PHOSPHATASE 56 U/L (45-117); ALT/SGPT 17 U/L (12-78); ANION GAP 6 MEQ/L (8-16); AST/SGOT 14 U/L (7-37); BILIRUBIN,DIRECT < 0.1 MG/DL (0.0-0.2); BILIRUBIN,TOTAL 0.2 MG/DL (0.2-1.0); BLOOD UREA NITROGEN 8 MG/DL (7-18); CALCIUM LEVEL 8.3 MG/DL (8.5-10.1); CARBON DIOXIDE LEVEL 31 MEQ/L (21-32); CHLORIDE LEVEL 106 MEQ/L (98-107); GLOMERULAR FILTRATION RATE > 60.0 (>60); GLUCOSE, FASTING 68 MG/DL (70-100); LIPASE 413 U/L (73-393); POTASSIUM SERUM 3.9 MEQ/L (3.5-5.1); SODIUM LEVEL 143 MEQ/L (136-145); TOTAL PROTEIN 6.6 GM/DL (6.4-8.2)
== END 2017-12-30 01:59 | disposition home or self-care (01) ==
LOC: M ED 23:51
DX: G89.29 Other chronic pain (principal); R10.84 Generalized abdominal pain; R11.2 Nausea with vomiting, unspecified; R56.9 Unspecified convulsions; Z86.19 Personal history of other infectious and parasitic diseases; Z87.442 Personal history of urinary calculi; Z72.0 Tobacco use; Z79.899 Other long term (current) drug therapy; Z88.5 Allergy status to narcotic agent; Z88.1 Allergy status to other antibiotic agents; Z88.8 Allergy status to other drugs, medicaments and biological substances; Z88.6 Allergy status to analgesic agent; Z91.013 Allergy to seafood; Z91.89 Other specified personal risk factors, not elsewhere classified
CPT/HCPCS: Q0162

== ENCOUNTER 2018-01-09 23:47 | Emergency (ER) | payer OTHER ==
[2018-01-10] MEDS: NORCO, ANEXSIA 5/325MG TABLET (HYDROcodone/ACETAMINOPHEN) PO (00:30)
[2018-01-10 01:04] LABS: KETONE, URINE AUTO RFX NEGATIVE (NEGATIVE); LEUKOCYTE ESTERASE UR AUTO RFX NEGATIVE (NEGATIVE); MUCUS, URINE RFX SMALL (NEGATIVE); NITRITE, URINE AUTO RFX NEGATIVE (NEGATIVE); RBC, URINE AUTO RFX 0 /HPF (0-3); SPECIFIC GRAVITY UR AUTO RFX 1.009 (1.002-1.035); SQUAM EPITHELIAL CELL UR AURFX 1 /HPF (0-6); WBC, URINE AUTO RFX 0 /HPF (0-3)
[2018-01-10 01:05] LABS: HEMATOCRIT 38.7 % (36.0-47.0); HEMOGLOBIN 13.1 g/dl (12.0-15.5); MEAN CORPUSCULAR HEMOGLOBIN 33.2 pg (27.0-33.0); MEAN CORPUSCULAR HGB CONC 33.9 g/dl (32.0-36.5); PLATELET COUNT, AUTOMATED 239 10^3/uL (150-450); RED BLOOD COUNT 3.95 10^6/uL (4.00-5.40); RED CELL DISTRIBUTION WIDTH 12.5 % (11.5-14.5); WHITE BLOOD COUNT 8.7 10^3/uL (4.0-10.0)
[2018-01-10 01:08] LABS: ADD MANUAL DIFFER YES; DIFF SLIDE NUMBER 83; POSITIVE DIFF POS FLAG
[2018-01-10 01:49] LABS: ATYPICAL LYMPH 4 % (0-5); LYMPHOCYTES 60 % (16-52); MONOCYTES 2 % (0-8); NEUTROPHILS 34 % (35-75); PLATELET ESTIMATE NORMAL (NORMAL)
[2018-01-10] MEDS: metroNIDAZOLE (FLAGYL) 500 MG TAB PO (01:55)
[2018-01-10 02:02] LABS: ALBUMIN 3.6 GM/DL (3.2-5.2); ALBUMIN/GLOBULIN RATIO 1.24 (1.00-1.93); ALKALINE PHOSPHATASE 62 U/L (45-117); ALT/SGPT 17 U/L (12-78); ANION GAP 6 MEQ/L (8-16); AST/SGOT 15 U/L (7-37); BILIRUBIN,DIRECT < 0.1 MG/DL (0.0-0.2); BILIRUBIN,TOTAL 0.2 MG/DL (0.2-1.0); BLOOD UREA NITROGEN 11 MG/DL (7-18); CALCIUM LEVEL 8.4 MG/DL (8.5-10.1); CARBON DIOXIDE LEVEL 30 MEQ/L (21-32); CHLORIDE LEVEL 107 MEQ/L (98-107); CREATININE FOR GFR 0.69 MG/DL (0.55-1.30); GLOMERULAR FILTRATION RATE > 60.0 (>60); GLUCOSE, FASTING 74 MG/DL (70-100); LIPASE 184 U/L (73-393); POTASSIUM SERUM 3.8 MEQ/L (3.5-5.1); SODIUM LEVEL 143 MEQ/L (136-145); TOTAL PROTEIN 6.5 GM/DL (6.4-8.2)
[2018-01-10 07:45] LABS: CHLAMYDIA DNA AMPLIFICATION NEGATIVE (NEGATIVE); GC DNA AMPLIFICATION NEGATIVE (NEGATIVE)
== END 2018-01-10 02:01 | disposition home or self-care (01) ==
LOC: M ED 23:47
DX: N76.0 Acute vaginitis (principal); Z91.013 Allergy to seafood; Z88.6 Allergy status to analgesic agent; Z88.5 Allergy status to narcotic agent; Z88.2 Allergy status to sulfonamides; Z88.8 Allergy status to other drugs, medicaments and biological substances; Z91.048 Other nonmedicinal substance allergy status; Z79.899 Other long term (current) drug therapy
CPT/HCPCS: 74176

== ENCOUNTER 2018-01-28 22:41 | Emergency (ER) | payer OTHER ==
[2018-01-28] MEDS: CYCLOBENZAPRINE 10 MG TAB PO (23:00)
== END 2018-01-28 23:16 | disposition home or self-care (01) ==
LOC: M ED 22:41
DX: M62.830 Muscle spasm of back (principal); F17.210 Nicotine dependence, cigarettes, uncomplicated; Z88.8 Allergy status to other drugs, medicaments and biological substances; Z91.013 Allergy to seafood; Z88.5 Allergy status to narcotic agent; Z79.899 Other long term (current) drug therapy
CPT/HCPCS: 99282

== ENCOUNTER 2018-02-11 21:07 | Emergency (ER) | payer OTHER ==
[2018-02-11 22:05] LABS: BASO # 0.1 10^3/uL (0.0-0.2); BASO % 1.1 % (0.0-1.0); EOS # 0.3 10^3/uL (0.0-0.50); EOS % 3.1 % (0.0-3.0); HEMATOCRIT 41.5 % (36.0-47.0); HEMOGLOBIN 13.8 g/dl (12.0-15.5); IMMATURE GRANULOCYTE % 0.2 % (0-3.0); LYMPH # 3.7 10^3/uL (1.5-4.5); LYMPH % 44.7 % (24.0-44.0); MEAN CORPUSCULAR HEMOGLOBIN 33.3 pg (27.0-33.0); MEAN CORPUSCULAR HGB CONC 33.3 g/dl (32.0-36.5); MONO # 0.5 10^3/uL (0.0-0.8); MONO % 5.6 % (0.0-5.0); NEUTROPHILS # 3.8 10^3/uL (1.8-7.7); NEUTROPHILS % 45.3 % (36.0-66.0); PLATELET COUNT, AUTOMATED 252 10^3/uL (150-450); RED BLOOD COUNT 4.15 10^6/uL (4.00-5.40); RED CELL DISTRIBUTION WIDTH 13.1 % (11.5-14.5); WHITE BLOOD COUNT 8.4 10^3/uL (4.0-10.0)
[2018-02-11] MEDS: ONDANSETRON 4MG/2ML VIAL (J2405) IV (22:11)
[2018-02-11] MEDS: MORPHINE 2 MG/ML 1ML SYRINGE (J2270) IV (22:11)
[2018-02-11 22:12] LABS: KETONE, URINE AUTO RFX NEGATIVE (NEGATIVE); LEUKOCYTE ESTERASE UR AUTO RFX NEGATIVE (NEGATIVE); NITRITE, URINE AUTO RFX NEGATIVE (NEGATIVE); RBC, URINE AUTO RFX 1 /HPF (0-3); SPECIFIC GRAVITY UR AUTO RFX 1.002 (1.002-1.035); SQUAM EPITHELIAL CELL UR AURFX 0 /HPF (0-6); WBC, URINE AUTO RFX 0 /HPF (0-3)
[2018-02-11 22:33] LABS: ALBUMIN/GLOBULIN RATIO 1.25 (1.00-1.93); ALKALINE PHOSPHATASE 62 U/L (45-117); ALT/SGPT 21 U/L (12-78); ANION GAP 7 MEQ/L (8-16); AST/SGOT 15 U/L (7-37); BILIRUBIN,DIRECT < 0.1 MG/DL (0.0-0.2); BILIRUBIN,TOTAL 0.2 MG/DL (0.2-1.0); BLOOD UREA NITROGEN 9 MG/DL (7-18); CALCIUM LEVEL 8.9 MG/DL (8.5-10.1); CARBON DIOXIDE LEVEL 29 MEQ/L (21-32); CHLORIDE LEVEL 105 MEQ/L (98-107); CREATININE FOR GFR 0.66 MG/DL (0.55-1.30); GLOMERULAR FILTRATION RATE > 60.0 (>60); GLUCOSE, FASTING 73 MG/DL (70-100); LIPASE 152 U/L (73-393); POTASSIUM SERUM 3.9 MEQ/L (3.5-5.1); SODIUM LEVEL 141 MEQ/L (136-145); TOTAL PROTEIN 7.2 GM/DL (6.4-8.2)
== END 2018-02-11 23:26 | disposition home or self-care (01) ==
LOC: M ED 21:07
DX: R10.9 Unspecified abdominal pain (principal); M54.9 Dorsalgia, unspecified; G89.29 Other chronic pain; K76.0 Fatty (change of) liver, not elsewhere classified; F17.210 Nicotine dependence, cigarettes, uncomplicated; Z82.49 Family history of ischemic heart disease and other diseases of the circulatory system; Z87.440 Personal history of urinary (tract) infections; Z86.19 Personal history of other infectious and parasitic diseases; Z90.49 Acquired absence of other specified parts of digestive tract; Z98.890 Other specified postprocedural states; Z91.013 Allergy to seafood; Z88.5 Allergy status to narcotic agent; Z88.8 Allergy status to other drugs, medicaments and biological substances; Z91.048 Other nonmedicinal substance allergy status
CPT/HCPCS: J2405

== ENCOUNTER 2018-03-05 02:22 | Emergency (ER) | payer OTHER ==
[2018-03-05 03:43] LABS: HEMATOCRIT 37.8 % (36.0-47.0); MEAN CORPUSCULAR HEMOGLOBIN 33.8 pg (27.0-33.0); MEAN CORPUSCULAR HGB CONC 34.4 g/dl (32.0-36.5); MEAN CORPUSCULAR VOLUME 98.2 fl (80.0-96.0); PLATELET COUNT, AUTOMATED 229 10^3/uL (150-450); RED BLOOD COUNT 3.85 10^6/uL (4.00-5.40); RED CELL DISTRIBUTION WIDTH 12.7 % (11.5-14.5); WHITE BLOOD COUNT 9.8 10^3/uL (4.0-10.0)
[2018-03-05 03:49] LABS: POSITIVE DIFF POS FLAG
[2018-03-05 03:50] LABS: ADD MANUAL DIFFER YES; DIFF SLIDE NUMBER 108
[2018-03-05 03:53] LABS: AMORPHOUS SEDIMENT SMALL (NEGATIVE); APPEARANCE, URINE CLOUDY (CLEAR); BACTERIA, URINE AUTO NEGATIVE (NEGATIVE); BILIRUBIN, URINE AUTO 1+ (NEGATIVE); BLOOD, URINE BLOOD NEGATIVE (NEGATIVE); COLOR, URINE AMBER (YELLOW); GLUCOSE, URINE (UA) AUTO NEGATIVE (NEGATIVE); KETONE, URINE AUTO TRACE mg/dL (NEGATIVE); LEUKOCYTE ESTERASE, URINE AUTO NEGATIVE (NEGATIVE); MUCUS, URINE LARGE (NEGATIVE); NITRITE, URINE AUTO NEGATIVE (NEGATIVE); PROTEIN, URINE AUTO 1+ mg/dL (NEGATIVE); RBC, URINE AUTO 4 /HPF (0-3); SPECIFIC GRAVITY URINE AUTO 1.031 (1.002-1.035); SQUAMOUS EPITHELIAL CELL UR AU 6 /HPF (0-6); WBC, URINE AUTO 0 /HPF (0-3)
[2018-03-05 03:54] LABS: ABG BASE EXCESS 4.5 (-2.0-2.0); ABG HCO3 29.1 MEQ/L (22.0-26.0); ABG O2 SATURATION 98.1 % (95.0-99.0); ABG PARTIAL PRESSURE CO2 43.2 mmHg (35.0-45.0); ABG PARTIAL PRESSURE O2 101.2 mmHg (75.0-100.0); ABG STANDARD HCO3 28.5 MEQ/L (22.0-26.0); ABG TOTAL CO2 30.4 MEQ/L (22.0-29.0); ABG pH (ARTERIAL) 7.446 UNITS (7.350-7.450)
[2018-03-05 04:02] LABS: ATYPICAL LYMPH 4 % (0-5); BASOPHILS 3 % (0-4); EOSINOPHILS 1 % (0-5); LYMPHOCYTES 36 % (16-52); MONOCYTES 3 % (0-8); NEUTROPHILS 53 % (35-75); PLATELET ESTIMATE NORMAL (NORMAL)
[2018-03-05 04:04] LABS: ALBUMIN 3.8 GM/DL (3.2-5.2); ALBUMIN/GLOBULIN RATIO 1.31 (1.00-1.93); ALKALINE PHOSPHATASE 59 U/L (45-117); ALT/SGPT 18 U/L (12-78); ANION GAP 7 MEQ/L (8-16); AST/SGOT 13 U/L (7-37); BILIRUBIN,DIRECT < 0.1 MG/DL (0.0-0.2); BILIRUBIN,TOTAL 0.2 MG/DL (0.2-1.0); BLOOD UREA NITROGEN 11 MG/DL (7-18); CALCIUM LEVEL 8.8 MG/DL (8.5-10.1); CARBON DIOXIDE LEVEL 29 MEQ/L (21-32); CHLORIDE LEVEL 105 MEQ/L (98-107); CREATININE FOR GFR 0.61 MG/DL (0.55-1.30); GLOMERULAR FILTRATION RATE > 60.0 (>60); GLUCOSE, FASTING 88 MG/DL (70-100); LIPASE 315 U/L (73-393); POTASSIUM SERUM 3.6 MEQ/L (3.5-5.1); SODIUM LEVEL 141 MEQ/L (136-145); TOTAL PROTEIN 6.7 GM/DL (6.4-8.2)
[2018-03-05] MEDS ORDERED: PILL CRUSHER/CUTTER 1 EACH XX (04:50)
[2018-03-05] MEDS: diphenhydrAMINE 50 MG CAP PO (04:52)
[2018-03-05] MEDS: traMADol 50 MG TAB PO (04:53)
== END 2018-03-05 05:15 | disposition home or self-care (01) ==
LOC: M ED 02:22
DX: G89.4 Chronic pain syndrome (principal); Z76.5 Malingerer [conscious simulation]; K50.90 Crohn's disease, unspecified, without complications
CPT/HCPCS: 74176

== ENCOUNTER 2018-03-17 02:31 | Emergency (ER) | payer OTHER | END 2018-03-17 03:20 | disposition left against medical advice (07) | LOC: M ED 02:31 | DX: Z53.29 Procedure and treatment not carried out because of patient's decision for other reasons (principal) ==

== ENCOUNTER 2018-04-13 01:20 | Emergency (ER) | payer OTHER ==
[~2018-04-13] VITALS: Ht 165.1 cm; Wt 69.3 kg
[~2018-04-13 01:20] MED LIST changes: -ALPR1TAB3; +ALPR1TAB3 PO; +AMIT50TA; +CIPR-249 PO; -CLON0.5T PO; +CLON0.5T8 PO; +CYCL10TA PO; +EPCL1TAB; +EXCETAB81 PO; +FLAG500T PO; +MAVY1TAB PO; +OXYC-517; +OXYC-517 PO; +PYRI1TAB5 PO; +RITA10TA PO; +TIZA2CAP PO; -TIZA2CAP3 PO; +XANA0.25 PO; -ZANT300T PO; +ZANT300T9 PO; +ZOFR4TAB14 PO
[2018-04-13] MEDS ORDERED: METOCLOPRAMIDE INJ 10MG/2ML VIAL (J2765) IV ONE (02:45)
[2018-04-13] MEDS ORDERED: NS 1,000 ML IV ONE (02:45)
[2018-04-13] MEDS ORDERED: methylPREDNISolone INJ 125 MG/2 ML VIAL (J2930) IV ONE (02:45)
[2018-04-13 02:53] LABS: BASO # 0.1 10^3/uL (0.0-0.2); BASO % 0.6 % (0.0-1.0); EOS # 0.2 10^3/uL (0.0-0.50); HEMATOCRIT 39.3 % (36.0-47.0); LYMPH # 3.9 10^3/uL (1.5-4.5); LYMPH % 38.5 % (24.0-44.0); MEAN CORPUSCULAR HEMOGLOBIN 33.1 pg (27.0-33.0); MEAN CORPUSCULAR HGB CONC 33.1 g/dl (32.0-36.5); MONO # 0.5 10^3/uL (0.0-0.8); MONO % 5.4 % (0.0-5.0); NEUTROPHILS # 5.3 10^3/uL (1.8-7.7); NEUTROPHILS % 53.4 % (36.0-66.0); PLATELET COUNT, AUTOMATED 240 10^3/uL (150-450); RED BLOOD COUNT 3.93 10^6/uL (4.00-5.40)
[2018-04-13 03:53] LABS: AMPHETAMINES LEVEL URINE NEGATIVE (NEGATIVE); BARBITURATES URINE NEGATIVE (NEGATIVE); BENZODIAZEPINES URINE NEGATIVE (NEGATIVE); CANNABINOIDS URINE POSITIVE (NEGATIVE); COCAINE METABOLITE URINE NEGATIVE (NEGATIVE); METHADONE URINE NEGATIVE (NEGATIVE); OPIATES URINE NEGATIVE (NEGATIVE); PHENCYCLIDINE URINE NEGATIVE (NEGATIVE)
[2018-04-13 04:21] LABS: ALBUMIN 4.2 GM/DL (3.2-5.2); ALT/SGPT 19 U/L (12-78); BILIRUBIN,DIRECT < 0.1 MG/DL (0.0-0.2); BILIRUBIN,TOTAL 0.3 MG/DL (0.2-1.0); BLOOD UREA NITROGEN 9 MG/DL (7-18); CALCIUM LEVEL 8.7 MG/DL (8.5-10.1); CARBON DIOXIDE LEVEL 28 MEQ/L (21-32); CHLORIDE LEVEL 104 MEQ/L (98-107); CREATININE FOR GFR 0.65 MG/DL (0.55-1.30); GLOMERULAR FILTRATION RATE > 60.0 (>60); GLUCOSE, FASTING 98 MG/DL (70-100); LIPASE 395 U/L (73-393); POTASSIUM SERUM 3.8 MEQ/L (3.5-5.1); SODIUM LEVEL 139 MEQ/L (136-145); TOTAL PROTEIN 7.2 GM/DL (6.4-8.2)
[2018-04-13 04:30] VITALS: BP 101/57
[2018-04-13] MEDS ORDERED: HYOS1TAB PO (04:37)
== END 2018-04-13 04:44 | disposition home or self-care (01) ==
LOC: M ED 01:20
DX: G89.29 Other chronic pain (principal); R10.9 Unspecified abdominal pain; F17.200 Nicotine dependence, unspecified, uncomplicated; B19.20 Unspecified viral hepatitis C without hepatic coma
CPT/HCPCS: 80048; 80076; 80307; 81001; 83690; 85025; 96374; 96375; 99284; J2765; J2930

== ENCOUNTER 2018-05-14 18:48 | Emergency (ER) | payer OTHER ==
[~2018-05-14] VITALS: Ht 165.1 cm; Wt 60.6 kg
[~2018-05-14 18:48] MED LIST changes: +HYOS1TAB PO
[2018-05-14] MEDS ORDERED: ONDANSETRON 4MG/2ML VIAL (J2405) IV ONE (20:45)
[2018-05-14] MEDS ORDERED: MECLIZINE 25 MG TABLET PO ONE (20:45)
[2018-05-14] MEDS ORDERED: NS 1,000 ML IV ONE (20:45)
[2018-05-14 21:46] LABS: HEMOGLOBIN 15.6 g/dl (12.0-15.5); MEAN CORPUSCULAR HGB CONC 35.5 g/dl (32.0-36.5); PLATELET COUNT, AUTOMATED 228 10^3/uL (150-450); RED BLOOD COUNT 4.73 10^6/uL (4.00-5.40)
[2018-05-14 21:49] LABS: URINE PREG TEST NEGATIVE (NEGATIVE)
[2018-05-14 21:51] LABS: WHITE BLOOD COUNT 10.2 10^3/uL (4.0-10.0)
[2018-05-14 22:11] LABS: AMPHETAMINES LEVEL URINE NEGATIVE (NEGATIVE); BARBITURATES URINE NEGATIVE (NEGATIVE); BENZODIAZEPINES URINE NEGATIVE (NEGATIVE); CANNABINOIDS URINE POSITIVE (NEGATIVE); COCAINE METABOLITE URINE NEGATIVE (NEGATIVE); METHADONE URINE NEGATIVE (NEGATIVE); OPIATES URINE NEGATIVE (NEGATIVE); PHENCYCLIDINE URINE NEGATIVE (NEGATIVE)
[2018-05-14 22:13] LABS: ATYPICAL LYMPH 3 % (0-5); LYMPHOCYTES 52 % (16-52); MONOCYTES 4 % (0-8); NEUTROPHILS 41 % (35-75); PLATELET ESTIMATE NORMAL (NORMAL)
[2018-05-14 22:23] LABS: BLOOD UREA NITROGEN 18 MG/DL (7-18); CALCIUM LEVEL 9.2 MG/DL (8.5-10.1); CARBON DIOXIDE LEVEL 22 MEQ/L (21-32); CHLORIDE LEVEL 102 MEQ/L (98-107); CPK CREATINE PHOSPHOKINASE 307 U/L (26-192); CREATININE FOR GFR 0.76 MG/DL (0.55-1.30); GLOMERULAR FILTRATION RATE > 60.0 (>60); GLUCOSE, FASTING 73 MG/DL (70-100); MB/CK RELATIVE INDEX 0.68 (< OR =4); POTASSIUM SERUM 2.7 MEQ/L (3.5-5.1); SODIUM LEVEL 139 MEQ/L (136-145); THYROID STIMULATING HORMONE 0.469 uIU/ML (0.358-3.740); TROPONIN I < 0.02 NG/ML (< 0.10)
[2018-05-14] MEDS ORDERED: KCL 10MEQ/100ML SWI (KRUN) 10 MEQ in APPROPRIATE DILUENT 1 EA IV ONE (22:30)
[2018-05-14] MEDS ORDERED: POTASSIUM CHLORIDE 10 MEQ SR TABLET PO ONE (22:30)
[2018-05-14] MEDS ORDERED: hydrOXYzine 50 MG TAB PO ONE (23:15)
--- NOTE | 2018-05-15 00:56 | REPVR ---
EXAM: US Retroperitoneal Complete, Kidneys and Bladder. EXAM DATE/TIME: 05/14/2018 11:48 PM CLINICAL HISTORY: 32 years old, female; Pain; Abdominal pain; Flank; Right; Additional info: Hematuria, HX of stones TECHNIQUE: Real-time ultrasound of the retroperitoneum with image documentation. Complete exam focused on the kidneys and bladder. COMPARISON: RENAL US 02/11/2018 10:22 PM FINDINGS: Right kidney: Right kidney measures 11.9 cm in length. No hydronephrosis. No masses. No shadowing stones. Left kidney: Left kidney measures 11.7 cm in length. No hydronephrosis. No masses. No shadowing stones. Bladder: Bladder is unremarkable. Bladder is partially decompressed. IMPRESSION: Unremarkable kidneys and bladder ultrasound. Electronically signed by: Robel Siddiqui On 05/15/2018 00:56:23 AM
[2018-05-15 01:18] LABS: BLOOD UREA NITROGEN 17 MG/DL (7-18); CALCIUM LEVEL 8.2 MG/DL (8.5-10.1); CARBON DIOXIDE LEVEL 21 MEQ/L (21-32); CHLORIDE LEVEL 105 MEQ/L (98-107); CREATININE FOR GFR 0.63 MG/DL (0.55-1.30); GLOMERULAR FILTRATION RATE > 60.0 (>60); GLUCOSE, FASTING 65 MG/DL (70-100); POTASSIUM SERUM 3.1 MEQ/L (3.5-5.1); SODIUM LEVEL 141 MEQ/L (136-145)
[2018-05-15] MEDS ORDERED: HYDR-3363 PO (01:22)
[2018-05-15] MEDS ORDERED: hydrOXYzine 50 MG TAB PO ONE (01:30)
[2018-05-15 01:33] VITALS: BP 111/65
--- NOTE | 2018-05-15 07:45 | REP ---
PA and lateral chest: Comparison is 08/09/2017. The lung ramos are clear. The cardiac size is normal. The liliana, mediastinum, and skeletal structures are unremarkable. Impression: Negative PA and lateral chest. There is no interval change. Electronically Signed by Domingo Perez MD 05/15/2018 07:35 A
--- NOTE | 2018-05-16 19:18 | ECGEPIP ---
Stationary ECG Study [facility] - ED Test Date: 2018-05-14 Pat Name: KATIE FITZPATRICK Department: Room: - Gender: F Swimmer: AM : 1985 Requested By: THEA Hoyos PA-C Order Number: [id number] Reading MD: Naa England Measurements Intervals [place] Rate: 73 P: 60 [place]: 125 QRS: 60 QRSD: 95 T: 75 QT: 386 QTc: 428 Interpretive Statements SINUS RHYTHM ST DEVIATION AND MODERATE T-WAVE ABNORMALITY, CONSIDER ANTERIOR ISCHEMIA CLINICAL CORRELATION Electronically Signed On 05-16-2018 19:17:51 EST by Naa England
== END 2018-05-15 01:35 | disposition home or self-care (01) ==
LOC: M ED 18:48
DX: E87.6 Hypokalemia (principal); F41.9 Anxiety disorder, unspecified; R11.2 Nausea with vomiting, unspecified; R10.9 Unspecified abdominal pain; R07.89 Other chest pain; G40.909 Epilepsy, unspecified, not intractable, without status epilepticus; B19.20 Unspecified viral hepatitis C without hepatic coma; K76.0 Fatty (change of) liver, not elsewhere classified; F31.9 Bipolar disorder, unspecified; K90.0 Celiac disease; N80.9 Endometriosis, unspecified; F90.9 Attention-deficit hyperactivity disorder, unspecified type; Z88.8 Allergy status to other drugs, medicaments and biological substances; Z88.5 Allergy status to narcotic agent; Z91.013 Allergy to seafood; Z88.2 Allergy status to sulfonamides; Z91.048 Other nonmedicinal substance allergy status
CPT/HCPCS: 71046; 76775; 80048; 80307; 81001; 82550; 82553; 84443; 84703; 85025; 93005; 96365; 96366; 96375; 99284; J2405

== ENCOUNTER 2018-08-07 10:51 | Inpatient (IN) | payer OTHER ==
[~2018-08-07] VITALS: Ht 165.1 cm; Wt 64.6 kg
[~2018-08-07 10:51] MED LIST changes: +HYDR-3363 PO; +HYDR-3715 PO; -NORCOTAB PO
[2018-08-07 13:51] VITALS: BP 133/88
[2018-08-07] MEDS ORDERED: VENL150C43 PO (14:45)
[2018-08-07] MEDS ORDERED: METH1TAB40 PO (14:47)
[2018-08-07] MEDS ORDERED: PATIENT COMMENTS (15:01)
[2018-08-07] MEDS ORDERED: MORPHINE 4 MG/ML 1ML VIAL/SYRINGE (J2270) IV PRN (15:15)
--- NOTE | 2018-08-07 15:37 | HPEPDOC ---
General Date of Admission August 07, 2018 at 13:54 Attending Physician: SUPA ANGUIANO MD Chief Complaint The patient is a 32-year-old female admitted with a reason for visit of Fabian rodriguez. Source: Patient Exam Limitations: No limitations Timing/Duration: Day(s) (since last 2 days) Severity: Severe Associated Symptoms: Nausea, Vomiting Home Medications Scheduled Venlafaxine HCl (Venlafaxine HCl ER) 150 Mg Cap.er.24h, 150 MG PO DAILY, (Reported) Scheduled PRN Methocarbamol (Methocarbamol) 500 Mg Tablet, 500 MG PO Q8H PRN for PAIN, (Reported) Miscellaneous Medications [Patient Comments] , (Reported) PATIENT STATES SHE DOES NOT TAKE ANY HOME MEDICATIONS, HOWEVER SHE TOLD [facility] SHE TOOK SEROQUEL UNKNOWN DOSE AND TRUVADA LAST NIGHT 08/06/2018. DR. CALLAHAN AND DR. ANGUIANO ARE NO LONGER PRESCRIBING FOR HER. [facility] DOES NOT SHOW ANY MEDICATIONS FILLED AFTER 05/2018. Allergies Coded Allergies: FISH (Verified Allergy, Severe, throat swelling, hives, 11/01/17) SEAFOOD (Verified Allergy, Severe, throat swelling, hives, 11/01/17) codeine (Verified Allergy, Severe, THROAT CLOSES, 08/07/18) ketorolac (Verified Allergy, Severe, THROAT SWELLING, 08/07/18) naproxen (Verified Allergy, Severe, ANAPHYLAXIS, 08/07/18) TAPE (Verified Allergy, Intermediate, dermatitis, 11/01/17) sulfamethoxazole (Verified Allergy, Intermediate, HIVES, 08/07/18) tramadol (Verified Allergy, Intermediate, HIVES, 08/07/18) trimethoprim (Verified Allergy, Intermediate, HIVES, 08/07/18) acetaminophen (Verified Adverse Reaction, Intermediate, BECAUSE OF LIVER ISSUES, 08/07/18) ibuprofen (Verified Adverse Reaction, Intermediate, BECAUSE OF LIVER ISSUES, 08/07/18) Past Medical History Medical History History of smoking. No other history Surgical History Cholecystectomy and Family History Significant Family History: No pertinent family hx Social History * Smoker: current smoker, less than 1 pack/day, cigarettes Alcohol: Denies Drugs: denies Psychosocial History: No pertinent psych hx A-FIB/CHADSVASC A-FIB History Current/History of A-Fib/PAF?: No Review of Systems Constitutional: Reports: Chills, Fatigue Eyes: Denies: Pain, Vision change, Conjunctivae inflammation, Eyelid inflammation, Redness, Other ENT: Denies: Head Aches, Ear Pain, Dysphagia, Sinus Congestion, Post Nasal Drip, Sore Throat, Epistaxis, Other Symptoms Skin: Denies: Rash, Lesions, Jaundice, Bruising, Itching, Dry, Breakdown, Nail Changes, Other Pulmonary: Denies: Dyspnea, Cough, Pleuritic Chest Pain, Other Symptoms Cardiovascular: Denies: Chest Pain, Palpitations, Orthopnea, Paroxysmal Noc. Dyspnea, Edema, Lt Headedness, Other Symptoms Gastrointestinal: Reports: Nausea, Vomiting, Abdominal Pain Genitourinary: Denies: Dysuria, Frequency, Incontinence, Hematuria, Retention, Other Symptoms Hematologic: Denies: Bruising, Bleeding Excessively, Petecchia, Purpura, Enlarged Lymph Nodes, Other Hematologic Endocrine: Denies: Polydipsia, Polyphagia, Polyuria, Heat Intolerance, Cold Intolerance, Other Endocrine Sx Musculoskeletal: Denies: Neck Pain, Back Pain, Shoulder Pain, Arm Pain, Hand Pain, Leg Pain, Foot Pain, Joint Pain, Muscle Pain, Spasms, Other Symptoms Neurological: Denies: Weakness, Numbness, Incoordination, Change in speech, Confusion, Seizures, Other Symptoms Psych: Denies: Mood Normal, Anxiety, Depression, Memory Issues, Thoughts of Self Harm, Anger, Thoughts of Harming Other, Other Psych Physical Examination General Exam: Positive: Alert, Cooperative Eye Exam: Positive: PERRLA, Conjunctiva & lids normal ENT Exam: Positive: Atraumatic, Mucous membr. moist/pink Neck Exam: Positive: Supple Chest Exam: Positive: Clear to auscultation, Normal air movement Heart Exam: Positive: Rate Normal, Normal S1, Normal S2 Abdomen Exam: Positive: Soft, Tenderness, Other (positive tenderness at right lower quadrant, direct and rebound at McBurney's point) Extremity Exam: Positive: Normal pulses Skin Exam: Positive: Nl turgor and temperature Neuro Exam: Positive: Normal Gait, Normal Speech Psych Exam: Positive: Mental status NL, Mood NL Vital Signs Vital Signs Date Time Temp Pulse Resp B/P (MAP) Pulse Ox O2 Delivery O2 Flow Rate FiO2 08/07/18 13:51 96.0 72 18 133/88 (103) 98 Problems (1) Abdominal pain Status: Acute Response to Treatment: Progressing Problem Specific Plan: Consult Specialist Problem Text: 32 years old white female with no other medical problems developed sudden right lower quadrant and right flank pain since along with nausea and vomiting. She was brought to [facility] where she was diagnosed with acute pancreatitis secondary to positive and high amylase level and patient was transferred here for further care. On examination, patient' has tenderness, direct and rebound at McBurney's point , so cannot rule out acute appendicitis Differential diagnoses includes kidney stone, acute appendicitis and acute pancreatitis Admit to medical floor Nothing by mouth except ice chips IV fluids normal saline and 100 mL per hour Zosyn 3.375 mg IV every 6 hours Morphine 4 mg IV every 4 hours when necessary Zofran 4 mg IV every 4 hours when necessary nicoderm patch 14 mg daily Surgical consult has been called and discussed with surgeon instructional technology facilitator Hold all by mouth meds DVT prophylaxis with bilateral SCDs Plan / VTE VTE Prophylaxis Ordered?: Yes SUPA ANGUIANO MD August 07, 2018 15:37
[2018-08-07] MEDS: NICOTINE 14 MG/24 HR TRANSDERMAL TD SCH (15:50)
[2018-08-07] MEDS: NS 1,000 ML IV SCH ×2 (15:52→19:35)
[2018-08-07 16:05] LABS: HEMATOCRIT 33.4 % (36.0-47.0); MEAN CORPUSCULAR HEMOGLOBIN 32.3 pg (27.0-33.0); MEAN CORPUSCULAR HGB CONC 32.9 g/dl (32.0-36.5); MEAN CORPUSCULAR VOLUME 97.9 fl (80.0-96.0); PLATELET COUNT, AUTOMATED 200 10^3/uL (150-450); RED BLOOD COUNT 3.41 10^6/uL (4.00-5.40); WHITE BLOOD COUNT 4.6 10^3/uL (4.0-10.0)
[2018-08-07] MEDS ORDERED: LORazepam 2 MG/ML VIAL (J2060) IV ONE (16:30)
[2018-08-07 16:32] LABS: ALBUMIN 3.2 GM/DL (3.2-5.2); ALT/SGPT 190 U/L (12-78); BILIRUBIN,TOTAL 0.5 MG/DL (0.2-1.0); BLOOD UREA NITROGEN 6 MG/DL (7-18); CARBON DIOXIDE LEVEL 26 MEQ/L (21-32); CHLORIDE LEVEL 112 MEQ/L (98-107); CREATININE FOR GFR 0.45 MG/DL (0.55-1.30); GLOMERULAR FILTRATION RATE > 60.0 (>60); GLUCOSE, FASTING 89 MG/DL (70-100); POTASSIUM SERUM 3.5 MEQ/L (3.5-5.1); SODIUM LEVEL 142 MEQ/L (136-145)
[2018-08-07 16:36] LABS: INR 0.92; PROTHROMBIN TIME 12.5 SECONDS (12.1-14.4)
[2018-08-07] MEDS: PIPERACILLIN/TAZOBACTAM SOD 3.375 GM in D5W MINI-BAG PLUS 50 ML IV SCH ×2 (16:56→22:22)
[2018-08-07] MEDS ORDERED: ISOVUE-370 76% 100ML VIAL (Q9967) As Ordered ONE (17:03)
[2018-08-07] MEDS ORDERED: PILL CRUSHER/CUTTER 1 EACH XX PRN (18:00)
--- NOTE | 2018-08-07 18:23 | REP ---
CT abdomen and pelvis with IV and without oral contrast: History: Right-sided abdomen pain. Pancreatitis. Comparison CT study: March 05, 2018. CT contrast dose: 100 ml of intravenous Isovue 370. CT findings: Digital preliminary roustabout supervisor radiograph demonstrates clips in the right upper quadrant of the abdomen. The lung bases are essentially clear. There is a tiny sliver of perihepatic fluid. Several accessory splenules are again noted. There is a periportal edema pattern, mild in degree. This finding is nonspecific, and may be seen in hepatic congestion due to cardiac failure, acute hepatitis, trauma, and cholangitis. Gallbladder is surgically absent. No focal liver lesion is seen. The main pancreatic duct is slightly prominent, 4 mm. No pancreatic cyst or mass is seen. No adrenal lesion is seen. The kidneys enhance symmetrically and appear morphologically intact. Small and large intestinal bowel loops are normal in the upper abdomen. There is minimal amount of ascitic fluid in the cul-de-sac. Uterus is surgically absent. Urinary bladder is intact. A normal appendix is seen. No abdominal wall defect is seen. Impression: Post cholecystectomy. Periportal edema pattern in the liver. This is nonspecific. It may reflect hepatic congestion from hepatitis trauma or cholangitis. Mildly dilated main pancreatic duct. A small quantity of ascites is seen in the cul-de-sac and around the upper portion of the liver. Electronically Signed by Maynor Omer MD 08/07/2018 08:10 P
--- NOTE | 2018-08-07 18:24 | CR.PDOC ---
General Surgery Consultation Date of Consultation 08/07/18 History and Physical CONSULT REPORT FOR: hospitalist service REASON FOR CONSULTATION: abdominal pain HISTORY OF PRESENT ILLNESS: I am being asked to consult on Ms. Hernandez for her abdominal pain. She has been transferred from [facility] where she presented for back pain, right upper quadrant pain, and now right lower quadrant pain presumably from acute pancreatitis. When she was examined by our hospitalist, he was concerned about possiblity of acute appendicitis and thus I was asked to evaluate her. PAST MEDICAL HISTORY: 1. chronic abdominal pain 2. hepatitis C PAST SURGICAL HISTORY: INCLUDES: 1. cholecystectomy 2. hysterectomy PREVIOUS ANESTHESIA REACTIONS: ALLERGIES: Please see below. FAMILY HISTORY: . HOME MEDICATIONS: Please see below. REVIEW OF SYSTEMS: GENERAL: [Denies chills, reports weight gain, reports feeling febrile yesterday]. HEENT: [Denies blurred vision and double vision. Denies ear symptoms. Denies hoarseness]. NECK: Denies any neck pain]. CARDIOVASCULAR: [Denies chest pain and palpitations]. MUSCULOSKELETAL: [Denies arthralgias, back pain and thrombophlebitis]. SKIN: [Denies rash]. NEUROLOGIC: [Denies headache, stroke and transient ischemic attack]. PSYCHIATRIC: [Denies anxiety and depression]. ENDOCRINE: [Denies thyroid disease]. HEMATOLOGY/ONCOLOGY: [Denies bleeding or clotting disorder]. HEART: [Denies any chest pains, palpitations, paroxysmal dyspnea, orthopnea]. PULMONARY: [Denies chronic cough, dyspnea and wheezing]. GASTROINTESTINAL: [Denies rectal bleeding, family history of colon cancer, constipation, diarrhea, dysphagia, heartburn and jaundice]. GENITOURINARY: [Denies dysuria, frequency, hematuria and nocturia]. ENDOCRINE: [Denies polydipsia, polyphagia, polyuria, heat or cold intolerance]. INFECTIOUS: [Denies any recent upper respiratory tract infection, UTI, need for use of antibiotics]. NUTRITION: [Reports good appetite]. PHYSICAL EXAMINATION: VITALS SIGNS: Please see below. GENERAL APPEARANCE:Patient looks uncomfortable, doubled over (though before I entered the room she was laying on bed looking at her phone). SKIN: warm and dry. HEENT: Normocephalic, atraumatic. [place] palpebral conjunctiva, anicteric sclerae. Lips and mucosa appear dry NECK: Supple, no thyromegaly. No obvious jugular venous distention. LUNGS: Clear to auscultation bilaterally. No wheezing appreciated. HEART: No chest wall abnormalities. Regular rate and rhythm with no murmurs appreciated. ABDOMEN: Abdomen is mild obese, soft, nondistended. She reports tenderness even on mild palpation throughout the right side of her abdomen and her right flank area. No tenderness over left side, mild epigastric tenderness. Patient with voluntary guarding. EXTREMITIES: [Extremities have no deformities. No edema identified] ANCILLARIES: . LABORATORY DATA: Please see below. IMAGING STUDIES: She had a noncontrast CT of the abdomen and pelvis done on 08/06/18 at [facility]. The official read shows no gross acute intraabdominal pathology found. Appendix was visualized and is normal. She had a right upper quadrant US done this morning prior to her transfer. She is s/p cholecystectomy. Her CBD appears normal in size. There is no obvious cbd stone. IMPRESSION AND PLAN: Abdominal pain acute over chronic abdominal pain (right side) probable pancreatitis She denies drinking alcohol. Suggest repeat CT with contrast. addendum: Post cholecystectomy. Periportal edema pattern in the liver. This is nonspecific. It may reflect hepatic congestion from hepatitis trauma or cholangitis. Mildly dilated main pancreatic duct. A small quantity of ascites is seen in the cul-de-sac and around the upper portion of the liver. Review of the CT of the abdomen and pelvis shows a normal-looking appendix without any associated periappendiceal inflammation. Significant findings include a nonspecific mild periportal edema with small amount of free fluid. No outward signs of severe inflammation involving the pancreas. She does have some mildly dilated pancreatic duct. There are no signs of calcifications. Given her history of hepatitis C, concerns include the possibility of active hepatitis versus acute pancreatitis versus chronic pancreatitis given dilated pancreatic duct. She already had cholecystectomy performed in [address] [facility]. From the ultrasound done at [facility], her common bile duct is of normal caliber without any signs of colon bile duct stone. I have communicated this findings and my suspicion with our hospitalist. We will follow her course, but currently no evidence of any disease that would require surgical intervention by me at this point. Vital Signs Vital Signs Date Time Temp Pulse Resp B/P (MAP) Pulse Ox O2 Delivery O2 Flow Rate FiO2 08/07/18 15:55 16 08/07/18 13:51 96.0 72 133/88 (103) 98 Laboratory Data Labs 24H Laboratory Tests 2 08/07/18 15:52: Nucleated Red Blood Cells % (auto) 0.0, Anion Gap 4L, Glomerular Filtration Rate > 60.0, Blood Urea Nitrogen 6L, Creatinine 0.45L, Sodium Level 142, Potassium Level 3.5, Chloride Level 112H, Carbon Dioxide Level 26, Calcium Level 8.0L, Aspartate Amino Transf (AST/SGOT) 204H, Alanine Aminotransferase (ALT/SGPT) 190H, Alkaline Phosphatase 63, Total Bilirubin 0.5, Total Protein 6.0L, Albumin 3.2, Albumin/Globulin Ratio 1.14 CBC/BMP Laboratory Tests 08/07/18 15:52 Red Blood Count 3.41 L, Mean Corpuscular Volume 97.9 H, Mean Corpuscular Hemoglobin 32.3, Mean Corpuscular Hemoglobin Concent 32.9, Red Cell Distribution Width 13.4, Calcium Level 8.0 L, Aspartate Amino Transf (AST/SGOT) 204 H, Alanine Aminotransferase (ALT/SGPT) 190 H, Alkaline Phosphatase 63, Total Bilirubin 0.5, Total Protein 6.0 L, Albumin 3.2 Home Medications Scheduled Venlafaxine HCl (Venlafaxine HCl ER) 150 Mg Cap.er.24h, 150 MG PO DAILY, (Repo rted) Scheduled PRN Methocarbamol (Methocarbamol) 500 Mg Tablet, 500 MG PO Q8H PRN for PAIN, (Reported) Miscellaneous Medications [Patient Comments] , (Reported) PATIENT STATES SHE DOES NOT TAKE ANY HOME MEDICATIONS, HOWEVER SHE TOLD [facility] SHE TOOK SEROQUEL UNKNOWN DOSE AND TRUVADA LAST NIGHT 08/06/2018. DR. CALLAHAN AND DR. ANGUIANO ARE NO LONGER PRESCRIBING FOR HER. [facility] DOES NOT SHOW ANY MEDICATIONS FILLED AFTER 05/2018. Allergies Coded Allergies: FISH (Verified Allergy, Severe, throat swelling, hives, 11/01/17) SEAFOOD (Verified Allergy, Severe, throat swelling, hives, 11/01/17) codeine (Verified Allergy, Severe, THROAT CLOSES, 08/07/18) ketorolac (Verified Allergy, Severe, THROAT SWELLING, 08/07/18) naproxen (Verified Allergy, Severe, ANAPHYLAXIS, 08/07/18) TAPE (Verified Allergy, Intermediate, dermatitis, 11/01/17) sulfamethoxazole (Verified Allergy, Intermediate, HIVES, 08/07/18) tramadol (Verified Allergy, Intermediate, HIVES, 08/07/18) trimethoprim (Verified Allergy, Intermediate, HIVES, 08/07/18) acetaminophen (Verified Adverse Reaction, Intermediate, BECAUSE OF LIVER ISSUES, 08/07/18) ibuprofen (Verified Adverse Reaction, Intermediate, BECAUSE OF LIVER ISSUES, 08/07/18) IRISH WATSON MD August 07, 2018 18:24
[2018-08-07] MEDS: HYDROmorphone 2 MG TAB PO PRN (18:25)
[2018-08-07] MEDS: ONDANSETRON 4MG/2ML VIAL (J2405) IV PRN (21:02)
[2018-08-07 22:00] VITALS: BP 123/83
[2018-08-07] MEDS ORDERED: MORPHINE 4 MG/ML 1ML VIAL/SYRINGE (J2270) IV ONE (23:00)
[2018-08-08] MEDS: HYDROmorphone 2 MG TAB PO PRN ×4 (00:38→21:42)
[2018-08-08] MEDS: NS 1,000 ML IV SCH ×2 (06:05→20:38)
[2018-08-08] MEDS: PIPERACILLIN/TAZOBACTAM SOD 3.375 GM in D5W MINI-BAG PLUS 50 ML IV SCH (06:05)
[2018-08-08 06:46] LABS: ALBUMIN 2.8 GM/DL (3.2-5.2); ALT/SGPT 143 U/L (12-78); BILIRUBIN,TOTAL 1.2 MG/DL (0.2-1.0); BLOOD UREA NITROGEN 7 MG/DL (7-18); CARBON DIOXIDE LEVEL 27 MEQ/L (21-32); CHLORIDE LEVEL 113 MEQ/L (98-107); GLOMERULAR FILTRATION RATE > 60.0 (>60); GLUCOSE, FASTING 81 MG/DL (70-100); LIPASE 848 U/L (73-393); MAGNESIUM LEVEL 1.9 MG/DL (1.8-2.4); POTASSIUM SERUM 3.3 MEQ/L (3.5-5.1); SODIUM LEVEL 145 MEQ/L (136-145); TOTAL PROTEIN 5.6 GM/DL (6.4-8.2)
[2018-08-08 07:00] VITALS: BP 119/75
[2018-08-08] MEDS ORDERED: POTASSIUM CHLORIDE 10 MEQ SR TABLET PO ONE (07:30)
[2018-08-08] MEDS: NICOTINE 14 MG/24 HR TRANSDERMAL TD SCH ×2 (09:33→09:39)
[2018-08-08] MEDS: ONDANSETRON 4MG/2ML VIAL (J2405) IV PRN (09:35)
--- NOTE | 2018-08-08 10:12 | IPNPDOC ---
Subjective Date Seen The patient was seen on 08/08/18. Subjective Chief Complaint/HPI Patient had one more episode of vomiting today abdominal pain is slightly improved. Wants to go home. As per patient, she has to smoke General: Denies: ROS Unobtainable, Chills, Night Sweats, Fatigue, Malaise, Normal Appetite, Other Symptoms Constitutional: Denies: Chills, Fever, Malaise, Night Sweats, Weakness, Fatigue, Weight Loss, Lethargy, Other Eyes: Denies: Pain, Vision change, Conjunctivae inflammation, Eyelid inflammation, Redness, Other ENT: Denies: Head Aches, Ear Pain, Dysphagia, Sinus Congestion, Post Nasal Drip, Sore Throat, Epistaxis, Other Symptoms Skin: Denies: Rash, Lesions, Jaundice, Bruising, Itching, Dry, Breakdown, Nail Changes, Other Pulmonary: Denies: Dyspnea, Cough, Pleuritic Chest Pain, Other Symptoms Cardiovascular: Denies: Chest Pain, Palpitations, Orthopnea, Paroxysmal Noc. Dyspnea, Edema, Lt Headedness, Other Symptoms Gastrointestinal: Reports: Abdominal Pain Objective Physical Examination General Exam: Positive: Alert, Cooperative Eye Exam: Positive: PERRLA, Conjunctiva & lids normal ENT Exam: Positive: Atraumatic, Mucous membr. moist/pink Neck Exam: Positive: Supple Chest Exam: Positive: Clear to auscultation, Normal air movement Heart Exam: Positive: Rate Normal, Normal S1, Normal S2 Abdomen Exam: Positive: Soft, Tenderness (positive tenderness right upper quadrant, mild compared to her previous exam), Other (positive tenderness at right lower quadrant, direct and rebound at McBurney's point) Extremity Exam: Positive: Normal pulses Skin Exam: Positive: Nl turgor and temperature Neuro Exam: Positive: Normal Gait, Normal Speech Psych Exam: Positive: Mental status NL, Mood NL A-FIB/CHADSVASC A-FIB History Current/History of A-Fib/PAF?: No Assessment /Plan Problems (1) Abdominal pain Status: Acute Response to Treatment: Progressing Problem Specific Plan: Consult Specialist Problem Text: 32 years old white female with no other medical problems developed sudden right lower quadrant and right flank pain since along with nausea and vomiting. She was brought to [facility] where she was diagnosed with acute pancreatitis secondary to positive and high amylase level and patient was transferred here for further care. On examination, patient' has tenderness, direct and rebound at McBurney's point , so cannot rule out acute appendicitis Differential diagnoses includes kidney stone, acute appendicitis and acute pancreatitis Abdominal pain, most likely secondary to acute on chronic pancreatitis Discussed with surgery. This repeat CAT scan of the abdomen was done and there is no evidence of acute appendicitis CT is essentially negative except some evidence of pancreatitis Patient's lipase has slowly decreased along with LFTs have reduced List clear liquid diet and progress and once the patient tolerates it can be discharged back home A.m. level laboratory work including lipase has been ordered Hypokalemia: Probably secondary to nausea and vomiting. We'll supplement potassium IV Plan/VTE VTE Prophylaxis Ordered?: Yes VS, I&O, 24H, Fishbone Vital Signs/I&O Vital Signs Date Time Temp Pulse Resp B/P (MAP) Pulse Ox O2 Delivery O2 Flow Rate FiO2 08/08/18 10:04 16 08/08/18 07:00 97.6 62 119/75 (90) 92 I&O- Last 24 Hours up to 6 AM 08/08/18 06:00 Intake Total 850 ml Balance 850 ml Laboratory Data 24H LABS Laboratory Tests 2 08/07/18 15:52: Nucleated Red Blood Cells % (auto) 0.0, Prothrombin Time 12.5, Prothromb Time International Ratio 0.92, Anion Gap 4L, Glomerular Filtration Rate > 60.0, Blood Urea Nitrogen 6L, Creatinine 0.45L, Sodium Level 142, Potassium Level 3.5, Chloride Level 112H, Carbon Dioxide Level 26, Calcium Level 8.0L, Aspartate Amino Transf (AST/SGOT) 204H, Alanine Aminotransferase (ALT/SGPT) 190H, Alkaline Phosphatase 63, Total Bilirubin 0.5, Total Protein 6.0L, Albumin 3.2, Albumin/Globulin Ratio 1.14 08/08/18 05:41: Anion Gap 5L, Glomerular Filtration Rate > 60.0, Blood Urea Nitrogen 7, Creatinine 0.40L, Sodium Level 145, Potassium Level 3.3L, Chloride Level 113H, Carbon Dioxide Level 27, Calcium Level 8.0L, Aspartate Amino Transf (AST/SGOT) 111H, Alanine Aminotransferase (ALT/SGPT) 143H, Alkaline Phosphatase 75, Total Bilirubin 1.2#H, Total Protein 5.6L, Albumin 2.8L, Albumin/Globulin Ratio 1.00, Magnesium Level 1.9, Lipase 848H CBC/BMP Laboratory Tests 08/07/18 15:52 Red Blood Count 3.41 L, Mean Corpuscular Volume 97.9 H, Mean Corpuscular Hemoglobin 32.3, Mean Corpuscular Hemoglobin Concent 32.9, Red Cell Distribution Width 13.4, Calcium Level 8.0 L, Aspartate Amino Transf (AST/SGOT) 204 H, Alanine Aminotransferase (ALT/SGPT) 190 H, Alkaline Phosphatase 63, Total Bilirubin 0.5, Total Protein 6.0 L, Albumin 3.2 08/08/18 05:41 Calcium Level 8.0 L, Aspartate Amino Transf (AST/SGOT) 111 H, Alanine Aminotransferase (ALT/SGPT) 143 H, Alkaline Phosphatase 75, Total Bilirubin 1.2 #H, Total Protein 5.6 L, Albumin 2.8 L SUPA ANGUIANO MD August 08, 2018 10:12
[2018-08-08] MEDS ORDERED: KCL 10MEQ/100ML SWI (KRUN) 10 MEQ in APPROPRIATE DILUENT 1 EA IV ONE (10:15)
[2018-08-08] MEDS: VENLAFAXINE **XR** 75MG CAPSULE PO SCH (10:54)
[2018-08-08 14:00] VITALS: BP 133/79
[2018-08-08 22:00] VITALS: BP 106/68
[2018-08-09] MEDS ORDERED: MORPHINE 4 MG/ML 1ML VIAL/SYRINGE (J2270) IV ONE (01:30)
[2018-08-09] MEDS: HYDROmorphone 2 MG TAB PO PRN ×5 (03:45→22:20)
[2018-08-09] MEDS: NS 1,000 ML IV SCH ×3 (05:37→18:13)
[2018-08-09 06:00] VITALS: BP 120/55
[2018-08-09 06:24] LABS: HEMATOCRIT 31.4 % (36.0-47.0); HEMOGLOBIN 10.9 g/dl (12.0-15.5); MEAN CORPUSCULAR HEMOGLOBIN 32.2 pg (27.0-33.0); MEAN CORPUSCULAR HGB CONC 34.7 g/dl (32.0-36.5); MEAN CORPUSCULAR VOLUME 92.9 fl (80.0-96.0); PLATELET COUNT, AUTOMATED 191 10^3/uL (150-450); RED BLOOD COUNT 3.38 10^6/uL (4.00-5.40); WHITE BLOOD COUNT 5.9 10^3/uL (4.0-10.0)
[2018-08-09 06:58] LABS: ALT/SGPT 122 U/L (12-78); BILIRUBIN,TOTAL 0.8 MG/DL (0.2-1.0); BLOOD UREA NITROGEN 2 MG/DL (7-18); CARBON DIOXIDE LEVEL 27 MEQ/L (21-32); CHLORIDE LEVEL 110 MEQ/L (98-107); CREATININE FOR GFR 0.42 MG/DL (0.55-1.30); GLOMERULAR FILTRATION RATE > 60.0 (>60); GLUCOSE, FASTING 93 MG/DL (70-100); LIPASE 1075 U/L (73-393); MAGNESIUM LEVEL 1.8 MG/DL (1.8-2.4); POTASSIUM SERUM 3.2 MEQ/L (3.5-5.1); SODIUM LEVEL 143 MEQ/L (136-145); TOTAL PROTEIN 5.6 GM/DL (6.4-8.2)
[2018-08-09] MEDS ORDERED: POTASSIUM CHLORIDE 10 MEQ SR TABLET PO ONE (08:00)
[2018-08-09] MEDS: NICOTINE 14 MG/24 HR TRANSDERMAL TD SCH (08:38)
[2018-08-09] MEDS: VENLAFAXINE **XR** 75MG CAPSULE PO SCH (08:39)
--- NOTE | 2018-08-09 10:07 | IPNPDOC ---
Subjective Date Seen The patient was seen on 08/09/18. Subjective Chief Complaint/HPI Patient is still complaining of severe abdominal pain not relieved with Dilaudid 1 mg by mouth needed morphine and multiple times last night General: Denies: ROS Unobtainable, Chills, Night Sweats, Fatigue, Malaise, Normal Appetite, Other Symptoms Constitutional: Denies: Chills, Fever, Malaise, Night Sweats, Weakness, Fatigue, Weight Loss, Lethargy, Other Eyes: Denies: Pain, Vision change, Conjunctivae inflammation, Eyelid inflammation, Redness, Other ENT: Denies: Head Aches, Ear Pain, Dysphagia, Sinus Congestion, Post Nasal Drip, Sore Throat, Epistaxis, Other Symptoms Skin: Denies: Rash, Lesions, Jaundice, Bruising, Itching, Dry, Breakdown, Nail Changes, Other Pulmonary: Denies: Dyspnea, Cough, Pleuritic Chest Pain, Other Symptoms Cardiovascular: Denies: Chest Pain, Palpitations, Orthopnea, Paroxysmal Noc. Dyspnea, Edema, Lt Headedness, Other Symptoms Gastrointestinal: Reports: Nausea, Abdominal Pain Genitourinary: Denies: Dysuria, Frequency, Incontinence, Hematuria, Retention, Other Symptoms Hematologic: Denies: Bruising, Bleeding Excessively, Petecchia, Purpura, Enlarged Lymph Nodes, Other Hematologic Endocrine: Denies: Polydipsia, Polyphagia, Polyuria, Heat Intolerance, Cold Intolerance, Other Endocrine Sx Musculoskeletal: Denies: Neck Pain, Back Pain, Shoulder Pain, Arm Pain, Hand Pain, Leg Pain, Foot Pain, Joint Pain, Muscle Pain, Spasms, Other Symptoms Neurological: Denies: Weakness, Numbness, Incoordination, Change in speech, C onfusion, Seizures, Other Symptoms Psych: Denies: Mood Normal, Anxiety, Depression, Memory Issues, Thoughts of Self Harm, Anger, Thoughts of Harming Other, Other Psych Objective Physical Examination General Exam: Positive: Alert, Cooperative Eye Exam: Positive: PERRLA, Conjunctiva & lids normal ENT Exam: Positive: Atraumatic, Mucous membr. moist/pink Neck Exam: Positive: Supple Chest Exam: Positive: Clear to auscultation, Normal air movement Heart Exam: Positive: Rate Normal, Normal S1, Normal S2 Abdomen Exam: Positive: Soft, Tenderness (positive tenderness right upper quadrant, mild compared to her previous exam), Other (positive tenderness at right lower quadrant, direct and rebound at McBurney's point) Extremity Exam: Positive: Normal pulses Skin Exam: Positive: Nl turgor and temperature Neuro Exam: Positive: Normal Gait, Normal Speech Psych Exam: Positive: Mental status NL, Mood NL A-FIB/CHADSVASC A-FIB History Current/History of A-Fib/PAF?: No Assessment /Plan Problems (1) Pancreatitis, acute Status: Acute Response to Treatment: Uncontrolled Problem Text: Continue IV fluids normal saline at 7500 mL per hour Lipase level is still more than 1000 Will repeat CBC, CMP and lipase in a.m. Continue clear liquid diet as patient is still has nausea will not start regular diet She also has a severe abdominal pain not relieved with Dilaudid 1 mg, hence we will increase to Dilaudid 2 mg by mouth every 4 hours when necessary for better pain control as patient has multiple allergies to nonnarcotic pain relievers Monitor clinically and they just pain meds as needed Possible DC once the lipase level is within normal range Plan/VTE VTE Prophylaxis Ordered?: Yes VS, I&O, [facility] Vital Signs/I&O Vital Signs Date Time Temp Pulse Resp B/P (MAP) Pulse Ox O2 Delivery O2 Flow Rate FiO2 08/09/18 09:50 18 08/09/18 06:00 96.8 71 120/55 (76) 98 I&O- Last 24 Hours up to 6 AM 08/09/18 06:00 Intake Total 3880 ml Output Total 1800 ml Balance 2080 ml Laboratory Data 24H LABS Laboratory Tests 2 08/08/18 14:47: Urine Color YELLOW, Urine Appearance CLEAR, Urine pH 5.0, Urine Specific [place] 1.011, Urine Protein NEGATIVE, Urine Glucose (UA) NEGATIVE, Urine Ketones 2+H, Urine Blood 1+H, Urine Nitrite NEGATIVE, Urine Bilirubin NEGATIVE, Urine Urobilinogen 0.2, Urine Leukocyte Esterase NEGATIVE, Urine WBC (Auto) 0, Urine R BC (Auto) 3, Urine Hyaline Casts (Auto) 0, Urine Bacteria (Auto) NEGATIVE, Urine Squamous Epithelial Cells 1, Urine Mucus (Auto) SMALL, Urine Sperm (Auto) 08/09/18 06:08: Nucleated Red Blood Cells % (auto) 0.0, Anion Gap 6L, Glomerular Filtration Rate > 60.0, Blood Urea Nitrogen 2#L, Creatinine 0.42L, Sodium Level 143, Potassium Level 3.2L, Chloride Level 110H, Carbon Dioxide Level 27, Calcium Level 8.0L, Aspartate Amino Transf (AST/SGOT) 76H, Alanine Aminotransferase (ALT/SGPT) 122H, Alkaline Phosphatase 90, Total Bilirubin 0.8, Total Protein 5.6L, Albumin 3.0L, Magnesium Level 1.8, Albumin/Globulin Ratio 1.15, Lipase 1075H CBC/BMP Laboratory Tests 08/09/18 06:08 Red Blood Count 3.38 L, Mean Corpuscular Volume 92.9, Mean Corpuscular Hemoglobin 32.2, Mean Corpuscular Hemoglobin Concent 34.7, Red Cell Distribution Width 12.9, Calcium Level 8.0 L, Aspartate Amino Transf (AST/SGOT) 76 H, Alanine Aminotransferase (ALT/SGPT) 122 H, Alkaline Phosphatase 90, Total Bilirubin 0.8, Total Protein 5.6 L, Albumin 3.0 L SUPA ANGUIANO MD August 09, 2018 10:07
[2018-08-09 14:00] VITALS: BP 104/56
[2018-08-09] MEDS: ONDANSETRON 4MG/2ML VIAL (J2405) IV PRN ×2 (14:16→19:47)
[2018-08-09 22:00] VITALS: BP 129/80
[2018-08-10] MEDS: ONDANSETRON 4MG/2ML VIAL (J2405) IV PRN ×2 (03:44→08:20)
[2018-08-10] MEDS: HYDROmorphone 2 MG TAB PO PRN ×3 (03:45→12:31)
[2018-08-10] MEDS: NS 1,000 ML IV SCH (05:10)
[2018-08-10 06:00] VITALS: BP 118/69
[2018-08-10 06:00] LABS: HEMATOCRIT 33.9 % (36.0-47.0); HEMOGLOBIN 11.3 g/dl (12.0-15.5); MEAN CORPUSCULAR HEMOGLOBIN 32.1 pg (27.0-33.0); MEAN CORPUSCULAR HGB CONC 33.3 g/dl (32.0-36.5); MEAN CORPUSCULAR VOLUME 96.3 fl (80.0-96.0); PLATELET COUNT, AUTOMATED 185 10^3/uL (150-450); RED BLOOD COUNT 3.52 10^6/uL (4.00-5.40); WHITE BLOOD COUNT 3.9 10^3/uL (4.0-10.0)
[2018-08-10 06:28] LABS: ALBUMIN 3.1 GM/DL (3.2-5.2); ALT/SGPT 148 U/L (12-78); BILIRUBIN,TOTAL 0.9 MG/DL (0.2-1.0); BLOOD UREA NITROGEN 2 MG/DL (7-18); CALCIUM LEVEL 8.1 MG/DL (8.5-10.1); CARBON DIOXIDE LEVEL 28 MEQ/L (21-32); CHLORIDE LEVEL 109 MEQ/L (98-107); GLOMERULAR FILTRATION RATE > 60.0 (>60); GLUCOSE, FASTING 111 MG/DL (70-100); LIPASE 568 U/L (73-393); POTASSIUM SERUM 3.3 MEQ/L (3.5-5.1); SODIUM LEVEL 141 MEQ/L (136-145); TOTAL PROTEIN 5.8 GM/DL (6.4-8.2)
[2018-08-10] MEDS ORDERED: POTASSIUM CHLORIDE 10 MEQ SR TABLET PO ONE (08:00)
[2018-08-10] MEDS: NICOTINE 14 MG/24 HR TRANSDERMAL TD SCH (08:22)
[2018-08-10] MEDS: VENLAFAXINE **XR** 75MG CAPSULE PO SCH (08:23)
[2018-08-10] MEDS ORDERED: DILA2TAB6 PO (10:04)
--- NOTE | 2018-08-10 10:17 | DS.PDOC ---
Discharge Summary General Date of Admission August 07, 2018 at 13:54 Date of Discharge 08/10/18 Attending Physician: SUPA ANGUIANO MD Discharge Summary PROCEDURES PERFORMED DURING STAY: [None]. ADMITTING DIAGNOSES: 1. [Abdominal pain]. DISCHARGE DIAGNOSES: 1. [Acute pancreatitis]. COMPLICATIONS/CHIEF COMPLAINT: Pancreatitis. HISTORY OF PRESENT ILLNESS: [ 32 years old white female with no other medical problems developed sudden right lower quadrant and right flank pain since along with nausea and vomiting. She was brought to [facility] where she was diagnosed with acute pancreatitis secondary to positive and high lipase level and patient was transferred here for further care. On examination, patient' has tenderness, direct and rebound at McBurney's point , so cannot rule out acute appendicitis]. HOSPITAL COURSE: [Patient was admitted with the diagnosis of acute pancreatitis secondary to elevated lipase level. Patient also had a tenderness at right lower quadrant on examination, so the surgical consult with Dr. Davenport was called and patient received the repeat CT of the abdomen with IV contrast. CAT scan was essentially negative, did not show any acute appendicitis but there was dilated patient of pancreatic duct. Patient was started on IV fluid supportive management and pain management was started. Initially she did not respond to morphine and she is allergic to multiple, multiple pain medications. Hence, she was started on Dilaudid 1 tablet by mouth every 6 hours when necessary but patient still had a lot of pain. As it was increased to 2 tablets by mouth every 4 hours with good relief of symptoms. Patient was started yesterday with a clear liquid diet and progressively increased. She has tolerated a regular diet today without any pain, nausea, vomiting. lipase is between 506 100 today and patient wants to go home. She was advised to eat low-fat diet . To follow with the PCP in one week's time. Patient will be discharged home on by mouth Dilaudid for pain control, [facility] reference number is [id number]. ]. DISCHARGE MEDICATIONS: Please see below. ALLERGIES: Please see below. PHYSICAL EXAMINATION ON DISCHARGE: VITAL SIGNS: Please see below. GENERAL: [Comfortable, in no pain] HEENT: [PERRLA. Extraocular muscles intact] NECK: [Supple, no JVD, no lymphadenopathy] CARDIOVASCULAR EXAMINATION: [S1, S2, regular] RESPIRATORY EXAMINATION: [Clear to A&P] ABDOMINAL EXAMINATION: [Benign] EXTREMITIES: [No clubbing, cyanosis or edema] SKIN: Within normal limits] NEUROLOGICAL EXAMINATION: [Within normal limits] PSYCHIATRIC EXAMINATION: [Within normal limits] LABORATORY DATA: Please see below. IMAGING: [CT of the abdomen and pelvis] PROGNOSIS: [Good] ACTIVITY: [As tolerated]. DIET: [Low-fat diet] DISCHARGE PLAN: [Follow with PCP in one week] DISPOSITION: . Home DISCHARGE INSTRUCTIONS: 1. [As above. As]. ITEMS TO FOLLOWUP ON ON OUTPATIENT: 1. [Is above]. DISCHARGE CONDITION: [Stable]. TIME SPENT ON DISCHARGE: Greater than [40] minutes. Vital Signs/I&Os Vital Signs Date Time Temp Pulse Resp B/P (MAP) Pulse Ox O2 Delivery O2 Flow Rate FiO2 08/10/18 08:52 18 08/10/18 06:00 98.9 61 118/69 (85) 97 I&O- Last 24 Hours up to 6 AM 08/10/18 05:59 Intake Total 3120 ml Output Total 1250 ml Balance 1870 ml Laboratory Data Labs 24H Laboratory Tests 2 08/10/18 05:41: Nucleated Red Blood Cells % (auto) 0.0, Anion Gap 4L, Glomerular Filtration Rate > 60.0, Blood Urea Nitrogen 2L, Creatinine 0.50L, Sodium Level 141, Potassium Level 3.3L, Chloride Level 109H, Carbon Dioxide Level 28, Calcium Level 8.1L, Aspartate Amino Transf (AST/SGOT) 117H, Alanine Aminotransferase (ALT/SGPT) 148H, Alkaline Phosphatase 111, Total Bilirubin 0.9, Total Protein 5.8L, Albumin 3.1L, Albumin/Globulin Ratio 1.15, Lipase 568H CBC/BMP Laboratory Tests 08/10/18 05:41 Red Blood Count 3.52 L, Mean Corpuscular Volume 96.3 H, Mean Corpuscular Hemoglobin 32.1, Mean Corpuscular Hemoglobin Concent 33.3, Red Cell Distribution Width 13.2, Calcium Level 8.1 L, Aspartate Amino Transf (AST/SGOT) 117 H, Alanine Aminotransferase (ALT/SGPT) 148 H, Alkaline Phosphatase 111, Total Bilirubin 0.9, Total Protein 5.8 L, Albumin 3.1 L Discharge Medications Scheduled Venlafaxine HCl (Venlafaxine HCl ER) 150 Mg Cap.er.24h, 150 MG PO DAILY, (Reported) Scheduled PRN Hydromorphone HCl (Dilaudid) 2 Mg Tablet, 2 MG PO Q4HP PRN for MODERATE/SEVERE PAIN (PS 5-10) Methocarbamol (Methocarbamol) 500 Mg Tablet, 500 MG PO Q8H PRN for PAIN, (Reported) Allergies Coded Allergies: FISH (Verified Allergy, Severe, throat swelling, hives, 11/01/17) SEAFOOD (Verified Allergy, Severe, throat swelling, hives, 11/01/17) codeine (Verified Allergy, Severe, THROAT CLOSES, 08/07/18) ketorolac (Verified Allergy, Severe, THROAT SWELLING, 08/07/18) naproxen (Verified Allergy, Severe, ANAPHYLAXIS, 08/07/18) TAPE (Verified Allergy, Intermediate, dermatitis, 11/01/17) sulfamethoxazole (Verified Allergy, Intermediate, HIVES, 08/07/18) tramadol (Verified Allergy, Intermediate, HIVES, 08/07/18) trimethoprim (Verified Allergy, Intermediate, HIVES, 08/07/18) acetaminophen (Verified Adverse Reaction, Intermediate, BECAUSE OF LIVER ISSUES, 08/07/18) ibuprofen (Verified Adverse Reaction, Intermediate, BECAUSE OF LIVER ISSUES, 08/07/18) SUPA ANGUIANO MD August 10, 2018 10:17
== END 2018-08-10 12:40 | disposition home or self-care (01) | DRG 282 ==
LOC: M MSPAV 13:54
PROVIDERS: ADMIT Internal Medicine Nephrology; ATTEND Internal Medicine
DX: K85.90 Acute pancreatitis without necrosis or infection, unspecified (principal); B18.2 Chronic viral hepatitis C; Z79.899 Other long term (current) drug therapy; Z88.2 Allergy status to sulfonamides; Z88.6 Allergy status to analgesic agent; Z88.5 Allergy status to narcotic agent; Z91.013 Allergy to seafood

== ENCOUNTER 2018-09-01 15:23 | Emergency (ER) | payer OTHER ==
[~2018-09-01] VITALS: Ht 165.1 cm; Wt 64.5 kg
[~2018-09-01 15:23] MED LIST changes: +DILA2TAB6 PO; +METH1TAB40 PO; +PATIENT COMMENTS; +VENL150C43 PO
[2018-09-01] MEDS ORDERED: PIRO10CA2 (15:35)
[2018-09-01 16:18] LABS: BASO # 0.1 10^3/uL (0.0-0.2); BASO % 0.6 % (0.0-1.0); EOS # 0.3 10^3/uL (0.0-0.50); EOS % 3.4 % (0.0-3.0); HEMATOCRIT 38.7 % (36.0-47.0); HEMOGLOBIN 12.6 g/dl (12.0-15.5); LYMPH % 36.9 % (24.0-44.0); MEAN CORPUSCULAR HGB CONC 32.6 g/dl (32.0-36.5); MEAN CORPUSCULAR VOLUME 101.3 fl (80.0-96.0); MONO # 0.5 10^3/uL (0.0-0.8); MONO % 6.3 % (0.0-5.0); NEUTROPHILS # 4.2 10^3/uL (1.8-7.7); NEUTROPHILS % 52.5 % (36.0-66.0); PLATELET COUNT, AUTOMATED 231 10^3/uL (150-450); RED BLOOD COUNT 3.82 10^6/uL (4.00-5.40)
[2018-09-01 16:41] LABS: ALBUMIN 3.5 GM/DL (3.2-5.2); ALT/SGPT 14 U/L (12-78); BILIRUBIN,DIRECT < 0.1 MG/DL (0.0-0.2); BILIRUBIN,TOTAL < 0.1 MG/DL (0.2-1.0); BLOOD UREA NITROGEN 17 MG/DL (7-18); CALCIUM LEVEL 8.7 MG/DL (8.5-10.1); CARBON DIOXIDE LEVEL 28 MEQ/L (21-32); CHLORIDE LEVEL 108 MEQ/L (98-107); CREATININE FOR GFR 0.51 MG/DL (0.55-1.30); GLOMERULAR FILTRATION RATE > 60.0 (>60); GLUCOSE, FASTING 57 MG/DL (70-100); LIPASE 257 U/L (73-393); POTASSIUM SERUM 4.2 MEQ/L (3.5-5.1); SODIUM LEVEL 142 MEQ/L (136-145); TOTAL PROTEIN 6.7 GM/DL (6.4-8.2)
[2018-09-01] MEDS ORDERED: METOCLOPRAMIDE 10 MG TAB PO ONE (17:15)
[2018-09-01] MEDS ORDERED: DICYCLOMINE 10 MG CAP PO ONE (17:15)
--- NOTE | 2018-09-01 18:20 | REP ---
ABDOMEN FLAT UPRIGHT PA CHEST, THREE VIEWS: HISTORY: Constipation. COMPARISON: 11/09/2017 Air is present in the small and large intestine. There are no air fluid levels or dilated loops of intestine. There is no pneumoperitoneum. Surgical clips are present in the right upper quadrant. The lungs are clear. IMPRESSION: Nonspecific bowel gas pattern. Electronically Signed by Mata Black MD 09/01/2018 06:45 P
[2018-09-01] MEDS ORDERED: MAGNESIUM CITRATE 300 ML BTL PO ONE (19:15)
[2018-09-01 19:30] VITALS: BP 103/63
== END 2018-09-01 19:34 | disposition home or self-care (01) ==
LOC: M ED 15:23
DX: R10.9 Unspecified abdominal pain (principal); K21.9 Gastro-esophageal reflux disease without esophagitis; K50.90 Crohn's disease, unspecified, without complications; B19.20 Unspecified viral hepatitis C without hepatic coma; K90.0 Celiac disease; G43.909 Migraine, unspecified, not intractable, without status migrainosus; F17.200 Nicotine dependence, unspecified, uncomplicated; Z87.442 Personal history of urinary calculi; Z87.19 Personal history of other diseases of the digestive system; Z88.5 Allergy status to narcotic agent; Z88.6 Allergy status to analgesic agent; Z88.2 Allergy status to sulfonamides; Z91.013 Allergy to seafood; Z91.048 Other nonmedicinal substance allergy status; Z79.899 Other long term (current) drug therapy

== ENCOUNTER 2018-09-23 22:32 | Emergency (ER) | payer OTHER ==
[~2018-09-23] VITALS: Ht 165.1 cm; Wt 63.4 kg
[~2018-09-23 22:32] MED LIST changes: +PIRO10CA2
[2018-09-23 23:02] LABS: BASO % 0.6 % (0.0-1.0); EOS # 0.2 10^3/uL (0.0-0.50); EOS % 2.8 % (0.0-3.0); HEMATOCRIT 40.1 % (36.0-47.0); HEMOGLOBIN 13.5 g/dl (12.0-15.5); LYMPH # 3.6 10^3/uL (1.5-4.5); LYMPH % 49.5 % (24.0-44.0); MEAN CORPUSCULAR HEMOGLOBIN 33.3 pg (27.0-33.0); MEAN CORPUSCULAR HGB CONC 33.7 g/dl (32.0-36.5); MONO # 0.4 10^3/uL (0.0-0.8); MONO % 5.9 % (0.0-5.0); NEUTROPHILS % 41.1 % (36.0-66.0); PLATELET COUNT, AUTOMATED 239 10^3/uL (150-450); RED BLOOD COUNT 4.05 10^6/uL (4.00-5.40); WHITE BLOOD COUNT 7.3 10^3/uL (4.0-10.0)
[2018-09-23 23:35] LABS: ALBUMIN 4.1 GM/DL (3.2-5.2); ALT/SGPT 12 U/L (12-78); AMYLASE 50 U/L (25-115); BILIRUBIN,DIRECT < 0.1 MG/DL (0.0-0.2); BILIRUBIN,TOTAL 0.3 MG/DL (0.2-1.0); BLOOD UREA NITROGEN 11 MG/DL (7-18); CALCIUM LEVEL 8.7 MG/DL (8.5-10.1); CARBON DIOXIDE LEVEL 29 MEQ/L (21-32); CHLORIDE LEVEL 108 MEQ/L (98-107); CREATININE FOR GFR 0.66 MG/DL (0.55-1.30); GLOMERULAR FILTRATION RATE > 60.0 (>60); GLUCOSE, FASTING 84 MG/DL (70-100); LIPASE 100 U/L (73-393); POTASSIUM SERUM 3.6 MEQ/L (3.5-5.1); SODIUM LEVEL 141 MEQ/L (136-145); TOTAL PROTEIN 7.3 GM/DL (6.4-8.2)
[2018-09-24] MEDS ORDERED: ISOVUE-370 76% 100ML VIAL (Q9967) As Ordered ONE (01:28)
[2018-09-24] MEDS ORDERED: ONDANSETRON 4MG/2ML VIAL (J2405) IV ONE (01:30)
[2018-09-24] MEDS ORDERED: HALOPERIDOL 5 MG/ML VIAL (J1630) IV ONE (01:30)
--- NOTE | 2018-09-24 02:39 | REPVR ---
EXAM: CT Abdomen and Pelvis With Contrast EXAM DATE/TIME: 09/24/2018 1:20 AM CLINICAL HISTORY: 32 years old, female; Abdominal pain; Flank; Right; Additional info: Right abd/flank pain TECHNIQUE: Imaging protocol: Axial computed tomography images of the abdomen and pelvis with intravenous contrast. Coronal and sagittal reformatted images were created and reviewed. Radiation optimization: All CT scans at this facility use at least one of these dose optimization techniques: automated exposure control; mA and/or kV adjustment per patient size (includes targeted exams where dose is matched to clinical indication); or iterative reconstruction. Contrast material: ISO; Contrast volume: 100 ml; Contrast route: AC; COMPARISON: CT ABD PELVIS WITH CONTRAST 08/07/2018 5:16 PM FINDINGS: Lungs: Minimal right lower lobe atelectasis or scar. Liver: The liver attenuation is 76 Hounsfield units and the spleen is 118 Hounsfield units. Gallbladder and bile ducts: Status post cholecystectomy. Pancreas: Normal. No ductal dilation. Spleen: Normal. No splenomegaly. Adrenals: Normal. No mass. Kidneys and ureters: Normal. No hydronephrosis. Stomach and bowel: Normal. No obstruction. No mucosal thickening. Appendix: A normal appendix is seen. Intraperitoneal space: Normal. No free air. No significant fluid collection. Vasculature: Low aortic/SMA angle with narrowing of the left renal vein. There is some proximal distention but no collateralization and significance is uncertain. Lymph nodes: Normal. No enlarged lymph nodes. Bladder: Unremarkable as visualized. Reproductive: Status post hysterectomy. Bones/joints: No acute fracture. No dislocation. Soft tissues: Unremarkable. IMPRESSION: 1. There has been prior cholecystectomy and hysterectomy. 2. Mild fatty infiltration of the liver. 3. Otherwise negative CT abdomen/pelvis. No renal or ureteral calculi are evident and there is no evidence of obstructive uropathy. Electronically signed by: Tom Dumont On 09/24/2018 02:38:12 AM
[2018-09-24 02:49] VITALS: BP 97/53
== END 2018-09-24 02:58 | disposition home or self-care (01) ==
LOC: M ED 22:32
DX: R10.9 Unspecified abdominal pain (principal); B18.2 Chronic viral hepatitis C; F12.90 Cannabis use, unspecified, uncomplicated; F17.210 Nicotine dependence, cigarettes, uncomplicated; F31.9 Bipolar disorder, unspecified; F41.9 Anxiety disorder, unspecified; F90.9 Attention-deficit hyperactivity disorder, unspecified type; K21.9 Gastro-esophageal reflux disease without esophagitis; K50.00 Crohn's disease of small intestine without complications; K76.0 Fatty (change of) liver, not elsewhere classified; K85.90 Acute pancreatitis without necrosis or infection, unspecified; M54.9 Dorsalgia, unspecified; N80.9 Endometriosis, unspecified; Z87.442 Personal history of urinary calculi; Z88.6 Allergy status to analgesic agent; Z88.8 Allergy status to other drugs, medicaments and biological substances; Z91.013 Allergy to seafood; Z91.048 Other nonmedicinal substance allergy status
CPT/HCPCS: 74177; 80048; 80076; 81001; 82150; 83690; 85025; 96374; 96375; 99284; J1630; J2405; Q9967

== ENCOUNTER 2018-12-18 18:30 | Emergency (ER) | payer OTHER, SELFPAY ==
[~2018-12-18] VITALS: Ht 165.1 cm; Wt 62.6 kg
[2018-12-18 19:15] LABS: BASO % 0.6 % (0.0-1.0); EOS # 0.2 10^3/uL (0.0-0.5); EOS % 3.6 % (0.0-3.0); HEMATOCRIT 38.2 % (36.0-47.0); HEMOGLOBIN 12.7 g/dl (12.0-15.5); LYMPH # 2.9 10^3/uL (1.5-5.0); LYMPH % 43.4 % (24.0-44.0); MEAN CORPUSCULAR HEMOGLOBIN 31.3 pg (27.0-33.0); MEAN CORPUSCULAR HGB CONC 33.2 g/dl (32.0-36.5); MEAN CORPUSCULAR VOLUME 94.1 fl (80.0-96.0); MONO # 0.5 10^3/uL (0.0-0.8); NEUTROPHILS % 45.1 % (36.0-66.0); PLATELET COUNT, AUTOMATED 248 10^3/uL (150-450); RED BLOOD COUNT 4.06 10^6/uL (4.00-5.40); WHITE BLOOD COUNT 6.7 10^3/uL (4.0-10.0)
[2018-12-18 19:42] LABS: HCG, SERUM QUALITATIVE NEGATIVE (NEGATIVE)
[2018-12-18 19:46] LABS: APPEARANCE, URINE CLEAR (CLEAR); BACTERIA, URINE AUTO NEGATIVE (NEGATIVE); BILIRUBIN, URINE AUTO NEGATIVE (NEGATIVE); BLOOD, URINE BLOOD NEGATIVE (NEGATIVE); COLOR, URINE YELLOW (YELLOW); GLUCOSE, URINE (UA) AUTO NEGATIVE (NEGATIVE); KETONE, URINE AUTO NEGATIVE (NEGATIVE); LEUKOCYTE ESTERASE, URINE AUTO NEGATIVE (NEGATIVE); MUCUS, URINE SMALL (NEGATIVE); NITRITE, URINE AUTO NEGATIVE (NEGATIVE); PROTEIN, URINE AUTO NEGATIVE (NEGATIVE); RBC, URINE AUTO 4 /HPF (0-3); SPECIFIC GRAVITY URINE AUTO 1.011 (1.002-1.035); SQUAMOUS EPITHELIAL CELL UR AU 0 /HPF (0-6); UROBILINOGEN, URINE AUTO 0.2 mg/dL (0.0-2.0); WBC, URINE AUTO 8 /HPF (0-3)
[2018-12-18 19:51] LABS: ALBUMIN 3.4 GM/DL (3.2-5.2); ALT/SGPT 13 U/L (12-78); BILIRUBIN,DIRECT < 0.1 MG/DL (0.0-0.2); BILIRUBIN,TOTAL 0.2 MG/DL (0.2-1.0); BLOOD UREA NITROGEN 6 MG/DL (7-18); CALCIUM LEVEL 8.9 MG/DL (8.5-10.1); CARBON DIOXIDE LEVEL 30 MEQ/L (21-32); CHLORIDE LEVEL 105 MEQ/L (98-107); CREATININE FOR GFR 0.63 MG/DL (0.55-1.30); GLOMERULAR FILTRATION RATE > 60.0 (>60); GLUCOSE, FASTING 88 MG/DL (70-100); POTASSIUM SERUM 4.3 MEQ/L (3.5-5.1); SODIUM LEVEL 141 MEQ/L (136-145); THYROXINE (T4) 10.3 UG/DL (4.5-12.0); TOTAL PROTEIN 6.5 GM/DL (6.4-8.2)
[2018-12-18] MEDS ORDERED: diazePAM 5 MG TAB PO ONE (21:00)
--- NOTE | 2018-12-18 21:11 | REPVR ---
PROCEDURE INFORMATION: Exam: CT Abdomen and Pelvis Without Contrast Exam date and time: 12/18/2018 8:56 PM Clinical history: 32 years old, female; Abdominal pain; Flank; Left; Additional info: Left flank pain TECHNIQUE: Imaging protocol: Computed tomography of the abdomen and pelvis without contrast. Radiation optimization: All CT scans at this facility use at least one of these dose optimization techniques: automated exposure control; mA and/or kV adjustment per patient size (includes targeted exams where dose is matched to clinical indication); or iterative reconstruction. COMPARISON: CT ABD/PELVIS W/O CONTRAST - OUTSIDE PRIOR 08/05/2018 7:18 PM FINDINGS: Liver: Normal. No mass. Gallbladder and bile ducts: There has been a cholecystectomy. Pancreas: Normal. No ductal dilation. Spleen: Normal. No splenomegaly. Adrenals: Normal. No mass. Kidneys and ureters: Normal. No hydronephrosis. Stomach and bowel: Unremarkable. No obstruction. No mucosal thickening. Appendix: No evidence of appendicitis. Intraperitoneal space: Unremarkable. No free air. No significant fluid collection. Vasculature: Unremarkable. No abdominal aortic aneurysm. Lymph nodes: Unremarkable. No enlarged lymph nodes. Bladder: Unremarkable as visualized. Reproductive: There has been a hysterectomy. Bones/joints: Unremarkable. No acute fracture. Soft tissues: Unremarkable. IMPRESSION: 1. There has been a cholecystectomy. 2. There has been a hysterectomy. Electronically signed by: Jethro Holcomb On 12/18/2018 21:10:30 PM
[2018-12-18 22:02] VITALS: BP 111/65
--- NOTE | 2018-12-19 07:11 | REP ---
CHEST, TWO VIEWS: There is no evidence of acute infiltrate. No pleural effusion is seen. The heart is normal in size. The mediastinal silhouette is unremarkable. The visualized osseous structures are intact. IMPRESSION: No acute pulmonary disease. Electronically Signed by Domingo Carbajal MD 12/20/2018 05:41 P
== END 2018-12-18 22:03 | disposition home or self-care (01) ==
LOC: M ED 18:30
DX: M54.5 Low back pain (principal); F41.9 Anxiety disorder, unspecified; F90.9 Attention-deficit hyperactivity disorder, unspecified type; F31.9 Bipolar disorder, unspecified; N80.9 Endometriosis, unspecified; G43.909 Migraine, unspecified, not intractable, without status migrainosus; K21.9 Gastro-esophageal reflux disease without esophagitis; K50.90 Crohn's disease, unspecified, without complications; K90.0 Celiac disease; Z90.49 Acquired absence of other specified parts of digestive tract; Z90.79 Acquired absence of other genital organ(s); F17.210 Nicotine dependence, cigarettes, uncomplicated; F12.10 Cannabis abuse, uncomplicated; Z88.4 Allergy status to anesthetic agent; Z88.8 Allergy status to other drugs, medicaments and biological substances; Z88.2 Allergy status to sulfonamides; Z91.013 Allergy to seafood; Z91.040 Latex allergy status

== ENCOUNTER → 2020-03-21 | Outpatient (CLI) | payer OTHER ==
[~2020-03-21] MED LIST changes: +CLON0.5T2 PO; -CLON0.5T8 PO; +CYCL-707 PO; -CYCL10TA PO
[2020-03-21 15:56] LABS: AMPHETAMINES URINE REFLEX NEGATIVE (NEGATIVE); BARBITURATES URINE REFLEX NEGATIVE (NEGATIVE); BENZODIAZEPINES URINE REFLEX NEGATIVE (NEGATIVE); COCAINE METABOLITE URINE REFLE NEGATIVE (NEGATIVE); METHADONE URINE REFLEX NEGATIVE (NEGATIVE); OPIATES URINE REFLEX NEGATIVE (NEGATIVE); PHENCYCLIDINE URINE REFLEX NEGATIVE (NEGATIVE)
[2020-03-21 15:59] LABS: CANNABINOIDS URINE REFLEX PENDING CONFIRMATION (NEGATIVE)
== END ==
LOC: M LAB 14:37
DX: F11.20 Opioid dependence, uncomplicated (principal)
CPT/HCPCS: 36415; 80307; G0480

== ENCOUNTER 2020-09-01 16:06 | Emergency (ER) | payer OTHER ==
[~2020-09-01] VITALS: Ht 162.6 cm; Wt 62.0 kg
[~2020-09-01 16:06] MED LIST changes: +EMTR1TAB16 PO; +METH-1164 PO; -METH1TAB40 PO; -TRUVTAB PO
[2020-09-01 16:10] VITALS: BP 109/53
[2020-09-01] MEDS ORDERED: BUPR1SUB5 (16:20)
[2020-09-01 17:47] LABS: BILIRUBIN, URINE MANUAL NEGATIVE (NEGATIVE); GLUCOSE, URINE (UA) MANUAL NEGATIVE (NEGATIVE); KETONE, URINE MANUAL 1+ mg/dL (NEGATIVE); UROBILINOGEN, URINE MANUAL NORMAL (NORMAL)
== END 2020-09-01 18:17 | disposition left against medical advice (07) ==
LOC: M ED 16:06
DX: Z53.21 Procedure and treatment not carried out due to patient leaving prior to being seen by health care provider (principal)

== ENCOUNTER 2021-06-04 19:38 | Emergency (ER) | payer OTHER ==
[~2021-06-04] VITALS: Ht 165.1 cm; Wt 68.2 kg
[~2021-06-04 19:38] MED LIST changes: +BUPR1SUB5; -IBUP200T45 PO; +IBUP200T46 PO
[2021-06-04] MEDS ORDERED: SUBO8MIS (20:04)
[2021-06-04] MEDS ORDERED: LAMO100T3 (20:04)
[2021-06-04 22:57] LABS: BASO % 0.3 % (0.0-1.0); EOS # 0.2 10^3/uL (0.0-0.5); HEMATOCRIT 33.2 % (36.0-47.0); HEMOGLOBIN 11.5 g/dl (12.0-15.5); MEAN CORPUSCULAR HEMOGLOBIN 31.5 pg (27.0-33.0); MEAN CORPUSCULAR HGB CONC 34.6 g/dl (32.0-36.5); MONO # 0.9 10^3/uL (0.0-0.8); MONO % 6.2 % (2.0-8.0); NEUTROPHILS # 10.6 10^3/uL (1.5-8.5); NEUTROPHILS % 71.7 % (36.0-66.0); PLATELET COUNT, AUTOMATED 429 10^3/uL (150-450); RED BLOOD COUNT 3.65 10^6/uL (4.00-5.40); WHITE BLOOD COUNT 14.8 10^3/uL (4.0-10.0)
[2021-06-04] MEDS ORDERED: NS 1,000 ML IV ONE (23:15)
[2021-06-04] MEDS ORDERED: cefTRIAXone SOD 2 GM in D5W MINI-BAG PLUS 50 ML IV ONE (23:15)
[2021-06-04] MEDS ORDERED: ONDANSETRON 4MG/2ML VIAL IV ONE (23:15)
[2021-06-04 23:32] LABS: ALBUMIN 2.7 GM/DL (3.2-5.2); ALT/SGPT 60 U/L (12-78); BILIRUBIN,DIRECT 0.1 MG/DL (0.0-0.2); BILIRUBIN,TOTAL 0.3 MG/DL (0.2-1.0); LIPASE 32 U/L (73-393); TOTAL PROTEIN 6.9 GM/DL (6.4-8.2)
[2021-06-04 23:46] LABS: BLOOD UREA NITROGEN 9 MG/DL (7-18); CALCIUM LEVEL 8.5 MG/DL (8.5-10.1); CARBON DIOXIDE LEVEL 30 MEQ/L (21-32); CHLORIDE LEVEL 98 MEQ/L (98-107); CREATININE FOR GFR 0.49 MG/DL (0.55-1.30); GLOMERULAR FILTRATION RATE > 60.0 (>60); GLUCOSE, FASTING 90 MG/DL (70-100); POTASSIUM SERUM 3.2 MEQ/L (3.5-5.1); SODIUM LEVEL 137 MEQ/L (136-145)
[2021-06-05] MEDS ORDERED: ACETAMINOPHEN 325 MG TAB PO ONE (01:00)
[2021-06-05 01:05] LABS: RSV AMPLIFICATION NEGATIVE (NEGATIVE)
[2021-06-05 01:41] VITALS: BP 109/59
[2021-06-05] MEDS ORDERED: CEFD300C PO (02:15)
[2021-06-05] MEDS ORDERED: ONDA4TAB6 PO (02:15)
== END 2021-06-05 02:27 | disposition home or self-care (01) ==
LOC: M ED 19:38
DX: N10 Acute pyelonephritis (principal); N39.0 Urinary tract infection, site not specified; R10.9 Unspecified abdominal pain; K73.9 Chronic hepatitis, unspecified; F17.200 Nicotine dependence, unspecified, uncomplicated; F12.10 Cannabis abuse, uncomplicated; Z87.442 Personal history of urinary calculi; Z79.899 Other long term (current) drug therapy
CPT/HCPCS: 71046; 74176; 80047; 80048; 80076; 81001; 83605; 83690; 85025; 87040; 87088; 87186; 87631; 96361; 96365; 96366; 96375; 99284; J0696; J2405

== ENCOUNTER → 2022-04-15 | Outpatient (REF) ==
[~2022-04-15] MED LIST changes: +CEFD300C PO; +CLONI1TA PO; +LAMO100T3; +METH-1165 PO; +ONDA4TAB6 PO; +SUBO8MIS; +VIST50CA PO
== END ==
LOC: M LAB 15:13
PROVIDERS: ATTEND Nurse Practitioner Adult Health
DX: Z02.1 Encounter for pre-employment examination (principal)

== ENCOUNTER → 2023-01-28 | Outpatient (CLI) | payer OTHER ==
[2023-01-28 13:38] LABS: BASO % 0.5 % (0.0-1.0); EOS # 0.2 10^3/uL (0.0-0.5); EOS % 2.9 % (0.0-3.0); HEMATOCRIT 41.3 % (36.0-47.0); LYMPH # 2.3 10^3/uL (1.5-5.0); LYMPH % 30.9 % (24.0-44.0); MEAN CORPUSCULAR HEMOGLOBIN 31.3 pg (27.0-33.0); MEAN CORPUSCULAR HGB CONC 33.9 g/dl (32.0-36.5); MEAN CORPUSCULAR VOLUME 92.2 fl (80.0-96.0); MONO # 0.4 10^3/uL (0.0-0.8); MONO % 5.8 % (2.0-8.0); NEUTROPHILS # 4.5 10^3/uL (1.5-8.5); NEUTROPHILS % 59.8 % (36.0-66.0); PLATELET COUNT, AUTOMATED 265 10^3/uL (150-450); RED BLOOD COUNT 4.48 10^6/uL (4.00-5.40); WHITE BLOOD COUNT 7.5 10^3/uL (4.0-10.0)
[2023-01-28 14:07] LABS: THEOPHYLLINE LEVEL < 2.0 UG/ML (10.0-20.0)
[2023-01-28 14:11] LABS: IRON (FE) 58 UG/DL (50-170)
[2023-01-28 14:13] LABS: ALKALINE PHOSPHATASE 85 U/L (46-116); ALT/SGPT 77 U/L (7.0-40); AST/SGOT 66 U/L (<34); BILIRUBIN,DIRECT 0.2 MG/DL (<0.4); BILIRUBIN,TOTAL 0.4 MG/DL (0.3-1.2); BLOOD UREA NITROGEN 9 MG/DL (9-23); CALCIUM LEVEL 9.1 MG/DL (8.5-10.1); CARBON DIOXIDE LEVEL 29 MMOL/L (20-31); CHLORIDE LEVEL 103 MMOL/L (98-107); CHOLESTEROL LEVEL 165 MG/DL (<200); CHOLESTEROL RISK RATIO 3.88 (<5); CREATININE FOR GFR 0.62 MG/DL (0.55-1.30); FERRITIN 46.7 NG/ML (7.3-270.7); FOLATE 15.36 NG/ML (>5.4); GLOMERULAR FILTRATION RATE > 60.0 (>60); GLUCOSE, FASTING 80 MG/DL (60-100); HDL CHOLESTEROL 42.5 MG/DL (>40); LDL CHOLESTEROL 104.3 MG/DL (<100); NON-HDL-C 122.5 MG/DL; PHOSPHORUS LEVEL 3.5 MG/DL (2.5-4.9); POTASSIUM SERUM 3.9 MMOL/L (3.5-5.1); SODIUM LEVEL 137 MMOL/L (136-145); TOTAL 25(OH) VITAMIN D 25.3 NG/ML (20.0-100.0); TOTAL PROTEIN 6.8 G/DL (5.7-8.2); TRIGLYCERIDES LEVEL 91 MG/DL (<150)
[2023-01-28 14:36] LABS: HEMOGLOBIN A1c 4.5 % (4.0-6.0)
[2023-01-28 15:54] LABS: HEPATITIS C VIRUS ABY INDEX > 11.00 INDEX (<0.8)
[2023-01-29 22:17] LABS: LITHIUM LEVEL < 0.10 MMOL/L (1.0-1.20)
== END ==
LOC: M LAB 12:33
PROVIDERS: ATTEND Registered Nurse Psychiatric/Mental Health
DX: Z79.899 Other long term (current) drug therapy (principal); F11.20 Opioid dependence, uncomplicated

== ENCOUNTER 2023-08-25 19:12 | Emergency (ER) | payer OTHER ==
[~2023-08-25] VITALS: Ht 165.1 cm; Wt 76.8 kg
[~2023-08-25 19:12] MED LIST changes: -KLON1TAB PO; +KLON1TAB13 PO
[2023-08-25 20:00] LABS: VENOUS BASE EXCESS 0.8 (-2.0-2.0); VENOUS HCO3 24.8 MMOL/L (23.0-27.0); VENOUS O2 SATURATION 90.1 % (60.0-80.0); VENOUS PARTIAL PRESSURE CO2 37.8 mmHg (38.0-50.0); VENOUS PARTIAL PRESSURE O2 52.1 mmHg (30.0-50.0); VENOUS PH 7.434 UNITS (7.330-7.430); VENOUS TOTAL CO2 25.9 MMOL/L (24.0-28.0)
[2023-08-25 20:15] LABS: BASO # 0.1 10^3/uL (0.0-0.2); BASO % 0.5 % (0.0-1.0); EOS # 0.1 10^3/uL (0.0-0.5); EOS % 0.5 % (0.0-3.0); HEMATOCRIT 44.5 % (36.0-47.0); HEMOGLOBIN 15.3 g/dl (12.0-15.5); LYMPH # 2.8 10^3/uL (1.5-5.0); LYMPH % 21.9 % (24.0-44.0); MEAN CORPUSCULAR HEMOGLOBIN 31.9 pg (27.0-33.0); MEAN CORPUSCULAR HGB CONC 34.4 g/dl (32.0-36.5); MEAN CORPUSCULAR VOLUME 92.9 fl (80.0-96.0); MONO # 0.7 10^3/uL (0.0-0.8); MONO % 5.8 % (2.0-8.0); NEUTROPHILS # 9.1 10^3/uL (1.5-8.5); PLATELET COUNT, AUTOMATED 250 10^3/uL (150-450); RED BLOOD COUNT 4.79 10^6/uL (4.00-5.40); WHITE BLOOD COUNT 12.8 10^3/uL (4.0-10.0)
[2023-08-25 20:17] LABS: HCG, SERUM QUALITATIVE NEGATIVE (NEGATIVE)
[2023-08-25 20:20] LABS: ETHYL ALCOHOL (ETHANOL) < 0.003 % (0.000-0.010)
[2023-08-25 20:21] LABS: CK-MB VALUE MASS < 1.0 NG/ML (<3.6)
[2023-08-25 20:22] LABS: SALICYLATE LEVEL < 3.0 MG/DL (<30)
[2023-08-25 20:23] LABS: ALKALINE PHOSPHATASE 85 U/L (46-116); ALT/SGPT 162 U/L (7.0-40); AST/SGOT 93 U/L (<34); BILIRUBIN,DIRECT 0.2 MG/DL (<0.4); BILIRUBIN,TOTAL 0.5 MG/DL (0.3-1.2); BLOOD UREA NITROGEN 10 MG/DL (9-23); CALCIUM LEVEL 9.2 MG/DL (8.5-10.1); CARBON DIOXIDE LEVEL 23 MMOL/L (20-31); CHLORIDE LEVEL 109 MMOL/L (98-107); CREATININE FOR GFR 0.47 MG/DL (0.55-1.30); GLOMERULAR FILTRATION RATE > 60.0 (>60); GLUCOSE, FASTING 100 MG/DL (60-100); POTASSIUM SERUM 3.9 MMOL/L (3.5-5.1); SODIUM LEVEL 141 MMOL/L (136-145); TOTAL PROTEIN 7.3 G/DL (5.7-8.2)
[2023-08-25 20:24] LABS: FREE T4 1.15 NG/DL (0.89-1.76); THYROID STIMULATING HORMONE 0.704 uIU/ML (0.55-4.78)
[2023-08-25 20:25] LABS: CPK CREATINE PHOSPHOKINASE 92 U/L (34-145); MB/CK RELATIVE INDEX 1.08 (< OR =4)
[2023-08-25 20:26] LABS: ERYTHROCYTE SEDIMENTATION RATE 9 mm/hr (0-20)
[2023-08-25] MEDS: levETIRAcetam INJection 500 MG in D5W MINI-BAG PLUS 100 ML IV ONE (20:27)
[2023-08-25] MEDS: NS 1,000 ML IV ONE (20:28)
[2023-08-25 21:15] LABS: BARBITURATES URINE NEGATIVE (NEGATIVE); BENZODIAZEPINES URINE NEGATIVE (NEGATIVE); COCAINE METABOLITE URINE NEGATIVE (NEGATIVE); METHADONE URINE NEGATIVE (NEGATIVE); OPIATES URINE NEGATIVE (NEGATIVE); PHENCYCLIDINE URINE NEGATIVE (NEGATIVE)
[2023-08-25] MEDS: SUMAtriptan SUCCINATE 6MG/0.5ML VIAL SC ONE (21:15)
[2023-08-25] MEDS: ONDANSETRON 4MG 2ML VIAL IV ONE (21:15)
[2023-08-25 21:27] LABS: AMPHETAMINES LEVEL URINE POSITIVE (NEGATIVE); CANNABINOIDS URINE POSITIVE (NEGATIVE)
[2023-08-25] MEDS ORDERED: IMIT50TA PO (22:21)
[2023-08-25] MEDS ORDERED: ONDA4TAB6 PO (22:21)
[2023-08-25] MEDS: dexAMETHasone 20MG/5ML VIAL IV ONE (22:25)
[2023-08-25] MEDS: PROCHLORPERAZINE 10MG 2ML VIAL IV PRN (22:28)
[2023-08-25 22:34] VITALS: BP 99/56; TEMP 98.5; O2SAT 99
== END 2023-08-25 22:50 | disposition home or self-care (01) ==
LOC: M ED 19:12
DX: G40.909 Epilepsy, unspecified, not intractable, without status epilepticus (principal); R51.9 Headache, unspecified; F12.10 Cannabis abuse, uncomplicated; Z88.2 Allergy status to sulfonamides; Z88.5 Allergy status to narcotic agent; Z88.6 Allergy status to analgesic agent; Z91.013 Allergy to seafood; Z91.048 Other nonmedicinal substance allergy status; Z79.899 Other long term (current) drug therapy
CPT/HCPCS: 70450; 71045; 80048; 80076; 80143; 80180; 80307; 82077; 82140; 82550; 82553; 82803; 83605; 84439; 84443; 84484; 84703; 85025; 85652; 93005; 96365; 96372; 96375; 99284; J0780; J1100; J1953; J2405; J3030